=== PATIENT | female | born 1995 | race Caucasian/White ===

== ENCOUNTER 2016-07-10 03:27 | Emergency (ER) | payer BC, OTHER ==
[~2016-07-10] VITALS: Ht 167.6 cm; Wt 55.0 kg
[~2016-07-10 03:27] MED LIST: DPPI400 IM; ESCI10TA17 PO; HYDR50CA2 PO; NITR-5 PO; ONDA4TAB9 PO
[2016-07-10 03:40] VITALS: TEMP 36.8; Ht 167.6 cm; Wt 55.0 kg
[2016-07-10] MEDS ORDERED: HALOPERIDOL LACTATE 5 MG/ML 1 ML VIAL IM STA (03:44)
[2016-07-10] MEDS ORDERED: LORAZEPAM 2 MG/ML 1 ML VIAL IM STA (03:44)
[2016-07-10] MEDS ORDERED: ESCI1TAB10 PO (04:01)
[2016-07-10] MEDS ORDERED: DPPI400 INJ (04:03)
[2016-07-10] MEDS ORDERED: BND25 PO (04:05)
[2016-07-10 04:25] LABS: BASO % 0.5 %; BASO ABS # 0.04 K/uL (0-0.2); COMPLETE YES; EOS % 1.1 %; HEMATOCRIT 42.1 % (37-47); IG% 0.1 %; LYMPH % 48.5 %; LYMPH ABS # 3.68 K/uL (1.2-3.4); MEAN CELL VOLUME 86.3 fL (80-100); MEAN CORPUSCULAR HEMOGLOBIN 30.3 pg (25-34); MEAN CORPUSCULAR HGB CONC 35.2 g/dl (32-36); MONO % 5.7 %; NEUT % 44.1 %; PLATELET COUNT 246 K/uL (130-400); RED BLOOD COUNT 4.88 M/uL (4.2-5.4); WHITE BLOOD COUNT 7.59 K/uL (4.8-10.8)
[2016-07-10 04:49] LABS: BLOOD UREA NITROGEN 9 mg/dl (7-18); GLUCOSE 99 mg/dl (70-99)
[2016-07-10 04:50] LABS: ALT/SGPT 17 U/L (12-78); AST/SGOT 9 U/L (15-37); BUN/CREATININE RATIO 14.6 (10-20); CALCIUM 8.1 mg/dl (8.5-10.1); CARBON DIOXIDE 22 mmol/L (21-32); CHLORIDE 112 mmol/L (98-107); POTASSIUM 3.7 mmol/L (3.5-5.1); SODIUM 145 mmol/L (136-145)
[2016-07-10 05:00] LABS: ALB/GLOB RATIO 1.4 (0.9-2); ALKALINE PHOSPHATASE 52 U/L (45-117)
--- NOTE | 2016-07-10 05:28 | EMERGENCY ROOM VISIT NOTE ---
History Report prepared by Kenyetta: Benito King Under the Supervision of: Dr. Wilbur Sandhu M.D. First contact with patient: 03:32 Chief Complaint: ALCOHOL OVERDOSE Stated Complaint: MENTAL HEALTH EVAL. Nursing Triage Summary: patient presents with [place] police after found walking down the street and stumbling. patient admits to drinking alcohol tonight but cannot specify how much. History of Present Illness The patient is a 20 year old female who presents to the Emergency Room with complaints of alcohol overdose occurring this evening. Per the nurse, she was found walking down the street and stumbling. She drank an unspecified amount of alcohol this evening. She is not homicidal or suicidal. History is limited secondary to alcohol overdose. Source of History: EMS History Limited By: other (alcohol overdose) Onset: this evening Position: other (global) Quality: other (alcohol overdose) Timing: other (episode) Note: The patient is not suicidal or homicidal. Review of Systems Review of systems is limited secondary to alcohol overdose. Past Medical & Surgical Medical Problems: (1) ADHD (attention deficit hyperactivity disorder) (2) Anxiety (3) Asthma (4) Depression (5) H/O aspiration pneumonitis (6) H/o deliberate self cutting (7) History of suicide attempt (8) ODD (oppositional defiant disorder) (9) PTSD (post-traumatic stress disorder) (10) Social phobia Surgical Problems: (1) [place] teeth removed Family History Diabetes mellitus FH: cancer FH: heart disease Hypertension Social History Smoking Status: Never Smoker Alcohol Use: none, occasionally Drug Use: none Marital Status: single Housing Status: lives with family Occupation Status: employed Current/Historical Medications Scheduled Escitalopram Oxalate (Lexapro), 20 MG PO DAILY Medroxyprogesterone Acetate (Depo-Provera), 400 MG INJ [id number] Scheduled PRN Diphenhydramine Hcl (Benadryl), 125 MG PO HS PRN for Sleep Ondansetron (Ondansetron HCl), 4 MG PO Q6 PRN for Nausea Allergies Coded Allergies: Clindamycin (Unverified Allergy, Unknown, VOMIT, 02/17/16) Doxycycline (Verified Allergy, Unknown, UNK, 02/17/16) Penicillins (Verified Allergy, Unknown, her family is allergic, 02/17/16) Prednisone (Unverified Allergy, Unknown, MAKE MENTALY UNSTABLE, 02/17/16) Prochlorperazine (Unverified Allergy, Unknown, NUMB AND THNGLY FEELING UNABLE TO MOVE, 02/17/16) Physical Exam Vital Signs Date Time Temp Pulse Resp B/P Pulse Ox O2 Delivery O2 Flow Rate FiO2 07/10/16 07:00 122 20 86/48 95 07/10/16 06:48 96 Room Air 07/10/16 05:28 112 20 91/61 96 Room Air 07/10/16 03:55 125 07/10/16 03:40 36.8 118 22 117/80 97 Room Air Physical Exam Vital signs reviewed. General: Odor of EtOH in the breath, disheveled 20-year-old female. No signs of trauma. HEENT: Mild scleral injection bilaterally, PERRLA, neck supple, dry mucous membranes. Cardiovascular: Regular rate and rhythm, no extra sounds. Pulmonary: Clear to auscultation bilaterally, normal work of breathing. Abdomen: Soft, nontender, nondistended, positive bowel sounds. Musculoskeletal: Upper and lower extremities atraumatic, no peripheral edema Skin: Warm, dry, no rash. Atraumatic. Neurologic: Patient is currently nonverbal. Medical Decision & Procedures Laboratory Results 07/10/16 04:08 Red Blood Count 4.88, Mean Corpuscular Volume 86.3, Mean Corpuscular Hemoglobin 30.3, Mean Corpuscular Hemoglobin Concent 35.2, Mean Platelet Volume 10.0, Neutrophils (%) (Auto) 44.1, Lymphocytes (%) (Auto) 48.5, Monocytes (%) (Auto) 5.7, Eosinophils (%) (Auto) 1.1, Basophils (%) (Auto) 0.5, Neutrophils # (Auto) 3.35, Lymphocytes # (Auto) 3.68, Monocytes # (Auto) 0.43, Eosinophils # (Auto) 0.08, Basophils # (Auto) 0.04 07/10/16 04:08 Test 07/10/16 04:08 White Blood Count 7.59 K/uL (4.8-10.8) Red Blood Count 4.88 M/uL (4.2-5.4) Hemoglobin 14.8 g/dL (12.0-16.0) Hematocrit 42.1 % (37-47) Mean Corpuscular Volume 86.3 fL (80-100) Mean Corpuscular Hemoglobin 30.3 pg (25-34) Mean Corpuscular Hemoglobin Concent 35.2 g/dl (32-36) Platelet Count 246 K/uL (130-400) Mean Platelet Volume 10.0 fL (7.4-10.4) Neutrophils (%) (Auto) 44.1 % Lymphocytes (%) (Auto) 48.5 % Monocytes (%) (Auto) 5.7 % Eosinophils (%) (Auto) 1.1 % Basophils (%) (Auto) 0.5 % Neutrophils # (Auto) 3.35 K/uL (1.4-6.5) Lymphocytes # (Auto) 3.68 K/uL (1.2-3.4) Monocytes # (Auto) 0.43 K/uL (0.11-0.59) Eosinophils # (Auto) 0.08 K/uL (0-0.5) Basophils # (Auto) 0.04 K/uL (0-0.2) RDW Standard Deviation 42.2 fL (36.4-46.3) RDW Coefficient of Variation 13.4 % (11.5-14.5) Immature Granulocyte % (Auto) 0.1 % Immature Granulocyte # (Auto) 0.01 K/uL (0.00-0.02) Anion Gap 11.0 mmol/L (3-11) Est Creatinine Clear Calc Drug Dose 130.9 ml/min Estimated GFR () > 150.0 Estimated GFR (Non- 132.1 BUN/Creatinine Ratio 14.6 (10-20) Calcium Level 8.1 mg/dl (8.5-10.1) Total Bilirubin 0.2 mg/dl (0.2-1) Direct Bilirubin < 0.1 mg/dl (0-0.2) Aspartate Amino Transf (AST/SGOT) 9 U/L (15-37) Alanine Aminotransferase (ALT/SGPT) 17 U/L (12-78) Alkaline Phosphatase 52 U/L (45-117) Total Protein 7.3 gm/dl (6.4-8.2) Albumin 4.2 gm/dl (3.4-5.0) Globulin 3.1 gm/dl (2.5-4.0) Albumin/Globulin Ratio 1.4 (0.9-2) Thyroid Stimulating Hormone (TSH) 1.650 uIu/ml (0.300-4.500) Ethyl Alcohol mg/dL 234.0 mg/dl (0-3) Labs reviewed by ED physician. Medications Administered Medications (Trade) Dose Ordered Sig/Josselyn Route Start Time Stop Time Status Last Admin Dose Admin Acetaminophen (Tylenol Tab) 1,000 mg NOW STAT PO 07/10/16 07:54 07/10/16 07:55 DC 07/10/16 07:59 1,000 MG Ondansetron HCl (Zofran Odt) 4 mg NOW STAT PO 07/10/16 07:54 07/10/16 07:55 DC 07/10/16 07:59 4 MG ED Course 0343: Past medical records reviewed. The patient was evaluated in room B12B. A complete history and physical examination was performed. 0344: Ordered Ativan Inj 2 mg IM, and Haldol Inj 10 mg IM. Medical Decision Differential diagnosis: Etiologies such as alcohol intoxication, toxicologic, infection, hypoglycemia, electrolyte abnormalities, cardiac sources, intracerebral event, neurologic, as well as others were entertained. This is a 20-year-old female who presents emergency department after the police found her stumbling in the street. An ambulance was called as they're concerned over this patient's well-being as she was stumbling into traffic. Upon arrival to emergency department the patient was placed on a liter. She was placed on the monitor and aspiration precautions were taken. Alcohol level was drawn. After some time the patient's alcohol level did clear. The patient was strongly encouraged to follow up with [facility] services and to discuss this visit with her parents. Impression Primary Impression: Alcoholic intoxication Scribe Attestation The scribe's documentation has been prepared under my direction and personally reviewed by me in its entirety. I confirm that the note above accurately reflects all work, treatment, procedures, and medical decision making performed by me. Departure Information Dispostion Home / Self-Care Referrals Quincy Clements D.O. (PCP) Patient Instructions My [facility] Health Problem Qualifiers Primary Impression: Alcoholic intoxication Complication of substance-induced condition: uncomplicated Qualified Codes: F10.120 - Alcohol abuse with intoxication, uncomplicated
[2016-07-10 06:48] VITALS: O2SAT 96
[2016-07-10 07:00] VITALS: BP 86/48; PULSE 122; O2SAT 95
[2016-07-10] MEDS ORDERED: ONDANSETRON 4MG OD TAB PO STA (07:54)
[2016-07-10] MEDS ORDERED: ACETAMINOPHEN 500 MG TAB PO STA (07:54)
--- NOTE | 2016-07-10 14:41 | EMERGENCY ROOM VISIT NOTE ---
ED Visit Note First contact with patient: 07:58 20 yr old female brought in overnight for EtOH overdose after being found stumbling downtown. Initially somewhat agitated but calmed prior to any sedatives. Dr Sandhu initially evaluated and cleared patient. Monitored by me in AM and awake, alert, oriented. Mildly hung over for which tylenol/zofran given with improvement. I discussed with patient her actions and my concern that this is becoming a repetitive issue for her. She admits she made a mistake. She denies suicidal/homicidal ideation nor need for psych evaluation. Father arrived mid morning to take patient home. Stable and in no distress.
== END 2016-07-10 08:30 | disposition home or self-care (01) ==
LOC: EDBD 03:27 → C.ED 03:27 → C.EDB 08:30
DX: F10.129 Alcohol abuse with intoxication, unspecified (principal); Y90.7 Blood alcohol level of 200-239 mg/100 ml; F90.9 Attention-deficit hyperactivity disorder, unspecified type; F41.9 Anxiety disorder, unspecified; F32.9 Major depressive disorder, single episode, unspecified; J45.909 Unspecified asthma, uncomplicated; Z79.899 Other long term (current) drug therapy; Z88.0 Allergy status to penicillin; Z88.3 Allergy status to other anti-infective agents; Z88.8 Allergy status to other drugs, medicaments and biological substances; Z83.3 Family history of diabetes mellitus; Z80.9 Family history of malignant neoplasm, unspecified; Z82.49 Family history of ischemic heart disease and other diseases of the circulatory system

== ENCOUNTER → 2016-10-05 | Outpatient (CLI) | payer BC, OTHER ==
[~2016-10-05] VITALS: Ht 165.1 cm; Wt 59.7 kg
[~2016-10-05] MED LIST changes: +ALBU0.633 NEB; +DIPH25CA5 PO; -DPPI400 IM; +DPPI400 INJ; -ESCI10TA17 PO; +ESCI1TAB10 PO; +HYDR1SOL10 PO; -HYDR50CA2 PO; +LAMO25TA PO; +LTH300C PO; +LTHSR450 PO; +MEDR150I19 INJ; -NITR-5 PO; +OXYC1TAB3 PO; +ZOLP1TAB PO
[2016-10-05 13:04] VITALS: BP 120/82; PULSE 89; Ht 165.1 cm; Wt 59.7 kg
== END | disposition home or self-care (01) ==
LOC: C.NEUR 12:05
PROVIDERS: ATTEND Internal Medicine Pulmonary Disease
DX: F43.10 Post-traumatic stress disorder, unspecified (principal); G47.00 Insomnia, unspecified; F51.5 Nightmare disorder; G47.53 Recurrent isolated sleep paralysis

== ENCOUNTER → 2016-11-16 | Outpatient (CLI) | payer BC, OTHER ==
--- NOTE | 2016-11-17 06:45 | PAP/PSG TECHNICIAN REPORT ---
[facility] [employer] Psychometrist Polysomnogram Report Study name: None Report date: 11/17/2016 Study date: 11/16/2016 Referring Physician: DR. JON Name: DAVID FERRER Interpreting Physician: Daniel Jon M.D. Date of : 1995 School Psychometrist: IGLESIA Holman. Sex: Female Age: 20 StudyType: PSG Weight: 131 lbs 13 inches Height: 20 years, Height 5' 5" Neck Circum: BMI: 21.8 Medications: BENEDRYL 25 MG, ESZOPICLONE 2 MG, HYDROXYZINE PAMOATE 25 MG, LEXAPRO 20 MG, MEDROXY PROGESTERONE ACETATE 150 MG/ML, ONDANSETRON HCL 4 MG, PROVENTIL HFA 108 90 BASE, QUETIAPINE FUMARATE 50 MG Patient History PATIENT HAS TROUBLE FALLING AND MAINTAINING SLEEP. SHE HAS BEEN DEALING WITH THIS ISSUE SINCE SHE WAS 6 YEARS OLD. SHE HAS TRIED SEVERAL DIFFERENT SLEEP MEDICATIONS BUT HAS BEEN UNSUCCESSFUL. SHE HAS HISTORY OF SLEEP PARALYSIS AND NIGHTMARES. ESS = 2 RM 2 Parameters Monitored NPSG: E1-M2, E2-M1, Fp1-M2, Fp2-M1, F3-M2, F4-M2, F4-M1, C3-M2, C4-M2, C4-M1, O1-M2, O2-M2, O2-M1, T3-M2, T4-M1, P3-M2, P4-M1, CHIN1, CHIN2, HR, EKG, Legs, PFLOW, SNOR, FLOW, CFLOW, Tidal Volume, THOR, ABDO, SpO2, PLTH, CPRESS, ETCO2 Wave, ETCO2, pH Sleep Architecture Sleep Stages Time at Lights Off 10:44:13 PM STAGES Time (min.) TST (%) Time at Lights On 5:50:13 AM Wake 150.5 -- Total Recording Time (TRT) 426.50 min. N1 7.0 3 Total Sleep Period (TSP) 331.0 min. N2 152.5 55 Total Sleep Time (TST) 275.5min. N3 50.0 18 Awake Time 151.0 min. REM 66.0 24 Wake after Sleep Onset 77.0 min. Sleep Efficiency (SE) 65 % Sleep Onset Latency (MARIA INES) 73.5 min. Number of Stage 1 Shifts None Awakenings 14 Stage Changes 38 Number of REM periods 1 REM 66.0 24 REM Latency 265.0 min. NREM 209.5 76 Body Position Analysis Supine Right Left Side Prone Vertical Total Sleep Time (min.) 201.8 14.2 111.5 125.66 0.0 0.0 Total Sleep Time (%) 54% 5% 40% 46 0% N/A% Total Sleep Time REM (min.) 0.0 0.0 66.0 None 0.0 0.0 Total Sleep Time NREM (min.) 149.8 14.2 45.5 None 0.0 0.0 Intermittent Wake (min.) 51.9 33.9 64.7 None 0.0 0.0 Total Sleep Period (%) 56% None None None None None Arousals Myoclonus (PLM) * Events Count Index Events Count Index Spontaneous 24 5 Events Awake (PLMW) 94 37.5 Respiratory 0 0.0 Events Asleep w/ Arousal (PLMA) 3 0.7 PLM 3 1 Events Asleep w/o Arousal (PLMS) 52 11.3 Snoring 0 0 Total Asleep 55 12.0 Total 27 6 Total 149 21 Respiratory Analysis * CA OA MA CH H RERA Total Count 1 0 0 0 3 0 4 Index 0.2 0.0 0.0 0 0.7 0 0.9 Mean Duration 15.7 0.0 0.0 0.00 20.3 0.0 19.2 Longest Duration 15.7 0.0 0.0 0.00 0.0 0.0 20.6 Respiratory Event Summary Total Supine ~Supine Right Left Prone REM NREM Apneas Count 1 0 1 0 1 N/A 1 0 Index 0.2 0 0 0.0 0.5 N/A 1 0 Hypopneas (4% Desat) Count 3 0 3 0 3 N/A 3 0 Index 0.7 0.0 1 0.0 1.6 N/A 2.7 0.0 Apneas & All Hypopneas Count 4 0 4 0 4 N/A 4 0 Index 0.9 0 2 0 2 N/A 3.6 0.0 Respiratory Events (Conservation Or Heritage Architect+All Hyp+RERA) Count 4 0 4 0 4 N/A 4 0 Index 0.9 0 2 0.0 2.2 N/A 3.6 0.0 Respiratory Related Arousal Count 0 0 0 0 0 N/A 0 0 Index 0.0 0 0 0 0 N/A 0 0 Snoring Analysis Supine Right Left Prone REM NREM Total Snore duration 0.0 min Snores count 0 0 0 N/A 0 0 0 Snore mean duration 0.0 Sec Snores index 0 0 0 N/A 0.0 0.0 0.0 TST with snoring (%) 0.0% Desaturation Event Summary: Minimum %SpO2 Event Count Mean/Min/Max Duration(sec.) Desaturation Index % Time In Bed > 90 12 31.0 / 7.5 / 51.5 1.7 100.0 86 - 90 0 N/A 0.0 0.0 81 - 85 0 N/A 0.0 0.0 76 - 80 0 N/A 0.0 0.0 71 - 75 0 N/A 0.0 0.0 66 - 70 0 N/A 0.0 0.0 61 - 65 0 N/A 0.0 0.0 56 - 60 0 N/A 0.0 0.0 51 - 55 0 N/A 0.0 0.0 < 50 0 N/A 0.0 0.0 Total REM NREM Awake <50% 0.0 min. 0.0 min. 0.0 min. 0.0 min. 51 - 60% 0.0 min. 0.0 min. 0.0 min. 0.0 min. 61 - 70% 0.0 min. 0.0 min. 0.0 min. 0.0 min. 71 - 80% 0.0 min. 0.0 min. 0.0 min. 0.0 min. 81 - 90% 0.1 min. 0.0 min. 0.0 min. 0.1 min. 91 - 100% 422.4 min. 66.0 min. 209.5 min. 146.9 min. Average 94 95 94 95 Minimum SpO2 90 91 91 90 Desaturation Event Index 1.7 3.6 0.3 2.8 # Desat. Events below 89% N/A N/A N/A N/A Time(%) with Saturation below 89% 0.0 0.0 0.0 0.0 Time(min.) with Saturation below 89% 0.0 0.0 0.0 0.0 Time (mins) REM (mins) NREM (mins) % of TST SpO2 Below 90% N/A N/A NN/A 0.0 SpO2 Below 88% 0 0 0 0 Heart Rate Analysis Min (bpm) Max (bpm) Average (bpm) Awake 72 108 93 NREM 73 109 91 REM 68 100 88 Overall 68 109 90 Supplemental O2 Values Minimum O2 level: None Value Start Time End Time School Psychometrist Comments Ms. Ferrer slept in the right, left and supine positions. PVC's noted. Leg movements noted. No bruxism noted. Snoring was noted and scored as a 0 on a scale of 1 through 5. (0=no snoring, 5=snoring loud enough to be heard through a closed door or down the jean way) Ms. Ferrer awoke to use the restroom 0 times during the night. Ms. Ferrer stated I did not sleep as well as I do when I am in my own bed. Patient wanted me to note that her family doctor does not want to prescribe eszopiclone anymore and would see if Dr. Jon would. The final report will be interpreted and signed by a sleep physician. The completed physician report will then be placed in the patient medical record. Therapy (cm H2O) 0 TIB (min.) 426.0 TST (min.) 275.5 Sleep Onset (min.) 73.5 REM Onset From Sleep (min.) 265.0 Sleep Efficiency % 65 Wakefulness (%) 35 Wakefulness (min.) 151.0 NREM 1 (%) 3 NREM 1 (min.) 7.0 NREM 2 (%) 55 NREM 2 (min.) 152.5 NREM 3 (%) 18 NREM 3 (min.) 50.0 REM (%) 24 REM (min.) 66.0 # Arousals 27 Arousal Index 6 # Snore 0 Snore Index 0.0 AHI 0.9 AHI Supine 0 AHI Non-Supine 2 NREM AHI 0.0 REM AHI 3.6 RDI 0.9 # Obstructive Apnea 0 # Central Apnea 1 # Mixed Apnea 0 # Hypopneas 3 RERAs 0 Total Respiratory Events 5 Time Below SpO2 89% (min.) 0.0 Mean NREM SpO2 (%) 94 Mean REM SpO2 (%) 95 Mean Sleep SpO2 (%) 94 Min NREM SpO2 (%) 91 Min REM SpO2 (%) 91 Position Supine (min.) 201.8 Position Non-supine (min.) 125.7 LM Index Sleep 12.0 LM Index NREM 10.0 LM Index REM 18.2 Mean Heart Rate (bpm) 90 Min Heart Rate (bpm) 68
--- NOTE | 2016-11-17 17:18 | POLYSOMNOGRAPH REPORT ---
CLINICAL DATA: 20-year-old female referred by myself and her primary care physician and psychiatry for evaluation of difficulty falling asleep and maintaining sleep. She has been dealing with this since she was 6 years old and has tried multiple sleep medications. She does have a history of posttraumatic stress disorder, sleep paralysis, and nightmares. SLEEP ARCHITECTURE: Total sleep period was 331 minutes. Total sleep time was 275.5 minutes divided between 209.5 minutes of non-REM sleep and 66 minutes of REM sleep. Sleep onset latency was delayed at 72.5 minutes. REM latency was delayed at 265 minutes. Sleep efficiency was 65%. Wake after sleep onset was 77 minutes. Sleep consisted of stage N1 3%, N2 55%, N3 18%, REM 24%. AROUSAL DATA: 27 arousals were recorded for an index of 6 per hour. 24 were due to spontaneous arousals. PLM DATA: No PLMD was seen. There were 55 PLMs were noted for an index of 12 per hour with arousal index of 0.7 per hour. RESPIRATORY DATA: No evidence of clinically significant sleep apnea/hypopnea was seen. The AHI was 0.9. There was 1 central apneic episode, 15.7 seconds in duration. There were 3 hypopneic episodes. The mean duration of hypopnea was 20.3 seconds. OXIMETRY DATA: No significant hypoxemia was seen. Oxygen lon was 91%. Mean saturation was 94%. EKG: Heart rates ranged from 68-109 beats per minute. Occasional PVCs were noted. CERTIFIED ADDICTION COUNSELOR'S COMMENTS: The patient slept in the right, left, and supine position. No significant snoring was seen. The patient did note after the study that her PCP does not want to prescribe eszopiclone anymore and would like sleep medicine to provide it for her. IMPRESSION: No evidence of clinically significant sleep apnea/hypopnea, nocturnal hypoxemia or abnormal limb movement events during sleep to explain this patient's symptoms. RECOMMENDATIONS: The patient should continue to be treated for insomnia. JUAN
== END | disposition home or self-care (01) ==
LOC: C.NEUR 21:00
PROVIDERS: ATTEND Internal Medicine Pulmonary Disease
DX: G47.00 Insomnia, unspecified (principal); F51.5 Nightmare disorder; F43.10 Post-traumatic stress disorder, unspecified; G47.33 Obstructive sleep apnea (adult) (pediatric)

== ENCOUNTER → 2016-11-26 | Outpatient (CLI) | payer BC, OTHER ==
[~2016-11-26] VITALS: Ht 167.6 cm; Wt 58.7 kg
[2016-11-26 16:19] VITALS: BP 112/80; PULSE 83; Ht 167.6 cm; Wt 58.7 kg
== END | disposition home or self-care (01) ==
LOC: C.NEUR 15:15
PROVIDERS: ATTEND Internal Medicine Pulmonary Disease
DX: G47.00 Insomnia, unspecified (principal); F43.10 Post-traumatic stress disorder, unspecified; F32.3 Major depressive disorder, single episode, severe with psychotic features

== ENCOUNTER 2016-11-27 11:04 | Emergency (ER) | payer BC, OTHER ==
[~2016-11-27] VITALS: Ht 167.6 cm; Wt 59.8 kg
[~2016-11-27 11:04] MED LIST changes: -ALBU0.633 NEB; -HYDR1SOL10 PO; -LAMO25TA PO; -LTH300C PO; -LTHSR450 PO; -MEDR150I19 INJ; -OXYC1TAB3 PO; -ZOLP1TAB PO
[2016-11-27 11:12] VITALS: TEMP 37.1; Ht 167.6 cm; Wt 59.8 kg
[2016-11-27] MEDS ORDERED: ZOLP1TAB PO (11:12)
[2016-11-27] MEDS ORDERED: LAMO25TA PO (11:12)
[2016-11-27] MEDS ORDERED: SODIUM CHLORIDE 0.9% 1000ML 1,000 ML IV STA (12:00)
[2016-11-27] MEDS ORDERED: ONDANSETRON INJ 2 MG/ML 2 ML VIAL IV STA (12:00)
[2016-11-27] MEDS ORDERED: HYDROmorphone INJ 1 MG/ML SYR IV STA ×2 (12:00→13:57)
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
[2016-11-27 12:23] LABS: BASO % 0.5 %; BASO ABS # 0.03 K/uL (0-0.2); COMPLETE YES; EOS % 0.6 %; HEMATOCRIT 40.6 % (37-47); IG% 0.2 %; LYMPH % 26.9 %; LYMPH ABS # 1.76 K/uL (1.2-3.4); MEAN CELL VOLUME 88.3 fL (80-100); MEAN CORPUSCULAR HEMOGLOBIN 30.4 pg (25-34); MEAN CORPUSCULAR HGB CONC 34.5 g/dl (32-36); MEAN PLATELET VOLUME 10.6 fL (7.4-10.4); MONO % 10.2 %; NEUT % 61.6 %; PLATELET COUNT 189 K/uL (130-400); WHITE BLOOD COUNT 6.55 K/uL (4.8-10.8)
[2016-11-27 12:24] VITALS: O2SAT 98
[2016-11-27 12:31] LABS: ISTAT CREATININE 0.7 mg/dl; ISTAT HEMOGLOBIN 14.3 g/dl (12.0-16.0); ISTAT IONIZED CALCIUM 1.22 mmol/l
[2016-11-27 12:41] LABS: ALT/SGPT 16 U/L (12-78); AST/SGOT 10 U/L (15-37); BLOOD UREA NITROGEN 13 mg/dl (7-18); BUN/CREATININE RATIO 19.2 (10-20); CALCIUM 8.6 mg/dl (8.5-10.1); CARBON DIOXIDE 23 mmol/L (21-32); CHLORIDE 110 mmol/L (98-107); GLUCOSE 78 mg/dl (70-99); SODIUM 143 mmol/L (136-145)
[2016-11-27 12:46] LABS: ALKALINE PHOSPHATASE 47 U/L (45-117)
[2016-11-27 12:54] LABS: PREG INTERNAL NEGATIVE QC NEG CLEAR BACKGROUND; PREG INTERNAL POSITIVE QC POS CONTROL LINE
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
[2016-11-27] MEDS ORDERED: ALBUTEROL HFA 8 GM INHALER INH STA (13:13)
[2016-11-27] MEDS ORDERED: ALBUTEROL 0.5% NEB SOLN 2.5 MG/0.5 ML VIAL INH STA (13:13)
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
[2016-11-27] MEDS ORDERED: OXYC1TAB3 PO (14:01)
[2016-11-27] MEDS ORDERED: ALBU0.633 NEB (14:05)
[2016-11-27 14:30] VITALS: BP 106/70; PULSE 119; O2SAT 98
== END 2016-11-27 14:44 | disposition home or self-care (01) ==
LOC: EDBD 11:04 → C.EDC 11:07
DX: M54.2 Cervicalgia (principal); V89.2XXA Person injured in unspecified motor-vehicle accident, traffic, initial encounter; F90.9 Attention-deficit hyperactivity disorder, unspecified type; F41.9 Anxiety disorder, unspecified; J45.909 Unspecified asthma, uncomplicated; F33.41 Major depressive disorder, recurrent, in partial remission; F91.3 Oppositional defiant disorder; F43.10 Post-traumatic stress disorder, unspecified; F40.10 Social phobia, unspecified; Z83.3 Family history of diabetes mellitus; Z82.49 Family history of ischemic heart disease and other diseases of the circulatory system

== ENCOUNTER 2017-01-08 14:02 | Emergency (ER) | payer BC, OTHER ==
[~2017-01-08] VITALS: Ht 165.1 cm; Wt 51.0 kg
[~2017-01-08 14:02] MED LIST changes: +ALBU0.633 NEB; +BND25 PO; -DIPH25CA5 PO; +LAMO25TA PO; +OXYC1TAB3 PO; +ZOLP1TAB PO
[2017-01-08 14:09] VITALS: Ht 165.1 cm; Wt 51.0 kg
[2017-01-08 14:21] LABS: URINE APPEARANCE TURBID (CLEAR); URINE BILIRUBIN NEG (NEG); URINE COLOR YELLOW; URINE EPITHELIAL CELL AUTO >30 /lpf (0-5); URINE NITRITE POS (NEG); URINE PH 7.5 (4.5-7.5); URINE SPECIFIC GRAVITY 1.023 (1.000-1.030); UROBILINOGEN NEG (NEG); ZZUR CULT IF INDIC CLEAN CATCH YES
[2017-01-08 14:32] LABS: MANUAL MICROSCOPIC REQUIRED? NO; REVIEW REQ? NO
[2017-01-08 14:33] LABS: SULFASALICYLIC ACID NEG (NEG)
[2017-01-08 14:36] LABS: BASO % 0.2 %; BASO ABS # 0.01 K/uL (0-0.2); COMPLETE YES; EOS % 1.6 %; HEMATOCRIT 46.4 % (37-47); IG% 0.3 %; LYMPH % 29.3 %; LYMPH ABS # 1.83 K/uL (1.2-3.4); MEAN CELL VOLUME 88.4 fL (80-100); MEAN CORPUSCULAR HEMOGLOBIN 30.7 pg (25-34); MEAN CORPUSCULAR HGB CONC 34.7 g/dl (32-36); MEAN PLATELET VOLUME 10.4 fL (7.4-10.4); MONO % 10.2 %; NEUT % 58.4 %; PLATELET COUNT 182 K/uL (130-400); RED BLOOD COUNT 5.25 M/uL (4.2-5.4); WHITE BLOOD COUNT 6.25 K/uL (4.8-10.8)
[2017-01-08] MEDS ORDERED: CEPHALEXIN MONOHYDRATE 250 MG CAP PO ONE (14:45)
[2017-01-08 14:49] LABS: BENZODIAZEPINE, URINE NEG (NEG); COCAINE,URINE NEG (NEG); PHENCYCLIDINE, URINE NEG (NEG)
[2017-01-08 14:52] LABS: ALT/SGPT 18 U/L (12-78); BLOOD UREA NITROGEN 10 mg/dl (7-18); BUN/CREATININE RATIO 15.6 (10-20); CALCIUM 8.9 mg/dl (8.5-10.1); CARBON DIOXIDE 23 mmol/L (21-32); CHLORIDE 110 mmol/L (98-107); CREATININE 0.61 mg/dl (0.60-1.20); GLUCOSE 86 mg/dl (70-99); POTASSIUM 3.7 mmol/L (3.5-5.1); SODIUM 140 mmol/L (136-145)
[2017-01-08 15:03] LABS: ALB/GLOB RATIO 1.2 (0.9-2); ALKALINE PHOSPHATASE 64 U/L (45-117); AST/SGOT 14 U/L (15-37); THYROID STIMULATING HORMONE 0.801 uIu/ml (0.300-4.500)
[2017-01-08 15:11] LABS: ACETAMINOPHEN < 2 ug/ml (10-30)
[2017-01-08] MEDS ORDERED: hydrOXYzine HCL 25 MG TAB PO STA (18:41)
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
[2017-01-08 21:35] VITALS: BP 119/77; PULSE 71; TEMP 37.3; O2SAT 98
[2017-01-14 12:44] LABS: SYNTHETIC CANNABINOIDS QL URIN NEGATIVE (Negative)
== END 2017-01-08 21:37 ==
LOC: EDBD 14:02 → C.EDA 14:08
DX: F39 Unspecified mood [affective] disorder (principal); N39.0 Urinary tract infection, site not specified; R45.851 Suicidal ideations; F90.9 Attention-deficit hyperactivity disorder, unspecified type; F41.9 Anxiety disorder, unspecified; J45.909 Unspecified asthma, uncomplicated; F32.9 Major depressive disorder, single episode, unspecified; F91.3 Oppositional defiant disorder; F43.10 Post-traumatic stress disorder, unspecified; F40.10 Social phobia, unspecified; Z83.3 Family history of diabetes mellitus; Z82.49 Family history of ischemic heart disease and other diseases of the circulatory system

== ENCOUNTER 2017-02-12 03:27 | Inpatient (IN) | payer BC, OTHER ==
[~2017-02-12] VITALS: Ht 165.1 cm; Wt 57.2 kg
[~2017-02-12 03:27] MED LIST changes: -OXYC1TAB3 PO
[2017-02-12] MEDS ORDERED: MEDR150I19 INJ (04:09)
[2017-02-12] MEDS ORDERED: LTH300C PO (04:10)
[2017-02-12] MEDS ORDERED: ALBU0.633 NEB (04:11)
[2017-02-12 04:23] LABS: HEMATOCRIT 45.1 % (37-47); MEAN CELL VOLUME 89.8 fL (80-100); MEAN CORPUSCULAR HEMOGLOBIN 29.5 pg (25-34); MEAN CORPUSCULAR HGB CONC 32.8 g/dl (32-36); MEAN PLATELET VOLUME 9.8 fL (7.4-10.4); PLATELET COUNT 241 K/uL (130-400); RED BLOOD COUNT 5.02 M/uL (4.2-5.4); WHITE BLOOD COUNT 6.88 K/uL (4.8-10.8)
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
[2017-02-12 04:54] LABS: ALT/SGPT 26 U/L (12-78); AST/SGOT 17 U/L (15-37); BLOOD UREA NITROGEN 8 mg/dl (7-18); BUN/CREATININE RATIO 12.6 (10-20); CALCIUM 8.6 mg/dl (8.5-10.1); CARBON DIOXIDE 23 mmol/L (21-32); CHLORIDE 111 mmol/L (98-107); CREATININE 0.64 mg/dl (0.60-1.20); GLUCOSE 92 mg/dl (70-99); POTASSIUM 3.6 mmol/L (3.5-5.1); SODIUM 142 mmol/L (136-145)
[2017-02-12 04:54] LABS: URINE APPEARANCE CLEAR (CLEAR); URINE BILIRUBIN NEG (NEG); URINE COLOR YELLOW; URINE NITRITE NEG (NEG); URINE PH 6.5 (4.5-7.5); URINE SPECIFIC GRAVITY 1.013 (1.000-1.030); UROBILINOGEN NEG (NEG)
[2017-02-12 04:57] LABS: ACETAMINOPHEN < 2 ug/ml (10-30)
[2017-02-12 05:02] LABS: MANUAL MICROSCOPIC REQUIRED? NO; REVIEW REQ? NO
[2017-02-12 05:05] LABS: ALKALINE PHOSPHATASE 52 U/L (45-117); THYROID STIMULATING HORMONE 0.859 uIu/ml (0.300-4.500)
[2017-02-12 05:13] LABS: BENZODIAZEPINE, URINE NEG (NEG); COCAINE,URINE NEG (NEG); PHENCYCLIDINE, URINE NEG (NEG)
[2017-02-12] MEDS ORDERED: LITHIUM CARBONATE 300 MG TAB PO STA (07:35)
[2017-02-12 12:36] VITALS: O2SAT 96
[2017-02-12] MEDS ORDERED: NURSING VERBAL MED ORDER ONE (12:45)
[2017-02-12] MEDS ORDERED: ACETAMINOPHEN 325 MG TAB PO PRN (13:15)
[2017-02-12] MEDS ORDERED: MAGNESIUM HYDROXIDE SUSP 30 ML UDC PO PRN (13:15)
[2017-02-12] MEDS ORDERED: ALUMINUM/MAGNESIUM SUSP 30 ML UDC PO PRN (13:15)
[2017-02-12] MEDS ORDERED: SODIUM CHLORIDE 0.65% NA SOLN 45 ML (OCEAN) PRN (13:15)
[2017-02-12] MEDS ORDERED: BISMUTH SUBSALICYLATE PER ML OMNICELL CHARGE PO PRN (13:15)
[2017-02-12] MEDS ORDERED: hydrOXYzine HCL 25 MG TAB PO PRN ×2 (13:15)
[2017-02-12 13:43] VITALS: BP_SYST 100; BP_SYST 117; BP_DIAS 58; BP_DIAS 80; PULSE 102; TEMP 36.7; Ht 165.1 cm; Wt 57.2 kg
--- NOTE | 2017-02-12 15:19 | EMERGENCY ROOM VISIT NOTE ---
ED Visit Note First contact with patient: 10:41 This patient was evaluated by mental health after she was medically cleared. It was recommended by psychiatry that the patient be admitted to [facility] [address] for further management. She initially refused but was willing as there is a bed at our facility. A 302 petitioning statement remains on the patient's chart. These refer to Dr. Farooq's notes for further details of the history, physical and visit.
[2017-02-12] MEDS ORDERED: ONDANSETRON 4 MG TAB PO PRN (15:30)
[2017-02-12] MEDS ORDERED: LORAZEPAM 1 MG TAB PO PRN (16:00)
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
[2017-02-12 21:06] VITALS: BP 110/74; PULSE 92; TEMP 36.9
[2017-02-12] MEDS: LITHIUM CARBONATE 300 MG TAB PO SCH (21:09)
[2017-02-13 06:54] VITALS: BP_SYST 106; BP_SYST 109; BP_DIAS 68; BP_DIAS 72; PULSE 80; TEMP 36.9
[2017-02-13] MEDS: LITHIUM CARBONATE 300 MG TAB PO SCH (09:26)
[2017-02-13 09:28] VITALS: BP 113/80; PULSE 88; TEMP 36.6
--- NOTE | 2017-02-13 12:38 | Psychiatric Progress Notes ---
Progress Note Date of Service Feb 13, 2017. Interval History 21 year old single female admitted with Bipolar depression and suicidal thoughts after binge episode of drinking alcohol. Psychiatric hospitalization 1 month ago for suicidal ideation. Patient signed a 72 hours notice to withdraw from services on 02/12/17 at 7:10pm. Chief Complaint "I feel good". Subjective Patient was seen & assessed interval progress reviewed with Nursing. Patient reports that mood is much better. Denies feeling depressed or anxious. Tolerating medications well other than increased thirst. Denies any thoughts to harm self or others. Admits to worrying about upcoming outpatient surgery scheduled on 02/16/17 for tonsillectomy as she has had chronic problems with infections. She felt she only slept a couple hours last evening but staff felt patient slept 8 hours. Patient signed a 72 hours notice to withdraw from services on 02/12/17 at 7:10pm. Review of Systems Psych: denies symptoms other than stated above Constitutional: denied Cardiovascular: denied GI: denied Neurologic: denied Remainder of 10 body systems also reviewed and denied other than noted above. Sleep Information Total Hours of Sleep: 8.00 Meal Information Percent of Breakfast Consumed: 100 Percent of Dinner Consumed: 75 Mental Status Exam During interview pt is: alert and oriented, cooperative Appearance: appropriately dressed, appropriately groomed, appeared stated age Eye contact is: good Motor behavior is: steady gait & station Speech: normal in rate, rhythm & volume Affect: euthymic Mood is: irritable (upset over being hospitalized) Thought process: goal directed, clear, coherent Thought content: reality based without delusions Suicidal thought are: denied (but had reports not wanting to be alive and suicidal thoughts at time of admission) Homicidal thoughts are: denied Hallucinations: denies auditory, denies visual Cognition: memory grossly intact, attention grossly intact, language grossly intact Intelligence estimated to be: average Insight: fair Judgement: fair Impression 21 yo female presents to emergency department accompanied by friend. Had reported not wanting to be alive and friend reports that patient had been having suicidal thoughts over the past month that patient denies. Patient hospitalized at [facility] Psychiatric unit on January 08, 2017 due to depression and suicidal thoughts. Plan (1) Bipolar 1 disorder, depressed, moderate The patient is admitted to [facility] ([facility] mental health unit) on q 15 min checks (behavioral with suicide precautions) for safety. The patient will participate in group, recreational and milieu therapies and will be offered additional individual and family sessions as clinically appropriate. Will continue [place] 300mg twice daily as patient feels that mood has stabilized significantly with this. Will check [place] level. Reviewed risk factors including medication interactions such as NSAIS (including Ibuprofen and Naproxen) that may increase risk for toxicity.Patient has chronic history of poor sleep and has failed or not tolerated numerous sleep aids but reports that she has benefitted from Benadryl 100mg at bedtime and will continue this and reassess.Will attempts to obtain old records from [facility] and [facility] for collateral history. 02/13 -[place] level 0.3 so for further mood stabilization will increase [place] and switch to extended release at patient request to a dose of 450mg twice daily which patient reports that she has been on in the past. (2) Suicidal ideation The patient is admitted to [facility] ([facility] mental health unit) on q 15 min checks (behavioral with suicide precautions) for safety. The patient will participate in group, recreational and milieu therapies and will be offered additional individual and family sessions as clinically appropriate. (3) Alcohol overdose Will place patient on AWSS protocol. She minimizes alcohol use and by report has binge like pattern but will assess for signs and symptoms of withdrawal. Discussed mood altering effects of alcohol and encouraged abstinence but patient minimizes problem and declines referral or information to address this. (4) Asthma Will monitor patient's respiratory status. (5) PTSD (post-traumatic stress disorder) Discussed with patient consideration of outpatient therapy and she reports struggling to find therapist who will accept her insurance but she is open to pursuing this further. (6) Social phobia Discussed with patient consideration of outpatient therapy and she reports struggling to find therapist who will accept her insurance but she is open to pursuing this further. (7) Borderline personality disorder Discussed with patient consideration of outpatient therapy and she reports struggling to find therapist who will accept her insurance but she is open to pursuing this further. Discharge / Aftercare Planning Primary Care Physician: Name: Dr. Quincy Clements Date of Appointment: Feb 24, 2017 Time of Appointment: 1:45 Psychiatrist: Name: Dr. Glez Date of Appointment: Feb 17, 2017 Time of Appointment: 4:00 Therapist: Name: Patient does not have a therapist [facility] Date of Appointment: Feb 16, 2017 Visit Code E&M Code: 69013 Risk Factors Assessment : Yes /single/: Yes Mental Health Diagnoses: Yes Previous attempt: Yes Previous psychiatric stay: Yes Smoker: Yes Protective Factors Assessment Orthodox beliefs: No : No Responsible for young children: No Employed: No Stable relationships: No Supportive family: No Data Vital Signs Last 24 Hrs: Date Time Temp Pulse Resp B/P (MAP) Pulse Ox O2 Delivery O2 Flow Rate FiO2 02/13/17 09:28 36.6 88 16 113/80 02/13/17 06:54 36.9 80 16 109/68 80 106/72 02/12/17 21:06 36.9 92 16 110/74 02/12/17 13:43 36.7 102 18 117/80 02/12/17 12:36 103 18 100/58 96 Room Air Meds Administered Last 24 Hrs: Meds Administered (Past 24Hrs) Medications (Trade) Dose Ordered Sig/Josselyn Route Start Time Stop Time Status Last Admin Dose Admin [place] Carbonate ([place] Carbonate Tab) 300 mg NOW STAT PO 02/12/17 07:35 02/12/17 07:36 DC 02/12/17 08:03 300 MG [place] Carbonate ([place] Carbonate Tab) 300 mg BID PO 02/12/17 22:00 02/13/17 12:23 DC 02/13/17 09:26 300 MG Diphenhydramine HCl (Benadryl Cap) 100 mg HS PRN PO 02/12/17 22:00 03/14/17 15:29 02/12/17 21:09 100 MG Lab Results Last 24 Hrs: Last 24 Hours Test 02/13/17 08:33 [place] Level 0.3 mMOL/L
[2017-02-13] MEDS: LITHIUM CARBONATE 450 MG TABCR PO SCH (20:55)
[2017-02-14 07:00] VITALS: BP_SYST 102; BP_SYST 95; BP_DIAS 65; BP_DIAS 70; PULSE 64; PULSE 73; TEMP 36.9
[2017-02-14] MEDS: LITHIUM CARBONATE 450 MG TABCR PO SCH ×2 (08:50→21:10)
--- NOTE | 2017-02-14 12:07 | Psychiatric Progress Notes ---
Progress Note Date of Service Feb 14, 2017. Interval History 21 year old single female admitted with Bipolar depression and suicidal thoughts after binge episode of drinking alcohol. Psychiatric hospitalization 1 month ago for suicidal ideation. Patient signed a 72 hours notice to withdraw from services on 02/12/17 at 7:10pm. Chief Complaint "Good, a little tired". Subjective Patient was seen & assessed interval progress reviewed with Treatment Team. Staff report she is demonstrating jingle writer affect, spontaneously interacting with others, and anxiety has lessened. She is consistently denied suicidality, but has been unwilling to sign a release for her parents are to involve them in her treatment. Today she was seen in her room, where she remained in bed, stating that she slept well overnight but was still tired. She reports good mood and denies suicidal thoughts, and says "it's dumb and I shouldn't be here, I got drunk and said something stupid." She wants to be discharged and is refusing to rescind her 72 hour notice. She does feel the higher dose of lithium will be helpful, and denies any side effects. She is agreeable to allow staff to talk with her parents to confirm her safety plan, specifically that all of her medications are kept in a safe and that she will not have access to large amounts of pills. She states that she recognizes that alcohol use is not helpful for her, and feels she will be able to abstain from alcohol without any difficulty. She states that she was drinking prior to admission because her parents were out of town. She is willing for a referral to [facility] for therapy, and has multiple appointments coming up this week, including with her new psychiatrist on . Sleep Information Total Hours of Sleep: 6.50 Meal Information Percent of Breakfast Consumed: 100 Percent of Lunch Consumed: 100 Percent of Dinner Consumed: 100 Mental Status Exam During interview pt is: alert and oriented, cooperative, other (lying in bed with a stuffed animal) Appearance: appropriately dressed, disheveled, appeared stated age Eye contact is: good Motor behavior is: no abnormal motor movements Speech: normal in rate, rhythm & volume Affect: euthymic Mood is: other ("good") Thought process: goal directed, clear, coherent Thought content: reality based without delusions Suicidal thought are: denied Homicidal thoughts are: denied Hallucinations: denies auditory, denies visual Cognition: memory grossly intact, attention grossly intact, language grossly intact Intelligence estimated to be: average Insight: fair Judgement: fair Impression 21 yo female presents to emergency department accompanied by friend after expressing suicidal thoughts. Had reported not wanting to be alive and friend reports that patient had been having suicidal thoughts over the past month that patient denies. Patient hospitalized at [facility] Psychiatric unit on January 08, 2017 due to depression and suicidal thoughts. Plan (1) Bipolar 1 disorder, depressed, moderate The patient is admitted to [facility] ([facility]) on q 15 min checks (behavioral with suicide precautions) for safety. The patient will participate in group, recreational and milieu therapies and will be offered additional individual and family sessions as clinically appropriate. Will continue [place] 300mg twice daily as patient feels that mood has stabilized significantly with this. Will check [place] level. Reviewed risk factors including medication interactions such as NSAIS (including Ibuprofen and Naproxen) that may increase risk for toxicity. Patient has chronic history of poor sleep and has failed or not tolerated numerous sleep aids but reports that she has benefitted from Benadryl 100mg at bedtime and will continue this and reassess.Will attempts to obtain old records from [facility] and [facility] for collateral history. 02/13 -[place] level 0.3 so for further mood stabilization will increase [place] and switch to extended release at patient request to a dose of 450mg twice daily which patient reports that she has been on in the past. 02/14 -Tolerating the increased dose of lithium well, and staff to confirm with parents that medications will be kept in a safe and she will not have access to large amounts of pills in order to decrease her risk of impulsive overdose. -Referred for therapy, and send records to Dr. Glez, who will be seeing her for an initial evaluation on 02/17/2017. (2) Suicidal ideation The patient is admitted to [facility] ([facility]) on q 15 min checks (behavioral with suicide precautions) for safety. The patient will participate in group, recreational and milieu therapies and will be offered additional individual and family sessions as clinically appropriate. (3) Alcohol overdose Will place patient on AWSS protocol. She minimizes alcohol use and by report has binge like pattern but will assess for signs and symptoms of withdrawal. Discussed mood altering effects of alcohol and encouraged abstinence but patient minimizes problem and declines referral or information to address this. 02/14 - no symptoms of alcohol withdrawal. We again discussed the risks of ongoing alcohol abuse, and the patient is agreeable to abstain from alcohol. She will be referred to [facility] for substance abuse treatment. (4) PTSD (post-traumatic stress disorder) Discussed with patient consideration of outpatient therapy and she reports struggling to find therapist who will accept her insurance but she is open to pursuing this further. (5) Social phobia Discussed with patient consideration of outpatient therapy and she reports struggling to find therapist who will accept her insurance but she is open to pursuing this further. (6) Borderline personality disorder Discussed with patient consideration of outpatient therapy and she reports struggling to find therapist who will accept her insurance but she is open to pursuing this further. (7) Asthma Will monitor patient's respiratory status. Discharge / Aftercare Planning Primary Care Physician: Name: Dr. Quincy Clements Date of Appointment: Feb 24, 2017 Time of Appointment: 1:45pm Psychiatrist: Name: Dr. Glez Date of Appointment: Feb 17, 2017 Time of Appointment: 4:00pm Therapist: Name: [facility] Date of Appointment: Feb 22, 2017 Time of Appointment: 3:30pm Appointment Notes: Please bring Photo ID and Insurance card Specialist: Name: [facility] Date of Appointment: Feb 16, 2017 Visit Code E&M Code: 84914 Risk Factors Assessment : Yes /single/: Yes Mental Health Diagnoses: Yes Previous attempt: Yes Previous psychiatric stay: Yes Smoker: Yes Protective Factors Assessment Yarsani beliefs: No : No Responsible for young children: No Employed: No Stable relationships: No Supportive family: No Data Vital Signs Last 24 Hrs: Date Time Temp Pulse Resp B/P (MAP) Pulse Ox O2 Delivery O2 Flow Rate FiO2 02/14/17 07:00 36.9 73 16 95/65 64 102/70 Meds Administered Last 24 Hrs: Meds Administered (Past 24Hrs) Medications (Trade) Dose Ordered Sig/Josselyn Route Start Time Stop Time Status Last Admin Dose Admin [place] Carbonate ([place] Carbonate Tab) 300 mg BID PO 02/12/17 22:00 02/13/17 12:23 DC 02/13/17 09:26 300 MG Diphenhydramine HCl (Benadryl Cap) 100 mg HS PRN PO 02/12/17 22:00 03/14/17 15:29 02/13/17 20:55 100 MG [place] Carbonate (Eskalith Cr Tab) 450 mg BID PO 02/13/17 22:00 03/15/17 21:59 02/14/17 08:50 450 MG Problem Qualifiers (1) Alcohol overdose: Encounter type: initial encounter Injury intent: undetermined intent Qualified Codes: T51.94XA - Toxic effect of unspecified alcohol, undetermined, initial encounter
[2017-02-15 07:06] VITALS: BP_SYST 100; BP_SYST 95; BP_DIAS 64; BP_DIAS 68; PULSE 80; TEMP 37
[2017-02-15] MEDS: LITHIUM CARBONATE 450 MG TABCR PO SCH (08:49)
[2017-02-15] MEDS ORDERED: LTHSR450 PO (09:32)
--- NOTE | 2017-02-15 10:00 | Discharge Instructions ---
Discharge Information Report Includes Report will include the: Discharge Instructions & Summary Admission Admission Date / Time: Feb 12, 2017 at 12:40 Reason for Admission: Bipolar Depressed Discharge Discharge Diagnosis / Problem: Bipolar disorder Discharge Goals Goal(s): Improve function, Improve disease control, Learn about illness, Therapeutic intervention Activity Recommendations Activity Limitations: per Instructions/Follow-up section . Instructions / Follow-Up Instructions / Follow-Up . SPECIAL CARE INSTRUCTIONS: 1. Follow through with your scheduled aftercare appointments. If unable to keep an appointment, please call to reschedule. 2. Take your medication only as prescribed. Medication should not be changed or stopped without the approval of your doctor. In the event of worsening symptoms or concerns about side effects, contact your doctor immediately. 3. Utilize new healthy coping skills, anger management skills, and stress management skills learned during your hospitalization. Journal feelings and process them with a support person. Identify stressors or situations that may result in relapse, deterioration or inappropriate behaviors and develop a plan to deal with those issues. 4. If your coping skills are ineffective and you are in crisis, contact your outpatient providers for direction. If unable to reach your providers, please call the CAN HELP LINE AT or go to the closest Emergency Room. 5. Avoid alcohol and un-prescribed drugs. 6. You have been provided with the Mental Health Advance Directives Pamphlet for your review. AFTERCARE APPOINTMENTS: * Please call your insurance company prior to your scheduled appointment to confirm your aftercare providers are covered. Take your insurance information to your appointments. . Discharge / Aftercare Planning Primary Care Physician: Name: Dr. Quincy Clements Date of Appointment: Feb 24, 2017 Time of Appointment: 1:45pm Psychiatrist: Name: Dr. Glez Date of Appointment: Feb 17, 2017 Time of Appointment: 4:00pm Therapist: Name Of Therapist: [facility] Date of Appointment: Feb 22, 2017 Time of Appointment: 3:30pm Appointment Comments: Please bring Photo ID and Insurance card Home Health Services: Home Health Services: none Specialist: Name: [facility] Date of Appointment: Feb 16, 2017 . Follow-Up Care Plan for Follow-Up Care: See above. Current Hospital Diet Patient's current hospital diet: Regular Diet Discharge Diet Recommended Diet: Regular Diet Procedures Procedures Performed: No Pending Studies Pending Studies at Discharge: No Medical Emergencies . Who to Call and When: Medical Emergencies: For questions or emergencies related to your hospital stay, please contact the Inpatient Behavioral Health Unit at [phone]. A program development manager is on-call 10/01 for the Behavioral Health Unit for emergencies At any time you feel your situation is an emergency, you may also call 911 immediately. . Non-Emergent Contact Non-Emergency issues call your: Primary Care Provider, Psychiatrist, Therapist Past History Medical & Surgical History: (1) Alcohol overdose (2) Asthma Advance Directives Existing Advance Directive: No Do You Have an Existing Mental: No Existing Living Will: No Existing Power of Rn Field: No Advance Directives Info Given: To Pt/S.O. Advance Directives Reason: Declines as Mental Health Visit. Discharge Summary Admission HPI Per the Admitting provider: Patient admitted to [facility] on January 08, 2017 for 10 day admission due to suicidal thoughts. She was started on [place] 300mg twice daily. She reports that [place] level was 0.4 at time of discharge but repeated by her PCP Dr. Abreu who had reported to her that level was normal. Reports that mood improved significantly during hospitalization and mood good over the past month. On night of admission patient had been drinking alcohol to point of intoxication. She called a friend of hers who met her in a parking lot. She had expressed to the friend of hers that she did not want to be alive anymore. Patient asked friend to report to police who were in the parking lot that she needed help. Friend reported that patient had expressed having suicidal thoughts over the past month but patient denies having these thoughts and states she only had them on night of admission. Denies thoughts to harm others. Denies auditory or visual hallucinations or paranoia. Patient reports having history of manic symptoms where she can stay up for days at a time and clean and rearrange things and "feel that I can do anything" and during these times has quit jobs. She was diagnosed with PTSD following near experience of her mother who had undergone emergency and ended up having to be lifeflighted. Denies startling easily but admits to being hypervigilant and difficulties trusting others and has had dissociative experiences of feeling numb since this time. Chronic pattern of unstable interpersonal relationships. Public displays of anger. Intense brief episodic moods including sadness, irritability and anxiety typically triggered by environment around her. Has been diagnosed with Borderline Personality disorder in the past. Increased social anxiety and avoids social situations. Admission Exam Per the Admitting provider: Please see admission H&P. Hospital Course (1) Bipolar 1 disorder, depressed, moderate The patient is admitted to [facility] ([facility] mental health unit) on q 15 min checks (behavioral with suicide precautions) for safety. The patient will participate in group, recreational and milieu therapies and will be offered additional individual and family sessions as clinically appropriate. Will continue [place] 300mg twice daily as patient feels that mood has stabilized significantly with this. Will check [place] level. Reviewed risk factors including medication interactions such as NSAIS (including Ibuprofen and Naproxen) that may increase risk for toxicity. Patient has chronic history of poor sleep and has failed or not tolerated numerous sleep aids but reports that she has benefitted from Benadryl 100mg at bedtime and will continue this and reassess.Will attempts to obtain old records from [facility] and [facility] for collateral history. 02/13 -[place] level 0.3 so for further mood stabilization will increase [place] and switch to extended release at patient request to a dose of 450mg twice daily which patient reports that she has been on in the past. 02/14 -Tolerating the increased dose of lithium well, and staff to confirm with parents that medications will be kept in a safe and she will not have access to large amounts of pills in order to decrease her risk of impulsive overdose. -Referred for therapy, and send records to Dr. Glez, who will be seeing her for an initial evaluation on 02/17/2017. 02/15 -The patient's 72 hour notice expires today, and she is not willing to rescind it. She does not meet criteria for an involuntary commitment, has consistently denied suicidal thoughts here, and is able to review her discharge safety plan. Prescription provided for 1 week's supply of lithium (limiting her supply due to history of overdose and impulsivity as well as recent suicidal ideation), and she will see Dr. Glez in 2 days. He has also been referred for therapy, and has an initial appointment at [facility] on 2016. (2) Suicidal ideation The patient is admitted to [facility] ([facility] unit) on q 15 min checks (behavioral with suicide precautions) for safety. The patient will participate in group, recreational and milieu therapies and will be offered additional individual and family sessions as clinically appropriate. (3) Alcohol overdose Will place patient on AWSS protocol. She minimizes alcohol use and by report has binge like pattern but will assess for signs and symptoms of withdrawal. Discussed mood altering effects of alcohol and encouraged abstinence but patient minimizes problem and declines referral or information to address this. 02/14 - no symptoms of alcohol withdrawal. We again discussed the risks of ongoing alcohol abuse, and the patient is agreeable to abstain from alcohol. She will be referred to [facility] for substance abuse treatment. 02/15 - reviewed recommendations to abstain from alcohol and risks of ongoing substance abuse. Follow up at [facility] for counseling on 02/22/17. (4) PTSD (post-traumatic stress disorder) Discussed with patient consideration of outpatient therapy and she reports struggling to find therapist who will accept her insurance but she is open to pursuing this further. (5) Social phobia Discussed with patient consideration of outpatient therapy and she reports struggling to find therapist who will accept her insurance but she is open to pursuing this further. (6) Borderline personality disorder Discussed with patient consideration of outpatient therapy and she reports struggling to find therapist who will accept her insurance but she is open to pursuing this further. (7) Asthma Will monitor patient's respiratory status. Risk Factors Assessment : Yes /single/: Yes Mental Health Diagnoses: Yes Previous attempt: Yes Previous psychiatric stay: Yes Smoker: Yes Protective Factors Assessment Moravian beliefs: No : No Responsible for young children: No Employed: No Stable relationships: No Supportive family: No Absence of risk factors above: Yes (risk factors were mitigated by admission to the hospital, adjusting medications to target mood, involving the patient in groups and therapy on the unit, working on healthy coping skills and a discharge safety plan, offering a family meeting with parents which she declined , although she did allow staff to contact her mother and confirmed that all medications would be kept in a safe so she would not have access to large amounts of pills, educating her about the risks of alcohol abuse and recommendations for abstinence, and referring her for outpatient therapy and psychiatric follow-up. She has consistently denied suicidal thoughts throughout her stay, and is taking medications as directed, performing ADLs independently, and has submitted a 72 hour notice which expires today. She is requesting discharge, and that she is no longer at acute risk of harm to herself or others, can be managed as an outpatient at this time.) Day of Discharge Assessment Hospital Course: On admission, the patient was continued on her home dose of lithium 300 mg twice a day, and a trough level was ordered for the following day. The level was 0.3, so her lithium dose was increased to 450 mg twice a day, which she tolerated well. She minimized the events that led to her admission, stating that the suicidal thoughts occurred in the context of intoxication, although her friend stated that the patient had expressed suicidal thoughts over the past month. She also endorsed symptoms of eduardo, PTSD, and borderline personality disorder. She reported improved mood in the hospital, denied symptoms of depression, anxiety, and suicidal thoughts. She did not engage in self-injurious behavior, and was not threatening or aggressive towards others. She submitted a 72 hour notice requesting to withdraw from treatment, stating that she had a tonsillectomy scheduled for 02/16/2017, and an initial psychiatric evaluation with Dr. Glez the following day, and did not want to miss these. She did not feel that she needed to be in the hospital, and was largely focused on discharge. She initially refused to sign releases for her parents, but ultimately agreed to sign a release so that the safety plan could be confirmed, specifically that all her medications would be kept in a safe that could be accessed only by her stepfather's fingerprint. This was confirmed with her mother prior to discharge. She had appropriate interactions with staff and peers during her hospitalization, and spend free time socializing with peers. She processed her stressors, including her relationship with her parents, her role as a caregiver for her younger brother, financial strain, unemployment, and difficulty finding an outpatient therapist to accepts her insurance. She was willing for a referral to [facility] counseling, and was scheduled with the therapist there. She was eating and sleeping well throughout her stay, and performed ADLs independently. Day of Discharge Assessment: The patient states that her mood is "good, just a little tired." She states mood and anxiety have improved throughout her stay, she is tolerating her medication well, although she notes slight increase in thirst, and she continues to deny suicidal thoughts. She does not feel she needs to stay in the hospital any longer, and would like to be discharged to home today. Her mother will be picking her up. She is able to review her discharge safety plan , and denies any concerns with discharge. Well nourished, well developed WF appearing stated age. Casually dressed and adequately groomed. Calm and cooperative. Seated in NAD, with fair eye contact and no abnormal movements. Speech is normal rate, volume, and tone. Mood is "good," and affect is stable and congruent. Thoughts are linear, logical and goal directed. The patient denied suicidal and homicidal ideation and was able to safety plan. No paranoia, delusions, or hallucinations, and did not appear to be responding to internal stimuli. Cognition was grossly intact. Alert and oriented to person, place and time. Intelligence is consistent with level of education. Insight and and judgment are fair. Laboratory Test 02/12/17 03:40 02/12/17 04:05 02/13/17 08:33 Urine Color YELLOW Urine Appearance CLEAR Urine pH 6.5 Urine Specific [place]w 1.013 Urine Protein NEG Urine Glucose (UA) NEG Urine Ketones NEG Urine Occult Blood NEG Urine Nitrite NEG Urine Bilirubin NEG Urine Urobilinogen NEG Urine Leukocyte Esterase NEG Urine Test NEG Urine Opiates Screen NEG Urine Methadone, Qualitative NEG Urine Barbiturates NEG Urine Phencyclidine (PCP) Level NEG Ur Amphetamine/Methamphetamine NEG MDMA (Ecstasy) Screen NEG Urine Benzodiazepines Screen NEG Urine Cocaine Metabolite NEG Urine Marijuana (THC) NEG White Blood Count 6.88 Red Blood Count 5.02 Hemoglobin 14.8 Hematocrit 45.1 Mean Corpuscular Volume 89.8 Mean Corpuscular Hemoglobin 29.5 Mean Corpuscular Hemoglobin Concent 32.8 RDW Standard Deviation 47.0 RDW Coefficient of Variation 14.3 Platelet Count 241 Mean Platelet Volume 9.8 Sodium Level 142 Potassium Level 3.6 Chloride Level 111 Carbon Dioxide Level 23 Anion Gap 8.0 Blood Urea Nitrogen 8 Creatinine 0.64 Est Creatinine Clear Calc Drug Dose 130.2 Estimated GFR () 148.9 Estimated GFR (Non- 128.5 BUN/Creatinine Ratio 12.6 Random Glucose 92 Calcium Level 8.6 Total Bilirubin 0.2 Direct Bilirubin < 0.1 Aspartate Amino Transferase (AST) 17 Alanine Aminotransferase (ALT) 26 Alkaline Phosphatase 52 Total Protein 7.7 Albumin 4.2 Thyroid Stimulating Hormone (TSH) 0.859 Salicylates Level < 1.7 Acetaminophen Level < 2 Ethyl Alcohol mg/dL 239.0 [place] Level 0.3 Total Time Total Time Spent (min): Greater than 30 minutes Total Time Included: examination of the patient, discharge planning, medication reconciliation Tobacco Cessation at Discharge Smoking Status: Current Every Day Smoker FDA approved Prescription: declined med & out pt counseling Problem Qualifiers (1) Alcohol overdose: Encounter type: initial encounter Injury intent: undetermined intent Qualified Codes: T51.94XA - Toxic effect of unspecified alcohol, undetermined, initial encounter
== END 2017-02-15 11:10 | disposition home or self-care (01) | DRG 885 ==
LOC: C.EDB 03:29 → C.MHU 12:40
PROVIDERS: ADMIT Psychiatry & Neurology Psychiatry; ATTEND Psychiatry & Neurology Psychiatry
DX: F31.9 Bipolar disorder, unspecified (principal); R45.851 Suicidal ideations; T51.0X1A Toxic effect of ethanol, accidental (unintentional), initial encounter; J45.909 Unspecified asthma, uncomplicated; F43.10 Post-traumatic stress disorder, unspecified; F40.10 Social phobia, unspecified; F60.3 Borderline personality disorder; F17.200 Nicotine dependence, unspecified, uncomplicated; Z91.5 Personal history of self-harm; Z62.810 Personal history of physical and sexual abuse in childhood; Z62.811 Personal history of psychological abuse in childhood; Z81.8 Family history of other mental and behavioral disorders; Z79.3 Long term (current) use of hormonal contraceptives; Z79.899 Other long term (current) drug therapy

== ENCOUNTER 2017-02-21 09:25 | Emergency (ER) | payer BC, OTHER ==
[~2017-02-21] VITALS: Ht 165.1 cm; Wt 60.0 kg
[~2017-02-21 09:25] MED LIST changes: -DPPI400 INJ; -ESCI1TAB10 PO; -LAMO25TA PO; +LTHSR450 PO; +MEDR150I19 INJ
[2017-02-21 09:28] VITALS: Ht 165.1 cm; Wt 60.0 kg
[2017-02-21] MEDS ORDERED: HYDR1SOL10 PO (09:58)
--- NOTE | 2017-02-21 10:00 | EMERGENCY ROOM VISIT NOTE ---
History First contact with patient: 09:32 Chief Complaint: THROAT PAIN/INJURY Stated Complaint: THROAT PAIN AFTER TONSILLECTOMY History of Present Illness The patient is a 21 year old female who presents to the Emergency Room with complaints of the pain. The patient had a tonsillectomy 6 days ago. This was performed by Dr. Min of ENT. She states that she has had worsening pain and the codeine she was prescribed is not helping her pain. She has difficulty swallowing and talking due to the pain. She has not been able to eat anything for the past 2 days. There has been no bleeding from the throat. She is a smoker, but has not been smoking since the surgery. She reports she was told not to call the on-call surgeon. She rates her discomfort a 10/10. Review of Systems A complete 10 point review of systems was reviewed with the patient with pertinent positives and negatives as per history of present illness. All else were negative. Past Medical/Surgical History Medical Problems: (1) ADHD (attention deficit hyperactivity disorder) (2) Anxiety (3) Asthma (4) Borderline personality disorder (5) Depression (6) H/O aspiration pneumonitis (7) H/o deliberate self cutting (8) History of suicide attempt (9) ODD (oppositional defiant disorder) (10) PTSD (post-traumatic stress disorder) (11) Social phobia Surgical Problems: (1) [place] teeth removed Family History Diabetes mellitus FH: cancer FH: heart disease Hypertension Social History Smoking Status: Current Every Day Smoker Alcohol Use: occasionally Drug Use: none Marital Status: single Housing Status: unknown Occupation Status: employed Current/Historical Medications Scheduled [place] Carbonate ([place] Carbonate ER), 450 MG PO BID Medroxyprogesterone Acetate (C (Medroxyprogesterone Aceta), 1 DOSE INJ 3q 3 months Zolpidem Tartrate (Ambien Er), 12.5 MG PO HS Scheduled PRN Albuterol Sulfate (Albuterol Sulfate), 1 VIAL NEB TID PRN for SOB/Wheezing Diphenhydramine Hcl (Benadryl), 100 MG PO HS PRN for Sleep Hydrocodone-Acetaminophen (Hydrocodone/Acetami 7.5/325MG 15ML), 10-20 ML PO Q4H PRN for Pain Ondansetron (Ondansetron HCl), 4 MG PO Q6 PRN for Nausea Physical Exam Vital Signs Date Time Temp Pulse Resp B/P (MAP) Pulse Ox O2 Delivery O2 Flow Rate FiO2 02/21/17 10:09 98 18 118/88 99 02/21/17 09:28 37.5 109 20 121/84 97 Room Air Physical Exam VITALS: Vitals are noted on the nurse's note and reviewed by myself. Vital signs stable. GENERAL: This is a 21-year-old female, in no acute distress, nondiaphoretic, well-developed well-nourished. EARS: External auditory canals clear, tympanic membranes pearly landeros without erythema or effusion bilaterally. EYES: Pupils equal round and reactive to light and accommodation. MOUTH: Mucous membranes slightly dry. There is mild erythema and postsurgical changes in the oropharynx consistent with tonsillectomy. There is no bleeding. There is no purulent drainage. NECK: Supple without nuchal rigidity. No lymphadenopathy. HEART: Regular rate and rhythm without murmurs gallops or rubs. LUNGS: Clear to auscultation bilaterally without wheezes, rales or rhonchi. NEURO: Patient was alert and oriented to person place and time. Medical Decision & Procedures Medical Decision Differential diagnosis includes postoperative pain, postoperative infection, bleeding, among others. The patient was evaluated as above. There is no evidence of postoperative infection or bleeding. The patient complains of pain in the throat status post tonsillectomy. She has been taking Tylenol with Codeine without relief. She was given a short course of Lortab elixir to be used for pain and instructed to follow-up with her ENT surgeon. She verbalized understanding of my assessment and treatment plan and was discharged home in good condition. Medication Reconcilliation Current Medication List: was personally reviewed by me Blood Pressure Screening Patient's blood pressure: Normal blood pressure Impression Primary Impression: Post-op pain Departure Information Dispostion Home / Self-Care Condition GOOD Prescriptions Hydrocodone-Acetaminophen (HYDROCODONE/ACETAMI 7.5/325MG 15ML) 1 Veronique Veronique 10-20 ML PO Q4H Y for Pain, #120 ML Prov: Mare Harden .VIVIAN 02/21/17 Referrals Quincy Clements, D.OAditya (PCP) Mike Min M.D. Patient Instructions My [facility] Additional Instructions Hydrocodone/acetaminophen: 10-20 mL every 4-6 hours as needed for pain. Increase fluids. Follow-up with your ENT for further evaluation. Return here for any bleeding, high fevers, difficulty breathing, vomiting or any other new/concerning symptoms.
[2017-02-21 10:09] VITALS: BP 118/88; PULSE 98; O2SAT 99
== END 2017-02-21 10:10 | disposition home or self-care (01) ==
LOC: C.EDB 09:29
DX: G89.18 Other acute postprocedural pain (principal); F17.200 Nicotine dependence, unspecified, uncomplicated; Z90.89 Acquired absence of other organs; J45.909 Unspecified asthma, uncomplicated; Z91.5 Personal history of self-harm; Z98.818 Other dental procedure status; Z83.3 Family history of diabetes mellitus; Z82.49 Family history of ischemic heart disease and other diseases of the circulatory system

== ENCOUNTER 2017-09-23 16:58 | Emergency (ER) | payer BC, OTHER ==
[~2017-09-23] VITALS: Ht 165.1 cm; Wt 57.0 kg
[~2017-09-23 16:58] MED LIST changes: -BND25 PO; +DIPH25CA5 PO; +MEDR150I19 IM; -MEDR150I19 INJ
[2017-09-23 17:22] VITALS: TEMP 37; Ht 165.1 cm; Wt 57.0 kg
[2017-09-23] MEDS ORDERED: SODIUM CHLORIDE 0.9% 1000ML 1,000 ML IV STA (17:29)
[2017-09-23] MEDS ORDERED: KETOROLAC TROMETHAMINE 30 MG/ML VIAL IV STA (17:29)
[2017-09-23] MEDS ORDERED: ONDANSETRON INJ 2 MG/ML 2 ML VIAL IV STA (17:29)
--- NOTE | 2017-09-23 17:35 | EMERGENCY ROOM VISIT NOTE ---
History Report prepared by Kenyetta: Luis F Fajardo Under the Supervision of: Yo MatiasO. First contact with patient: 17:26 Chief Complaint: URINARY SYMPTOMS Stated Complaint: BACK PAIN NEAR KIDNEYS, UTI History of Present Illness The patient is a 21 year old female who presents to the Emergency Room with complaints of persistent back pain near her kidneys that started 4 days ago. She states that it hurts to take a deep breath. She adds that she is having UTI symptoms as well, as she has a history of them. The patient states that her urine smells like sulfur. The patient says that a couple days ago she noticed blood in her urine. She says that she was last sexually active 4 months ago, and denies any STD symptoms. She adds that she has felt like she has had a fast heart rate and she feels nauseous. The patient has not seen anybody for this, and she has not been started on any antibiotics. She denies any chest pain, shortness of breath, melena, hematochezia, leg pain, vaginal bleeding or discharge. The patient is on a Depo shot. She notes no kidney stone history. Source of History: patient Onset: 4 days ago Position: back Quality: other (pain) Timing: other (persistent) Associated Symptoms: + nausea, + urinary symptoms, No chest pain (but has fast heart rate), No SOB, No melena, No hematochezia Note: Denies leg pain, vaginal bleeding or discharge. Review of Systems See HPI for pertinent positives & negatives. A total of 10 systems reviewed and were otherwise negative. Past Medical & Surgical Medical Problems: (1) ADHD (attention deficit hyperactivity disorder) (2) Anxiety (3) Asthma (4) Borderline personality disorder (5) Depression (6) H/O aspiration pneumonitis (7) H/o deliberate self cutting (8) History of suicide attempt (9) ODD (oppositional defiant disorder) (10) PTSD (post-traumatic stress disorder) (11) Social phobia Surgical Problems: (1) [place] teeth removed Family History Diabetes mellitus FH: cancer FH: heart disease Hypertension Social History Smoking Status: Current Some Day Smoker Alcohol Use: occasionally Drug Use: none Marital Status: single Housing Status: unknown Occupation Status: employed Current/Historical Medications Scheduled Cefdinir (Omnicef), 300 MG PO Q12H Cyanocobalamin (Cyanocobalamin), 1,000 MCG IM MONTHLY Escitalopram Oxalate (Lexapro), 20 MG PO DAILY [place] Carbonate Er (Lithobid Ext Rel), 450 MG PO BID Medroxyprogesterone Acetate (C (Medroxyprogesterone Aceta), 150 MG IM Q3MO Ondasetron Odt (Zofran Odt), 4 MG SL Q6H Zolpidem Tartrate (Ambien Er), 12.5 MG PO HS Scheduled PRN Clonazepam (Klonopin), 1 MG PO TID PRN for Anxiety Fluticasone Propionate (Flovent Hfa), 2 PUFFS INH BID PRN for Shortness of Breath Allergies Coded Allergies: Doxycycline (Verified Allergy, Unknown, UNK, 02/21/17) Topiramate (Verified Allergy, Unknown, Muscle stiffness, 09/23/17) Bupropion (Verified Adverse Reaction, Intermediate, MUSCLE STIFFNESS, ) Prochlorperazine (Verified Adverse Reaction, Intermediate, NUMB AND THNGLY FEELING UNABLE TO MOVE, 02/21/17) Clindamycin (Verified Adverse Reaction, Mild, VOMIT, 02/21/17) Penicillins (Verified Adverse Reaction, Mild, her family is allergic, ) Prednisone (Verified Adverse Reaction, Mild, MAKE MENTALY UNSTABLE, 02/21/17 ) Physical Exam Vital Signs Date Time Temp Pulse Resp B/P (MAP) Pulse Ox O2 Delivery O2 Flow Rate FiO2 09/23/17 19:38 108 16 100/73 98 09/23/17 18:49 103 16 117/75 98 Room Air 09/23/17 17:22 37.0 98 18 97 Room Air Physical Exam GENERAL: Patient is awake, alert, very anxious appearing and uncomfortable. EYES: The conjunctivae are clear. The pupils are round and reactive. EARS, NOSE, MOUTH AND THROAT: The nose is without any evidence of any deformity. Mucous membranes are moist tongue is midline NECK: The neck is nontender and supple. RESPIRATORY: Normal respiratory effort is noted there is no evidence of wheezing rhonchi or rales CARDIOVASCULAR:Heart sounds are tachycardic but regular. No definite murmurs noted. GASTROINTESTINAL: The abdomen is soft with left upper quadrant and left lower quadrant tenderness to palpation. No guarding or rigidity. BACK: Left CVA tenderness to percussion. No midline tenderness noted. MUSCULOSKELETAL/EXTREMITIES: There is no evidence of gross deformity full range of motion is noted in the hips and shoulders SKIN: There is no obvious evidence of any rash. There are no petechiae, pallor or cyanosis noted. NEUROLOGIC: Patient is awake alert and oriented x3 strength is symmetric patellar reflexes are 2+ bilaterally Medical Decision & Procedures ER Provider Diagnostic Interpretation: Radiology results as stated below per my review and radiologist interpretation: EXAMINATION: RENAL ULTRASOUND CLINICAL HISTORY: left flank pain COMPARISON STUDY: 08/03/2015 FINDINGS: The right kidney measures 8.8 cm. The left kidney measures I 0.7 cm. There is no evidence of hydronephrosis. There are no renal masses. No bladder abnormalities are visualized. Bilateral ureteral jets were visualized. IMPRESSION : Normal renal ultrasound. Electronically signed by: Ash Jonas M.D. 09/23/2017 7:22 PM Dictated Date/Time: 09/23/2017 7:21 PM KUB CLINICAL HISTORY: Left flank pain COMPARISON STUDY: No previous studies for comparison. FINDINGS: There is no pathologic bowel dilatation. There is scattered stool within the colon. There are no calcifications suspicious for renal calculi. Right pelvic basin calcifications while nonspecific likely represent phleboliths given the reported left-sided pain IMPRESSION: 1. No evidence of pathologic bowel dilatation 2. No urinary tract calculi identified on conventional radiographic evaluation Electronically signed by: Ash Jonas M.D. 09/23/2017 6:18 PM Dictated Date/Time: 09/23/2017 6:17 PM Laboratory Results 09/23/17 17:45 Red Blood Count 4.98, Mean Corpuscular Volume 88.4, Mean Corpuscular Hemoglobin 30.5, Mean Corpuscular Hemoglobin Concent 34.5, Mean Platelet Volume 10.3, Neutrophils (%) (Auto) 58.2, Lymphocytes (%) (Auto) 33.8, Monocytes (%) (Auto) 5.9, Eosinophils (%) (Auto) 1.6, Basophils (%) (Auto) 0.2, Neutrophils # (Auto) 5.01, Lymphocytes # (Auto) 2.91, Monocytes # (Auto) 0.51, Eosinophils # (Auto) 0.14, Basophils # (Auto) 0.02 09/23/17 17:45 Test 09/23/17 17:40 09/23/17 17:45 Urine Color YELLOW Urine Appearance TURBID (CLEAR) Urine pH 6.0 (4.5-7.5) Urine Specific [place] 1.022 (1.000-1.030) Urine Protein TRACE (NEG) Urine Glucose (UA) NEG (NEG) Urine Ketones NEG (NEG) Urine Occult Blood 1+ (NEG) Urine Nitrite NEG (NEG) Urine Bilirubin NEG (NEG) Urine Urobilinogen NEG (NEG) Urine Leukocyte Esterase LARGE (NEG) Urine WBC (Auto) >30 /hpf (0-5) Urine RBC (Auto) 5-10 /hpf (0-4) Urine Hyaline Casts (Auto) 1-5 /lpf (0-5) Urine Epithelial Cells (Auto) >30 /lpf (0-5) Urine Bacteria (Auto) NEG (NEG) White Blood Count 8.62 K/uL (4.8-10.8) Red Blood Count 4.98 M/uL (4.2-5.4) Hemoglobin 15.2 g/dL (12.0-16.0) Hematocrit 44.0 % (37-47) Mean Corpuscular Volume 88.4 fL (80-100) Mean Corpuscular Hemoglobin 30.5 pg (25-34) Mean Corpuscular Hemoglobin Concent 34.5 g/dl (32-36) Platelet Count 237 K/uL (130-400) Mean Platelet Volume 10.3 fL (7.4-10.4) Neutrophils (%) (Auto) 58.2 % Lymphocytes (%) (Auto) 33.8 % Monocytes (%) (Auto) 5.9 % Eosinophils (%) (Auto) 1.6 % Basophils (%) (Auto) 0.2 % Neutrophils # (Auto) 5.01 K/uL (1.4-6.5) Lymphocytes # (Auto) 2.91 K/uL (1.2-3.4) Monocytes # (Auto) 0.51 K/uL (0.11-0.59) Eosinophils # (Auto) 0.14 K/uL (0-0.5) Basophils # (Auto) 0.02 K/uL (0-0.2) RDW Standard Deviation 44.8 fL (36.4-46.3) RDW Coefficient of Variation 13.7 % (11.5-14.5) Immature Granulocyte % (Auto) 0.3 % Immature Granulocyte # (Auto) 0.03 K/uL (0.00-0.02) Anion Gap 5.0 mmol/L (3-11) Est Creatinine Clear Calc Drug Dose 122.3 ml/min Estimated GFR () 147.4 Estimated GFR (Non- 127.2 BUN/Creatinine Ratio 17.6 (10-20) Calcium Level 9.3 mg/dl (8.5-10.1) Total Bilirubin 0.2 mg/dl (0.2-1) Direct Bilirubin < 0.1 mg/dl (0-0.2) Aspartate Amino Transf (AST/SGOT) 12 U/L (15-37) Alanine Aminotransferase (ALT/SGPT) 15 U/L (12-78) Alkaline Phosphatase 49 U/L (45-117) Total Protein 7.5 gm/dl (6.4-8.2) Albumin 4.1 gm/dl (3.4-5.0) Human Chorionic Gonadotropin, Qual NEG (NEG) Laboratory results per my review. Medications Administered Medications (Trade) Dose Ordered Sig/Josselyn Route Start Time Stop Time Status Last Admin Dose Admin Sodium Chloride 1,000 ml @ 999 mls/hr Q1H1M STAT IV 09/23/17 17:29 09/23/17 18:29 DC 09/23/17 17:52 999 MLS/HR Ondansetron HCl (Zofran Inj) 4 mg NOW STAT IV 09/23/17 17:29 09/23/17 17:31 DC 09/23/17 17:53 4 MG Ketorolac Tromethamine (Toradol Inj) 30 mg NOW STAT IV 09/23/17 17:29 09/23/17 17:31 DC 09/23/17 17:53 30 MG Ceftriaxone Sodium (Rocephin Inj) 1 gm NOW STAT IV 09/23/17 18:39 09/23/17 18:41 DC 09/23/17 18:48 1 GM ED Course 1727: The patient was evaluated in room C3. A complete history and physical examination were performed. 1728: Toradol Inj 30 mg IV, Zofran Inj 4 mg IV, NSS 1000 ml @ 999 mls/hr IV. 9: Rocephin Inj 1 gm IV. 0: Upon reevaluation, the patient is resting. I discussed the results and treatment plan with her. She verbalized agreement of the treatment plan. She was discharged home. Medical Decision Differential diagnosis: Etiologies such as renal colic, appendicitis, diverticulitis, mesenteric ischemia, aortic pathology, infections, inflammatory bowel disease, PUD, biliary pathology, UTI, as well as others were entertained. Nursing notes reviewed. The patient is a 21-year-old female who presented to the emergency department for an evaluation of flank pain and dysuria. The patient was found if signs of urinary tract infection. She was treated with IV fluids IV pain medicine and IV anti-medics. She was also treated with IV antibiotics. I discussed the patient's laboratory and radiographic studies with her. She was encouraged to continue all medications as prescribed and drink plenty of clear liquids. She was also encouraged to follow-up with her family doctor soon as possible but return to the emergency department immediately if symptoms change worsen or the need arises. Medication Reconcilliation Current Medication List: was personally reviewed by me Blood Pressure Screening Patient's blood pressure: Normal blood pressure Impression Primary Impression: UTI (urinary tract infection) Additional Impression: Left flank pain Scribe Attestation The scribe's documentation has been prepared under my direction and personally reviewed by me in its entirety. I confirm that the note above accurately reflects all work, treatment, procedures, and medical decision making performed by me. Departure Information Dispostion Home / Self-Care Prescriptions Ondasetron Odt (ZOFRAN ODT) 4 Mg Tab 4 MG SL Q6H for Nausea, #20 TAB Prov: John Elam, DO 09/23/17 Cefdinir (OMNICEF) 300 Mg Cap 300 MG PO Q12H, #14 CAP Prov: John Elam, DO 09/23/17 Referrals Quincy Clements, D.O. (PCP) Patient Instructions My [facility], Urinary Tract Infecs Women Additional Instructions Drink plenty of clear liquids. Continue all medications as prescribed. Continue using Tylenol as directed for pain. Follow-up with your family doctor soon as possible. Return to the emergency department immediately if symptoms change worsening the need arises. Problem Qualifiers Primary Impression: UTI (urinary tract infection) Urinary tract infection type: site unspecified Hematuria presence: without hematuria Qualified Codes: N39.0 - Urinary tract infection, site not specified
[2017-09-23 18:02] LABS: BASO % 0.2 %; BASO ABS # 0.02 K/uL (0-0.2); EOS % 1.6 %; EOS ABS # 0.14 K/uL (0-0.5); HEMOGLOBIN 15.2 g/dL (12.0-16.0); IG# 0.03 K/uL (0.00-0.02); LYMPH % 33.8 %; LYMPH ABS # 2.91 K/uL (1.2-3.4); MEAN CELL VOLUME 88.4 fL (80-100); MEAN CORPUSCULAR HEMOGLOBIN 30.5 pg (25-34); MEAN CORPUSCULAR HGB CONC 34.5 g/dl (32-36); MEAN PLATELET VOLUME 10.3 fL (7.4-10.4); MONO % 5.9 %; MONO ABS # 0.51 K/uL (0.11-0.59); NEUT % 58.2 %; NEUT ABS # 5.01 K/uL (1.4-6.5); PLATELET COUNT 237 K/uL (130-400); RED CELL DISTRIBUTION WIDTH CV 13.7 % (11.5-14.5); RED CELL DISTRIBUTION WIDTH SD 44.8 fL (36.4-46.3); WHITE BLOOD COUNT 8.62 K/uL (4.8-10.8)
[2017-09-23 18:14] LABS: ALBUMIN 4.1 gm/dl (3.4-5.0); BLOOD UREA NITROGEN 12 mg/dl (7-18); CALCIUM 9.3 mg/dl (8.5-10.1); CARBON DIOXIDE 25 mmol/L (21-32); CREATININE 0.66 mg/dl (0.60-1.20); GLUCOSE 88 mg/dl (70-99); POTASSIUM 3.8 mmol/L (3.5-5.1); SODIUM 136 mmol/L (136-145)
[2017-09-23 18:18] LABS: ALKALINE PHOSPHATASE 49 U/L (45-117); ALT/SGPT 15 U/L (12-78); AST/SGOT 12 U/L (15-37); TOTAL PROTEIN 7.5 gm/dl (6.4-8.2)
--- NOTE | 2017-09-23 18:19 | DIAGNOSTIC IMAGING REPORT ---
KUB CLINICAL HISTORY: Left flank pain COMPARISON STUDY: No previous studies for comparison. FINDINGS: There is no pathologic bowel dilatation. There is scattered stool within the colon. There are no calcifications suspicious for renal calculi. Right pelvic basin calcifications while nonspecific likely represent phleboliths given the reported left-sided pain IMPRESSION: 1. No evidence of pathologic bowel dilatation 2. No urinary tract calculi identified on conventional radiographic evaluation Electronically signed by: Ash Jonas M.D. 09/23/2017 6:18 PM Dictated Date/Time: 09/23/2017 6:17 PM
[2017-09-23] MEDS ORDERED: FLVHFA110 INH (18:28)
[2017-09-23] MEDS ORDERED: ESCI1TAB18 PO (18:28)
[2017-09-23] MEDS ORDERED: CLON1TAB3 PO (18:28)
[2017-09-23] MEDS ORDERED: LITH1TAB PO (18:28)
[2017-09-23] MEDS ORDERED: CYNI1000 IM (18:30)
[2017-09-23] MEDS ORDERED: CEFTRIAXONE SOD INJ 1 GM ADDVIAL IV STA (18:39)
--- NOTE | 2017-09-23 19:23 | DIAGNOSTIC IMAGING REPORT ---
EXAMINATION: RENAL ULTRASOUND CLINICAL HISTORY: left flank pain COMPARISON STUDY: 08/03/2015 FINDINGS: The right kidney measures 8.8 cm. The left kidney measures I 0.7 cm. There is no evidence of hydronephrosis. There are no renal masses. No bladder abnormalities are visualized. Bilateral ureteral jets were visualized. IMPRESSION : Normal renal ultrasound. Electronically signed by: Ash Jonas M.D. 09/23/2017 7:22 PM Dictated Date/Time: 09/23/2017 7:21 PM
[2017-09-23] MEDS ORDERED: ONDA4TAB10 SL (19:33)
[2017-09-23] MEDS ORDERED: CEFD300C2 PO (19:33)
[2017-09-23 19:38] VITALS: BP 100/73; PULSE 108; O2SAT 98
== END 2017-09-23 19:38 | disposition home or self-care (01) ==
LOC: C.EDB 16:59 → C.EDC 19:38
DX: N39.0 Urinary tract infection, site not specified (principal); R10.9 Unspecified abdominal pain; F90.9 Attention-deficit hyperactivity disorder, unspecified type; F41.9 Anxiety disorder, unspecified; J45.909 Unspecified asthma, uncomplicated; F32.9 Major depressive disorder, single episode, unspecified; F91.3 Oppositional defiant disorder; F43.10 Post-traumatic stress disorder, unspecified; Z83.3 Family history of diabetes mellitus; Z82.49 Family history of ischemic heart disease and other diseases of the circulatory system; F17.200 Nicotine dependence, unspecified, uncomplicated; Z88.8 Allergy status to other drugs, medicaments and biological substances; Z88.0 Allergy status to penicillin

== ENCOUNTER 2018-02-02 13:40 | Emergency (ER) | payer OTHER ==
[~2018-02-02] VITALS: Ht 167.6 cm; Wt 52.3 kg
[~2018-02-02 13:40] MED LIST changes: -ALBU0.633 NEB; +CLON1TAB4 PO; +CYNI1000 IM; -DIPH25CA5 PO; +ESCI1TAB18 PO; +FLVHFA110 INH; +LITH1TAB PO; -LTHSR450 PO; +ONDA4TAB10 SL; -ONDA4TAB9 PO
[2018-02-02 13:45] VITALS: TEMP 37.1; Ht 167.6 cm; Wt 52.3 kg
[2018-02-02] MEDS ORDERED: HYDR25CA PO (14:01)
[2018-02-02 14:21] LABS: BASO % 0.2 %; BASO ABS # 0.02 K/uL (0-0.2); EOS % 0.9 %; EOS ABS # 0.09 K/uL (0-0.5); HEMATOCRIT 45.9 % (37-47); HEMOGLOBIN 15.7 g/dL (12.0-16.0); IG# 0.02 K/uL (0.00-0.02); LYMPH % 19.6 %; LYMPH ABS # 2.05 K/uL (1.2-3.4); MEAN CELL VOLUME 88.1 fL (80-100); MEAN CORPUSCULAR HEMOGLOBIN 30.1 pg (25-34); MEAN CORPUSCULAR HGB CONC 34.2 g/dl (32-36); MEAN PLATELET VOLUME 10.9 fL (7.4-10.4); MONO % 5.4 %; MONO ABS # 0.56 K/uL (0.11-0.59); NEUT % 73.7 %; PLATELET COUNT 224 K/uL (130-400); RED CELL DISTRIBUTION WIDTH CV 13.1 % (11.5-14.5); RED CELL DISTRIBUTION WIDTH SD 42.3 fL (36.4-46.3); WHITE BLOOD COUNT 10.44 K/uL (4.8-10.8)
[2018-02-02] MEDS ORDERED: SODIUM CHLORIDE 0.9% 1000ML 1,000 ML IV STA (14:24)
[2018-02-02] MEDS ORDERED: ONDANSETRON 4MG OD TAB PO STA (14:24)
--- NOTE | 2018-02-02 14:41 | EMERGENCY ROOM VISIT NOTE ---
History First contact with patient: 14:11 (Hemanth Calvert M.D.) First contact with patient: 13:49 (Yossi Erickson, ) Chief Complaint: FLANK PAIN Stated Complaint: TACHYCARDIA,KIDNEY PAIN History of Present Illness The patient is a 22 year old female who presents to the Emergency Room with complaints of left flank pain and tachycardia. The left flank pain started yesterday, she states she's had it before and there was an infection. She had to go to [facility] every day for a shot of Rocephin. The tachycardia started this morning. The patient denies fevers but she states that she did have blood clots in her urine yesterday. She has had many UTIs in the past but has never had a kidney stone. Pt is drinking a lot of fluids but is not eating appropriately. Pt denies any excessive caffeine intake. She is sexually active but uses condoms, isn't having her period because she is on the [place] shot (last shot two months ago), she denies any vaginal discharge. PMHx: Bipolar disorder. ROS: Chronic thirst every since starting [place]. (Hemanth Calvert M.D.) Patient is a 22-year-old female who presents the ER for left flank pain. She describes as a sharp stabbing pain which is been constant since last night. She has had this multiple times before the past notes it is related to infections. Does radiate around to her abdomen. Movement and palpation makes pain significant worse. She has had some nausea but no vomiting. No recorded fevers. Patient denies any dysuria, urgency or frequency. Patient did admit to some mild chest heaviness which is been present since 6 AM this morning. No other exacerbating or remitting factors in regards to this. No vaginal bleeding or vaginal discharge. She is sexually active with 1 partner on the depo. No period for 7 years consequently to depo. (Yossi Erickson, ) Review of Systems See HPI for pertinent positives and negatives. A total of ten systems were reviewed and were otherwise negative. Constitutional: No fever, No chills ENT: No hearing loss Respiratory: No cough, No sputum, No wheezing, No shortness of breath Cardiovascular: + chest pain Abdomen: + nausea, No pain, No vomiting, No diarrhea, No constipation Musculoskeletal: No joint pain Genitourinary - Female: + urinary frequency, No dysuria, No urinary urgency , No urinary incontinence, No urinary retention Neurologic: No memory loss Psychiatric: No depression symptoms Endocrine: No fatigue Integumentary: No rash (Hemanth Calvert M.D.) See HPI for pertinent positives & negatives. A total of 10 systems reviewed and were otherwise negative. (Yossi Erickson, DO) Past Medical/Surgical History Medical Problems: (1) ADHD (attention deficit hyperactivity disorder) (2) Anxiety (3) Asthma (4) Borderline personality disorder (5) Depression (6) H/O aspiration pneumonitis (7) H/o deliberate self cutting (8) History of suicide attempt (9) ODD (oppositional defiant disorder) (10) PTSD (post-traumatic stress disorder) (11) Social phobia Surgical Problems: (1) [place] teeth removed (Yossi Erickson, DO) Family History Diabetes mellitus FH: cancer FH: heart disease Hypertension (Hemanth Calvert M.D.) Diabetes mellitus FH: cancer FH: heart disease Hypertension (Yossi Erickson DO) Social History Smoking Status: Current Some Day Smoker Alcohol Use: occasionally Drug Use: none Marital Status: single Housing Status: unknown Occupation Status: employed (Hemanth Calvert M.D.) Marital Status: in relationship (Yossi Erickson, ) Current/Historical Medications Scheduled Cyanocobalamin (Cyanocobalamin), 1,000 MCG IM MONTHLY Escitalopram Oxalate (Lexapro), 40 MG PO DAILY Hydroxyzine Pamoate (Vistaril), 25 MG PO TID [place] Carbonate Er (Lithobid Ext Rel), 450 MG PO BID Medroxyprogesterone Acetate (C (Medroxyprogesterone Aceta), 150 MG IM Q3MO Ondasetron Odt (Zofran Odt), 4 MG SL Q6H Sulfa/Trimethoprim (Bactrim Ds 800MG/160MG), 1 TAB PO BID Zolpidem Tartrate (Ambien Er), 12.5 MG PO HS Scheduled PRN Clonazepam (Klonopin), 1 MG PO TID PRN for Anxiety Fluticasone Propionate (Flovent Hfa), 2 PUFFS INH BID PRN for Shortness of Breath Physical Exam Vital Signs Date Time Temp Pulse Resp B/P (MAP) Pulse Ox O2 Delivery O2 Flow Rate FiO2 02/02/18 17:11 95 17 110/72 98 02/02/18 15:39 115 18 116/69 99 02/02/18 13:45 37.1 116 16 134/77 99 Room Air (Yossi Erickson, DO) Physical Exam Gen: No acute distress. HEENT: Head - normocephalic and atraumatic. Pupils are equal, round, and reactive to light. Extraocular eye muscles are intact and sclera are anicteric. Ears - bilaterally patent canals with noninjected tympanic membranes and no evidence of hemotympanum. Nose - moist nasal mucosa without discharge. Mouth - moist buccal mucosa. Oropharynx is nonerythematous and there is no tonsillar exudate or edema noted. Back: L sided CVA tenderness. Neck: Supple; no JVD, nuchal rigidity, cervical lymphadenopathy, or auscultated bruits. Heart: Regular rate and rhythm. There is a normal S1 and S2 with no murmurs, clicks, or gallops appreciated. Lungs: Clear to auscultation bilaterally with no wheezes, rales, or rhonchi. Abdomen: Soft, left sided tenderness to deep palpation, nondistended, with good bowel sounds. There are no palpable pulsatile masses or hepatosplenomegaly. There is no guarding, rigidity, or rebound noted. Extremities: No evidence of cyanosis, clubbing, or edema. There are easily palpable peripheral pulses. Neuro:The patient is awake and alert, oriented to day, time, and place. Muscle strength is 5/5 in all 4 extremities. The patient has equal identity access management architect strength and equal pedal push and pull. There are no cerebellar signs. (Hemanth Calvert M.D.) GENERAL: Sitting up in bed, alert, well appearing, well nourished, no distress, non-toxic EYE EXAM: normal conjunctiva. OROPHARYNX: no exudate, no erythema, lips, buccal mucosa, and tongue normal and mucous membranes are moist NECK: supple, no nuchal rigidity, no adenopathy, non-tender LUNGS: Clear to auscultation. Normal chest wall mechanics HEART: no murmurs, S1 normal and S2 normal ABDOMEN: Tenderness over CVA tracking around to abdomen, normo-active bowel sounds, no masses, no rebound or guarding. BACK: Back is symmetrical on inspection and there is no deformity, no midline tenderness, no CVA tenderness. SKIN: no rashes and no bruising UPPER EXTREMITIES: upper extremities are grossly normal. LOWER EXTREMITIES: No pitting edema. NEURO EXAM: Normal sensorium, cranial nerves II-XII grossly intact, normal speech, no gross weakness of arms, no gross weakness of legs. (Yossi Erickson, DO) Medical Decision & Procedures Laboratory Results 02/02/18 14:11 Red Blood Count 5.21, Mean Corpuscular Volume 88.1, Mean Corpuscular Hemoglobin 30.1, Mean Corpuscular Hemoglobin Concent 34.2, Mean Platelet Volume 10.9, Neutrophils (%) (Auto) 73.7, Lymphocytes (%) (Auto) 19.6, Monocytes (%) (Auto) 5.4, Eosinophils (%) (Auto) 0.9, Basophils (%) (Auto) 0.2, Neutrophils # (Auto) 7.70, Lymphocytes # (Auto) 2.05, Monocytes # (Auto) 0.56, Eosinophils # (Auto) 0.09, Basophils # (Auto) 0.02 02/02/18 14:11 Test 02/02/18 14:11 White Blood Count 10.44 K/uL (4.8-10.8) Red Blood Count 5.21 M/uL (4.2-5.4) Hemoglobin 15.7 g/dL (12.0-16.0) Hematocrit 45.9 % (37-47) Mean Corpuscular Volume 88.1 fL (80-100) Mean Corpuscular Hemoglobin 30.1 pg (25-34) Mean Corpuscular Hemoglobin Concent 34.2 g/dl (32-36) Platelet Count 224 K/uL (130-400) Mean Platelet Volume 10.9 fL (7.4-10.4) Neutrophils (%) (Auto) 73.7 % Lymphocytes (%) (Auto) 19.6 % Monocytes (%) (Auto) 5.4 % Eosinophils (%) (Auto) 0.9 % Basophils (%) (Auto) 0.2 % Neutrophils # (Auto) 7.70 K/uL (1.4-6.5) Lymphocytes # (Auto) 2.05 K/uL (1.2-3.4) Monocytes # (Auto) 0.56 K/uL (0.11-0.59) Eosinophils # (Auto) 0.09 K/uL (0-0.5) Basophils # (Auto) 0.02 K/uL (0-0.2) RDW Standard Deviation 42.3 fL (36.4-46.3) RDW Coefficient of Variation 13.1 % (11.5-14.5) Immature Granulocyte % (Auto) 0.2 % Immature Granulocyte # (Auto) 0.02 K/uL (0.00-0.02) Urine Color DK YELLOW Urine Appearance CLOUDY (CLEAR) Urine pH 6.0 (4.5-7.5) Urine Specific [place] 1.025 (1.000-1.030) Urine Protein NEG (NEG) Urine Glucose (UA) NEG (NEG) Urine Ketones TRACE (NEG) Urine Occult Blood TRACE (NEG) Urine Nitrite POS (NEG) Urine Bilirubin 1+ (NEG) Urine Urobilinogen NEG (NEG) Urine Leukocyte Esterase LARGE (NEG) Urine WBC (Auto) >30 /hpf (0-5) Urine RBC (Auto) 5-10 /hpf (0-4) Urine Hyaline Casts (Auto) 1-5 /lpf (0-5) Urine Epithelial Cells (Auto) >30 /lpf (0-5) Urine Bacteria (Auto) 2+ (NEG) Urine Test NEG (NEG) Anion Gap 7.0 mmol/L (3-11) Est Creatinine Clear Calc Drug Dose 94.2 ml/min Estimated GFR () 126.0 Estimated GFR (Non- 108.7 BUN/Creatinine Ratio 13.5 (10-20) Calcium Level 9.2 mg/dl (8.5-10.1) Total Bilirubin 0.5 mg/dl (0.2-1) Direct Bilirubin 0.2 mg/dl (0-0.2) Aspartate Amino Transf (AST/SGOT) 12 U/L (15-37) Alanine Aminotransferase (ALT/SGPT) 12 U/L (12-78) Alkaline Phosphatase 57 U/L (45-117) Troponin I < 0.015 ng/ml (0-0.045) Total Protein 8.1 gm/dl (6.4-8.2) Albumin 4.4 gm/dl (3.4-5.0) Lipase 63 U/L (73-393) Urine Opiates Screen NEG (NEG) Urine Methadone, Qualitative NEG (NEG) Urine Barbiturates NEG (NEG) Urine Phencyclidine (PCP) Level NEG (NEG) Ur Amphetamine/Methamphetamine POS (NEG) MDMA (Ecstasy) Screen NEG (NEG) Urine Benzodiazepines Screen POS (NEG) Urine Cocaine Metabolite NEG (NEG) Urine Marijuana (THC) POS (NEG) (Yossi Erickson, DO) Medications Administered Medications (Trade) Dose Ordered Sig/Josselyn Route Start Time Stop Time Status Last Admin Dose Admin Ondansetron HCl (Zofran Odt) 4 mg NOW STAT PO 02/02/18 14:24 02/02/18 14:31 DC 02/02/18 14:42 4 MG Sodium Chloride 1,000 ml @ 999 mls/hr Q1H1M STAT IV 02/02/18 14:24 02/02/18 15:29 DC 02/02/18 14:38 999 MLS/HR Ceftriaxone Sodium 1 gm/ Dextrose 50 ml @ 100 mls/hr NOW STAT IV 02/02/18 15:22 02/02/18 15:51 DC 02/02/18 15:43 100 MLS/HR Ketorolac Tromethamine (Toradol Inj) 30 mg NOW STAT IV 02/02/18 15:36 02/02/18 15:37 DC 02/02/18 15:43 30 MG (Yossi Erickson, DO) Procedure (CHRISTIANA/BLAD)RETROPERITON COMP HISTORY: Pain left CVA tenderness and positive UA COMPARISON: None. FINDINGS: Right kidney: Maximum dimension 9.1 cm. No evidence for hydronephrosis. Normal corticomedullary differentiation and cortical thickness. Left kidney: Maximum dimension 9.5 cm. No evidence for hydronephrosis. Normal corticomedullary differentiation and cortical thickness. Bladder: No bladder wall thickening. The bilateral ureteral jets were identified. IMPRESSION: Normal renal ultrasound. [~ rep ct add3]] CHEST ONE VIEW PORTABLE CLINICAL HISTORY: 22 years-old Female presenting with chest pain. TECHNIQUE: Portable upright AP view of the chest was obtained. COMPARISON: 08/03/[address] from 11/27/2016. FINDINGS: Cardiomediastinal silhouette normal. Lungs and pleural spaces clear. Osseous structures normal. Upper abdomen normal. IMPRESSION: 1. No acute cardiopulmonary disease. (Hemanth Calvert M.D.) Medical Decision The patient's care and disposition was discussed with Dr. Erickson, Attending ED Physician. This is a 22F with tachycardia and left flank pain. Differential diagnosis include renal colic, appendicitis, diverticulitis, mesenteric ischemia, aortic pathology, infections, inflammatory bowel disease, PUD, biliary pathology, UTI, lumbago, sciatica, gastrointestinal, as well as others were entertained. Triage Nursing notes were reviewed. ED Course included an extensive history and physical exam, labs, EKG, renal US and chest X-ray. 2:00pm - Pt was seen and examined at bedside and case was discussed with Dr. Erickson. 2:15pm - Initial Orders were placed. 2:30pm - UA appears dirty. Will order Rocephin. Per chart review pt grew Gardnella like bacilli back in September. 3:30pm - Lab results reviewed, appears that the patient has a UTI with possible pyelonephritis. We will treat empirically with Bactrim pending culture results. Patient should have a recheck with her PCP within 1 week to follow culture results. She was also given 15mg IV Toradol for pain. 4:00pm - Pt was updated on above results, advised to follow up with PCP. Rx sent to patient's pharmacy. The pt was informed about the findings as listed above. All questions were answered. Return instructions were outlined and the patient was discharged in good condition. The patient was referred to PCP for recheck of the current condition. (Hemanth Calvert M.D.) Patient is a 22-year-old female who presents the ER for flank pain. She has no urinary complaints. Vitals are stable with exception of mild tachycardia. CBC shows no significant leukocytosis or anemia. BMP along with LFTs and bilirubin and lipase was unremarkable. Troponin was negative with pain greater than 8 hours. Tox was positive for benzos, marijuana and vitamins. UA shows nitrates , leuks, whites and epithelial cells. was negative. Chest x-ray and ultrasound were unremarkable. There is no hydro-ultrasound. EKG was nondiagnostic. Previous urine cultures were reviewed and grew out Gardnerella and did appear to be contaminants. Patient was given IV Rocephin. She was discharged with Bactrim. She had no vomiting. She is otherwise well- appearing. She was seen independently and evaluated independently from resident. Patient was updated bedside discharge follow-up PCP as an outpatient. She was given strict instructions to return. She was also given IV fluids, Zofran and Toradol while in the ER. Her pain did improve. Discussed with Pt concerning signs and symptoms to watch out for. Pt was instructed to follow up with their PCP and discussed with the patient their option to return to the ED at anytime for persistent or worsening symptoms. The appropriate anticipatory guidance and out-patient management, including indications for return to the emergency department, were explained at length to the patient and understood. (Yossi Erickson, DO) Head Trauma GCS Score: 15 (Hemanth Calvetr M.D.) Impression Primary Impression: Pyelonephritis Departure Information Dispostion Home / Self-Care Condition GOOD Prescriptions Sulfa/Trimethoprim (Bactrim Ds 800MG/160MG) Tab 1 TAB PO BID for 13 Days, #26 TAB Prov: Hemanth Calvert M.D. 02/02/18 Referrals Quincy Clements, D.OAditya (PCP) Patient Instructions [facility] Resident Involvement: Resident Care Provided Care Provided: Pediatric Care ED (Hemanth Calvert M.D.)
--- NOTE | 2018-02-02 14:46 | DIAGNOSTIC IMAGING REPORT ---
CHEST ONE VIEW PORTABLE CLINICAL HISTORY: 22 years-old Female presenting with chest pain. TECHNIQUE: Portable upright AP view of the chest was obtained. COMPARISON: 08/03/[address] from 11/27/2016. FINDINGS: Cardiomediastinal silhouette normal. Lungs and pleural spaces clear. Osseous structures normal. Upper abdomen normal. IMPRESSION: 1. No acute cardiopulmonary disease. Electronically signed by: Bo Montes M.D. 02/02/2018 2:45 PM Dictated Date/Time: 02/02/2018 2:44 PM
[2018-02-02 14:47] LABS: ALBUMIN 4.4 gm/dl (3.4-5.0); CALCIUM 9.2 mg/dl (8.5-10.1); CREATININE 0.78 mg/dl (0.60-1.20); POTASSIUM 3.7 mmol/L (3.5-5.1); TOTAL PROTEIN 8.1 gm/dl (6.4-8.2)
[2018-02-02] MEDS ORDERED: CEFTRIAXONE SOD INJ 1 GM in DEXTROSE 5% ADD-VANTAGE 50ML 50 ML IV STA (15:22)
--- NOTE | 2018-02-02 15:26 | DIAGNOSTIC IMAGING REPORT ---
(CHRISTAINA/BLAD)RETROPERITON COMP HISTORY: Pain left CVA tenderness and positive UA COMPARISON: None. FINDINGS: Right kidney: Maximum dimension 9.1 cm. No evidence for hydronephrosis. Normal corticomedullary differentiation and cortical thickness. Left kidney: Maximum dimension 9.5 cm. No evidence for hydronephrosis. Normal corticomedullary differentiation and cortical thickness. Bladder: No bladder wall thickening. The bilateral ureteral jets were identified. IMPRESSION: Normal renal ultrasound. The above report was generated using voice recognition software. It may contain grammatical, syntax or spelling errors. Electronically signed by: Hemanth Dawson M.D. 02/02/2018 3:25 PM Dictated Date/Time: 02/02/2018 3:24 PM
[2018-02-02] MEDS ORDERED: KETOROLAC TROMETHAMINE 30 MG/ML VIAL IV STA (15:36)
[2018-02-02] MEDS ORDERED: SULF800T23 PO (16:36)
[2018-02-02 17:11] VITALS: BP 110/72; PULSE 95; O2SAT 98
== END 2018-02-02 17:11 | disposition home or self-care (01) ==
LOC: C.EDB 13:43 → C.EDC 17:11
DX: N12 Tubulo-interstitial nephritis, not specified as acute or chronic (principal); R00.0 Tachycardia, unspecified; F12.90 Cannabis use, unspecified, uncomplicated; F13.90 Sedative, hypnotic, or anxiolytic use, unspecified, uncomplicated; J45.909 Unspecified asthma, uncomplicated; F31.9 Bipolar disorder, unspecified; F32.9 Major depressive disorder, single episode, unspecified; F41.9 Anxiety disorder, unspecified; F17.200 Nicotine dependence, unspecified, uncomplicated; Z79.899 Other long term (current) drug therapy; Z79.3 Long term (current) use of hormonal contraceptives

== ENCOUNTER 2018-02-14 18:09 | Emergency (ER) | payer OTHER ==
[~2018-02-14] VITALS: Ht 167.6 cm; Wt 52.0 kg
[~2018-02-14 18:09] MED LIST changes: +HYDR25CA PO; +SULF800T23 PO
[2018-02-14 18:13] VITALS: TEMP 37; Ht 167.6 cm; Wt 52.0 kg
[2018-02-14] MEDS ORDERED: ESCITALOPRAM OXALATE 20 MG TAB PO STA (18:28)
[2018-02-14] MEDS ORDERED: CLONAZEPAM 1 MG TAB PO STA (18:28)
[2018-02-14] MEDS ORDERED: SODIUM CHLORIDE 0.9% 1000ML 1,000 ML IV STA (18:28)
[2018-02-14] MEDS ORDERED: hydrOXYzine HCL 25 MG TAB PO STA (18:28)
[2018-02-14 19:14] LABS: BASO % 0.3 %; BASO ABS # 0.03 K/uL (0-0.2); EOS % 2.2 %; HEMATOCRIT 44.1 % (37-47); HEMOGLOBIN 14.9 g/dL (12.0-16.0); IG# 0.02 K/uL (0.00-0.02); LYMPH % 28.8 %; LYMPH ABS # 2.56 K/uL (1.2-3.4); MEAN CELL VOLUME 88.2 fL (80-100); MEAN CORPUSCULAR HEMOGLOBIN 29.8 pg (25-34); MEAN CORPUSCULAR HGB CONC 33.8 g/dl (32-36); MEAN PLATELET VOLUME 10.5 fL (7.4-10.4); MONO % 4.9 %; MONO ABS # 0.44 K/uL (0.11-0.59); NEUT % 63.6 %; NEUT ABS # 5.65 K/uL (1.4-6.5); PLATELET COUNT 223 K/uL (130-400); RED CELL DISTRIBUTION WIDTH SD 41.8 fL (36.4-46.3)
--- NOTE | 2018-02-14 19:29 | DIAGNOSTIC IMAGING REPORT ---
R ANKLE MIN 3 VIEWS ROUTINE CLINICAL HISTORY: Right ankle pain status post trauma COMPARISON: None. DISCUSSION: No fractures or dislocations are visualized. The ankle mortise appears intact on these nonstress views. IMPRESSION: No fractures or dislocations identified. Electronically signed by: Ash Jonas M.D. 02/14/2018 7:27 PM Dictated Date/Time: 02/14/2018 7:27 PM
[2018-02-14 19:45] LABS: ALBUMIN 4.4 gm/dl (3.4-5.0); CALCIUM 8.6 mg/dl (8.5-10.1); CREATININE 0.71 mg/dl (0.60-1.20); POTASSIUM 3.7 mmol/L (3.5-5.1); TOTAL PROTEIN 7.7 gm/dl (6.4-8.2)
[2018-02-14] MEDS ORDERED: CEFDINIR 300 MG CAP PO STA (20:08)
[2018-02-14] MEDS ORDERED: CEFTRIAXONE SOD INJ 1 GM ADDVIAL IV STA (20:10)
[2018-02-14] MEDS ORDERED: LITHIUM CARBONATE 300 MG TAB PO STA (21:26)
[2018-02-14] MEDS ORDERED: LITHIUM CARBONATE 450 MG TABCR PO ONE (21:26)
[2018-02-14 23:00] VITALS: BP 117/69; PULSE 87; O2SAT 98
--- NOTE | 2018-02-15 00:29 | EMERGENCY ROOM VISIT NOTE ---
History Report prepared by Kenyetta: Jared Whetaley Under the Supervision of: Dr. Aldo Ceron M.D. First contact with patient: 18:16 Chief Complaint: MENTAL HEALTH EVALUATION Stated Complaint: DIZZY NOT EATING DEYHDRATED History of Present Illness The patient is a 22 year old female who presents to the Emergency Room with complaints of severe anxiety and depression that started on October 06, 9 days ago, when she filed a PFA against her parents and has been constant since. These symptoms are causing her to lose her appetite and making her nauseous as well as making her hurt herself. She states the last time she harmed herself was about a week ago. She cuts herself. She has thoughts of not wanting to exist but denies any intent or plan to harm herself. She sees her psychiatrist Dr. Escobedo with the last time being 2 weeks ago. She states that she is currently homeless and has been staying at an acquaintance's house after she left [facility] because of issues with another person there. She notes that she has been taking her psychiatric medications but did not take them today. On February 02 of this year she was here for flank pain and diagnosed with pyelonephritis. She was discharged with Bactrim but did not take all of the pills because she developed a rash and thought it was an allergic reaction. She does state that her prior symptoms have resolved. She also reports that in the beginning of December she fractured her ankle in two places and saw an Orthopedic doctor but never followed up with them. Currently she denies any flank pain, vomiting, fevers, or the use of drugs and alcohol. Source of History: patient Onset: February 05 Position: other (Generalized) Symptom Intensity: severe Quality: other (Anxiety and depression) Timing: constant Associated Symptoms: + nausea, No fevers, No vomiting, No back pain Review of Systems See HPI for pertinent positives & negatives. A total of 10 systems reviewed and were otherwise negative. Past Medical & Surgical Medical Problems: (1) ADHD (attention deficit hyperactivity disorder) (2) Anxiety (3) Asthma (4) Borderline personality disorder (5) Depression (6) H/O aspiration pneumonitis (7) H/o deliberate self cutting (8) History of suicide attempt (9) ODD (oppositional defiant disorder) (10) PTSD (post-traumatic stress disorder) (11) Social phobia Surgical Problems: (1) [place] teeth removed Family History Diabetes mellitus FH: cancer FH: heart disease Hypertension Social History Smoking Status: Current Some Day Smoker Alcohol Use: occasionally Drug Use: none Marital Status: in relationship Housing Status: unknown Occupation Status: employed Current/Historical Medications Scheduled Cyanocobalamin (Cyanocobalamin), 1,000 MCG IM MONTHLY Escitalopram Oxalate (Lexapro), 40 MG PO DAILY Hydroxyzine Pamoate (Vistaril), 25 MG PO TID [place] Carbonate Er (Lithobid Ext Rel), 450 MG PO BID Medroxyprogesterone Acetate (C (Medroxyprogesterone Aceta), 150 MG IM Q3MO Zolpidem Tartrate (Ambien Er), 12.5 MG PO HS Scheduled PRN Clonazepam (Klonopin), 1 MG PO TID PRN for Anxiety Fluticasone Propionate (Flovent Hfa), 2 PUFFS INH BID PRN for Shortness of Breath Allergies Coded Allergies: Doxycycline (Verified Allergy, Unknown, UNK, 02/02/18) Topiramate (Verified Allergy, Unknown, Muscle stiffness, 02/02/18) Bupropion (Verified Adverse Reaction, Intermediate, MUSCLE STIFFNESS, 02/02) Prochlorperazine (Verified Adverse Reaction, Intermediate, NUMB AND THNGLY FEELING UNABLE TO MOVE, 02/02/18) Clindamycin (Verified Adverse Reaction, Mild, VOMIT, 02/02/18) Penicillins (Verified Adverse Reaction, Mild, her family is allergic, 02/02) Prednisone (Verified Adverse Reaction, Mild, MAKE MENTALY UNSTABLE, ) Physical Exam Vital Signs Date Time Temp Pulse Resp B/P (MAP) Pulse Ox O2 Delivery O2 Flow Rate FiO2 02/14/18 23:00 87 15 117/69 98 02/14/18 20:06 95 17 112/62 99 Room Air 02/14/18 18:13 37.0 93 18 107/74 96 Room Air Physical Exam Constitutional: Vital signs reviewed. Eyes: Pupils are equal round reactive to light. Conjunctiva are noninjected. ENT: Pharynx is clear without erythema or exudate. Mucous membranes are dry. Neck supple without meningeal signs. Respiratory: Clear to auscultation bilaterally. Breath sounds are equal bilaterally. Cardiovascular: Regular rate and rhythm. No rubs or gallops. GI: Soft, nondistended and nontender. Bowel sounds are present. Musculoskeletal: Multiple healing lacerations to the left forearm with no signs of cellulitis, they seem varying in age. Diffuse right ankle tenderness without swelling or erythema. No CVA tenderness. Integumentary: There is a quarter-sized rash to the left inner thigh which is erythematous and slightly tender. No fluctuance or induration. No eschar or central clearing. There is some surrounding bruising and some minor bruising of various ages over her legs. Neurological: The patient is awake and alert. No focal deficits. Psychiatric: Anxious, flat affect. Medical Decision & Procedures ER Provider Diagnostic Interpretation: Radiology results as stated below per my review and the radiologist's interpretation: R ANKLE MIN 3 VIEWS ROUTINE CLINICAL HISTORY: Right ankle pain status post trauma COMPARISON: None. DISCUSSION: No fractures or dislocations are visualized. The ankle mortise appears intact on these nonstress views. IMPRESSION: No fractures or dislocations identified. Electronically signed by: Ash Jonas M.D. 02/14/2018 7:27 PM Dictated Date/Time: 02/14/2018 7:27 PM Laboratory Results 02/14/18 18:56 Red Blood Count 5.00, Mean Corpuscular Volume 88.2, Mean Corpuscular Hemoglobin 29.8, Mean Corpuscular Hemoglobin Concent 33.8, Mean Platelet Volume 10.5, Neutrophils (%) (Auto) 63.6, Lymphocytes (%) (Auto) 28.8, Monocytes (%) (Auto) 4.9, Eosinophils (%) (Auto) 2.2, Basophils (%) (Auto) 0.3, Neutrophils # (Auto) 5.65, Lymphocytes # (Auto) 2.56, Monocytes # (Auto) 0.44, Eosinophils # (Auto) 0.20, Basophils # (Auto) 0.03 02/14/18 18:56 Test 02/14/18 18:30 02/14/18 18:56 Urine Color DK YELLOW Urine Appearance TURBID (CLEAR) Urine pH 6.5 (4.5-7.5) Urine Specific Criders 1.024 (1.000-1.030) Urine Protein 1+ (NEG) Urine Glucose (UA) NEG (NEG) Urine Ketones 3+ (NEG) Urine Occult Blood NEG (NEG) Urine Nitrite NEG (NEG) Urine Bilirubin NEG (NEG) Urine Urobilinogen NEG (NEG) Urine Leukocyte Esterase MODERATE (NEG) Urine WBC (Auto) 10-30 /hpf (0-5) Urine RBC (Auto) 0-4 /hpf (0-4) Urine Hyaline Casts (Auto) 1-5 /lpf (0-5) Urine Epithelial Cells (Auto) >30 /lpf (0-5) Urine Bacteria (Auto) 1+ (NEG) Urine Pathogenic Casts /lpf (0) Urine Mucus PRESENT (NONE PRSENT) Urine Test NEG (NEG) Urine Opiates Screen NEG (NEG) Urine Methadone, Qualitative NEG (NEG) Urine Barbiturates NEG (NEG) Urine Phencyclidine (PCP) Level NEG (NEG) Ur Amphetamine/Methamphetamine NEG (NEG) MDMA (Ecstasy) Screen NEG (NEG) Urine Benzodiazepines Screen POS (NEG) Urine Cocaine Metabolite NEG (NEG) Urine Marijuana (THC) NEG (NEG) White Blood Count 8.90 K/uL (4.8-10.8) Red Blood Count 5.00 M/uL (4.2-5.4) Hemoglobin 14.9 g/dL (12.0-16.0) Hematocrit 44.1 % (37-47) Mean Corpuscular Volume 88.2 fL (80-100) Mean Corpuscular Hemoglobin 29.8 pg (25-34) Mean Corpuscular Hemoglobin Concent 33.8 g/dl (32-36) Platelet Count 223 K/uL (130-400) Mean Platelet Volume 10.5 fL (7.4-10.4) Neutrophils (%) (Auto) 63.6 % Lymphocytes (%) (Auto) 28.8 % Monocytes (%) (Auto) 4.9 % Eosinophils (%) (Auto) 2.2 % Basophils (%) (Auto) 0.3 % Neutrophils # (Auto) 5.65 K/uL (1.4-6.5) Lymphocytes # (Auto) 2.56 K/uL (1.2-3.4) Monocytes # (Auto) 0.44 K/uL (0.11-0.59) Eosinophils # (Auto) 0.20 K/uL (0-0.5) Basophils # (Auto) 0.03 K/uL (0-0.2) RDW Standard Deviation 41.8 fL (36.4-46.3) RDW Coefficient of Variation 13.0 % (11.5-14.5) Immature Granulocyte % (Auto) 0.2 % Immature Granulocyte # (Auto) 0.02 K/uL (0.00-0.02) Anion Gap 12.0 mmol/L (3-11) Est Creatinine Clear Calc Drug Dose 102.9 ml/min Estimated GFR () 141.1 Estimated GFR (Non- 121.8 BUN/Creatinine Ratio 10.5 (10-20) Calcium Level 8.6 mg/dl (8.5-10.1) Total Bilirubin 0.6 mg/dl (0.2-1) Direct Bilirubin 0.1 mg/dl (0-0.2) Aspartate Amino Transf (AST/SGOT) 9 U/L (15-37) Alanine Aminotransferase (ALT/SGPT) 16 U/L (12-78) Alkaline Phosphatase 48 U/L (45-117) Total Protein 7.7 gm/dl (6.4-8.2) Albumin 4.4 gm/dl (3.4-5.0) Thyroid Stimulating Hormone (TSH) 1.100 uIu/ml (0.300-4.500) Salicylates Level 3.2 mg/dl (2.8-20) Acetaminophen Level < 2 ug/ml (10-30) [place] Level 0.9 mMOL/L (0.6-1.2) Ethyl Alcohol mg/dL < 3.0 mg/dl (0-3) Laboratory results as reviewed by me. Medications Administered Medications (Trade) Dose Ordered Sig/Josselyn Route Start Time Stop Time Status Last Admin Dose Admin Sodium Chloride 1,000 ml @ 999 mls/hr Q1H1M STAT IV 02/14/18 18:28 02/14/18 19:28 DC 02/14/18 19:06 999 MLS/HR Escitalopram Oxalate (Lexapro Tab) 40 mg NOW STAT PO 02/14/18 18:28 02/14/18 18:31 DC 02/14/18 18:28 40 MG Clonazepam (Klonopin Tab) 1 mg NOW STAT PO 02/14/18 18:28 02/14/18 18:31 DC 02/14/18 18:28 1 MG Hydroxyzine HCl (Vistaril Tab) 25 mg NOW STAT PO 02/14/18 18:28 8/28/18 18:32 DC 02/14/18 18:28 25 MG Ceftriaxone Sodium (Rocephin Inj) 1 gm NOW STAT IV 02/14/18 20:10 02/14/18 20:11 DC 02/14/18 20:20 1 GM [place] Carbonate (Eskalith Cr Tab) 450 mg TODAY@2125 ONCE PO 02/14/18 21:26 02/14/18 21:33 DC 02/14/18 21:41 450 MG ED Course 1819: The patient was evaluated in room A7. A complete history and physical exam was performed. 2012: I reevaluated the patient and discussed test results. 2210: The patient is accepted by the [facility] and will be transferred. Medical Decision This is a 22-year-old female presents for mental health evaluation. I did perform a limited focused review of portions of the patient's old chart on the electronic medical record. The patient has one recent pertinent visit to this hospital on February 02 of this year. She was here for flank pain and was diagnosed with pyelonephritis. Her urine sample was E. Coli antunez sensitive and she was discharged on Bactrim. I did evaluate the patient as noted above. The patient is presenting with increased depression and anxiety with suicidal ideation today against her parents. She has also some various physical complaints including ankle pain for several months. She states that she broke her ankle and followed up with orthopedics. She is still having pain. She also has a rash to her left thigh. She does state that her flank pain has resolved since her last visit. IV access was established. She was given normal saline IV. I did order and personally review the patient's ankle x-rays as described above. There is no evidence of fracture dislocation. I did order and review the patient's blood work as noted in the electronic medical record. I did order a urine analysis. She does have evidence of infection. I did discuss the test results with the patient. She is placed in a gel ankle splint for comfort. She was given Omnicef for her UTI. She was evaluated by the mental health returned case inspector. She was referred to the [facility] for inpatient psychiatric treatment. She was transferred there with a prescription for Omnicef. Medication Reconcilliation Current Medication List: was personally reviewed by me Blood Pressure Screening Patient's blood pressure: Normal blood pressure Impression Primary Impression: Mood disorder Additional Impressions: Anxiety UTI (urinary tract infection) Right ankle pain Scribe Attestation The scribe's documentation has been prepared under my direct and personally reviewed by me in its entirety. I confirm that the note above accurately reflects all work, treatment, procedures, and medical decision making performed by me. Departure Information Dispostion Transfer Acute Care Facility Referrals Quincy Clements D.OAditya (PCP) Forms HOME CARE DOCUMENTATION FORM, IMPORTANT VISIT INFORMATION Patient Instructions My [facility] Problem Qualifiers Additional Impressions: UTI (urinary tract infection) Urinary tract infection type: acute cystitis Hematuria presence: without hematuria Qualified Codes: N30.00 - Acute cystitis without hematuria Right ankle pain Chronicity: chronic Qualified Codes: M25.571 - Pain in right ankle and joints of right foot; G89.29 - Other chronic pain
--- NOTE | 2018-02-16 16:30 | Pharmacy Progress Note ---
ED Pharmacist Culture FollowUp Date of Service: Feb 16, 2018. Patient's urine culture growing gardnerella-like bacilli, likely contaminate. Patient was previously on bactrim, unclear when bactrim was discontinued but was to be for 14 days which would have been completed 02/15. Discussed w/ Dr. Morgan, urine culture may be negative due to recent antibiotic use but treatment not completed. Was prescribed cefdinir at visit which would have covered the previously growing E. coli. Per Dr. Morgan patient can continue cefdinir, no intervention at this time.
== END 2018-02-14 22:58 ==
LOC: C.EDB 18:11 → C.EDA 22:58
DX: F39 Unspecified mood [affective] disorder (principal); F41.9 Anxiety disorder, unspecified; N30.00 Acute cystitis without hematuria; M25.571 Pain in right ankle and joints of right foot; G89.29 Other chronic pain; F90.9 Attention-deficit hyperactivity disorder, unspecified type; J45.909 Unspecified asthma, uncomplicated; F32.9 Major depressive disorder, single episode, unspecified; F60.3 Borderline personality disorder; F17.210 Nicotine dependence, cigarettes, uncomplicated; Z79.899 Other long term (current) drug therapy; Z88.1 Allergy status to other antibiotic agents; Z88.0 Allergy status to penicillin; Z88.8 Allergy status to other drugs, medicaments and biological substances

== ENCOUNTER 2018-07-22 16:42 | Inpatient (IN) ==
[2018-07-22 17:40] LABS: Basophils # (auto) 0.03 K/uL (0-0.2); Basophils % (auto) 0.4 %; Eosinophils # (auto) 0.18 K/uL (0-0.5); Eosinophils % (auto) 2.7 %; Hematocrit (blood only) 40.2 % (37-47); Hemoglobin 13.4 g/dL (12.0-16.0); Immature Granulocytes # (auto) 0.01 K/uL (0.00-0.02); Immature Granulocytes % (auto) 0.1 %; Lymphocytes # (auto) 2.29 K/uL (1.2-3.4); Lymphocytes % (auto) 34.2 %; Mean Corpuscular Hgb Conc 33.3 g/dL (32-36); Mean Corpuscular Volume 88.7 fL (80-100); Mean Platelet Volume 10.4 fL (7.4-10.4); Monocytes # (auto) 0.56 K/uL (0.11-0.59); Monocytes % (auto) 8.4 %; Neutrophils # (auto) 3.62 K/uL (1.4-6.5); Neutrophils % (auto) 54.2 %; Platelet Count 227 K/uL (130-400); RDW Coefficient of Variation 13.2 % (11.5-14.5); Red Blood Count 4.53 M/uL (4.2-5.4); White Blood Count 6.69 K/uL (4.8-10.8)
[2018-07-22 17:55] LABS: Acetaminophen < 2 ug/ml (10-30); Salicylate < 1.7 mg/dl (2.8-20)
[2018-07-22 17:58] LABS: Albumin Level 3.6 gm/dl (3.4-5.0); BUN Creatinine Ratio 12.3 (10-20); Calcium 8.4 mg/dl (8.5-10.1); Creatinine Clr Calc Pharmacy 121.9 ml/min; Est GFR (African American) 141.1; Est GFR (Non-African American) 121.8; Potassium 3.1 mmol/L (3.5-5.1)
[2018-07-22 18:00] LABS: Appearance Urine Turbid (Clear); Bilirubin Urine Negative (Negative); Color Urine Yellow; Glucose Urine UA Negative (Negative); Ketones Urine Negative (Negative); Leukocyte Esterase Urine 3+ (Negative); Nitrite Urine Negative (Negative); Protein Urine Negative (Negative); Specific Gravity Urine 1.009 (1.000-1.030); Urobilinogen Urine Negative (Negative); pH Urine 6.5 (4.5-7.5)
[2018-07-22 18:08] LABS: Albumin Globulin Ratio 1.1 (0.9-2); Bilirubin,Total 0.3 mg/dl (0.2-1); Globulin 3.2 gm/dl (2.5-4.0); Total Protein 6.9 gm/dl (6.4-8.2)
[2018-07-22 18:13] LABS: Pregnancy Test, Urine Negative (Negative)
[2018-07-22 18:23] LABS: Epithelial Cell Urine Auto >30 /lpf (0-5); WBC Urine Automated >30 /hpf (0-5)
[2018-07-22 18:25] LABS: Cast Urine Automated 0 /lpf (0-5)
[2018-07-22 18:26] LABS: Bacteria Urine Automated 2+ (Negative)
[2018-07-22 18:35] LABS: Amphetamines+Metham, Urine Pos (Neg); Barbiturates, Urine Neg (Neg); Benzodiazepine, Urine Pos (Neg); Cocaine, Urine Neg (Neg); MDMA (Ecstacy), Urine Neg (Neg); Methadone, Urine Neg (Neg); Opiate, Urine Pos (Neg); Phencyclidine, Urine Neg (Neg)
[2018-07-22] MEDS ORDERED: clonazePAM 0.5 MG TAB PO STA (19:35)
[2018-07-22] MEDS ORDERED: NITROFURANTOIN MONOHYDRATE 100 MG CAP PO STA (20:58)
[2018-07-22] MEDS ORDERED: POTASSIUM CHLORIDE 20 MEQ TABCR PO STA (20:58)
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
[2018-07-22] MEDS ORDERED: NICOTINE POLACRILEX 2 MG GUM MT PRN (21:40)
[2018-07-22] MEDS ORDERED: ALUMINUM/MAGNESIUM SUSP 30 ML UDC PO PRN (21:40)
[2018-07-22] MEDS ORDERED: SODIUM CHLORIDE 0.65% NA SOLN 45 ML (OCEAN) PRN (21:40)
[2018-07-22] MEDS ORDERED: BISMUTH SUBSALICYLATE PER ML OMNICELL CHARGE PO PRN (21:40)
[2018-07-22] MEDS ORDERED: MAGNESIUM HYDROXIDE SUSP 30 ML UDC PO PRN (21:40)
[2018-07-22] MEDS ORDERED: ACETAMINOPHEN 325 MG TAB PO PRN (21:40)
[2018-07-23] MEDS: MIRTAZAPINE TAB 15 MG TAB PO SCH ×2 (00:06→20:59)
[2018-07-23] MEDS: ESCITALOPRAM OXALATE 10 MG TAB PO SCH ×2 (00:06→20:59)
[2018-07-23] MEDS ORDERED: LITHIUM CARBONATE 450 MG TABCR PO SCH ×2 (09:00→22:00)
[2018-07-23] MEDS: NICOTINE 21 MG/24 HR TDSY TD SCH ×2 (11:21→11:40)
[2018-07-23] MEDS: clonazePAM 0.5 MG TAB PO SCH ×2 (12:22→20:58)
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
[2018-07-23] MEDS ORDERED: ESCITALOPRAM OXALATE 10 MG TAB PO SCH (21:00)
[2018-07-23] MEDS ORDERED: MIRTAZAPINE TAB 15 MG TAB PO SCH (21:00)
[2018-07-24] MEDS: clonazePAM 0.5 MG TAB PO SCH (10:35)
[2018-07-24] MEDS: NICOTINE 21 MG/24 HR TDSY TD SCH (10:35)
--- NOTE | 2018-07-24 11:02 | Discharge Summary ---
Date of Service July 24, 2018 History of Present Illness Tricia was last admitted to [facility] in late Apr 2018 on a 302 commitment, family was concerned about safety given mental health dx and erratic behavior due to drug use. At that time patient admitted to significant substance use of ETOH, cocaine and there were concerns about not taking Klonopin as prescribed. Rehab was recommended but she was discharged with an interim plan to return to outpatient care. She states she doesn't currently have a therapist and argued with her family and stayed at a friend's house for 2 days. She states she didn' t have access to her medications as family wouldn't allow back home. She has an intake scheduled for [facility] for temporary housing. She admits she was mad at her sponsor and threatened to end her life with a heroin OD "like" her boyfriend did. She is denying any and all suicidal thoughts at this time. It was made clear to her before signing into the hospital that given her positive drug screen and long history of substance misuse that Klonopin would be tapered during her stay to prevent withdrawal. She states "I don't care, my doctor will just put me back on it" and spoke with staff to rescind BOOKER. PDMP confirms last rx of 60 pills on 07/07/18. It appears that Ambien was tapered and discontinued through the fall. She has a long history of sleep disturbance related initially to PTSD and later misuse of controlled substances and at one point was abusing OTC benadryl. She is well known to admitting physician through previous course of treatment at [facility] in her teens. Discussion mainly focussed on confirming her med rec and she ended the interview and demanded staff give her lithium this am after just insisting it's at night. She voiced preference for Klonopin 0.25 mg BID to start taper rather than consolidation at hs and was quite upset that TID would not be allowed. Physical Exam Mental Examination Well-nourished well-developed white female appearing her stated age. Casually dressed with adequate grooming and hygiene. Lying in bed in no acute distress, listening to music and holding a stuffed animal. Good eye contact and no abnormal movements. Gait is steady. Mood is "fine," and affect is euthymic, stable, and congruent. Speech is spontaneous, normal rate, volume, and tone. Thoughts are goal-directed. Denies SI, HI, hallucinations, and paranoia. No delusions are evident. Insight and judgment are poor. Vital Signs (Past 24 Hours) Last Vital Signs Temp 36.8 C 07/24/18 06:46 Pulse 89 07/24/18 06:47 Resp 16 07/24/18 06:46 BP 116/84 07/24/18 06:47 Pulse Ox 99 07/22/18 21:09 Principal Diagnosis Depression not otherwise specified. Substance abuse. Psychiatric Data Although the patient signed in voluntarily, she was uncooperative with treatment , refusing to have a family meeting or sign releases for her outpatient providers, and submitted a 72-hour request to withdraw from treatment.. Although she initially signed a release for Dr. Mcdaniels, she later rescinded it, and she refused to sign a release for her therapist at [facility]. Her drug screen was positive for opiates, amphetamine/methamphetamine, and benzodiazepines, confirmatory test still pending at the time of discharge. She said that she had not been abusing drugs, and that her naltrexone caused the opiate positive result, but this physician personally spoke with the lab who confirmed that naltrexone would not cause a false positive. Additionally, she stated that she was prescribed Concerta, but review of the PDMP reveals that she has not been prescribed any stimulant medications in the past year. She consistently denied suicidal thoughts, and stated that she sent that text messages to her sponsor "to get her attention." She was focused on getting Klonopin, and was angry when she cannot take it as often as she wanted. She was noted to be eating and sleeping well. She gave inconsistent reports about what she was currently prescribed. Day of Discharge Assessment Staff report the patient has not been engaged in treatment, continues to deny suicidal thoughts, but is refusing a family meeting. [facility] after discharge. She rescinded her release for Dr. Mcdaniels, and continues to refuse to sign a release for [facility]. On my assessment, the patient states she only signed into the hospital voluntarily because she did not want to be 302'd, and so that she could "just sign myself out right away." She says her parents "gave me a choice of voluntary or they'd force me." She maintains that she was never "really" suicidal, and that she just sent the text message to her AA sponsor "to get her attention." She denies mood symptoms and SI, and denies safety concerns with discharge. She denies using substances in the past few months, then says she's used marijuana. When asked about her UDS being positive for opiates, meth/amphetamine and benzodiazepines, she says she is prescribed Concerta (although there are no stimulant prescriptions in the PDMP for the past year, so she is either taking prescription stimulants that are not hers, or using meth), and furthermore states that her opiate screen is positive due to her vivid trauma (confirmed with the lab that did a trial would not show up on the drug screen). Due to her ongoing substance abuse, recommendation is that she not drive until she has maintained a period of sobriety and being cleared by her physician. Patient was informed and LETY GEORGE paperwork submitted. Patient also informed that although she is refusing to sign discharge releases for her outpatient providers , due to the safety concerns regarding ongoing substance abuse, lack of honesty in care, and being prescribed multiple psychotropic medications, I would be notifying them of her drug screen results and lack of engagement in treatment resulting in AMA discharge. Transition of Care Transition Of Care Record: was reviewed with the patient Advance Directives Advance Directives Information Provided: Yes Advance Directives: No Mental Health Advance Directive: No Advance Directives on File: No Living Will: No Power of Jewelry Designer: No Advance Directives Reason:: Declines as Mental Health Visit. Risk Factors Assessment Risk factors were mitigated by admission to the inpatient unit, use of psychotropic medications to target mood symptoms, discontinuation of controlled substances given ongoing substance abuse, involvement in groups and therapy on the unit, offering a family meeting which she refused, recommending coronation of care with outpatient providers which she refused, and recommendations for a higher level of care given ongoing substance abuse, which she also refused. The patient is performing ADLs independently, eating and sleeping well, and consistently denying thoughts of harming herself or others. She has been calm on the unit, is not engaging in self-injurious or aggressive behavior, and has submitted a 72-hour notice requesting to withdraw from treatment. As she is not at acute risk of harm to herself or others and remaining risk factors are unlikely to be mitigated by further inpatient treatment, she has been discharged AMA today. 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 main caregiver for 5 yo brother) Employed: No Stable Relationships: No Tobacco Cessation at Discharge Tobacco Cessation Medication Prescribed at Discharge: Offered & Pt Refused Total Time Total Time Spent: Greater Than 30 Minutes Total Time Includes: Examination of the patient, Discharge Planning, Medication Reconciliation and Communication with other providers Discharge Data Lab Results 07/22/18 07/22/18 07/22/18 17:20 17:20 17:20 WBC 6.69 RBC 4.53 Hgb 13.4 Hct 40.2 MCV 88.7 MCH 29.6 MCHC 33.3 RDW Std Deviation 43.0 RDW Coeff of Dov 13.2 Plt Count 227 MPV 10.4 Immature Gran % (Auto) 0.1 Neut % (Auto) 54.2 Lymph % (Auto) 34.2 Fajardo % (Auto) 8.4 Eos % (Auto) 2.7 Baso % (Auto) 0.4 Immature Gran # (Auto) 0.01 Neut # (Auto) 3.62 Lymph # (Auto) 2.29 Fajardo # (Auto) 0.56 Eos # (Auto) 0.18 Baso # (Auto) 0.03 Sodium 140 Potassium 3.1 L Chloride 109 H Carbon Dioxide 21 Anion Gap 10.0 BUN 9 D Creatinine 0.71 Est Cr Clr Drug Dosing 121.9 Est GFR ( Amer) 141.1 Est GFR (Non-Af Amer) 121.8 BUN/Creatinine Ratio 12.3 Glucose 91 Calcium 8.4 L Total Bilirubin 0.3 AST 76 H ALT 50 Alkaline Phosphatase 60 Total Protein 6.9 Albumin 3.6 Globulin 3.2 Albumin/Globulin Ratio 1.1 TSH 0.463 Urine Color Urine Appearance Urine pH Ur Specific [place] Urine Protein Urine Glucose (UA) Urine Ketones Urine Blood Urine Nitrite Urine Bilirubin Urine Urobilinogen Ur Leukocyte Esterase Urine WBC (Auto) Urine RBC (Auto) U Hyaline Cast (Auto) U Epithel Cells (Auto) Urine Bacteria (Auto) Urine Test Salicylates < 1.7 L Urine Opiates Screen Ur Methadone, Qual Acetaminophen < 2 L Urine Barbiturates Ur Phencyclidine (PCP) U Amphetamin/Meth Scrn MDMA (Ecstasy) Screen U Benzodiazepines Scrn [place] Ur Cocaine Metabolite U Marijuana (THC) Screen Ethyl Alcohol mg/dL 07/22/18 07/22/18 07/22/18 17:20 17:46 17:46 WBC RBC Hgb Hct MCV MCH MCHC RDW Std Deviation RDW Coeff of Dov Plt Count MPV Immature Gran % (Auto) Neut % (Auto) Lymph % (Auto) [place]ardo % (Auto) Eos % (Auto) Baso % (Auto) Immature Gran # (Auto) Neut # (Auto) Lymph # (Auto) [place] # (Auto) Eos # (Auto) Baso # (Auto) Sodium Potassium Chloride Carbon Dioxide Anion Gap BUN Creatinine Est Cr Clr Drug Dosing Est GFR ( Amer) Est GFR (Non-Af Amer) BUN/Creatinine Ratio Glucose Calcium Total Bilirubin AST ALT Alkaline Phosphatase Total Protein Albumin Globulin Albumin/Globulin Ratio TSH Urine Color Yellow Urine Appearance Turbid H Urine pH 6.5 Ur Specific [place] 1.009 Urine Protein Negative Urine Glucose (UA) Negative Urine Ketones Negative Urine Blood 2+ H Urine Nitrite Negative Urine Bilirubin Negative Urine Urobilinogen Negative Ur Leukocyte Esterase 3+ H Urine WBC (Auto) >30 H Urine RBC (Auto) 5-10 H U Hyaline Cast (Auto) 0 U Epithel Cells (Auto) >30 H Urine Bacteria (Auto) 2+ H Urine Test Salicylates Urine Opiates Screen Pos H Ur Methadone, Qual Neg Acetaminophen Urine Barbiturates Neg Ur Phencyclidine (PCP) Neg U Amphetamin/Meth Scrn Pos H MDMA (Ecstasy) Screen Neg U Benzodiazepines Scrn Pos H [place] Ur Cocaine Metabolite Neg U Marijuana (THC) Screen Neg Ethyl Alcohol mg/dL < 3.0 07/22/18 07/22/18 17:46 20:01 WBC RBC Hgb Hct MCV MCH MCHC RDW Std Deviation RDW Coeff of Dov Plt Count MPV Immature Gran % (Auto) Neut % (Auto) Lymph % (Auto) [place] % (Auto) Eos % (Auto) Baso % (Auto) Immature Gran # (Auto) Neut # (Auto) Lymph # (Auto) [place] # (Auto) Eos # (Auto) Baso # (Auto) Sodium Potassium Chloride Carbon Dioxide Anion Gap BUN Creatinine Est Cr Clr Drug Dosing Est GFR ( Amer) Est GFR (Non-Af Amer) BUN/Creatinine Ratio Glucose Calcium Total Bilirubin AST ALT Alkaline Phosphatase Total Protein Albumin Globulin Albumin/Globulin Ratio TSH Urine Color Urine Appearance Urine pH Ur Specific [place] Urine Protein Urine Glucose (UA) Urine Ketones Urine Blood Urine Nitrite Urine Bilirubin Urine Urobilinogen Ur Leukocyte Esterase Urine WBC (Auto) Urine RBC (Auto) U Hyaline Cast (Auto) U Epithel Cells (Auto) Urine Bacteria (Auto) Urine Test Negative Salicylates Urine Opiates Screen Ur Methadone, Qual Acetaminophen Urine Barbiturates Ur Phencyclidine (PCP) U Amphetamin/Meth Scrn MDMA (Ecstasy) Screen U Benzodiazepines Scrn [place] < 0.2 L Ur Cocaine Metabolite U Marijuana (THC) Screen Ethyl Alcohol mg/dL Hospital Course (1) Threatening suicide: The patient was admitted to the [facility] ([facility] unit) on q15 min checks (behavioral with suicide precautions) for safety. The patient will participate in group, recreational, and milieu therapies and will be offered additional individual and family sessions as clinically appropriate. Continue current outpatient medications save the Klonopin taper as above. Subtherapeutic on lithium due to compliance issues and I have seen her cycle in the past. It is unlikely that she will meet any criteria for involuntary commitment should she seek to withdrawal from treatment as she is not psychotic and primarily personality disorder with substance abuse hx. Her issues are chronic and she will not engage much in inpatient care. For now is necessary for monitoring and safety and she agrees to remain hospitalized on 201. 24 - Consistently denying SI here. Not engaged in treatment, and submitted request to withdrawal from treatment. Discharge AMA. (2) Substance abuse: confirm Vivitrol. Tapering Klonopin. Coordinate with outpatient providers as appropriate. 07/24 - Patient not forthcoming with substance abuse. UDS + for opiates, meth/ amphet, and benzos on both recent ER visits; confirmatory results pending. Although patient states she is prescribed medications that would cause false positive results, according to the lab, this is incorrect. - Klonopin tapered and do not recommend she be prescribed any controlled substances due to ongoing substance abuse and risk of drug-drug interactions including . Dr. Mcdaniels's office advised as he has been prescribing her benzodiazepines and this is a safety risk. -Patient advised she should not drive until she has been sober and cleared by a physician, and expressed understanding. Mandatory [place] DOT paperwork submitted. -Patient is refusing a higher level of substance abuse treatment. This physician called [facility] and informed staff of concerns regarding ongoing substance use and patient's refusal to allow discussion with her treatment provider there. (3) Depression: see above re: suicidal thoughts, she is minimizing and is resistant to care and treatment plan. Mood shifts primarily related to borderline personality disorder dx, will monitor and recalibrate lithium. 2/4 -patient is not endorsing nor demonstrating symptoms of depression. Mood swings and irritability more likely due to substance abuse/withdrawal. (4) Opiate abuse, continuous: See above. (5) Methamphetamine abuse: See above. Post Discharge Appointments Primary Care Physician Name Of Family Doctor: Dr. Zenaida Clements Psychiatrist Name of Psychiatrist: Dr. Mcdaniels Date of Appointment with Psychiatrist: 08/04/18 Time of Appointment with Psychiatrist: 10am Therapist Name of Therapist: [facility], was in [facility] Smoking Cessation Counseling Tobacco Cessation Medication Prescribed at Discharge: Offered & Pt Refused Contact Information Discharge Discharge Plan Discharge Items Patient Disposition: Against Medical Advice Reason For Visit: BIPOLAR DISORDER Driving/Machine Use Comment: You should not drive due to ongoing substance use, with drug screen positive for multiple controlled substances. Diet: Regular Stand-Alone [facility]: [facility] Admission Data Admit Date/Time: 07/22/18 21:40 Attending Provider: Micheline Laguerre Admit Provider: iMcheline Laguerre Primary Care Provider: PCP,NO Service: Psychiatry Other Interventions: PSY Interdisciplinary Discharge Planning Last Done: 07/24/18 10:21
[2018-07-24] MEDS ORDERED: LITHIUM CARBONATE 450 MG TABCR PO SCH (22:00)
[2018-07-26 14:37] LABS: 7-Aminoclonaz, Confirm 973 NG/ML (CUTOFF=25); Amphetamine Urine, Confirm 2600 NG/ML (CUTOF=250); Hydro-Alp Ur, GC/MS 199 NG/ML (CUTOFF=25); Hydrocodone Urine NEGATIVE NG/ML (CUTOFF=50); Hydromor Urine 194 NG/ML (CUTOFF=50); Hydroxyethylflurazepam, Conf NEGATIVE NG/ML (CUTOFF=50); Hydroxytriazolam NEGATIVE NG/ML (CUTOFF=50); Lorazepam, Ur GC/MS NEGATIVE NG/ML (CUTOFF=50); Morphine Urine 185 NG/ML (CUTOFF=50); Nordiazepam, Confirm NEGATIVE NG/ML (CUTOFF=50); Norhydrocodone Conf Ur 181 NG/ML (CUTOFF=50); Noroxycodone Urine NEGATIVE NG/ML (CUTOFF=50); Oxazepam Ur, GC/MS NEGATIVE NG/ML (CUTOFF=50); Oxycodone Urine NEGATIVE NG/ML (CUTOFF=50); Temazepam, Confirm NEGATIVE NG/ML (CUTOFF=50)
== END 2018-07-24 12:35 | disposition left against medical advice (07) | DRG 881 ==
LOC: ED 16:42 → 3S 21:40

== ENCOUNTER 2018-12-20 00:53 | Inpatient (IN) ==
[2018-12-20] MEDS ORDERED: HALOPERIDOL LACTATE 5 MG/ML 1 ML VIAL ONE (01:07)
[2018-12-20] MEDS ORDERED: LORazepam 2 MG/4 ML VIAL ONE (01:08)
[2018-12-20] MEDS ORDERED: SODIUM CHLORIDE 0.9% 1000ML 1,000 ML IV ONE (01:09)
[2018-12-20] MEDS ORDERED: DIPHTHERIA/TETANUS/PERTUSSIS 0.5 ML SYR/VIAL IM ONE (01:13)
[2018-12-20] MEDS ORDERED: MULTI-VITAMIN INFUSION 10 ML, THIAMINE HCL 100 MG, FOLIC ACID 1 MG in SODIUM CHLORIDE 0... IV SCH (01:15)
[2018-12-20 01:40] LABS: Basophils # (auto) 0.04 K/uL (0-0.2); Basophils % (auto) 0.4 %; Eosinophils # (auto) 0.09 K/uL (0-0.5); Hematocrit (blood only) 44.5 % (37-47); Hemoglobin 15.5 g/dL (12.0-16.0); Immature Granulocytes # (auto) 0.02 K/uL (0.00-0.02); Immature Granulocytes % (auto) 0.2 %; Lymphocytes # (auto) 3.73 K/uL (1.2-3.4); Lymphocytes % (auto) 39.4 %; Mean Corpuscular Hgb Conc 34.8 g/dL (32-36); Mean Corpuscular Volume 86.6 fL (80-100); Mean Platelet Volume 10.2 fL (7.4-10.4); Monocytes # (auto) 0.72 K/uL (0.11-0.59); Monocytes % (auto) 7.6 %; Neutrophils # (auto) 4.86 K/uL (1.4-6.5); Neutrophils % (auto) 51.4 %; Platelet Count 295 K/uL (130-400); RDW Coefficient of Variation 12.6 % (11.5-14.5); RDW Standard Deviation 40.3 fL (36.4-46.3); Red Blood Count 5.14 M/uL (4.2-5.4); White Blood Count 9.46 K/uL (4.8-10.8)
[2018-12-20] MEDS ORDERED: XYLOCAINE 1%/SOD BICARB 20 ML VIAL INFIL ONE (01:42)
[2018-12-20 01:56] LABS: Alanine Aminotransferase 19 U/L (12-78); Albumin Level 4.1 gm/dl (3.4-5.0); Aspartate Aminotransferase 13 U/L (15-37); Blood Urea Nitrogen 4 mg/dl (7-18); Calcium 9.2 mg/dl (8.5-10.1); Carbon Dioxide 23 mmol/L (21-32); Chloride 110 mmol/L (98-107); Est GFR (African American) 142.5; Glucose 96 mg/dl (70-99); Potassium 3.7 mmol/L (3.5-5.1); Sodium 140 mmol/L (136-145)
[2018-12-20 02:07] LABS: Albumin Globulin Ratio 1.3 (0.9-2); Alkaline Phosphatase 68 U/L (45-117); Bilirubin,Total 0.2 mg/dl (0.2-1); Globulin 3.1 gm/dl (2.5-4.0); Total Protein 7.2 gm/dl (6.4-8.2)
[2018-12-20 02:12] LABS: Pregnancy Test, Serum Negative (Negative)
[2018-12-20 02:19] LABS: T4 Free Thyroxine 1.11 ng/dl (0.8-1.6)
[2018-12-20 02:22] LABS: Acetaminophen < 2 ug/ml (10-30)
[2018-12-20 02:23] LABS: Lithium < 0.2 mmol/L (0.6-1.2); Salicylate < 1.7 mg/dl (2.8-20)
[2018-12-20 02:32] LABS: Appearance Urine Clear (Clear); Bilirubin Urine Negative (Negative); Blood Urine Negative (Negative); Color Urine Yellow; Glucose Urine UA Negative (Negative); Ketones Urine Negative (Negative); Leukocyte Esterase Urine Negative (Negative); Nitrite Urine Negative (Negative); Protein Urine Negative (Negative); Specific Gravity Urine 1.011 (1.000-1.030); Urobilinogen Urine Negative (Negative); pH Urine 5.5 (4.5-7.5)
[2018-12-20 02:50] LABS: Amphetamines+Metham, Urine Neg (Neg); Barbiturates, Urine Neg (Neg); Benzodiazepine, Urine Pos (Neg); Cocaine, Urine Neg (Neg); MDMA (Ecstacy), Urine Neg (Neg); Methadone, Urine Neg (Neg); Opiate, Urine Neg (Neg); Phencyclidine, Urine Neg (Neg)
--- NOTE | 2018-12-20 04:06 | Emergency Department Note ---
ED Visit Note I was asked by Dr. Jackson to perform laceration repair on this patient's left thigh lacerations. Patient has multiple superficial abrasions/lacerations to both lower extremities. There are 4 deeper lacerations with exposed subcutaneous tissue to the anterior right thigh. These lacerations measure 5.5 cm, 3 cm, 2.5 cm and 7.5 cm. No foreign bodies seen in the base of any of the wounds. No active bleeding. Please see Dr. Jackson's full dictation for further details regarding this patient's ED visit. Implied consent was obtained to perform all procedures as patient was sedated on my evaluation. Laceration length: 5.5 cm Using sterile technique the wound was cleaned with Betadine. The area was sterilely draped. 3 ml of 1% buffered lidocaine was used to anesthetize the laceration. Once the patient was anesthetized, the wound was copiously irrigated under pressure with sterile saline. The wound was explored and there were no deep structures injured such as tendons, bone, or significant blood vessels. The subcutaneous tissue was repaired with a running subcutaneous Vicryl suture. The laceration was repaired using 10 simple interrupted 4-0 nylon sutures with the wound edges being well approximated. Hemostasis was achieved. No complications were met. Laceration length: 3 cm Using sterile technique the wound was cleaned with Betadine. The area was sterilely draped. 2 ml of 1% buffered lidocaine was used to anesthetize the laceration. Once the patient was anesthetized, the wound was copiously irrigated under pressure with sterile saline. The wound was explored and there were no deep structures injured such as tendons, bone, or significant blood vessels. The laceration was repaired using 4 simple interrupted 4-0 nylon sutures with the wound edges being well approximated. Hemostasis was achieved. No complications were met. Laceration length: 2.5 cm Using sterile technique the wound was cleaned with Betadine. The area was sterilely draped. 2 ml of 1% buffered lidocaine was used to anesthetize the laceration. Once the patient was anesthetized, the wound was copiously irrigated under pressure with sterile saline. The wound was explored and there were no deep structures injured such as tendons, bone, or significant blood vessels. The laceration was repaired using 3 simple interrupted 4-0 nylon sutures with the wound edges being well approximated. Hemostasis was achieved. No complications were met. Laceration length: 7.5 cm Using sterile technique the wound was cleaned with Betadine. The area was sterilely draped. 5 ml of 1% buffered lidocaine was used to anesthetize the laceration. Once the patient was anesthetized, the wound was copiously irrigated under pressure with sterile saline. The wound was explored and there were no deep structures injured such as tendons, bone, or significant blood vessels. The subcutaneous tissue was repaired with a running subcutaneous Vicryl suture. The laceration was repaired using 11 simple interrupted 4-0 nylon sutures with the wound edges being well approximated. Hemostasis was achieved. No complications were met.
[2018-12-20] MEDS ORDERED: ALBUTEROL 0.083% NEBU SOLN 3 ML VIAL INH PRN (04:34)
[2018-12-20] MEDS ORDERED: ALBUTEROL HFA 8 GM INHALER INH PRN (04:34)
[2018-12-20] MEDS ORDERED: ICU PROTOCOL FOR HYPERGLYCEMIA PRN (04:34)
[2018-12-20] MEDS: SODIUM CHLORIDE 0.9% 1000ML 1,000 ML IV SCH ×3 (05:16→21:16)
--- NOTE | 2018-12-20 05:27 | Critical Care Consultation ---
Date of Consultation December 20, 2018 Assessment & Plan (1) Admitted to intensive care unit: Reason Critically Ill: 23-year-old female status post multiple self- inflicted lacerations to the bilateral lower extremities with associated alcohol intoxication and concerns for polysubstance abuse/overdose requiring monitoring for close hemodynamic state and airway management if necessary. NEURO - * CAM ICU: NEGATIVE PSYCH - * Deliberate self-inflicted cutting: * Extensive lacerations to the bilateral lower extremities requiring multilevel closure of concern for possible suicide attempt. * Lacerations repaired in the emergency department. * No need for antibiotics at this time. * Suicidality: * Given patient's recent emergency department visits and current presentation today, I am generally concerned that the patient is high risk for success. * While she states that she did not attempt to kill herself, she admits that she has been feeling very poor since being off her medications and cut herself with an attempt to feel something. * She is aware of admission at this time and agreeable to inpatient psychiatric admission. * Agree with monitoring lithium level status post concerns for overdose. * Patient is awake, alert, oriented, and hemodynamically stable. Will monitor closely for the next several hours with multiple substances that she possibly ingested. * 302 warrant on chart. CARDIAC/VASCULAR - * Monitor hemodynamics in the setting of possible polysubstance overdose. * EKG: Normal sinus rhythm at a rate of [address] or T wave abnormalities noted. * Monitor EKGs with concerns of substance overdose, specifically hydroxyzine. Monitor for QTC prolongation. * Monitor on telemetry. RESPIRATORY - * Need for close monitoring for possible emergent airway management in the setting of possible polysubstance overdose with known alcohol use this evening. * History of asthma. Rescue inhaler as needed. GI/NUTRITION - * Normal diet with safety tray precautions. RENAL/LYTES - * No significant electrolyte derangements. - * No concerns at this time. ENDO - * No history of diabetes. * BSGs per unit protocol. ISS --> gtt per unit policy. * Monitoring thyroid presumed secondary to lithium use. HEME - * Stable H&H. ID - * No concerns for infectious contribution at this time. LINES/IV ACCESS - * PIVs x2 DVT PROPHYLAXIS - * Will hold at this time. Anticipate early ambulation. * SCDs I have personally spent 35 minutes of critical care time in the direct manageme nt of this patient. This is a life/limb threatening event. This includes time spent evaluating patient, direct bedside care, chart review, placing orders, interpretation of diagnostic studies, discussion with consultants, patient, and family members, as well as other required patient management activities. This time is exclusive of all separately billable procedures, and teaching time and separate from and in addition to any other critical care service time. Thank you for allowing us to participate in the care of this patient. Please refer to my attending physician's documentation for any further recommendations. (2) Deliberate self-cutting: (3) At high risk for suicide: (4) Agitation: (5) Acute alcohol intoxication: (6) Alcohol abuse: History of Present Illness Attending Physician: Kaden Case MD Patient is a 23-year-old female with a significant psychiatric history who initially presented to the emergency department after police were summoned to her residence for concerns of her mental health per her friends. Apparently, upon arrival, please found her with multiple cuts to the bilateral lower extremities as well as superficial cuts to the upper extremities. She was intoxicated. She was combative in the emergency department and received Haldol and Ativan. Alcohol level was found to be greater than 130. Lacerations were repaired in the emergency department. Upon arrival in the ICU, the patient is awake, alert, and oriented. She is lethargic, however. She admits to drinking [employer] lauri last evening. She admits to cutting herself to "feel something". She states that she has been off of her psych meds for 1 week because of issues with her thyroid. Her medications were held by her psychiatrist. She reports that she has felt worse since being off her medications. When asked about the pills that were found in the toilet. She reports that she was attempting to dispose of her old medications including gabapentin, hydroxyzine, and Lexapro. She states that she did not take any additional medications. She denies any recent substance abuse. Allergies Allergy/AdvReac Type Severity Reaction Status Date / Time doxycycline Allergy Unknown Unknown Verified 12/20/18 02:11 topiramate Allergy Unknown Muscle Verified 12/20/18 02:11 stiffness haloperidol [From Haldol] Allergy Unknown Verified 12/20/18 02:11 bupropion AdvReac Intermediate MUSCLE Verified 12/20/18 02:11 STIFFNESS prochlorperazine AdvReac Intermediate NUMB AND Verified 12/20/18 02:11 THNGLY FEELING UNABLE TO MOVE clindamycin AdvReac Mild VOMIT Verified 12/20/18 02:11 Penicillins AdvReac Mild her family Verified 12/20/18 02:11 is allergic prednisone AdvReac Mild MAKE Verified 12/20/18 02:11 MENTALY UNSTABLE Home Medications Home Medications Medication Instructions Recorded Confirmed Type lithium carbonate 1,350 mg PO HS 03/13/18 12/20/18 History acetaminophen [Tylenol] 650 mg PO Q6H PRN 12/05/18 12/20/18 History albuterol sulfate 2.5 mg INHALATION Q4 PRN 12/05/18 12/20/18 History albuterol sulfate [ProAir HFA] 2 puff INHALATION Q6H PRN 12/05/18 12/20/18 History escitalopram oxalate [Lexapro] 20 mg PO DAILY 12/05/18 12/20/18 History hydroxyzine pamoate [Vistaril] 25 mg PO DAILY PRN 12/05/18 12/20/18 History medroxyprogesterone [Depo-Provera] 150 mg IM .[id number] 12/05/18 12/20/18 History gabapentin 300 mg PO TID 12/20/18 12/20/18 History zolpidem [Ambien] 5 mg PO HS 12/20/18 12/20/18 History Patient History Medical History Asthma (Chronic) PTSD (post-traumatic stress disorder) (Chronic) ADHD (attention deficit hyperactivity disorder) (Chronic) ODD (oppositional defiant disorder) (Chronic) Social phobia (Chronic) H/O aspiration pneumonitis (Chronic) History of suicide attempt (Chronic) Bipolar 1 disorder, depressed, moderate (Acute) Borderline personality disorder (Chronic) Post-op pain (Acute) Right ankle pain (Acute) UTI (urinary tract infection) (Acute) Asthma Previous known suicide attempt Surgical History [place] teeth removed (Chronic) Family History Other No pertinent family history in first degree relatives Social History Preferred Language: Vietnamese Communication Ability: Effective Visual Impairment: No Limitations Hearing Ability: Normal Beliefs That Will Affect Care: None marital status: Single Current Living Situation: Family Feels Safe at Home: Yes Smoking Status: Current every day smoker Tobacco Type: cigarettes Do You Dip or Chew Tobacco: No Second Hand Exposure: Yes Tobacco Cessation Education Requested by Patient: No Hx Alcohol Use: No Hx Substance Use: Yes substance use type: opiates Last Used Substance: Just Prior to Arrival Review of Systems Review of Systems: A complete 10 point review of systems was reviewed with the patient with pertinent positives and negatives as per history of present illness. All else were negative. Physical Exam Physical Exam: VITAL SIGNS - Vital signs and nursing notes were reviewed. GENERAL - 23-year-old female appearing her stated age who is in no acute distress. SKIN - Multiple lacerations of varying depths noted to the bilateral lower extremities. Lacerations sutured in the emergency department. Multiple linear superficial lacerations noted to the bilateral upper extremities. HEAD - NC/AT. EYES - PERRL with EOMI bilaterally. Sclera anicteric. Palpebral conjunctiva pink and moist with no injection. EARS - No deformities of external structures noted on gross examination bilatera lly. NOSE - Midline and without cyanosis. No epistaxis or purulent drainage noted. MOUTH/OROPHARYNX - Without perioral cyanosis. Buccal mucosa pink and moist and without leukoplakia. Tongue midline with equal elevation of palate bilaterally. NECK - Neck with FROM. LUNGS - Chest wall symmetric without accessory muscle use, intercostals retractions, or central cyanosis. Normal vesicular breath sounds CTA B/L. No wheezes, rales, or rhonchi appreciated. CARDIAC - RRR with S1/S2. No murmur, rubs, or gallops appreciated. ABDOMEN - Abdominal contour flat without pulsations or visible masses. BS nor moactive all four quadrants. No tenderness, palpable masses, hepatosplenomegaly, or ascites noted. EXTREMITIES - Lacerations as discussed above. No clubbing or peripheral cyanosis. No pretibial edema present. +3/5 radial and dorsalis pedis pulses palpated throughout. FROM with no tremors, fasciculations, or clonus noted on PROM throughout. +5/5 strength noted in UE/LE bilaterally. PSYCHIATRIC - SPEECH - Rate and volume of speech slow 2/2 intoxication w/ c/o possible polysubstance overdose. PSYCHOMOTOR - No noticeable psychomotor retardation or agitation. MOOD - Relatively labile. AFFECT - Flat. States that she has been feeling poorly since being off of her psych meds. THOUGHT CONTENT - Claims no active thoughts of suicide, however presentation w/ multiple deep lacerations to the lower extremities seems to preclude this. Denies any hallucinations. THOUGHT PROCESS - Despite her current presentation, she is able to provide detail as to her current psychiatric state and home life. Having interviewed this patient in the past, she is actually more open about herself and psychiatric state than she has been previously. INSIGHT - Poor. JUDGEMENT - Poor. IMPULSE CONTROL - Poor. Results & Data Vital Signs (Past 12 Hours) Vital Signs Temp Pulse Pulse Resp BP BP Pulse Ox 12/20/18 04:35 36.4 C L 110 H 20 107/62 97 12/20/18 04:31 107 H 14 107/62 98 12/20/18 04:03 94 H 20 97/60 L 97 12/20/18 02:30 110 H 20 98/40 L 98 12/20/18 02:00 94 H 20 100/58 L 98 12/20/18 01:30 107 H 23 97/56 L 94 12/20/18 01:15 105 H 24 121/81 93 12/20/18 01:00 36.5 C 139 H 28 H 102/48 L 97 PG Care Time/CCT Critical Care Time: Yes Total Critical Care Time: 35 (1) Acute alcohol intoxication Complication of substance-induced condition: with unspecified complication Qualified Code(s): F10.929 - Alcohol use, unspecified with intoxication, unspecified
[2018-12-20 05:39] LABS: Basophils # (auto) 0.04 K/uL (0-0.2); Basophils % (auto) 0.5 %; Eosinophils # (auto) 0.14 K/uL (0-0.5); Eosinophils % (auto) 1.8 %; Hematocrit (blood only) 40.1 % (37-47); Hemoglobin 13.6 g/dL (12.0-16.0); Immature Granulocytes # (auto) 0.01 K/uL (0.00-0.02); Immature Granulocytes % (auto) 0.1 %; Lymphocytes # (auto) 3.55 K/uL (1.2-3.4); Lymphocytes % (auto) 44.9 %; Mean Corpuscular Hgb Conc 33.9 g/dL (32-36); Monocytes % (auto) 10.1 %; Neutrophils # (auto) 3.36 K/uL (1.4-6.5); Neutrophils % (auto) 42.6 %; Platelet Count 217 K/uL (130-400); RDW Coefficient of Variation 12.9 % (11.5-14.5); RDW Standard Deviation 41.2 fL (36.4-46.3); Red Blood Count 4.61 M/uL (4.2-5.4)
[2018-12-20 05:52] LABS: INR 1.1 (0.9-1.1); Partial Thromboplastin Time 26.4 Seconds (21.0-31.0); Prothrombin Time 10.9 Seconds (9.0-12.0)
[2018-12-20 05:56] LABS: Albumin Level 3.2 gm/dl (3.4-5.0); BUN Creatinine Ratio 6.6 (10-20); Bilirubin Direct < 0.1 mg/dl (0-0.2); Blood Urea Nitrogen 3 mg/dl (7-18); Calcium 7.8 mg/dl (8.5-10.1); Carbon Dioxide 22 mmol/L (21-32); Chloride 117 mmol/L (98-107); Creatinine Clr Calc Pharmacy 174.9 ml/min; Est GFR (African American) > 150.0; Est GFR (Non-African American) 140.2; Glucose 87 mg/dl (70-99); Magnesium 1.8 mg/dl (1.8-2.4); Potassium 3.5 mmol/L (3.5-5.1); Sodium 145 mmol/L (136-145)
[2018-12-20 06:05] LABS: Alanine Aminotransferase 15 U/L (12-78); Alkaline Phosphatase 56 U/L (45-117); Aspartate Aminotransferase 18 U/L (15-37); Bilirubin,Total 0.2 mg/dl (0.2-1); Total Protein 5.8 gm/dl (6.4-8.2)
--- NOTE | 2018-12-20 06:06 | History and Physical Report ---
DATE OF ADMISSION: 12/20/2018 CHIEF COMPLAINT: Drug overdose. HISTORY OF PRESENT ILLNESS: A 23-year-old female with past medical history significant for bipolar disorder, posttraumatic stress disorder, attention deficit disorder, social phobia, oppositional defiant disorder, major depression, history of suicide attempt by drug ingestion, intentional drug overdose, borderline personality disorder, history of substance abuse, history of asthma, history of deliberate self-cutting. Presents with multiple drug overdose. The patient was last in the hospital in July with multiple drug overdose and was intubated at that time. Again, recently she was in the ER because she was found outside the shop with alcohol intoxication. At that time, she was discharged from the ER. Today, police received a call that patient was cutting herself. When police arrived, she opened the door and she was brought in here. She was screaming and she was agitated. She was restrained and she was given Versed, Haldol, and currently sedated. Having tachycardia. Blood pressure is on the lower side. It looks like she ingested gabapentin, hydroxyzine, and Lexapro and there were some pills in the commode, do not know whether she vomited or she dumped pills there, we do not what kind of pills they were, as per the EMS notes. In the ER, she has superficial cuts in the upper extremities and she has some deep cuts in the thighs which the ER is suturing. Could not get any history from the patient currently as she is sedated. ALLERGIES: CLINDAMYCIN, COMPAZINE, DOXYCYCLINE, PENICILLIN, POLLEN,PRAZOSIN, PREDNISONE. PAST MEDICAL HISTORY: As mentioned above. PAST SURGICAL HISTORY: Dental surgery, tonsillectomy. MEDICATIONS: The patient is on Lexapro 20 mg p.o. daily, lithium 1350 mg p.o. at bedtime, Tylenol 650 mg p.o. q.6h. p.r.n., albuterol 2.5 mg inhalation q. 4 hours p.r.n., ProAir 2 puffs inhalation q. 6 hours p.r.n., gabapentin 300 mg p.o. t.i.d., Vistaril 25 mg p.o. daily p.r.n., zolpidem 5 mg p.o. at bedtime, Depo-Provera IM q. 3 months. FAMILY HISTORY: Significant for mother has insomnia. SOCIAL HISTORY: Single, smokes quarter pack a day for 3 years, trying to quit as per records, no alcohol use. Not currently using drugs as per the records. REVIEW OF SYSTEMS: Unobtainable. PHYSICAL EXAMINATION: GENERAL: The patient is currently sedated. VITAL SIGNS: Temperature 36.5, pulse 110, respiratory rate 20, blood pressure 98/40, oxygen 98% room air. HEENT: No pallor, no icterus. Pupils small with a sluggish reaction to light. NECK: No JVD, no neck masses. CARDIOVASCULAR: S1, S2 heard. Tachycardia. No murmurs. RESPIRATORY SYSTEM: Normal AP diameter, no accessory muscle use. No wheezing, no crackles. ABDOMEN: Soft, bowel sounds present. No distention. CENTRAL NERVOUS SYSTEM: Very drowsy. EXTREMITIES: Has superficial cuts in the upper extremities and some deep cuts in the thigh region. No swelling. LABORATORY DATA: WBC 9.4, hemoglobin 15.5, hematocrit 44.5, platelets 295. Sodium 140, potassium 3.7, chloride 110, bicarbonate 23, BUN 4, creatinine 0.7, serum glucose 96, calcium 9.2, total bilirubin 0.2, AST 13, ALT 19, alkaline phosphatase 68. TSH 0.014. Free T4 1.11, free T3 of 3.7, HCG qualitative negative. Urinalysis negative. Salicylates less than 1.7, acetaminophen less than 2, benzodiazepines positive, cocaine negative, marijuana negative, ethyl alcohol 134. EKG: Normal sinus rhythm with a rate of 93. No significant change was found, QTC is 479. ASSESSMENT AND PLAN: This is a 23-year-old female who presents with multiple drug overdose. 1. Multiple drug overdose with gabapentin, hydroxyzine, and Lexapro. She was agitated when she came in and also alcohol level is 134. She was given Versed and Haldol. Currently is sedated. She is on banana bag. ER contacted poison control and recommended supportive care and Benzodiazepines p.r.n. for any agitation. . The patient has history of intubation in the past because of multiple drug overdose. History of deliberate self-cutting. Currently also has cuts in the arms and legs. Because of history, we will closely monitor in the ICU. We will repeat labs and ekg. Consult psychiatry when the patient is more awake for further plan of action. 2. Alcoholism, alcohol level 134., banana bag given in the ER. We will start thiamine p.o. and folic acid p.o. in a.m. Monitor for any alcohol withdrawal. Currently sedated, overdosed with gabapentin. 3. History of bipolar disorder, history of borderline personality disorder, depression, posttraumatic stress disorder. Hold home medication of Lexapro and lithium. We will follow the lithium levels. Consult psych in a.m. for further recommendation and restarting of medications. 4. History of asthma, home inhalers as needed. 5. Deep venous thrombosis prophylaxis, sequential compression devices for now. DISPOSITION: Closely monitor in the ICU. Level 1 full code for now. MTDD
--- NOTE | 2018-12-20 06:08 | Emergency Department Note ---
Entered by Landon Saab acting as a scribe for Chaz Jackson MD ED Provider Note Name: Tricia Luis Age: 23 Arrives Via: EMS Informant: EMS CC: Mental health evaluation HPI: The patient is a 23 y/o Female who presents to the emergency department for a mental health evaluation. EMS states that the patient is manic and was hurting herself earlier this evening. They note lacerations to her legs but due to the patients agitated state there was limited information from the patient. ROS: Unable to obtain secondary to acute psychosis. Past Medical History: See below Past Surgical History: wisdom teeth removal Family History: Unable to Obtain Social History: Unable to Obtain Home Medications: Albuterol sulfate, escitalopram, fluticasone, gabapentin, hydroxyzine, lithium carbonate Allergies Doxycycline, topiramate, penicillins, clindamycin Physical: Vitals: BP 121/81, HR 105, RESP 24, Tmp 97.7 F, O2 93. Exam: GENERAL: Patient is severely agitated and screaming non-sensically. EYES: No scleral icterus, unremarkable pupils. ENT: Mucous membranes dry, no nasal congestion. NECK: No masses appreciated, no meningismus, trachea is midline. RESPIRATORY: No dyspnea. Clear to auscultation and equal bilaterally. No wheeze, no rhonchi. CARDIOVASCULAR: Regular rhythm and tachycardic rate. No murmurs, rubs, gallops appreciated. GASTROINTESTINAL: Abdomen soft, non-tender, no peritonitis. Bowel sounds positive. No masses appreciated. BACK: No midline tenderness, no CVA tenderness EXTREMITIES: Normal motion all extremities, no cyanosis, no edema. NEUROLOGIC: Screaming and threatening, no acute motor or sensory deficits, no focal weakness, cranial nerves grossly intact. SKIN: No rash, no jaundice, no diaphoresis. Many linear abrasion/laceration over arms and legs with deep laceration to right thigh times 3 and exposed subcutaneous tissue, no muscle or tendon involvement appreciate. No acute bleeding. ED Course: Prior Medical Record, Triage/Nursing Notes, Medications, Allergies reviewed by Me Vital Signs: reviewed and remarkable for tachy Labs: Reviewed and remarkable for low TSH (normal t3/t4), and mild intoxication Interventions: Saline Lock, NSS bolus, Ativan 2mg IM, Haldol 10mg IM Imaging: none EKG: Per My Interpretation: Indication - Acute Psychosis with overdose: NSR 93 bpm without ectopy nor ischemia. QTC 279. Overall similar to EKG November 2018. Consults: Dr Chepe casanova bring in for further management. Reviewed case with poison cener. Reassessments/Times: 0106: Past medical records reviewed. The patient was evaluated in room A07. A complete history and physical exam was performed. 0130: Police updated that three empty pill bottles were found at the patients home. They were for Gabapentin, escitalopram, and hydroxyzine 0158: Per protocol I spoke with poison control, they agreed with treatment plan. Advised avoiding any more Haldol due to the patients possible overdose. 0204: The patient is sleeping and is stable. 0237: I spoke with Dr. Chepe Meléndez hospitalist. He will evaluate for further management. 0250: Mare Harden placed sutures in the lacerations on the patients leg. Blood pressure: Normal. No Referral necessary Disposition: Hospitalization Differentials: toxic ingestions, overdose, self-mutilation, suicidal ideation, suicide attempt, depression, amongst other pathologies. Medical Decision Makin yr old female well known to me and department for history of suicide attempts and mental health issues arrives in acutely psychotic state, severely agitated and at high risk of harm to self and others. I was unable to verbally deescalate nor re-direct the patient. The patient's combative behavior was risking a catastrophe. To protect the staff and the patient from harm it was necessary to chemically and physically restrain the patient. Fortunately with Ativan/Haldol she started calming down and fell asleep. Dehydrated by exam tho ugh without significant lab abnormalities. Mare Harden PA-C closed lacerations with good result. Tetanus vaccination given as unclear last. Labs unremarkable. EKG without significantly prolonged QTC. Shortly afterwards word arrived that patient had likely overdosed on several bottles of medications. This would be consistent with acute anticholinergic type syndrome she had on arrival. Will plan further fluids, avoid further haldol and will need admission for monitoring prior to being cleared medically. Impression: Acute Psychosis Self Mutilation Lacerations of multiple sites Drug Overdose, intentional Anticholinergic Syndrome Acute Dehydration Critical Care Time: I have personally spent greater than 30 minutes of critical care time in the direct management of this patient. Acute Psychosis requiring chemical and phys ical restraints. This was a life/limb threatening event. This includes time spent evaluating patient, direct bedside care, chart review, placing orders, interpretation of diagnostic studies, discussion with consultants, patient, and family members, as well as other required patient management activities. This 30 minutes is in excess of all separately billable procedures. The scribe's documentation has been prepared under my direction and personally reviewed by me in its entirety. I confirm that the note above accurately reflects all work, treatment, procedures, and medical decision making performed by me. Chaz Jackson MD Impression & Plan Acute psychosis, Self-mutilation, Laceration of multiple sites, Drug overdose, intentional, Anticholinergic syndrome, Acute dehydration Past Med/Surg History Medical History Asthma (Chronic) PTSD (post-traumatic stress disorder) (Chronic) ADHD (attention deficit hyperactivity disorder) (Chronic) ODD (oppositional defiant disorder) (Chronic) Social phobia (Chronic) H/O aspiration pneumonitis (Chronic) History of suicide attempt (Chronic) Bipolar 1 disorder, depressed, moderate (Acute) Borderline personality disorder (Chronic) Post-op pain (Acute) Right ankle pain (Acute) UTI (urinary tract infection) (Acute) Asthma Previous known suicide attempt Surgical History [place] teeth removed (Chronic) Family History Other No pertinent family history in first degree relatives Social History Preferred Language: Icelandic Communication Ability: Effective Visual Impairment: No Limitations Hearing Ability: Normal Beliefs That Will Affect Care: None marital status: Single Current Living Situation: Family Feels Safe at Home: Yes Smoking Status: Current every day smoker Tobacco Type: cigarettes Do You Dip or Chew Tobacco: No Second Hand Exposure: Yes Tobacco Cessation Education Requested by Patient: No Hx Alcohol Use: No Hx Substance Use: Yes substance use type: opiates Last Used Substance: Just Prior to Arrival Results & Data Vital Signs Vital Signs - 24 hr 12/20/18 01:00 12/20/18 01:15 12/20/18 01:30 Temperature 36.5 C Temperature Source Oral Sepsis Recent Fever Within 48 Hours No Sepsis New/Unexplained Change in Mental Status No Sepsis Action Taken by Nursing No Action Required Pulse Rate 139 H Pulse Rate [Apical] 105 H 107 H Pulse Rhythm Regular Pulse Rhythm [Apical] Regular Regular Pulse Strength Normal Pulse Strength [Apical] Normal Normal Respiratory Rate 28 H 24 23 Respiratory Effort / Characteristics Non-Labored Spontaneous Non-Labored Spontaneous Non-Labored Spontaneous Respiratory Depth Normal Normal Normal Respiratory Pattern Regular Regular Regular Blood Pressure 102/48 L Blood Pressure [Right Arm] 121/81 97/56 L Blood Pressure Mean 66 Blood Pressure Mean [Right Arm] 94 69 Blood Pressure Position Sitting Blood Pressure Position [Right Arm] Lying Lying Pulse Oximetry 97 93 94 Oxygen Delivery Method Room Air Room Air Room Air 12/20/18 02:00 12/20/18 02:30 Temperature Temperature Source Sepsis Recent Fever Within 48 Hours Sepsis New/Unexplained Change in Mental Status Sepsis Action Taken by Nursing Pulse Rate Pulse Rate [Apical] 94 H 110 H Pulse Rhythm Pulse Rhythm [Apical] Regular Regular Pulse Strength Pulse Strength [Apical] Normal Normal Respiratory Rate 20 20 Respiratory Effort / Characteristics Non-Labored Spontaneous Non-Labored Spontaneous Respiratory Depth Normal Normal Respiratory Pattern Regular Regular Blood Pressure Blood Pressure [Right Arm] 100/58 L 98/40 L Blood Pressure Mean Blood Pressure Mean [Right Arm] 72 59 Blood Pressure Position Blood Pressure Position [Right Arm] Lying Lying Pulse Oximetry 98 98 Oxygen Delivery Method Room Air Room Air Home Medications Current Medication List: was personally reviewed by me Laboratory Data Attestation: I reviewed the patient's lab results. Result diagrams: 12/20/18 05:22 12/20/18 05:22 Lab Results 12/20/18 12/20/18 12/20/18 Range/Units 01:22 01:22 01:22 WBC 9.46 (4.8-10.8) K/uL RBC 5.14 (4.2-5.4) M/uL Hgb 15.5 (12.0-16.0) g/dL Hct 44.5 (37-47) % MCV 86.6 (80-100) fL MCH 30.2 (25-34) pg MCHC 34.8 (32-36) g/dL RDW Std Deviation 40.3 (36.4-46.3) fL RDW Coeff of Dov 12.6 (11.5-14.5) % Plt Count 295 (130-400) K/uL MPV 10.2 (7.4-10.4) fL Immature Gran % (Auto) 0.2 % Neut % (Auto) 51.4 % Lymph % (Auto) 39.4 % [place] % (Auto) 7.6 % Eos % (Auto) 1.0 % Baso % (Auto) 0.4 % Immature Gran # (Auto) 0.02 (0.00-0.02) K/uL Neut # (Auto) 4.86 (1.4-6.5) K/uL Lymph # (Auto) 3.73 H (1.2-3.4) K/uL [place] # (Auto) 0.72 H (0.11-0.59) K/uL Eos # (Auto) 0.09 (0-0.5) K/uL Baso # (Auto) 0.04 (0-0.2) K/uL Sodium 140 (136-145) mmol/L Potassium 3.7 (3.5-5.1) mmol/L Chloride 110 H (98-107) mmol/L Carbon Dioxide 23 (21-32) mmol/L Anion Gap 8.0 (3-11) BUN 4 L (7-18) mg/dl Creatinine 0.70 (0.6-1.2) mg/dl Est Cr Clr Drug Dosing Not Reportable Est GFR ( Amer) 142.5 Est GFR (Non-Af Amer) 123.0 BUN/Creatinine Ratio 5.0 L (10-20) Glucose 96 (70-99) mg/dl Calcium 9.2 (8.5-10.1) mg/dl Total Bilirubin 0.2 (0.2-1) mg/dl AST 13 L (15-37) U/L ALT 19 (12-78) U/L Alkaline Phosphatase 68 (45-117) U/L Total Protein 7.2 (6.4-8.2) gm/dl Albumin 4.1 (3.4-5.0) gm/dl Globulin 3.1 (2.5-4.0) gm/dl Albumin/Globulin Ratio 1.3 (0.9-2) TSH 0.014 L (0.300-4.500) uIu/ml Free T4 1.11 (0.8-1.6) ng/dl Free T3 (2.3-4.2) pg/ml HCG, Qual (Negative) Urine Color Urine Appearance (Clear) Urine pH (4.5-7.5) Ur Specific [place] (1.000-1.030) Urine Protein (Negative) Urine Glucose (UA) (Negative) Urine Ketones (Negative) Urine Blood (Negative) Urine Nitrite (Negative) Urine Bilirubin (Negative) Urine Urobilinogen (Negative) Ur Leukocyte Esterase (Negative) Salicylates < 1.7 L (2.8-20) mg/dl Urine Opiates Screen (Neg) Ur Methadone, Qual (Neg) Acetaminophen < 2 L (10-30) ug/ml Urine Barbiturates (Neg) Ur Phencyclidine (PCP) (Neg) U Amphetamin/Meth Scrn (Neg) MDMA (Ecstasy) Screen (Neg) U Benzodiazepines Scrn (Neg) [place] < 0.2 L (0.6-1.2) mmol/L Ur Cocaine Metabolite (Neg) U Marijuana (THC) Screen (Neg) Ethyl Alcohol mg/dL (0-3) mg/dl 12/20/18 12/20/18 12/20/18 Range/Units 01:22 01:22 01:22 WBC (4.8-10.8) K/uL RBC (4.2-5.4) M/uL Hgb (12.0-16.0) g/dL Hct (37-47) % MCV (80-100) fL MCH (25-34) pg MCHC (32-36) g/dL RDW Std Deviation (36.4-46.3) fL RDW Coeff of Dov (11.5-14.5) % Plt Count (130-400) K/uL MPV (7.4-10.4) fL Immature Gran % (Auto) % Neut % (Auto) % Lymph % (Auto) % [place] % (Auto) % Eos % (Auto) % Baso % (Auto) % Immature Gran # (Auto) (0.00-0.02) K/uL Neut # (Auto) (1.4-6.5) K/uL Lymph # (Auto) (1.2-3.4) K/uL [place] # (Auto) (0.11-0.59) K/uL Eos # (Auto) (0-0.5) K/uL Baso # (Auto) (0-0.2) K/uL Sodium (136-145) mmol/L Potassium (3.5-5.1) mmol/L Chloride (98-107) mmol/L Carbon Dioxide (21-32) mmol/L Anion Gap (3-11) BUN (7-18) mg/dl Creatinine (0.6-1.2) mg/dl Est Cr Clr Drug Dosing Est GFR ( Amer) Est GFR (Non-Af Amer) BUN/Creatinine Ratio (10-20) Glucose (70-99) mg/dl Calcium (8.5-10.1) mg/dl Total Bilirubin (0.2-1) mg/dl AST (15-37) U/L ALT (12-78) U/L Alkaline Phosphatase (45-117) U/L Total Protein (6.4-8.2) gm/dl Albumin (3.4-5.0) gm/dl Globulin (2.5-4.0) gm/dl Albumin/Globulin Ratio (0.9-2) TSH (0.300-4.500) uIu/ml Free T4 (0.8-1.6) ng/dl Free T3 (2.3-4.2) pg/ml HCG, Qual Negative (Negative) Urine Color Urine Appearance (Clear) Urine pH (4.5-7.5) Ur Specific [place] (1.000-1.030) Urine Protein (Negative) Urine Glucose (UA) (Negative) Urine Ketones (Negative) Urine Blood (Negative) Urine Nitrite (Negative) Urine Bilirubin (Negative) Urine Urobilinogen (Negative) Ur Leukocyte Esterase (Negative) Salicylates (2.8-20) mg/dl Urine Opiates Screen (Neg) Ur Methadone, Qual (Neg) Acetaminophen (10-30) ug/ml Urine Barbiturates (Neg) Ur Phencyclidine (PCP) (Neg) U Amphetamin/Meth Scrn (Neg) MDMA (Ecstasy) Screen (Neg) U Benzodiazepines Scrn (Neg) [place] Cancelled (0.6-1.2) mmol/L Ur Cocaine Metabolite (Neg) U Marijuana (THC) Screen (Neg) Ethyl Alcohol mg/dL 134.5 H (0-3) mg/dl 07/03/19 07/03/19 07/03/19 Range/Units 01:22 01:50 01:50 WBC (4.8-10.8) K/uL RBC (4.2-5.4) M/uL Hgb (12.0-16.0) g/dL Hct (37-47) % MCV (80-100) fL MCH (25-34) pg MCHC (32-36) g/dL RDW Std Deviation (36.4-46.3) fL RDW Coeff of Dov (11.5-14.5) % Plt Count (130-400) K/uL MPV (7.4-10.4) fL Immature Gran % (Auto) % Neut % (Auto) % Lymph % (Auto) % [place] % (Auto) % Eos % (Auto) % Baso % (Auto) % Immature Gran # (Auto) (0.00-0.02) K/uL Neut # (Auto) (1.4-6.5) K/uL Lymph # (Auto) (1.2-3.4) K/uL [place] # (Auto) (0.11-0.59) K/uL Eos # (Auto) (0-0.5) K/uL Baso # (Auto) (0-0.2) K/uL Sodium (136-145) mmol/L Potassium (3.5-5.1) mmol/L Chloride (98-107) mmol/L Carbon Dioxide (21-32) mmol/L Anion Gap (3-11) BUN (7-18) mg/dl Creatinine (0.6-1.2) mg/dl Est Cr Clr Drug Dosing Est GFR ( Amer) Est GFR (Non-Af Amer) BUN/Creatinine Ratio (10-20) Glucose (70-99) mg/dl Calcium (8.5-10.1) mg/dl Total Bilirubin (0.2-1) mg/dl AST (15-37) U/L ALT (12-78) U/L Alkaline Phosphatase (45-117) U/L Total Protein (6.4-8.2) gm/dl Albumin (3.4-5.0) gm/dl Globulin (2.5-4.0) gm/dl Albumin/Globulin Ratio (0.9-2) TSH (0.300-4.500) uIu/ml Free T4 (0.8-1.6) ng/dl Free T3 3.79 (2.3-4.2) pg/ml HCG, Qual (Negative) Urine Color Yellow Urine Appearance Clear (Clear) Urine pH 5.5 (4.5-7.5) Ur Specific [place] 1.011 (1.000-1.030) Urine Protein Negative (Negative) Urine Glucose (UA) Negative (Negative) Urine Ketones Negative (Negative) Urine Blood Negative (Negative) Urine Nitrite Negative (Negative) Urine Bilirubin Negative (Negative) Urine Urobilinogen Negative (Negative) Ur Leukocyte Esterase Negative (Negative) Salicylates (2.8-20) mg/dl Urine Opiates Screen Neg (Neg) Ur Methadone, Qual Neg (Neg) Acetaminophen (10-30) ug/ml Urine Barbiturates Neg (Neg) Ur Phencyclidine (PCP) Neg (Neg) U Amphetamin/Meth Scrn Neg (Neg) MDMA (Ecstasy) Screen Neg (Neg) U Benzodiazepines Scrn Pos H (Neg) [place] (0.6-1.2) mmol/L Ur Cocaine Metabolite Neg (Neg) U Marijuana (THC) Screen Neg (Neg) Ethyl Alcohol mg/dL (0-3) mg/dl Administered Medications Sodium Chloride (Nss 1000ml) 1,000 mls @ 125 mls/hr IV .Q8H ADRIANNA Stop: 01/19/19 04:33 Last Admin: 12/20/18 05:16 Dose: 125 mls/hr Documented by: [id number] Discontinued Medications Diphtheria/Pertussis/Tetanus Vacc (Adacel) 0.5 ml IM .ONCE ONE Stop: 12/20/18 01:14 Last Admin: 12/20/18 02:58 Dose: 0.5 ml Documented by: [id number] Haloperidol Lactate (Haldol) Confirm Administered Dose 10 mg .ROUTE .STK-MED ONE Stop: 12/20/18 01:08 Last Admin: 12/20/18 01:36 Dose: 10 mg Documented by: [id number] Sodium Chloride (Nss 1000ml) 1,000 mls @ 999 mls/hr IV .Q1H1M ONE Stop: 12/20/18 02:09 Last Infusion: 12/20/18 03:13 Dose: 0 mls/hr Documented by: [id number] Admin: 12/20/18 01:37 Dose: 999 mls/hr Documented by: [id number] Multivitamins 10 ml/ Thiamine HCl 100 mg/ Folic Acid 1 mg/Sodium Chloride 1,011.2 mls @ 1,011.2 mls/hr IV .Q1H ADRIANNA Stop: 12/20/18 02:14 Last Infusion: 12/20/18 03:13 Dose: 0 mls/hr Documented by: [id number] Infusion: 12/20/18 03:13 Dose: 0 mls/hr Documented by: [id number] Admin: 12/20/18 02:00 Dose: 1,011.2 mls/hr Documented by: [id number] Lidocaine HCl (Buffered Lidocaine 1%) 20 ml INFIL NOW ONE Stop: 12/20/18 01:43 Last Admin: 12/20/18 02:57 Dose: 20 ml Documented by: [id number] Lorazepam (Ativan) Confirm Administered Dose 2 mg .ROUTE .STK-MED ONE Stop: 12/20/18 01:09 Last Admin: 12/20/18 01:37 Dose: 2 mg Documented by: [id number] Blood Pressure Blood Pressure Findings: Normal blood pressure Discharge Plan Visit Data *Final* Discharge Date/Time: 12/20/18 04:00 Chief Complaint: Laceration/Cut (Suture/Dermabond) Stated Complaint: LACERATIONS/MENTAL HEALTH Other Complaint: Mental Health Evaluation ED Provider: Chaz Jackson Discharge Problem: Acute psychosis, Self-mutilation, Laceration of multiple sites, Drug overdose, intentional, Anticholinergic syndrome, Acute dehydration Patient Disposition: Admitted As Inpatient Discharge Instructions Interventions: ED Discharge Assessment Last Done: 12/20/18 04:00 Discharge Problem: Drug overdose, intentional Qualifiers: Encounter type: initial encounter Qualified Code(s): T50.902A - Poisoning by unspecified drugs, medicaments and biological substances, intentional self-harm, initial encounter Anticholinergic syndrome Qualifiers: Encounter type: initial encounter Injury intent: intentional self-harm Qualified Code(s): T44.3X2A - Poisoning by other parasympatholytics [anticholinergics and antimuscarinics] and spasmolytics, intentional self-harm, initial encounter The scribe's documentation has been prepared under my direction and personally reviewed by me in its entirety. I confirm that the note above accurately reflects all work, treatment, procedures, and medical decision making performed by me.
--- NOTE | 2018-12-20 08:48 | Critical Care Progress Note ---
Date of Service December 20, 2018 Assessment & Plan (1) Drug overdose, intentional: Neuro- awake alert. possible overdose. cutting behavior. alcohol abuse. for psych eval CV- HD stable. recheck ecg for QT Pulmonary- sat well on RA. protecting airway ID- no signs infection Renal- cr ok. no signs infection GI- diet as tolerated Heme- OOB Endocrine- blood sugars controlled skin - multiple lacertation to R upper leg. keep clean Dispo- if ECG ok and after few more hours for alcohol to clear will be medically clear fo psych (2) At high risk for suicide: (3) Deliberate self-cutting: (4) Alcohol abuse: Subjective complains of anxiety and pain to R leg Physical Exam Physical Exam: Constitutional: Comfortable NAD HEENT: normocephalic atraumatic. MMM. CV: RRR nl s1,s2 no murmurs rubs or gallops Lungs: clear to auscultation bilaterally. no accessory muscle use Abd: soft nontender nondistended. normal bowel sounds Ext: no edema. no cyanosis, no clubbing Skin: warm dry. multiple laceration to R upper leg Neuro: alert and oriented. moving all extremities Psych: normal mood and affect Results & Data Vital Signs (Past 12 Hours) Vital Signs Temp Pulse Pulse Resp BP BP Pulse Ox 12/20/18 06:00 92 H 20 101/58 L 96 12/20/18 05:00 89 19 99/64 L 97 12/20/18 04:35 36.4 C L 110 H 20 107/62 97 12/20/18 04:31 107 H 14 107/62 98 12/20/18 04:03 94 H 20 97/60 L 97 12/20/18 02:30 110 H 20 98/40 L 98 12/20/18 02:00 94 H 20 100/58 L 98 12/20/18 01:30 107 H 23 97/56 L 94 12/20/18 01:15 105 H 24 121/81 93 12/20/18 01:00 36.5 C 139 H 28 H 102/48 L 97 Laboratory Results Laboratory Results - last 24 hr 12/20/18 12/20/18 12/20/18 01:22 01:22 01:22 WBC 9.46 RBC 5.14 Hgb 15.5 Hct 44.5 MCV 86.6 MCH 30.2 MCHC 34.8 RDW Std Deviation 40.3 RDW Coeff of Dov 12.6 Plt Count 295 MPV 10.2 Immature Gran % (Auto) 0.2 Neut % (Auto) 51.4 Lymph % (Auto) 39.4 [place] % (Auto) 7.6 Eos % (Auto) 1.0 Baso % (Auto) 0.4 Immature Gran # (Auto) 0.02 Neut # (Auto) 4.86 Lymph # (Auto) 3.73 H [place] # (Auto) 0.72 H Eos # (Auto) 0.09 Baso # (Auto) 0.04 PT INR APTT PTT Ratio Sodium 140 Potassium 3.7 Chloride 110 H Carbon Dioxide 23 Anion Gap 8.0 BUN 4 L Creatinine 0.70 Est Cr Clr Drug Dosing Not Reportable Est GFR ( Amer) 142.5 Est GFR (Non-Af Amer) 123.0 BUN/Creatinine Ratio 5.0 L Glucose 96 Calcium 9.2 Magnesium Total Bilirubin 0.2 Direct Bilirubin AST 13 L ALT 19 Alkaline Phosphatase 68 Total Protein 7.2 Albumin 4.1 Globulin 3.1 Albumin/Globulin Ratio 1.3 TSH 0.014 L Free T4 1.11 Free T3 HCG, Qual Urine Color Urine Appearance Urine pH Ur Specific [place] Urine Protein Urine Glucose (UA) Urine Ketones Urine Blood Urine Nitrite Urine Bilirubin Urine Urobilinogen Ur Leukocyte Esterase Nasal Screen MRSA (PCR) Salicylates < 1.7 L Urine Opiates Screen Ur Methadone, Qual Acetaminophen < 2 L Urine Barbiturates Ur Phencyclidine (PCP) U Amphetamin/Meth Scrn MDMA (Ecstasy) Screen U OH-Alprazolam Confrm U Benzodiazepines Scrn 7-Amino Clonazepam Ur Nordiazepam Confirm U OH-ethylflurazepam U Lorazepam Cnf GC/MS U Oxazepam Confm GC/MS Ur Temazepam Confirm U OH-Triazolam Confirm U OH-Midazolam Confirm Gwinner < 0.2 L Ur Cocaine Metabolite U Marijuana (THC) Screen Ethyl Alcohol mg/dL 12/20/18 12/20/18 12/20/18 01:22 01:22 01:22 WBC RBC Hgb Hct MCV MCH MCHC RDW Std Deviation RDW Coeff of Dov Plt Count MPV Immature Gran % (Auto) Neut % (Auto) Lymph % (Auto) [place] % (Auto) Eos % (Auto) Baso % (Auto) Immature Gran # (Auto) Neut # (Auto) Lymph # (Auto) [place] # (Auto) Eos # (Auto) Baso # (Auto) PT INR APTT PTT Ratio Sodium Potassium Chloride Carbon Dioxide Anion Gap BUN Creatinine Est Cr Clr Drug Dosing Est GFR ( Amer) Est GFR (Non-Af Amer) BUN/Creatinine Ratio Glucose Calcium Magnesium Total Bilirubin Direct Bilirubin AST ALT Alkaline Phosphatase Total Protein Albumin Globulin Albumin/Globulin Ratio TSH Free T4 Free T3 HCG, Qual Negative Urine Color Urine Appearance Urine pH Ur Specific [place] Urine Protein Urine Glucose (UA) Urine Ketones Urine Blood Urine Nitrite Urine Bilirubin Urine Urobilinogen Ur Leukocyte Esterase Nasal Screen MRSA (PCR) Salicylates Urine Opiates Screen Ur Methadone, Qual Acetaminophen Urine Barbiturates Ur Phencyclidine (PCP) U Amphetamin/Meth Scrn MDMA (Ecstasy) Screen U OH-Alprazolam Confrm U Benzodiazepines Scrn 7-Amino Clonazepam Ur Nordiazepam Confirm U OH-ethylflurazepam U Lorazepam Cnf GC/MS U Oxazepam Confm GC/MS Ur Temazepam Confirm U OH-Triazolam Confirm U OH-Midazolam Confirm Gwinner Cancelled Ur Cocaine Metabolite U Marijuana (THC) Screen Ethyl Alcohol mg/dL 134.5 H 12/20/18 12/20/18 12/20/18 01:22 01:50 01:50 WBC RBC Hgb Hct MCV MCH MCHC RDW Std Deviation RDW Coeff of Dov Plt Count MPV Immature Gran % (Auto) Neut % (Auto) Lymph % (Auto) [place] % (Auto) Eos % (Auto) Baso % (Auto) Immature Gran # (Auto) Neut # (Auto) Lymph # (Auto) [place] # (Auto) Eos # (Auto) Baso # (Auto) PT INR APTT PTT Ratio Sodium Potassium Chloride Carbon Dioxide Anion Gap BUN Creatinine Est Cr Clr Drug Dosing Est GFR ( Amer) Est GFR (Non-Af Amer) BUN/Creatinine Ratio Glucose Calcium Magnesium Total Bilirubin Direct Bilirubin AST ALT Alkaline Phosphatase Total Protein Albumin Globulin Albumin/Globulin Ratio TSH Free T4 Free T3 3.79 HCG, Qual Urine Color Yellow Urine Appearance Clear Urine pH 5.5 Ur Specific [place] 1.011 Urine Protein Negative Urine Glucose (UA) Negative Urine Ketones Negative Urine Blood Negative Urine Nitrite Negative Urine Bilirubin Negative Urine Urobilinogen Negative Ur Leukocyte Esterase Negative Nasal Screen MRSA (PCR) Salicylates Urine Opiates Screen Neg Ur Methadone, Qual Neg Acetaminophen Urine Barbiturates Neg Ur Phencyclidine (PCP) Neg U Amphetamin/Meth Scrn Neg MDMA (Ecstasy) Screen Neg U [place]-Alprazolam Confrm U Benzodiazepines Scrn Pos H 7-Amino Clonazepam Ur Nordiazepam Confirm U OH-ethylflurazepam U Lorazepam Cnf GC/MS U Oxazepam Confm GC/MS Ur Temazepam Confirm U OH-Triazolam Confirm U OH-Midazolam Confirm Gwinner Ur Cocaine Metabolite Neg U Marijuana (THC) Screen Neg Ethyl Alcohol mg/dL 12/20/18 12/20/18 12/20/18 01:50 04:30 05:22 WBC 7.90 RBC 4.61 Hgb 13.6 Hct 40.1 MCV 87.0 MCH 29.5 MCHC 33.9 RDW Std Deviation 41.2 RDW Coeff of Dov 12.9 Plt Count 217 MPV 10.0 Immature Gran % (Auto) 0.1 Neut % (Auto) 42.6 Lymph % (Auto) 44.9 [place] % (Auto) 10.1 Eos % (Auto) 1.8 Baso % (Auto) 0.5 Immature Gran # (Auto) 0.01 Neut # (Auto) 3.36 Lymph # (Auto) 3.55 H [place] # (Auto) 0.80 H Eos # (Auto) 0.14 Baso # (Auto) 0.04 PT INR APTT PTT Ratio Sodium Potassium Chloride Carbon Dioxide Anion Gap BUN Creatinine Est Cr Clr Drug Dosing Est GFR ( Amer) Est GFR (Non-Af Amer) BUN/Creatinine Ratio Glucose Calcium Magnesium Total Bilirubin Direct Bilirubin AST ALT Alkaline Phosphatase Total Protein Albumin Globulin Albumin/Globulin Ratio TSH Free T4 Free T3 HCG, Qual Urine Color Urine Appearance Urine pH Ur Specific [place] Urine Protein Urine Glucose (UA) Urine Ketones Urine Blood Urine Nitrite Urine Bilirubin Urine Urobilinogen Ur Leukocyte Esterase Nasal Screen MRSA (PCR) Negative Salicylates Urine Opiates Screen Ur Methadone, Qual Acetaminophen Urine Barbiturates Ur Phencyclidine (PCP) U Amphetamin/Meth Scrn MDMA (Ecstasy) Screen U OH-Alprazolam Confrm Pending U Benzodiazepines Scrn 7-Amino Clonazepam Pending Ur Nordiazepam Confirm Pending U OH-ethylflurazepam Pending U Lorazepam Cnf GC/MS Pending U Oxazepam Confm GC/MS Pending Ur Temazepam Confirm Pending U OH-Triazolam Confirm Pending U OH-Midazolam Confirm Pending [place] Ur Cocaine Metabolite U Marijuana (THC) Screen Ethyl Alcohol mg/dL 12/20/18 12/20/18 12/20/18 05:22 05:22 05:22 WBC RBC Hgb Hct MCV MCH MCHC RDW Std Deviation RDW Coeff of Dov Plt Count MPV Immature Gran % (Auto) Neut % (Auto) Lymph % (Auto) [place] % (Auto) Eos % (Auto) Baso % (Auto) Immature Gran # (Auto) Neut # (Auto) Lymph # (Auto) [place] # (Auto) Eos # (Auto) Baso # (Auto) PT 10.9 INR 1.1 APTT 26.4 PTT Ratio 1.0 Sodium 145 Potassium 3.5 Chloride 117 H Carbon Dioxide 22 Anion Gap 6.0 BUN 3 L Creatinine 0.47 L Est Cr Clr Drug Dosing 174.9 Est GFR ( Amer) > 150.0 Est GFR (Non-Af Amer) 140.2 BUN/Creatinine Ratio 6.6 L Glucose 87 Calcium 7.8 L D Magnesium 1.8 Total Bilirubin 0.2 Direct Bilirubin < 0.1 AST 18 ALT 15 Alkaline Phosphatase 56 Total Protein 5.8 L Albumin 3.2 L Globulin Albumin/Globulin Ratio TSH Free T4 Free T3 HCG, Qual Urine Color Urine Appearance Urine pH Ur Specific [place] Urine Protein Urine Glucose (UA) Urine Ketones Urine Blood Urine Nitrite Urine Bilirubin Urine Urobilinogen Ur Leukocyte Esterase Nasal Screen MRSA (PCR) Salicylates Urine Opiates Screen Ur Methadone, Qual Acetaminophen Urine Barbiturates Ur Phencyclidine (PCP) U Amphetamin/Meth Scrn MDMA (Ecstasy) Screen U [place]-Alprazolam Confrm U Benzodiazepines Scrn 7-Amino Clonazepam Ur Nordiazepam Confirm U OH-ethylflurazepam U Lorazepam Cnf GC/MS U Oxazepam Confm GC/MS Ur Temazepam Confirm U OH-Triazolam Confirm U OH-Midazolam Confirm [place] < 0.2 L Ur Cocaine Metabolite U Marijuana (THC) Screen Ethyl Alcohol mg/dL 12/20/18 05:22 WBC RBC Hgb Hct MCV MCH MCHC RDW Std Deviation RDW Coeff of Dov Plt Count MPV Immature Gran % (Auto) Neut % (Auto) Lymph % (Auto) [place] % (Auto) Eos % (Auto) Baso % (Auto) Immature Gran # (Auto) Neut # (Auto) Lymph # (Auto) [place] # (Auto) Eos # (Auto) Baso # (Auto) PT INR APTT PTT Ratio Sodium Potassium Chloride Carbon Dioxide Anion Gap BUN Creatinine Est Cr Clr Drug Dosing Est GFR ( Amer) Est GFR (Non-Af Amer) BUN/Creatinine Ratio Glucose Calcium Magnesium Total Bilirubin Direct Bilirubin AST ALT Alkaline Phosphatase Total Protein Albumin Globulin Albumin/Globulin Ratio TSH Free T4 Free T3 HCG, Qual Urine Color Urine Appearance Urine pH Ur Specific [place] Urine Protein Urine Glucose (UA) Urine Ketones Urine Blood Urine Nitrite Urine Bilirubin Urine Urobilinogen Ur Leukocyte Esterase Nasal Screen MRSA (PCR) Salicylates Urine Opiates Screen Ur Methadone, Qual Acetaminophen Urine Barbiturates Ur Phencyclidine (PCP) U Amphetamin/Meth Scrn MDMA (Ecstasy) Screen U [place]-Alprazolam Confrm U Benzodiazepines Scrn 7-Amino Clonazepam Ur Nordiazepam Confirm U OH-ethylflurazepam U Lorazepam Cnf GC/MS U Oxazepam Confm GC/MS Ur Temazepam Confirm U [place]-Triazolam Confirm U OH-Midazolam Confirm [place] Ur Cocaine Metabolite U Marijuana (THC) Screen Ethyl Alcohol mg/dL 63.0 H (1) Drug overdose, intentional Encounter type: initial encounter Qualified Code(s): T50.902A - Poisoning by unspecified drugs, medicaments and biological substances, intentional self-harm, initial encounter
[2018-12-20] MEDS ORDERED: IBUPROFEN 200 MG TAB PO STA (08:51)
[2018-12-20] MEDS: THIAMINE HCL 100 MG TAB PO SCH (09:42)
[2018-12-20] MEDS: CEROVITE ADV FORMULA TAB PO SCH (09:42)
[2018-12-20] MEDS: FOLIC ACID 1 MG TAB PO SCH (09:42)
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
[2018-12-20] MEDS: LORazepam 1 MG/2 ML VIAL IV PRN ×2 (13:36→19:33)
[2018-12-20] MEDS ORDERED: KETOROLAC TROMETHAMINE 15 MG/ML VIAL IV PRN (14:00)
--- NOTE | 2018-12-20 14:02 | Hospitalist Progress Note ---
Date of Service December 20, 2018 Assessment & Plan (1) Drug overdose, intentional: ASSESSMENT AND PLAN: This is a 23-year-old female who presents with multiple drug overdose. Multiple drug overdose with gabapentin, hydroxyzine, and Lexapro. - was agitated when she came in and also alcohol level is 134 - given Versed and Haldol. Currently is sedated. - contacted poison control and recommended supportive care - patient has history of intubation in the past because of multiple drug overd ose. - remained stable overall during observation in the ICU EKG: QT corrected 451 - History of deliberate self-cutting. - sutured lacerations on the right upper leg: healing well, monitor - PRN Toradol added for pain control - Psych evaluated the patient and recommends transition to inpatient Psych facility for further care patient is agreeable - patient declines for medical providers to give information to her family members regarding her medical condition Alcoholism - alcohol level 134 - admits to drinking for the past 3 weeks, 1 bottle wine per day, last drink yesterday- 6 pack of beer - no signs of overt alcohol withdrawal at this time monitor closely - PRN Ativan for anxiety History of bipolar disorder, history of borderline personality disorder, depression, posttraumatic stress disorder. Hold home medication of Lexapro and lithium. - [place] level < 0.2 History of asthma - not in exacerbation - home inhalers as needed. Deep venous thrombosis prophylaxis, sequential compression devices for now. Disposition patient is medically stable to be transferred to inpatient psychiatric facility for further care discussed with patient at length, in detail, she is agreeable and comfortable with the plan of care Subjective Follow-up for possible drug overdose, alcohol intoxication Patient evaluated with BELT LACER and CALLIE Moreland at the bedside throughout whole encounter Seen resting in bed, not in distress Reports feeling anxious, denies tremors, sweats, hallucinations abdominal pain, nausea or vomiting Reports pain over suture sites on her right leg Denies headache, dizziness, chest pain, shortness of breath Denies feeling depressed or having suicidal ideations today No other symptoms Review of Systems Review of Systems: All systems reviewed & are unremarkable except as noted in HPI & below Physical Exam Physical Exam: General- oriented x 3, not in distress, speaks in sentences with no effort or accessory muscle use Head- atraumatic Eyes- PERRL, EOMI, anicteric ENT- oropharynx clear Neck- supple, no JVD, no adenopathy, no thyromegaly; carotids +2/2, no bruits appreciated Lungs- clear to auscultation bilaterally, no rales/wheezes Heart- normal rate, regular rhythm; no murmur, no gallop, no rub appreciated Abdomen- normal bowel sounds, nondistended, soft, nontender, no masses or hepatosplenomegaly Extremities- Positive superficial lacerations on the bilateral arms, legs Positive suture sites on the left upper leg, no bleeding or discharge, no signs of infection no pretibial edema, no calf tenderness; peripheral pulses intact Neuro- alert, oriented x 3; CN 2-12 grossly intact; motor 5/5 bilaterally;sensation 100% on all extremities; no other gross focal neurologic deficits Skin- warm & dry Psych-somewhat anxious, denies depression or suicidal ideations today Results & Data Vital Signs (Past 12 Hours) Vital Signs Temp Pulse Pulse Resp BP BP Pulse Ox 12/20/18 12:00 36.5 C 83 18 119/66 97 12/20/18 11:30 100 H 21 109/68 98 12/20/18 11:00 90 18 109/68 97 12/20/18 10:00 90 16 115/63 98 12/20/18 09:00 99 H 19 117/69 96 12/20/18 08:00 36.7 C 109 H 16 118/61 97 12/20/18 07:00 83 17 108/80 99 12/20/18 06:00 92 H 20 101/58 L 96 12/20/18 05:00 89 19 99/64 L 97 12/20/18 04:35 36.4 C L 110 H 20 107/62 97 12/20/18 04:31 107 H 14 107/62 98 12/20/18 04:03 94 H 20 97/60 L 97 12/20/18 02:30 110 H 20 98/40 L 98 Laboratory Results Laboratory Results - last 24 hr 12/20/18 12/20/18 12/20/18 01:22 01:22 01:22 WBC 9.46 RBC 5.14 Hgb 15.5 Hct 44.5 MCV 86.6 MCH 30.2 MCHC 34.8 RDW Std Deviation 40.3 RDW Coeff of Dov 12.6 Plt Count 295 MPV 10.2 Immature Gran % (Auto) 0.2 Neut % (Auto) 51.4 Lymph % (Auto) 39.4 [place] % (Auto) 7.6 Eos % (Auto) 1.0 Baso % (Auto) 0.4 Immature Gran # (Auto) 0.02 Neut # (Auto) 4.86 Lymph # (Auto) 3.73 H [place] # (Auto) 0.72 H Eos # (Auto) 0.09 Baso # (Auto) 0.04 PT INR APTT PTT Ratio Sodium 140 Potassium 3.7 Chloride 110 H Carbon Dioxide 23 Anion Gap 8.0 BUN 4 L Creatinine 0.70 Est Cr Clr Drug Dosing Not Reportable Est GFR ( Amer) 142.5 Est GFR (Non-Af Amer) 123.0 BUN/Creatinine Ratio 5.0 L Glucose 96 POC Glucose Calcium 9.2 Magnesium Total Bilirubin 0.2 Direct Bilirubin AST 13 L ALT 19 Alkaline Phosphatase 68 Total Protein 7.2 Albumin 4.1 Globulin 3.1 Albumin/Globulin Ratio 1.3 TSH 0.014 L Free T4 1.11 Free T3 HCG, Qual Urine Color Urine Appearance Urine pH Ur Specific [place] Urine Protein Urine Glucose (UA) Urine Ketones Urine Blood Urine Nitrite Urine Bilirubin Urine Urobilinogen Ur Leukocyte Esterase Nasal Screen MRSA (PCR) Salicylates < 1.7 L Urine Opiates Screen Ur Methadone, Qual Acetaminophen < 2 L Urine Barbiturates Ur Phencyclidine (PCP) U Amphetamin/Meth Scrn MDMA (Ecstasy) Screen U OH-Alprazolam Confrm U Benzodiazepines Scrn 7-Amino Clonazepam Ur Nordiazepam Confirm U OH-ethylflurazepam U Lorazepam Cnf GC/MS U Oxazepam Confm GC/MS Ur Temazepam Confirm U OH-Triazolam Confirm U OH-Midazolam Confirm [place] < 0.2 L Ur Cocaine Metabolite U Marijuana (THC) Screen Ethyl Alcohol mg/dL 12/20/18 12/20/18 12/20/18 01:22 01:22 01:22 WBC RBC Hgb Hct MCV MCH MCHC RDW Std Deviation RDW Coeff of Dov Plt Count MPV Immature Gran % (Auto) Neut % (Auto) Lymph % (Auto) [place] % (Auto) Eos % (Auto) Baso % (Auto) Immature Gran # (Auto) Neut # (Auto) Lymph # (Auto) [place] # (Auto) Eos # (Auto) Baso # (Auto) PT INR APTT PTT Ratio Sodium Potassium Chloride Carbon Dioxide Anion Gap BUN Creatinine Est Cr Clr Drug Dosing Est GFR ( Amer) Est GFR (Non-Af Amer) BUN/Creatinine Ratio Glucose POC Glucose Calcium Magnesium Total Bilirubin Direct Bilirubin AST ALT Alkaline Phosphatase Total Protein Albumin Globulin Albumin/Globulin Ratio TSH Free T4 Free T3 HCG, Qual Negative Urine Color Urine Appearance Urine pH Ur Specific [place] Urine Protein Urine Glucose (UA) Urine Ketones Urine Blood Urine Nitrite Urine Bilirubin Urine Urobilinogen Ur Leukocyte Esterase Nasal Screen MRSA (PCR) Salicylates Urine Opiates Screen Ur Methadone, Qual Acetaminophen Urine Barbiturates Ur Phencyclidine (PCP) U Amphetamin/Meth Scrn MDMA (Ecstasy) Screen U OH-Alprazolam Confrm U Benzodiazepines Scrn 7-Amino Clonazepam Ur Nordiazepam Confirm U OH-ethylflurazepam U Lorazepam Cnf GC/MS U Oxazepam Confm GC/MS Ur Temazepam Confirm U OH-Triazolam Confirm U OH-Midazolam Confirm [place] Cancelled Ur Cocaine Metabolite U Marijuana (THC) Screen Ethyl Alcohol mg/dL 134.5 H 12/20/18 12/20/18 12/20/18 01:22 01:50 01:50 WBC RBC Hgb Hct MCV MCH MCHC RDW Std Deviation RDW Coeff of Dov Plt Count MPV Immature Gran % (Auto) Neut % (Auto) Lymph % (Auto) [place] % (Auto) Eos % (Auto) Baso % (Auto) Immature Gran # (Auto) Neut # (Auto) Lymph # (Auto) [place] # (Auto) Eos # (Auto) Baso # (Auto) PT INR APTT PTT Ratio Sodium Potassium Chloride Carbon Dioxide Anion Gap BUN Creatinine Est Cr Clr Drug Dosing Est GFR ( Amer) Est GFR (Non-Af Amer) BUN/Creatinine Ratio Glucose POC Glucose Calcium Magnesium Total Bilirubin Direct Bilirubin AST ALT Alkaline Phosphatase Total Protein Albumin Globulin Albumin/Globulin Ratio TSH Free T4 Free T3 3.79 HCG, Qual Urine Color Yellow Urine Appearance Clear Urine pH 5.5 Ur Specific [place] 1.011 Urine Protein Negative Urine Glucose (UA) Negative Urine Ketones Negative Urine Blood Negative Urine Nitrite Negative Urine Bilirubin Negative Urine Urobilinogen Negative Ur Leukocyte Esterase Negative Nasal Screen MRSA (PCR) Salicylates Urine Opiates Screen Neg Ur Methadone, Qual Neg Acetaminophen Urine Barbiturates Neg Ur Phencyclidine (PCP) Neg U Amphetamin/Meth Scrn Neg MDMA (Ecstasy) Screen Neg U OH-Alprazolam Confrm U Benzodiazepines Scrn Pos H 7-Amino Clonazepam Ur Nordiazepam Confirm U OH-ethylflurazepam U Lorazepam Cnf GC/MS U Oxazepam Confm GC/MS Ur Temazepam Confirm U OH-Triazolam Confirm U OH-Midazolam Confirm [place] Ur Cocaine Metabolite Neg U Marijuana (THC) Screen Neg Ethyl Alcohol mg/dL 12/20/18 12/20/18 12/20/18 01:50 04:30 05:22 WBC 7.90 RBC 4.61 Hgb 13.6 Hct 40.1 MCV 87.0 MCH 29.5 MCHC 33.9 RDW Std Deviation 41.2 RDW Coeff of Dov 12.9 Plt Count 217 MPV 10.0 Immature Gran % (Auto) 0.1 Neut % (Auto) 42.6 Lymph % (Auto) 44.9 [place] % (Auto) 10.1 Eos % (Auto) 1.8 Baso % (Auto) 0.5 Immature Gran # (Auto) 0.01 Neut # (Auto) 3.36 Lymph # (Auto) 3.55 H [place] # (Auto) 0.80 H Eos # (Auto) 0.14 Baso # (Auto) 0.04 PT INR APTT PTT Ratio Sodium Potassium Chloride Carbon Dioxide Anion Gap BUN Creatinine Est Cr Clr Drug Dosing Est GFR ( Amer) Est GFR (Non-Af Amer) BUN/Creatinine Ratio Glucose POC Glucose Calcium Magnesium Total Bilirubin Direct Bilirubin AST ALT Alkaline Phosphatase Total Protein Albumin Globulin Albumin/Globulin Ratio TSH Free T4 Free T3 HCG, Qual Urine Color Urine Appearance Urine pH Ur Specific [place] Urine Protein Urine Glucose (UA) Urine Ketones Urine Blood Urine Nitrite Urine Bilirubin Urine Urobilinogen Ur Leukocyte Esterase Nasal Screen MRSA (PCR) Negative Salicylates Urine Opiates Screen Ur Methadone, Qual Acetaminophen Urine Barbiturates Ur Phencyclidine (PCP) U Amphetamin/Meth Scrn MDMA (Ecstasy) Screen U OH-Alprazolam Confrm Pending U Benzodiazepines Scrn 7-Amino Clonazepam Pending Ur Nordiazepam Confirm Pending U OH-ethylflurazepam Pending U Lorazepam Cnf GC/MS Pending U Oxazepam Confm GC/MS Pending Ur Temazepam Confirm Pending U OH-Triazolam Confirm Pending U OH-Midazolam Confirm Pending [place] Ur Cocaine Metabolite U Marijuana (THC) Screen Ethyl Alcohol mg/dL 12/20/18 12/20/18 12/20/18 05:22 05:22 05:22 WBC RBC Hgb Hct MCV MCH MCHC RDW Std Deviation RDW Coeff of Dov Plt Count MPV Immature Gran % (Auto) Neut % (Auto) Lymph % (Auto) [place] % (Auto) Eos % (Auto) Baso % (Auto) Immature Gran # (Auto) Neut # (Auto) Lymph # (Auto) [place] # (Auto) Eos # (Auto) Baso # (Auto) PT 10.9 INR 1.1 APTT 26.4 PTT Ratio 1.0 Sodium 145 Potassium 3.5 Chloride 117 H Carbon Dioxide 22 Anion Gap 6.0 BUN 3 L Creatinine 0.47 L Est Cr Clr Drug Dosing 174.9 Est GFR ( Amer) > 150.0 Est GFR (Non-Af Amer) 140.2 BUN/Creatinine Ratio 6.6 L Glucose 87 POC Glucose Calcium 7.8 L D Magnesium 1.8 Total Bilirubin 0.2 Direct Bilirubin < 0.1 AST 18 ALT 15 Alkaline Phosphatase 56 Total Protein 5.8 L Albumin 3.2 L Globulin Albumin/Globulin Ratio TSH Free T4 Free T3 HCG, Qual Urine Color Urine Appearance Urine pH Ur Specific [place] Urine Protein Urine Glucose (UA) Urine Ketones Urine Blood Urine Nitrite Urine Bilirubin Urine Urobilinogen Ur Leukocyte Esterase Nasal Screen MRSA (PCR) Salicylates Urine Opiates Screen Ur Methadone, Qual Acetaminophen Urine Barbiturates Ur Phencyclidine (PCP) U Amphetamin/Meth Scrn MDMA (Ecstasy) Screen U OH-Alprazolam Confrm U Benzodiazepines Scrn 7-Amino Clonazepam Ur Nordiazepam Confirm U OH-ethylflurazepam U Lorazepam Cnf GC/MS U Oxazepam Confm GC/MS Ur Temazepam Confirm U OH-Triazolam Confirm U OH-Midazolam Confirm [place] < 0.2 L Ur Cocaine Metabolite U Marijuana (THC) Screen Ethyl Alcohol mg/dL 12/20/18 12/20/18 05:22 11:56 WBC RBC Hgb Hct MCV MCH MCHC RDW Std Deviation RDW Coeff of Dov Plt Count MPV Immature Gran % (Auto) Neut % (Auto) Lymph % (Auto) [place] % (Auto) Eos % (Auto) Baso % (Auto) Immature Gran # (Auto) Neut # (Auto) Lymph # (Auto) [place] # (Auto) Eos # (Auto) Baso # (Auto) PT INR APTT PTT Ratio Sodium Potassium Chloride Carbon Dioxide Anion Gap BUN Creatinine Est Cr Clr Drug Dosing Est GFR ( Amer) Est GFR (Non-Af Amer) BUN/Creatinine Ratio Glucose POC Glucose 89 Calcium Magnesium Total Bilirubin Direct Bilirubin AST ALT Alkaline Phosphatase Total Protein Albumin Globulin Albumin/Globulin Ratio TSH Free T4 Free T3 HCG, Qual Urine Color Urine Appearance Urine pH Ur Specific [place] Urine Protein Urine Glucose (UA) Urine Ketones Urine Blood Urine Nitrite Urine Bilirubin Urine Urobilinogen Ur Leukocyte Esterase Nasal Screen MRSA (PCR) Salicylates Urine Opiates Screen Ur Methadone, Qual Acetaminophen Urine Barbiturates Ur Phencyclidine (PCP) U Amphetamin/Meth Scrn MDMA (Ecstasy) Screen U OH-Alprazolam Confrm U Benzodiazepines Scrn 7-Amino Clonazepam Ur Nordiazepam Confirm U OH-ethylflurazepam U Lorazepam Cnf GC/MS U Oxazepam Confm GC/MS Ur Temazepam Confirm U OH-Triazolam Confirm U OH-Midazolam Confirm [place] Ur Cocaine Metabolite U Marijuana (THC) Screen Ethyl Alcohol mg/dL 63.0 H (1) Drug overdose, intentional Encounter type: initial encounter Qualified Code(s): T50.902A - Poisoning by unspecified drugs, medicaments and biological substances, intentional self-harm, initial encounter
[2018-12-20] MEDS ORDERED: TRAZODONE HCL 50 MG TAB PO ONE (21:28)
[2018-12-21] MEDS: LORazepam 1 MG/2 ML VIAL IV PRN ×5 (01:50→20:39)
[2018-12-21] MEDS ORDERED: POTASSIUM CHLORIDE 10 MEQ TABCR PO ONE (04:45)
[2018-12-21] MEDS ORDERED: MAGNESIUM SULFATE / D5W 1 GM/100 ML BAG IV ONE (04:45)
[2018-12-21] MEDS: SODIUM CHLORIDE 0.9% 1000ML 1,000 ML IV SCH ×3 (05:21→20:50)
[2018-12-21 07:09] LABS: Basophils # (auto) 0.01 K/uL (0-0.2); Basophils % (auto) 0.1 %; Eosinophils # (auto) 0.19 K/uL (0-0.5); Eosinophils % (auto) 2.5 %; Hematocrit (blood only) 40.3 % (37-47); Hemoglobin 13.7 g/dL (12.0-16.0); Immature Granulocytes # (auto) 0.01 K/uL (0.00-0.02); Immature Granulocytes % (auto) 0.1 %; Lymphocytes # (auto) 2.23 K/uL (1.2-3.4); Lymphocytes % (auto) 28.9 %; Mean Corpuscular Volume 87.4 fL (80-100); Mean Platelet Volume 10.5 fL (7.4-10.4); Monocytes # (auto) 0.52 K/uL (0.11-0.59); Monocytes % (auto) 6.7 %; Neutrophils # (auto) 4.75 K/uL (1.4-6.5); Neutrophils % (auto) 61.7 %; Platelet Count 186 K/uL (130-400); RDW Coefficient of Variation 12.7 % (11.5-14.5); RDW Standard Deviation 40.9 fL (36.4-46.3); Red Blood Count 4.61 M/uL (4.2-5.4); White Blood Count 7.71 K/uL (4.8-10.8)
[2018-12-21 07:28] LABS: Partial Thromboplastin Time 26.4 Seconds (21.0-31.0); Prothrombin Time 10.5 Seconds (9.0-12.0)
[2018-12-21 07:42] LABS: Alanine Aminotransferase 14 U/L (12-78); Aspartate Aminotransferase 20 U/L (15-37); BUN Creatinine Ratio 6.6 (10-20); Blood Urea Nitrogen 3 mg/dl (7-18); Calcium 7.9 mg/dl (8.5-10.1); Carbon Dioxide 21 mmol/L (21-32); Chloride 111 mmol/L (98-107); Creatinine Clr Calc Pharmacy 165.2 ml/min; Est GFR (African American) > 150.0; Est GFR (Non-African American) 137.4; Glucose 83 mg/dl (70-99); Magnesium 2.4 mg/dl (1.8-2.4); Potassium 3.4 mmol/L (3.5-5.1); Sodium 140 mmol/L (136-145)
[2018-12-21 07:48] LABS: Alkaline Phosphatase 83 U/L (45-117); Bilirubin Direct 0.1 mg/dl (0-0.2); Bilirubin,Total 0.8 mg/dl (0.2-1); Total Protein 5.7 gm/dl (6.4-8.2)
[2018-12-21] MEDS: CEROVITE ADV FORMULA TAB PO SCH (10:20)
[2018-12-21] MEDS: THIAMINE HCL 100 MG TAB PO SCH (10:21)
[2018-12-21] MEDS: FOLIC ACID 1 MG TAB PO SCH (10:21)
[2018-12-21] MEDS ORDERED: POTASSIUM CHLORIDE 10 MEQ TABCR PO STA (11:27)
[2018-12-21] MEDS ORDERED: LORazepam 0.5 MG TAB PO STA (11:54)
--- NOTE | 2018-12-21 13:15 | Hospitalist Progress Note ---
Date of Service December 21, 2018 Assessment & Plan (1) Drug overdose, intentional: ASSESSMENT AND PLAN: This is a 23-year-old female who presents with multiple drug overdose. Multiple drug overdose with gabapentin, hydroxyzine, and Lexapro. - was agitated when she came in and also alcohol level is 134 - given Versed and Haldol - contacted poison control and recommended supportive care - patient has history of intubation in the past because of multiple drug overdose. - remained stable overall during observation in the ICU EKG: QT corrected remains 450 - remains stable medically overall History of deliberate self-cutting. - sutured lacerations on the right upper leg: healing well, monitor - PRN Toradol added for pain control monitor and remove sutures in 1 week - Psych evaluated the patient and recommends transition to inpatient Psych facility for further care patient is agreeable - patient declines for medical providers to give information to her family members regarding her medical condition Alcoholism - alcohol level 134 - admits to drinking for the past 3 weeks, 1 bottle wine per day, last drink yesterday- 6 pack of beer - remains without signs of overt alcohol withdrawal at this time monitor closely - PRN Ativan for anxiety History of bipolar disorder, history of borderline personality disorder, depression, posttraumatic stress disorder. - usual Lexapro and lithium on hold - [place] level < 0.2 - further management of Psych meds per Psych service Subclinical Hyperthyroidism - no overt signs/symptoms of hyperthyroidism Thyroid US done 12/12/18: [id number] thyroid nodule - discussed with [facility] Dr. Moon can observe clinically for now as T4/T3 is still within normal range, and patient not showing signs of overt hyperthyroidism -She recommends to repeat free T4 and free T3 in 4 to 5 days to ensure that it remains within normal range -Patient will need to follow-up with digital analyst and ENT as an outpatient History of asthma - not in exacerbation - home inhalers as needed. Deep venous thrombosis prophylaxis, sequential compression devices for now. Encourage ambulation Plan of care with patient in detail and at length She is agreeable understanding comfortable plan of care Disposition patient is medically stable to be transferred to inpatient psychiatric facility for further care discussed with patient at length, in detail, she is agreeable and comfortable with the plan of care She still maintains that she does not want medical information to be shared with her family members or anyone Subjective seen on ff up for self inflicted cutting, possible drug overdose seen with RN Gloria and NEAL Reeves at the bedside throughout whole encounter resting in bed, comfortable, not in distress states she still has anxiety today denies depression, suicidal ideations denies chest pain, palpitations, shortness of breath no tremors, has occasional sweats, no hallucinations denies abdominal pain, nausea/vomiting no other symptoms states she is ready and is eager to transition to [place] today Review of Systems Review of Systems: All systems reviewed & are unremarkable except as noted in HPI & below Physical Exam Physical Exam: General- oriented x 3, not in distress, speaks in sentences with no effort or accessory muscle use Eyes- anicteric Neck- no JVD Lungs- clear BS BL no rales/wheezing Heart- normal rate, regular rhythm; no murmurs Abdomen- normal bowel sounds, nondistended, soft, nontender Extremities- no pretibial edema, no calf tenderness (+) lacerations on the forearms - healing well , no signs of infection (+) lacerations on the thighs, sutured lacerations r thigh- healing well, no s igns of infection Neuro- alert, oriented x 3; no gross focal neurologic deficits Skin- warm & dry Results & Data Vital Signs (Past 12 Hours) Vital Signs Temp Pulse Pulse Resp BP Pulse Ox 12/21/18 08:00 78 12/21/18 07:00 36.7 C 92 H 18 106/68 95 12/21/18 04:18 104/62 Laboratory Results Laboratory Results - last 24 hr 12/21/18 12/21/18 12/21/18 06:29 06:29 06:29 WBC 7.71 RBC 4.61 Hgb 13.7 Hct 40.3 MCV 87.4 MCH 29.7 MCHC 34.0 RDW Std Deviation 40.9 RDW Coeff of Dov 12.7 Plt Count 186 MPV 10.5 H Immature Gran % (Auto) 0.1 Neut % (Auto) 61.7 Lymph % (Auto) 28.9 [place] % (Auto) 6.7 Eos % (Auto) 2.5 Baso % (Auto) 0.1 Immature Gran # (Auto) 0.01 Neut # (Auto) 4.75 Lymph # (Auto) 2.23 [place] # (Auto) 0.52 Eos # (Auto) 0.19 Baso # (Auto) 0.01 PT 10.5 INR 1.0 APTT 26.4 PTT Ratio 1.0 Sodium 140 Potassium 3.4 L Chloride 111 H Carbon Dioxide 21 Anion Gap 8.0 BUN 3 L Creatinine 0.50 L Est Cr Clr Drug Dosing 165.2 Est GFR ( Amer) > 150.0 Est GFR (Non-Af Amer) 137.4 BUN/Creatinine Ratio 6.6 L Glucose 83 Calcium 7.9 L Magnesium 2.4 Total Bilirubin 0.8 D Direct Bilirubin 0.1 AST 20 ALT 14 Alkaline Phosphatase 83 Total Protein 5.7 L Albumin 3.0 L (1) Drug overdose, intentional Encounter type: initial encounter Qualified Code(s): T50.902A - Poisoning by unspecified drugs, medicaments and biological substances, intentional self-harm, initial encounter
[2018-12-21 14:55] LABS: BUN Creatinine Ratio 7.7 (10-20); Blood Urea Nitrogen 4 mg/dl (7-18); Calcium 8.4 mg/dl (8.5-10.1); Carbon Dioxide 22 mmol/L (21-32); Chloride 109 mmol/L (98-107); Creatinine Clr Calc Pharmacy 179.6 ml/min; Est GFR (African American) > 150.0; Est GFR (Non-African American) 141.2; Glucose 94 mg/dl (70-99); Potassium 4.2 mmol/L (3.5-5.1); Sodium 141 mmol/L (136-145)
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
[2018-12-21] MEDS: LORazepam 0.5 MG TAB PO PRN ×2 (18:21→22:17)
[2018-12-21] MEDS ORDERED: TRAMADOL HCL 50 MG TABLET PO PRN (20:33)
[2018-12-21] MEDS ORDERED: TRAZODONE HCL 50 MG TAB PO PRN (20:39)
[2018-12-22] MEDS: SODIUM CHLORIDE 0.9% 1000ML 1,000 ML IV SCH (04:53)
[2018-12-22] MEDS: LORazepam 1 MG/2 ML VIAL IV PRN ×3 (05:07→12:23)
[2018-12-22 07:05] LABS: Basophils # (auto) 0.02 K/uL (0-0.2); Basophils % (auto) 0.3 %; Eosinophils # (auto) 0.24 K/uL (0-0.5); Eosinophils % (auto) 3.8 %; Hematocrit (blood only) 40.2 % (37-47); Hemoglobin 13.6 g/dL (12.0-16.0); Lymphocytes # (auto) 2.35 K/uL (1.2-3.4); Lymphocytes % (auto) 36.9 %; Mean Corpuscular Hgb Conc 33.8 g/dL (32-36); Mean Corpuscular Volume 87.8 fL (80-100); Mean Platelet Volume 10.4 fL (7.4-10.4); Monocytes # (auto) 0.54 K/uL (0.11-0.59); Monocytes % (auto) 8.5 %; Neutrophils # (auto) 3.22 K/uL (1.4-6.5); Neutrophils % (auto) 50.5 %; Platelet Count 206 K/uL (130-400); RDW Coefficient of Variation 12.6 % (11.5-14.5); RDW Standard Deviation 40.9 fL (36.4-46.3); Red Blood Count 4.58 M/uL (4.2-5.4); White Blood Count 6.37 K/uL (4.8-10.8)
[2018-12-22 07:24] LABS: Partial Thromboplastin Time 26.2 Seconds (21.0-31.0); Prothrombin Time 10.3 Seconds (9.0-12.0)
[2018-12-22 07:47] LABS: Alanine Aminotransferase 15 U/L (12-78); Albumin Level 3.1 gm/dl (3.4-5.0); Aspartate Aminotransferase 14 U/L (15-37); BUN Creatinine Ratio 3.8 (10-20); Bilirubin Direct < 0.1 mg/dl (0-0.2); Blood Urea Nitrogen 2 mg/dl (7-18); Carbon Dioxide 22 mmol/L (21-32); Chloride 111 mmol/L (98-107); Creatinine Clr Calc Pharmacy 147.5 ml/min; Est GFR (African American) > 150.0; Est GFR (Non-African American) 132.4; Glucose 91 mg/dl (70-99); Magnesium 1.9 mg/dl (1.8-2.4); Potassium 3.7 mmol/L (3.5-5.1); Sodium 140 mmol/L (136-145)
[2018-12-22 07:50] LABS: Alkaline Phosphatase 75 U/L (45-117); Bilirubin,Total 0.4 mg/dl (0.2-1)
[2018-12-22] MEDS: CEROVITE ADV FORMULA TAB PO SCH (08:36)
[2018-12-22] MEDS: THIAMINE HCL 100 MG TAB PO SCH (08:36)
[2018-12-22] MEDS: FOLIC ACID 1 MG TAB PO SCH (08:36)
[2018-12-22] MEDS: LORazepam 0.5 MG TAB PO PRN (11:02)
--- NOTE | 2018-12-22 12:36 | Hospitalist Progress Note ---
Date of Service December 22, 2018 Assessment & Plan (1) Drug overdose, intentional: ASSESSMENT AND PLAN: This is a 23-year-old female who presents with multiple drug overdose. Multiple drug overdose with gabapentin, hydroxyzine, and Lexapro. - was agitated when she came in and also alcohol level is 134 - given Versed and Haldol - contacted poison control and recommended supportive care - patient has history of intubation in the past because of multiple drug overdose. - remained stable overall during observation in the ICU EKG: QT corrected remains 450 - remains stable medically overall History of deliberate self-cutting. - sutured lacerations on the right upper leg: healing well, monitor - PRN Toradol added for pain control monitor and remove sutures in 1 week follow wound care instructions: WOUND CARE INSTRUCTIONS: To the right thigh lacerations- may clean with saline, cover with Optifoam change every 3 days, and as needed for drainage patient prefers those with sutures to be covered. Monitor for signs of infection. May apply topical Polysporin if needed and wrap with Keflex. Follow up with suture removal. - Psych evaluated the patient and recommends transition to inpatient Psych facility for further care patient is agreeable - patient declines for medical providers to give information to her family members regarding her medical condition Alcoholism - alcohol level 134 - admits to drinking for the past 3 weeks, 1 bottle wine per day, last drink yesterday- 6 pack of beer - remains without signs of overt alcohol withdrawal at this time monitor closely - PRN Ativan for anxiety History of bipolar disorder, history of borderline personality disorder, depression, posttraumatic stress disorder. - usual Lexapro and lithium on hold - [place] level < 0.2 - further management of Psych meds per Psych service Subclinical Hyperthyroidism - no overt signs/symptoms of hyperthyroidism Thyroid US done 12/12/18: [id number] thyroid nodule - discussed with [facility] Dr. Moon can observe clinically for now as T4/T3 is still within normal range, and patient not showing signs of overt hyperthyroidism -She recommends to repeat free T4 and free T3 in 4 to 5 days to ensure that it remains within normal range -Patient will need to follow-up with sustainability specialist and ENT as an outpatient ff up with Primary Care Physician within 1 week after discharge from [place] or earlier if needed History of asthma - not in exacerbation - home inhalers as needed. Deep venous thrombosis prophylaxis, sequential compression devices for now. Encourage ambulation Plan of care with patient in detail and at length She is agreeable understanding comfortable plan of care Disposition patient is medically stable to be transferred to inpatient psychiatric facility for further care again, discussed with patient, she is agreeable and comfortable with the plan of care She still maintains that she does not want medical information to be shared with her family members or anyone at this time Subjective ff up for possible drug overdose, self inflicted wounds seen with WOUND CARE PHYSICIAN at bedside throughout whole encounter comfortable, not in distress calm, cooperative, oriented x 3 states she feels better today less anxious denies headache, dizziness, chest pain, shortness of breath, palpitations no abdominal pain pain on the right thigh wounds also improving no other symptom states she is ready for discharge today Review of Systems Review of Systems: All systems reviewed & are unremarkable except as noted in HPI & below Physical Exam Physical Exam: General- oriented x 3, not in distress, speaks in sentences with no effort or accessory muscle use Eyes- anicteric Neck- no JVD Lungs- clear breath sounds bilaterally Heart- normal rate, regular rhythm; no murmurs Abdomen- normal bowel sounds, nondistended, soft, nontender Extremities- no pretibial edema, no calf tenderness Right thigh wounds- healing well, no signs of infection no surrounding erythema, no discharge/bleeding Neuro- alert, oriented x 3; no gross focal neurologic deficits Skin- warm & dry Results & Data Vital Signs (Past 12 Hours) Vital Signs Temp Pulse Pulse Resp BP Pulse Ox 12/22/18 11:50 65 12/22/18 06:52 36.7 C 82 18 107/70 97 12/22/18 03:35 36.9 C 83 18 91/58 L 95 Laboratory Results Laboratory Results - last 24 hr 12/21/18 12/22/18 12/22/18 14:16 06:44 06:44 WBC 6.37 RBC 4.58 Hgb 13.6 Hct 40.2 MCV 87.8 MCH 29.7 MCHC 33.8 RDW Std Deviation 40.9 RDW Coeff of Dov 12.6 Plt Count 206 MPV 10.4 Immature Gran % (Auto) 0.0 Neut % (Auto) 50.5 Lymph % (Auto) 36.9 [place] % (Auto) 8.5 Eos % (Auto) 3.8 Baso % (Auto) 0.3 Immature Gran # (Auto) 0.00 Neut # (Auto) 3.22 Lymph # (Auto) 2.35 [place] # (Auto) 0.54 Eos # (Auto) 0.24 Baso # (Auto) 0.02 PT 10.3 INR 1.0 APTT 26.2 PTT Ratio 1.0 Sodium 141 Potassium 4.2 D Chloride 109 H Carbon Dioxide 22 Anion Gap 10.0 BUN 4 L Creatinine 0.46 L Est Cr Clr Drug Dosing 179.6 Est GFR ( Amer) > 150.0 Est GFR (Non-Af Amer) 141.2 BUN/Creatinine Ratio 7.7 L Glucose 94 Calcium 8.4 L Magnesium Total Bilirubin Direct Bilirubin AST ALT Alkaline Phosphatase Total Protein Albumin 12/22/18 06:44 WBC RBC Hgb Hct MCV MCH MCHC RDW Std Deviation RDW Coeff of Dov Plt Count MPV Immature Gran % (Auto) Neut % (Auto) Lymph % (Auto) [place] % (Auto) Eos % (Auto) Baso % (Auto) Immature Gran # (Auto) Neut # (Auto) Lymph # (Auto) [place] # (Auto) Eos # (Auto) Baso # (Auto) PT INR APTT PTT Ratio Sodium 140 Potassium 3.7 Chloride 111 H Carbon Dioxide 22 Anion Gap 7.0 BUN 2 L Creatinine 0.56 L Est Cr Clr Drug Dosing 147.5 Est GFR ( Amer) > 150.0 Est GFR (Non-Af Amer) 132.4 BUN/Creatinine Ratio 3.8 L Glucose 91 Calcium 8.0 L Magnesium 1.9 Total Bilirubin 0.4 Direct Bilirubin < 0.1 AST 14 L ALT 15 Alkaline Phosphatase 75 Total Protein 6.0 L Albumin 3.1 L (1) Drug overdose, intentional Encounter type: initial encounter Qualified Code(s): T50.902A - Poisoning by unspecified drugs, medicaments and biological substances, intentional self-harm, initial encounter
--- NOTE | 2018-12-22 12:40 | Discharge Summary ---
Date of Service December 22, 2018 Admission HPI Per Admitting Provider CHIEF COMPLAINT: Drug overdose. HISTORY OF PRESENT ILLNESS: A 23-year-old female with past medical history significant for bipolar disorder, posttraumatic stress disorder, attention deficit disorder, social phobia, oppositional defiant disorder, major depression, history of suicide attempt by drug ingestion, intentional drug overdose, borderline personality disorder, history of substance abuse, history of asthma, history of deliberate self-cutting. Presents with multiple drug overdose. The patient was last in the hospital in July with multiple drug overdose and was intubated at that time. Again, recently she was in the ER because she was found outside the shop with alcohol intoxication. At that time, she was discharged from the ER. Today, police received a call that patient was cutting herself. When police arrived, she opened the door and she was brought in here. She was screaming and she was agitated. She was restrained and she was given Versed, Haldol, and currently sedated. Having tachycardia. Blood pressure is on the lower side. It looks like she ingested gabapentin, hydroxyzine, and Lexapro and there were some pills in the commode, do not know whether she vomited or she dumped pills there, we do not what kind of pills they were, as per the EMS notes. In the ER, she has superficial cuts in the upper extremities and she has some deep cuts in the thighs which the ER is suturing. Could not get any history from the patient currently as she is sedated. ALLERGIES: CLINDAMYCIN, COMPAZINE, DOXYCYCLINE, PENICILLIN, POLLEN,PRAZOSIN, PREDNISONE. PAST MEDICAL HISTORY: As mentioned above. PAST SURGICAL HISTORY: Dental surgery, tonsillectomy. MEDICATIONS: The patient is on Lexapro 20 mg p.o. daily, lithium 1350 mg p.o. at bedtime, Tylenol 650 mg p.o. q.6h. p.r.n., albuterol 2.5 mg inhalation q. 4 hours p.r.n., ProAir 2 puffs inhalation q. 6 hours p.r.n., gabapentin 300 mg p.o. t.i.d., Vistaril 25 mg p.o. daily p.r.n., zolpidem 5 mg p.o. at bedtime, Depo-Provera IM q. 3 months. FAMILY HISTORY: Significant for mother has insomnia. SOCIAL HISTORY: Single, smokes quarter pack a day for 3 years, trying to quit as per records, no alcohol use. Not currently using drugs as per the records. REVIEW OF SYSTEMS: Unobtainable. Admission Exam Per Admitting Provider PHYSICAL EXAMINATION: GENERAL: The patient is currently sedated. VITAL SIGNS: Temperature 36.5, pulse 110, respiratory rate 20, blood pressure 98/40, oxygen 98% room air. HEENT: No pallor, no icterus. Pupils small with a sluggish reaction to light. NECK: No JVD, no neck masses. CARDIOVASCULAR: S1, S2 heard. Tachycardia. No murmurs. RESPIRATORY SYSTEM: Normal AP diameter, no accessory muscle use. No wheezing, no crackles. ABDOMEN: Soft, bowel sounds present. No distention. CENTRAL NERVOUS SYSTEM: Very drowsy. EXTREMITIES: Has superficial cuts in the upper extremities and some deep cuts in the thigh region. No swelling. Principal Diagnosis POSSIBLE DRUG OVERDOSE, SELF INFLICTED CUTTING, HISTORY OF DEPRESSION, BIPOLAR DISORDER Discharge Exam General- oriented x 3, not in distress, speaks in sentences with no effort or accessory muscle use Eyes- anicteric Neck- no JVD Lungs- clear breath sounds bilaterally Heart- normal rate, regular rhythm; no murmurs Abdomen- normal bowel sounds, nondistended, soft, nontender Extremities- no pretibial edema, no calf tenderness Right thigh wounds- healing well, no signs of infection no surrounding erythema, no discharge/bleeding Neuro- alert, oriented x 3; no gross focal neurologic deficits Skin- warm & dry psych- Calm, cooperative, appropriate affect Discharge Data Allergies Allergy/AdvReac Type Severity Reaction Status Date / Time doxycycline Allergy Unknown Unknown Verified 12/20/18 02:11 topiramate Allergy Unknown Muscle Verified 12/20/18 02:11 stiffness haloperidol [From Haldol] Allergy Unknown Verified 12/20/18 02:11 bupropion AdvReac Intermediate MUSCLE Verified 12/20/18 02:11 STIFFNESS prochlorperazine AdvReac Intermediate NUMB AND Verified 12/20/18 02:11 THNGLY FEELING UNABLE TO MOVE clindamycin AdvReac Mild VOMIT Verified 12/20/18 02:11 Penicillins AdvReac Mild her family Verified 12/20/18 02:11 is allergic prednisone AdvReac Mild MAKE Verified 12/20/18 02:11 MENTALY UNSTABLE Consultations 12/20/18 02:34 ED Decision to Admit Stat 12/20/18 04:34 Consult Case Management - Discharge Planning Routine Consult Front Desk Coordinator Routine 12/20/18 09:00 Consult Psychiatry Routine Hospital Course (1) Drug overdose, intentional: ASSESSMENT AND PLAN: This is a 23-year-old female who presents with multiple drug overdose. Multiple drug overdose with gabapentin, hydroxyzine, and Lexapro. - was agitated when she came in and also alcohol level is 134 - given Versed and Haldol - contacted poison control and recommended supportive care - patient has history of intubation in the past because of multiple drug overdose. - remained stable overall during observation in the ICU EKG: QT corrected remains 450 - remains stable medically overall Deliberate self-cutting. - sutured lacerations on the right upper leg: healing well, monitor - PRN Toradol added for pain control monitor and remove sutures in 1 week follow wound care instructions: WOUND CARE INSTRUCTIONS: To the right thigh lacerations- may clean with saline, cover with Optifoam change every 3 days, and as needed for drainage patient prefers those with sutures to be covered. Monitor for signs of infection. May apply topical Polysporin if needed and wrap with Keflex. Follow up with suture removal. - Psych evaluated the patient and recommends transition to inpatient Psych facility for further care patient is agreeable - patient declines for medical providers to give information to her family members regarding her medical condition Alcoholism - alcohol level 134 - admits to drinking for the past 3 weeks, 1 bottle wine per day, last drink yesterday- 6 pack of beer - remains without signs of overt alcohol withdrawal at this time monitor closely - PRN Ativan for anxiety History of bipolar disorder, history of borderline personality disorder, depression, posttraumatic stress disorder. - usual Lexapro and lithium on hold - Sachse level < 0.2 - further management of Psych meds per Psych service Subclinical Hyperthyroidism - no overt signs/symptoms of hyperthyroidism Thyroid US done 12/12/18: [id number] thyroid nodule - discussed with [facility] Dr. Moon can observe clinically for now as T4/T3 is still within normal range, and patient not showing signs of overt hyperthyroidism -She recommends to repeat free T4 and free T3 in 4 to 5 days to ensure that it remains within normal range -Patient will need to follow-up with holiday detector operator and ENT as an outpatient ff up with Primary Care Physician within 1 week after discharge from [place] or earlier if needed History of asthma - not in exacerbation - home inhalers as needed. Deep venous thrombosis prophylaxis, sequential compression device ordered Encourage ambulation Disposition patient is medically stable to be transferred to inpatient psychiatric facility for further care again, discussed with patient, she is agreeable and comfortable with the plan of care She still maintains that she does not want medical information to be shared with her family members or anyone at this time Total Time Total Time Spent Total Time Spent (In Minutes): 40 minutes Discharge Plan Discharge Items Patient Disposition: Transfer Behavioral Health Fac Reason For Visit: DRUG OVERDOSE Discharge Diagnosis: SELF INFLICTED CUTTING, POSSIBLE DRUG OVERDOSE, HISTORY OF BIPOLAR DISORDER AND DEPRESSION Discharge Goals: Diagnostic testing and Therapeutic intervention Activity: Resume your previous activity Driving/Machine Use Comment: NO DRIVING Non-emergency contact: Primary Care Provider Call non-emergency contact if: you have any medication questions Follow-up/Referrals: PCP,NO [Primary Care Provider] - Diet: Regular Addtl Provider Instructions: PLEASE REFER TO ACCOMPANYING DISCHARGE SUMMARY FOR FURTHER DETAILS. WOUND CARE INSTRUCTIONS: To the right thigh lacerations- may clean with saline, cover with Optifoam change every 3 days, and as needed for drainage patient prefers those with sutures to be covered. Monitor for signs of infection. May apply topical Polysporin if needed and wrap with Keflex. Follow up with suture removal. Prescriptions: New thiamine HCl (vitamin B1) [Vitamin B-1] 100 mg Tablet 100 mg PO QAM 7 Days Qty: 7 RF: 0 folic acid 1 mg Tablet 1 mg PO QAM 7 Days Qty: 7 RF: 0 Certavite-Antioxidant 18-400 mg-mcg Tablet 1 tab PO QAM 30 Days Qty: 30 RF: 0 bacitracin-polymyxin B [Polysporin] 500-10,000 unit/gram ointment 1 appln TOP BID Qty: 14.17 RF: 1 Continued acetaminophen [Tylenol] 325 mg Tablet 650 mg PO Q6H PRN (Reason: Fever Or Pain) RF: 0 albuterol sulfate 2.5 mg /3 mL (0.083 %) solution for nebulization 2.5 mg inhalation Q4 PRN (Reason: Wheezing) RF: 0 albuterol sulfate [ProAir HFA] 90 mcg/actuation Hfa Aerosol Inhaler 2 puff INHALATION Q6H PRN (Reason: Shortness Of Breath Or Wheezing) RF: 0 medroxyprogesterone [Depo-Provera] 150 mg/mL suspension 150 mg IM .[id number] RF: 0 Discontinued lithium carbonate 450 mg tablet extended release 1,350 mg PO HS RF: 0 zolpidem [Ambien] 5 mg tablet 5 mg PO HS RF: 0 gabapentin 300 mg Capsule 300 mg PO TID RF: 0 escitalopram oxalate [Lexapro] 20 mg tablet 20 mg PO DAILY RF: 0 hydroxyzine pamoate [Vistaril] 25 mg capsule 25 mg PO DAILY PRN (Reason: Anxiety) RF: 0 Stand-Alone Forms: [facility] Discharge Orders: Discharge Order (Routine); Ordered 12/22/18 Ordered By: Kaden Case Admission Data Admit Date/Time: 12/20/18 03:34 Attending Provider: Kaden Case Admit Provider: Zeb Mo Primary Care Provider: PCP,NO Other Providers: Zeb Mo ; Nick Salas ; Angelina Garza Service: Telemetry Medical
[2018-12-24 04:06] LABS: 7-Aminoclonaz, Confirm NEGATIVE NG/ML (CUTOFF=25); Hydro-Alp Ur, GC/MS NEGATIVE NG/ML (CUTOFF=25); Hydroxyethylflurazepam, Conf NEGATIVE NG/ML (CUTOFF=50); Hydroxytriazolam NEGATIVE NG/ML (CUTOFF=50); Lorazepam, Ur GC/MS NEGATIVE NG/ML (CUTOFF=50); Nordiazepam, Confirm NEGATIVE NG/ML (CUTOFF=50); Oxazepam Ur, GC/MS NEGATIVE NG/ML (CUTOFF=50); Temazepam, Confirm NEGATIVE NG/ML (CUTOFF=50)
== END 2018-12-22 13:22 | DRG 909 ==
LOC: ED 00:53 → 1E 03:34 → 2W 16:59

== ENCOUNTER 2023-07-26 14:15 | Inpatient (IN) ==
[2023-07-26 14:55] LABS: Basophils # (auto) 0.03 K/uL (0.00-0.20); Basophils % (auto) 0.4 %; Eosinophils # (auto) 0.04 K/uL (0.00-0.50); Eosinophils % (auto) 0.6 %; Hematocrit (blood only) 42.3 % (37.0-47.0); Hemoglobin 14.1 g/dl (12.0-16.0); Immature Granulocytes # (auto) 0.02 K/uL (0.01-0.20); Immature Granulocytes % (auto) 0.3 %; Lymphocytes # (auto) 2.64 K/uL (1.20-3.40); Lymphocytes % (auto) 37.1 %; Mean Corpuscular Hemoglobin 28.7 pg (25.0-34.0); Mean Corpuscular Hgb Conc 33.3 g/dL (32.0-36.0); Mean Corpuscular Volume 86.2 fL (80.0-100.0); Mean Platelet Volume 10.7 fL (9.4-12.4); Monocytes # (auto) 0.39 K/uL (0.11-0.59); Monocytes % (auto) 5.5 %; Neutrophils % (auto) 56.1 %; Platelet Count 247 K/uL (130-400); RDW Coefficient of Variation 12.7 % (11.5-14.5); RDW Standard Deviation 39.8 fL (36.4-46.3); Red Blood Count 4.91 M/uL (4.20-5.40); White Blood Count 7.12 K/ul (4.8-10.8)
[2023-07-26 15:06] LABS: Alanine Aminotransferase 7 U/L (7-52); Albumin Globulin Ratio 1.7 (0.9-2); Albumin Level 4.8 gm/dl (3.4-5.0); Alkaline Phosphatase 30 U/L (34-104); Anion Gap 14 (3-11); Aspartate Aminotransferase 13 U/L (13-39); BUN Creatinine Ratio 26.1 (10-20); Bilirubin,Total 0.6 mg/dl (0.2-1.0); Blood Urea Nitrogen 18 mg/dl (6-23); Calcium 9.3 mg/dl (8.6-10.3); Carbon Dioxide 20 mmol/L (21-32); Chloride 105 mmol/L (98-107); Est GFR (African American) 139.2 ml/min; Est GFR (Non-African American) 120.1 ml/min; Globulin 2.8 gm/dl (2.5-4.0); Glucose 89 mg/dl (70-99(Fasting)); Lipase 14 U/L (11-82); Potassium 3.3 mmol/L (3.5-5.1); Sodium 139 mmol/L (136-145); Total Protein 7.6 gm/dl (6.0-8.3)
[2023-07-26 15:15] LABS: Pregnancy Test, Serum Negative (Negative)
[2023-07-26 16:09] LABS: Appearance Urine Clear (Clear); Bacteria Urine Automated Negative (Negative); Bilirubin Urine Negative (Negative); Blood Urine Negative (Negative); Color Urine Dark Yellow; Epithelial Cell Urine Auto >30 /lpf (0-5); Glucose Urine UA Negative (Negative); Ketones Urine 2+ (Negative); Leukocyte Esterase Urine Negative (Negative); Nitrite Urine Negative (Negative); Protein Urine 2+ (Negative); RBC Urine Automated 0-4 /hpf (0-4); Specific Gravity Urine 1.028 (1.000-1.030); Urobilinogen Urine Negative (Negative); pH Urine 5.5 (4.5-7.5)
--- NOTE | 2023-07-26 16:35 | Emergency Department Note ---
ED Provider Note History of Present Illness Chief Complaint: Abdominal Pain Stated Complaint: R SIDE AB PAIN Time Seen by Provider: 07/26/23 16:33 This is a 27-year-old female with a history of irritable bowel syndrome, PTSD, ADHD, ODD, bipolar, borderline personality, has followed with GI in the past, who presents to the emergency department with ongoing pain in her upper right abdomen and right back. Symptoms began about 1 week ago and have worsened. Patient recently started vomiting and having bloody diarrhea over the past several days. Her right upper abdominal pain radiates to the right side of her back, is better when she is curled up, worse when she straightens out, exacerbated when she eats or drinks. She was seen in this emergency department 6 days ago for the abdominal pain and back pain. CT scan demonstrated mild bladder wall thickening with no additional acute abnormalities. Patient was treated for possible cystitis/pyelonephritis with cefdinir. She states that she was not having urinary symptoms at that time. Her urine culture grew out [place]. Patient symptoms have been ongoing with no relief. She followed up with her primary care provider through [facility]. A right upper quadrant ultrasound was obtained and showed mild gallbladder adenomyomatosis and mild ascites. Per chart review, gastroenterology was consulted after that who recommended a CT scan of the abdomen and pelvis but disagreed with the ascites on the ultrasound. Made recommendations for the patient to also have additional blood work, repeat CT scan, and HIDA scan with CCK. She has not had her CT scan yet which is scheduled for 2 days from now. She could not handle the pain so came to the emergency department. States that she was prescribed Tylenol with codeine which did help with her pain but caused her to vomit so she has not been taking this medication She denies any recent alcohol use States that she always feels short of breath due to POTS but nothing new. Her symptoms seem to be exacerbated after she eats or drinks anything and she has not been able to eat or drink much lately. The bloody diarrhea started yesterday, described as bright red blood mixed in with her stool. Home Medications Medication Instructions Recorded Confirmed Type escitalopram oxalate 20 mg tablet 20 mg PO DAILY 12/07/22 07/26/23 History (Lexapro) gabapentin 300 mg capsule 300 mg PO TID 12/07/22 07/26/23 History (Neurontin) levalbuterol HCl 1.25 mg/3 mL 1.25 mg inhalation Q4H PRN Wheezing 12/07/22 07/26/23 History solution for nebulization methylphenidate HCl 5 mg tablet 5 mg PO BID 12/07/22 07/26/23 History (Ritalin) omeprazole 40 mg capsule,delayed 40 mg PO DAILY 12/07/22 07/26/23 History release ivabradine 5 mg tablet (Corlanor) 5 mg PO DAILY 03/31/23 07/26/23 History acetaminophen 500 mg tablet 500 mg PO Q6H PRN pain/fever 07/18/23 07/26/23 History diphenhydramine HCl 25 mg tablet 25 mg PO HS PRN Sleep 07/18/23 07/26/23 History (Benadryl Allergy) lithium carbonate 300 mg tablet See Rx Instructions .Route .COMPLEX 07/18/23 07/26/23 History lorazepam 1 mg tablet 1 mg PO DAILY PRN Anxiety 07/18/23 07/26/23 History medroxyprogesterone 150 mg/mL 150 mg IM .[id number] 07/18/23 07/26/23 History intramuscular syringe zolpidem 5 mg tablet 5 mg PO HS PRN Sleep 07/18/23 07/26/23 History Allergies Allergy/AdvReac Type Severity Reaction Status Date / Time doxycycline Allergy Unknown Unknown Verified 07/18/23 18:15 haloperidol [From Haldol] Allergy Unknown Unknown Verified 07/18/23 18:15 prednisone AdvReac Severe Makes Verified 07/18/23 18:15 mentally unstale bupropion AdvReac Intermediate Muscle Verified 07/18/23 18:15 stiffness clindamycin AdvReac Intermediate VOMIT Verified 07/18/23 18:15 prochlorperazine AdvReac Intermediate NUMB AND Verified 07/18/23 18:15 TINGLY FEELING UNABLE TO MOVE topiramate AdvReac Intermediate Muscle Verified 07/18/23 18:15 stiffness Penicillins AdvReac Unknown Family Verified 07/18/23 18:15 history Past Med/Surg History Medical History (Updated 07/26/23 @ 21:33 by LETY De Leon) Drug overdose, intentional Acute psychosis Asthma Previous known suicide attempt Methamphetamine abuse Opiate abuse, continuous Alcohol abuse Benzodiazepine abuse Cocaine abuse UTI (urinary tract infection) Right ankle pain Post-op pain Borderline personality disorder Bipolar 1 disorder, depressed, moderate History of suicide attempt H/O aspiration pneumonitis Social phobia ODD (oppositional defiant disorder) ADHD (attention deficit hyperactivity disorder) PTSD (post-traumatic stress disorder) Asthma Surgical History [place] teeth removed Family History Other No pertinent family history in first degree relatives Social History Smoking Status: Current every day smoker Tobacco Type: E-cigarettes / Vaping Second Hand Exposure: Yes; Do You Dip or Chew Tobacco: No; Hx Alcohol Use: No Hx Substance Use: Yes Last Used Substance: Just Prior to Arrival Preferred Language: Belarusian Communication Ability: Effective Communication Ability Comment: KANDY Visual Impairment: No Limitations Hearing Ability: Normal 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 Beliefs That Will Affect Care: None marital status: Single Current Living Situation: Family current occupational status: employed How many Children do You have: 0 Feels Safe at Home: Yes Gender Identity: Female Assistive Devices: None Physical Exam Vital Signs Vital Signs - 24 hr 07/26/23 14:18 07/26/23 17:01 07/26/23 19:04 Temperature 98.2 F Temperature Source Temporal Artery Scan Pulse Rate 113 H Pulse Rate [Left] 104 H 90 Pulse Rhythm [Left] Regular Pulse Strength [Left] Normal Respiratory Rate 18 17 17 Respiratory Effort / Characteristics Non-Labored Spontaneous Non-Labored Non-Labored Spontaneous Respiratory Depth Normal Normal Normal Respiratory Pattern Regular Regular Blood Pressure 114/80 Blood Pressure [Left Arm] 117/89 114/74 Blood Pressure Mean 91 Blood Pressure Mean [Left Arm] 98 87 Blood Pressure Position Sitting Blood Pressure Position [Left Arm] Sitting Pulse Oximetry 98 99 99 Oxygen Delivery Method Room Air Room Air Room Air Sepsis Recent Fever Within 48 Hours No Sepsis New/Unexplained Change in Mental Status No Sepsis Action Taken by Nursing No Action Required CONSTITUTIONAL: Well developed, well nourished, curled up on the bed, appears to be in pain, tearful. EYES: conjunctivae normal, extraocular muscles intact. No scleral icterus ENMT: External ears normal. Nose with normal external appearance, no congestion. Oral mucous membranes dry. Oropharynx otherwise normal. NECK: Full active range of motion. LYMPHATIC: No cervical adenopathy RESPIRATORY: Breathing unlabored and symmetric. Lungs clear to auscultation bilaterally. No wheeze, rales, or rhonchi. CARDIOVASCULAR: Tachycardic rate and regular rhythm. No murmurs, rubs, or gallops. ABDOMEN: Normal bowel sounds. There is focal tenderness in the right upper quadrant as well as rebound tenderness in the left lower quadrant. Right CVA tenderness is present. There is also tenderness on palpating the right paraspinal musculature. MUSCULOSKELETAL: Moves all extremities at all joints without pain or difficulty. No cyanosis or edema. Patient cries when palpating the right lumbar paraspinal musculature. SKIN: [place], warm, dry. No rash NEUROLOGIC: Awake, alert, oriented. No focal deficits. PSYCHIATRIC: Appropriate. Normal affect Course Administered Medications Discontinued Medications Sodium Chloride (Nss) 1,000 mls @ 999 mls/hr IV .Q1H1M ONE Stop: 07/26/23 17:53 Last Infusion: 07/26/23 19:17 Dose: Infused Documented By: Admin: 07/26/23 17:04 Dose: 999 mls/hr Documented By: SUBHA Famotidine (Pepcid 20mg Iv Push) 20 mg in 5 mls @ 2.5 mls/min IV NOW STA Stop: 07/26/23 17:24 Last Admin: 07/26/23 17:55 Dose: 2.5 mls/min Documented By: MARIE Ioversol (Optiray 320 125ml) 117 ml IV ONCE ONE Stop: 07/26/23 17:45 Last Admin: 07/26/23 17:44 Dose: 117 ml Documented By: ALIREZA Lidocaine (Lidocaine 5% 1 Patch) 1 patch TD NOW STA Stop: 07/26/23 16:54 Last Admin: 07/26/23 17:04 Dose: 1 patch Documented By: SUBHA Morphine Sulfate (Morphine Sulfate 4 Mg/Ml 1 Ml Carp\Vial) 4 mg IV NOW STA Stop: 07/26/23 17:12 Last Admin: 07/26/23 17:55 Dose: 4 mg Documented By: MARIE Ondansetron HCl (Ondansetron Inj 2 Mg/Ml 2 Ml Vial) 4 mg IV NOW STA Stop: 07/26/23 17:24 Last Admin: 07/26/23 17:56 Dose: 4 mg Documented By: MARIE Medical Decision Making Differential Diagnosis Cholecystitis, cholelithiasis, choledocholithiasis, pulmonary embolism, pneumonia, gastritis, mesenteric adenitis, pancreatitis, appendicitis, diverticulitis, GI bleed, electrolyte imbalance, infectious diarrhea, C. difficile, myofascial pain, pelvic inflammatory disease, bacterial vaginosis, gastritis, among other pathology Medical Records Attestation: I reviewed the patient's medical records. Additional Comments: - Reviewed [facility] right upper quadrant ultrasound results. Reviewed conversation between patient's primary care provider and gastroenterology Laboratory Data 07/26/23 14:31 07/26/23 14:31 Lab Results 07/26/23 07/26/23 07/26/23 Range/Units 14:31 15:39 17:35 WBC 7.12 (4.8-10.8) K/ul RBC 4.91 (4.20-5.40) M/uL Hgb 14.1 (12.0-16.0) g/dl Hct 42.3 (37.0-47.0) % MCV 86.2 (80.0-100.0) fL MCH 28.7 (25.0-34.0) pg MCHC 33.3 (32.0-36.0) g/dL RDW Std Deviation 39.8 (36.4-46.3) fL RDW Coeff of Dov 12.7 (11.5-14.5) % Plt Count 247 (130-400) K/uL MPV 10.7 (9.4-12.4) fL Immature Gran % (Auto) 0.3 % Neut % (Auto) 56.1 % Lymph % (Auto) 37.1 % [place] % (Auto) 5.5 % Eos % (Auto) 0.6 % Baso % (Auto) 0.4 % Neut # (Auto) 4.00 (1.40-6.50) K/uL Lymph # (Auto) 2.64 (1.20-3.40) K/uL [place] # (Auto) 0.39 (0.11-0.59) K/uL Eos # (Auto) 0.04 (0.00-0.50) K/uL Baso # (Auto) 0.03 (0.00-0.20) K/uL Immature Gran # (Auto) 0.02 (0.01-0.20) K/uL Sodium 139 (136-145) mmol/L Potassium 3.3 L (3.5-5.1) mmol/L Chloride 105 (98-107) mmol/L Carbon Dioxide 20 L (21-32) mmol/L Anion Gap 14 H (3-11) BUN 18 (6-23) mg/dl Creatinine 0.69 (0.6-1.2) mg/dl Est Cr Clr Drug Dosing Not Reportable Est GFR ( Amer) 139.2 ml/min Est GFR (Non-Af Amer) 120.1 ml/min BUN/Creatinine Ratio 26.1 H (10-20) Glucose 89 (70-99(Fasting)) mg/dl Calcium 9.3 (8.6-10.3) mg/dl Total Bilirubin 0.6 (0.2-1.0) mg/dl AST 13 (13-39) U/L ALT 7 (7-52) U/L Alkaline Phosphatase 30 L (34-104) U/L Total Protein 7.6 (6.0-8.3) gm/dl Albumin 4.8 (3.4-5.0) gm/dl Globulin 2.8 (2.5-4.0) gm/dl Albumin/Globulin Ratio 1.7 (0.9-2) Lipase 14 (11-82) U/L HCG, Qual Negative (Negative) Urine Color Dark Yellow Urine Appearance Clear (Clear) Urine pH 5.5 (4.5-7.5) Ur Specific [place] 1.028 (1.000-1.030) Urine Protein 2+ H (Negative) Urine Glucose (UA) Negative (Negative) Urine Ketones 2+ H (Negative) Urine Blood Negative (Negative) Urine Nitrite Negative (Negative) Urine Bilirubin Negative (Negative) Urine Urobilinogen Negative (Negative) Ur Leukocyte Esterase Negative (Negative) Urine WBC (Auto) 1-5 (0-5) /hpf Urine RBC (Auto) 0-4 (0-4) /hpf U Hyaline Cast (Auto) 5-10 H (0-5) /lpf U Epithel Cells (Auto) >30 H (0-5) /lpf Urine Bacteria (Auto) Negative (Negative) [place] < 0.1 L (0.6-1.2) mmol/L Ethyl Alcohol mg/dL < 10.0 (<10.0) mg/dl Imaging Data Radiologist's Impression: Chest X-Ray 07/26/23 16:53 XR chest 1V portable HISTORY: right lower chest, right upper quadrant pain COMPARISON: Chest 07/18/2023. FINDINGS: The lungs are clear. Cardiac silhouette is normal in size. No pleural effusions. No pneumothorax. IMPRESSION: No acute process. ACT 112: Negative or not required by law. Electronically signed by: Nixon North M.D. 07/26/2023 5:27 PM Abdomen/Pelvis CT 07/26/23 17:[address] WITH IV CONTRAST CT DOSE: HISTORY: right lower chest/right upper abdominal pain TECHNIQUE: Multiaxial CT images of the abdomen and pelvis were performed following the use of intravenous contrast. A dose lowering technique was utilized adhering to the principles of ALARA. COMPARISON STUDY: Abdomen and pelvis CT 07/18/2023. FINDINGS: The lung bases are clear. No pneumoperitoneum. No pneumatosis. No acute fractures identified. Stable subcentimeter hypodense focus within the right hepatic lobe. This favors a small cyst. The main portal vein is patent. The gallbladder is unremarkable. The pancreas, spleen, adrenal glands, and kidneys enhance normally. No hydronephrosis. No perinephric inflammatory change. Stable punctate calcifications within the right deep pelvis. These favor phleboliths. No retroperitoneal lymphadenopathy. Normal caliber abdominal aorta. Mild bladder wall thickening. This may be due to underdistention. The uterus and ovaries are unremarkable. No pelvic free fluid. No bowel wall thickening or obstruction. Normal appendix. IMPRESSION: 1. No significant change compared to the prior study. 2. Mild bladder wall thickening which could be due to underdistention. Recommend correlation with urinalysis to exclude a cystitis. 3. No bowel wall thickening or obstruction. 4. Normal appendix. ACT 112: Negative or not required by law. Electronically signed by: Nixon North M.D. 07/26/2023 6:02 PM Chest CTA 07/26/23 17:21 CHEST CTA for PULMONARY ARTERIES CT DOSE: 625.83 mGy.cm HISTORY: right lower chest/right upper abdominal pain TECHNIQUE: Multiaxial CT images of the chest were performed following the intravenous administration of contrast to evaluate the pulmonary arteries. 3D/Maximal intensity projection images were also obtained. Sagittal and coronal reformations were also reviewed. A dose lowering technique was utilized adhering to the principles of ALARA. COMPARISON STUDY: Chest CT 12/13/2019. FINDINGS: There is a normal caliber thoracic aorta with no evidence for dissection. There is no evidence for pulmonary embolus. No pleural effusions. No pneumothorax. The liver and spleen are unremarkable. No mediastinal or hilar lymphadenopathy. The central airways are patent. The lungs are clear. IMPRESSION: No evidence for a pulmonary embolus. ACT 112: Negative or not required by law. Electronically signed by: Nixon North M.D. 07/26/2023 5:57 PM MDM Narrative 27-year-old female presents to the emergency department with ongoing upper abdominal pain radiating to the back, now with nausea and vomiting and bloody diarrhea. States that she also has shortness of breath which is not necessarily new. Was seen in this emergency department 6 days ago had a normal CT scan. Slightly abnormal right upper quadrant ultrasound outpatient. Additional recommendations have been made from a diagnostic standpoint from GI. See above for further details. Patient does appear to be in significant pain, curled up on the stretcher, tearful. She has significant tenderness in the abdomen with some rebound tenderness as well as right CVA/paraspinal lumbar tenderness. An IV was inserted and labs were obtained. Patient was given Zofran, Pepcid, IV fluids, and morphine. She does appear to be dry. Extensive chart review was performed given patient's recent encounters with this emergency department and primary care. She has followed with gastroenterology in the past who made specific recommendations on further outpatient workup including extensive blood work, HIDA scan with CCK, and repeating her CT abdomen pelvis. Labs: No leukocytosis or anemia. Mild hypokalemia at 3.3 likely dietary related. Anion gap slightly elevated at 14 likely secondary to dehydration. Lipase normal. Serum negative. Urine with 2+ ketones and contamination, no evidence of infection. EtOH negative. [place] level low at 0.1. Patient states he just restarted this 1 week ago. Patient unable to produce a stool sample to evaluate the bloody diarrhea while in the emergency department. Chest x-ray 1 view is negative for acute process. CT of the chest to evaluate for PE and CT abdomen pelvis was obtained demonstrating no acute process. Patient rested more comfortably after the above therapy. Case was reviewed with ED attending Dr. Morgan. This is the patient's second visit and her symptoms are worsening and evolving. Outpatient workup has been initiated however patient unable to tolerate her symptoms to wait for the additional tests, so admission was recommended. Patient was agreeable with this plan. I reviewed the case with Dr. Mo with [facility] who agrees to admit the patient. I did not have the opportunity to perform a pelvic exam on the patient by the time she was admitted, Dr. Mo states he will discuss with marketing operations intern. Impression Intractable abdominal pain, Nausea, vomiting and diarrhea, Acute dehydration Discharge Plan Visit Data Chief Complaint: Abdominal Pain Stated Complaint: R SIDE AB PAIN ED Provider: Mike Morgan ED Midlevel Provider: Conor Sheldon Discharge Problem: Intractable abdominal pain, Nausea, vomiting and diarrhea, Acute dehydration Patient Disposition: Admitted As Inpatient Condition: Fair Forms Stand Alone Forms: My [facility] Prescriptions Prescriptions: No Action methylphenidate HCl [Ritalin] 5 mg tablet 5 mg PO BID omeprazole 40 mg capsule,delayed release(DR/EC) 40 mg PO DAILY gabapentin [Neurontin] 300 mg capsule 300 mg PO TID levalbuterol HCl 1.25 mg/3 mL solution for nebulization 1.25 mg INHALATION Q4H PRN (Reason: Wheezing) escitalopram oxalate [Lexapro] 20 mg tablet 20 mg PO DAILY acetaminophen [Tylenol Ex Str Rapid Release] 500 mg Tablet 500 mg PO Q6H PRN (Reason: pain/fever) diphenhydramine HCl [Benadryl Allergy] 25 mg Tablet 25 mg PO HS PRN (Reason: Sleep) zolpidem 5 mg tablet 5 mg PO HS PRN (Reason: Sleep) lorazepam 1 mg tablet 1 mg PO DAILY PRN (Reason: Anxiety) lithium carbonate 300 mg tablet See Rx Instructions .ROUTE .COMPLEX Rx Instructions: Take 600mg by mouth in the morning and 600mg by mouth at bedtime medroxyprogesterone 150 mg/mL syringe 150 mg IM .[id number] Corlanor 5 mg tablet 5 mg PO DAILY Referrals Referrals: Quincy Clements, [Primary Care Provider] -
[2023-07-26] MEDS: LIDOCAINE 5% 1 PATCH TD STA (17:04)
[2023-07-26] MEDS: SODIUM CHLORIDE 0.9% 1,000 ML IV ONE (17:04)
--- NOTE | 2023-07-26 17:29 | XRay Report ---
XR chest 1V portable HISTORY: right lower chest, right upper quadrant pain COMPARISON: Chest 07/18/2023. FINDINGS: The lungs are clear. Cardiac silhouette is normal in size. No pleural effusions. No pneumot horax. IMPRESSION: No acute process. ACT 112: Negative or not required by law. Electronically signed by: Nixon North M.D. 07/26/2023 5:27 PM
[2023-07-26] MEDS: OPTIRAY 320 125ml IV ONE (17:44)
[2023-07-26] MEDS: MoRPHine SULFATE 4 MG/ML 1 ML CARP\\VIAL IV STA (17:55)
[2023-07-26] MEDS: FAMOTIDINE 20MG IV PUSH 20 MG/5 ML SYR IV STA (17:55)
[2023-07-26] MEDS: ONDANSETRON INJ 2 MG/ML 2 ML VIAL IV STA ×2 (17:56→21:54)
--- NOTE | 2023-07-26 17:59 | CT Scan Report ---
CHEST CTA for PULMONARY ARTERIES CT DOSE: 625.83 mGy.cm HISTORY: right lower chest/right upper abdominal pain TECHNIQUE: Multiaxial CT images of the chest were performed following the intravenous administration of contrast to evaluate the pulmonary arteries. 3D/Maximal intensity projection images were also obta ined. Sagittal and coronal reformations were also reviewed. A dose lowering technique was utilized a dhering to the principles of ALARA. COMPARISON STUDY: Chest CT 12/13/2019. FINDINGS: There is a normal caliber thoracic aorta with no evidence for dissection. There is no evide nce for pulmonary embolus. No pleural effusions. No pneumothorax. The liver and spleen are unremarkab le. No mediastinal or hilar lymphadenopathy. The central airways are patent. The lungs are clear. IMPRESSION: No evidence for a pulmonary embolus. ACT 112: Negative or not required by law. Electronically signed by: Nixon North M.D. 07/26/2023 5:57 PM
--- NOTE | 2023-07-26 18:04 | CT Scan Report ---
ABDOMEN AND PELVIS CT WITH IV CONTRAST CT DOSE: HISTORY: right lower chest/right upper abdominal pain TECHNIQUE: Multiaxial CT images of the abdomen and pelvis were performed following the use of intrave nous contrast. A dose lowering technique was utilized adhering to the principles of ALARA. COMPARISON STUDY: Abdomen and pelvis CT 07/18/2023. FINDINGS: The lung bases are clear. No pneumoperitoneum. No pneumatosis. No acute fractures identifie d. Stable subcentimeter hypodense focus within the right hepatic lobe. This favors a small cyst. The main portal vein is patent. The gallbladder is unremarkable. The pancreas, spleen, adrenal glands, an d kidneys enhance normally. No hydronephrosis. No perinephric inflammatory change. Stable punctate ca lcifications within the right deep pelvis. These favor phleboliths. No retroperitoneal lymphadenopath y. Normal caliber abdominal aorta. Mild bladder wall thickening. This may be due to underdistention. The uterus and ovaries are unremarkable. No pelvic free fluid. No bowel wall thickening or obstructio n. Normal appendix. IMPRESSION: 1. No significant change compared to the prior study. 2. Mild bladder wall thickening which could be due to underdistention. Recommend correlation with uri nalysis to exclude a cystitis. 3. No bowel wall thickening or obstruction. 4. Normal appendix. ACT 112: Negative or not required by law. Electronically signed by: Nixon North M.D. 07/26/2023 6:02 PM
[2023-07-26] MEDS: ONDANSETRON INJ 2 MG/ML 2 ML VIAL ONE (21:54)
[2023-07-26] MEDS ORDERED: LEVALBUTEROL 1.25 MG/3 ML NEB INH PRN (22:24)
[2023-07-26] MEDS ORDERED: ACETAMINOPHEN 500 MG TAB PO PRN (22:24)
[2023-07-26] MEDS ORDERED: ONDANSETRON INJ 2 MG/ML 2 ML VIAL IV PRN (22:24)
[2023-07-26] MEDS: D5W AND NSS 1,000 ML IV SCH (23:03)
[2023-07-26] MEDS: GABAPENTIN 300 MG CAP PO SCH (23:06)
[2023-07-26] MEDS: LITHIUM CARBONATE 300 MG TAB PO SCH (23:06)
[2023-07-26] MEDS: PANTOprazole 40 MG in SYRINGE 0 ML IV SCH (23:06)
[2023-07-26] MEDS: ZOLPIDEM TARTRATE 5 MG TAB PO PRN (23:16)
[2023-07-26] MEDS: MoRPHine SULFATE 4 MG/ML 1 ML CARP\\VIAL IV PRN (23:16)
[2023-07-27 01:20] LABS: Amphetamines+Metham, Urine Neg (Neg); Barbiturates, Urine Neg (Neg); Benzodiazepine, Urine Neg (Neg); Cocaine, Urine Neg (Neg); MDMA (Ecstacy), Urine Neg (Neg); Marijuana, Urine Pos (Neg); Methadone, Urine Neg (Neg); Opiate, Urine Pos (Neg); Phencyclidine, Urine Neg (Neg)
[2023-07-27 02:09] LABS: Adenovirus F 40/41 PCR Not Detected (NotDetected); Astrovirus PCR Not Detected (NotDetected); Campylobacter PCR Not Detected (NotDetected); Cryptosporidium PCR Not Detected (NotDetected); Cyclospora cayetanensis PCR Not Detected (NotDetected); Entamoeba histolytica PCR Not Detected (NotDetected); Enteroaggregative E.coli(EAEC) Not Detected (NotDetected); Enteropathogenic E.coli (EPEC) Not Detected (NotDetected); Enterotoxigenic E.coli (ETEC) Not Detected (NotDetected); Giardia lamblia PCR Not Detected (NotDetected); Norovirus GI/GII PCR Not Detected (NotDetected); Plesiomonas shigelloides PCR Not Detected (NotDetected); Rotavirus A PCR Not Detected (NotDetected); Salmonella PCR Not Detected (NotDetected); Sapovirus PCR Not Detected (NotDetected); Shiga-like Toxin E.coli (STEC) Not Detected (NotDetected); Shigella/Enteroinvasive E.coli Not Detected (NotDetected); Vibrio cholerae PCR Not Detected (NotDetected); Vibrio species PCR Not Detected (NotDetected); Yersinia enterocolitica PCR Not Detected (NotDetected)
--- OUTSIDE RECORDS SUMMARY | 2023-07-27 02:26 | External Medical Summary | Summary of Care ---
Author Name Unknown Organization [facility] Address [address] [place] [address] Phone [phone] Care Team Providers Care Free Lance Artist Name Role Phone Tyree Quincyrubina Short DO Primary Care Provider [phone] Reason for Visit * Reason Comments Re-Check Pt here for a second opinion. Pt states feeling sharp pain in her lower abdomin, front and the back, mainly on the right side. Pt went to the ER yesterday and was told it's a UTI but she believes it is more than that. Pt states having on and off fevers. Pt states she had cold symptoms during the last couple days but her pain started yesterday. Encounter Details Date Type Department Care Team (Late st Contact Info) Description 07/19/2023 11:40 AM EST Office Visit Family Practice [facility] [address] [facility] [place] [address] Violeta Redding PA-C [address] [place] [address] Acute pyelonephritis*; Abnormal EKG; Right upper quadrant pain; Nausea; History of substance abuse (HCC); Borderline personality disorder (HCC); Bipolar 2 disorder (HCC); Major depressive disorder, single episode, severe with psychotic features (HCC) Allergies Active Allergy Reactions Criticality Noted Date Comments Albuterol Tachycardia 05/24/2022 Clindamycin Nausea/vomiting Low 03/20/2014 Other reaction(s): VOMIT Prochlorperazine Edisylate 05/01/2015 Doxycycline Nausea/vomiting 12/31/2013 Other reaction(s): Unknown Penicillins Low 04/20/2013 unknown Other reaction(s): Family history Pollen 04/17/2015 Prazosin Tachycardia 01/19/2016 Prednisone Psych complications Low 05/19/2015 Other reaction(s): Makes mentally unstale Prochlorperazine High 01/25/2020 Other reaction(s): NUMB AND TINGLY FEELING UNABLE TO MOVE documented as of this encounter (statuses as of 07/25/2023) Medications Medication Sig Dispensed Refills Start Date End Date Status Levalbuterol Tartrate 45 MCG/ACT Inhalation Aerosol (Xopenex HFA)Indications:Br onchitis, complicated Inhale by mouth 1 Puff every 4 hours as needed for Wheezing. 15 g 12 10/24/2021 Active Escitalopram Oxalate 20 MG Oral Tablet (Lexapro) Take 1 Tablet by mouth in the morning. 0 02/17/2022 Active Zolpidem Tartrate 10 MG Oral Tablet Take 1 Tablet by mouth at bedtime as needed for Sleep. 0 Active Nebulizer Device Nebulizer device J45.30 1 Each 0 07/16/2022 Active Nebulizer/Tubing/M outhpiece Kit Nebulizer tubing, mouthpiece supplies J45.30 1 Kit 07/16/2022 Active Levalbuterol HCl 1.25 MG/3ML Inhalation Nebulization Solution (Xopenex) Inhale 1 Ampule via nebulizer every 4 hours as needed for Wheezing. 72 mL 12 07/16/2022 Active Vitamin D (Ergocalciferol) 1.25 MG (74440 UT) Oral Capsule (Drisdol) Take twice per week 8 Capsule 5 07/19/2022 Active diphenhydrAMINE HCl 25 MG Oral Tablet (Benadryl) Take 1 Tablet by mouth every 6 hours as needed for Itching. Take 2 tabs as needed for allergies or sleep 0 Active Gabapentin 300 MG Oral Capsule (Neurontin) Take 1 Capsule by mouth in the morning and 1 Capsule at noon and 1 Capsule before bedtime. 0 09/05/2022 Active Ondansetron HCl 4 MG Oral Tablet (Zofran)Indication s:Nausea TAKE 1 TABLET BY MOUTH EVERY 6 HOURS NEEDED FOR NAUSEA 30 Tablet 1 10/21/2022 Active Methylphenidate HCl 5 MG Oral Tablet (Ritalin) Take 1 Tablet by mouth in the morning and 1 Tablet before bedtime. Takes pm dose in mid afternoon. 0 10/25/2022 Active LORazepam 1 MG Oral Tablet (Ativan) Take 1 Tablet by mouth 2 times a day as needed. 0 02/01/2023 Active Fluticasone-Salmet reynaldo 100-50 MCG/ACT Inhalation Aerosol Powder Breath Activated (Wixela Inhub) Inhale 1 Puff by mouth in the morning and 1 Puff before bedtime. 60 Each 12 03/01/2023 Active medroxyPROGESTERon e Acetate 150 MG/ML Intramuscular Suspension Prefilled Syringe (Depo-Provera) Inject 150 mg into a large muscle every 3 months. 1 mL 3 03/25/2023 Active Omeprazole 40 MG Oral Capsule Delayed Release (PriLOSEC)Indicati ons:RUQ pain TAKE 1 CAPSULE BY MOUTH IN THE MORNING 1 HOUR BEFORE THE FIRST MEAL OF THE DAY. 30 Capsule 5 04/09/2023 Active Cefdinir 300 MG Oral Capsule (Omnicef) take 1 capsule (300 mg) by mouth twice a day for 7 days 14 Capsule 0 07/18/2023 Active Acetaminophen 500 MG Oral Tablet (Tylenol) Take 1 Tablet by mouth. As needed. 0 07/18/2023 Active Lennon Carbonate 300 MG Oral Tablet (Eskalith) Take 1 Tablet by mouth in the morning and 1 Tablet at noon and 1 Tablet before bedtime. 0 07/13/2023 Active Metoprolol Succinate ER 25 MG Oral Tablet Extended Release 24 Hour (Toprol XL)Indications:POT S (postural orthostatic tachycardia syndrome) Take 1 Tablet by mouth in the morning. 30 Tablet 5 08/13/2022 07/19/19 24 Discontinued Baclofen 10 MG Oral Tablet (Lioresal) Take 1 Tablet by mouth 2 times a day as needed for Muscle spasms. 45 Tablet 0 03/02/2023 07/19/19 24 Discontinued Hospital, Clinic, or Other Facility Administered Medication Ordered Dose Route Frequency Start Date End Date Status medroxyPROGESTERone (contracep) (Depo-Provera) inj 150 mgIndications:Encounter for contraceptive management, unspecified type 150 mg IM [id number] 01/03/2023 12/29/2023 Active cefTRIAXone (Rocephin) inj 1 gIndications:Acute pyelonephritis 1 g IM ONCE 07/19/2023 07/19/2023 Ended ondansetron ODT (Zofran) tab 4 mgIndications:Nausea 4 mg OR ONCE 07/19/2023 Ended documented as of this encounter (statuses as of 07/25/2023) Active Problems Problem Noted Date Diagnosed Date B12 deficiency 03/01/2023 Vitamin D deficiency 03/01/2023 POTS (postural orthostatic tachycardia syndrome) 08/13/2022 Carpal tunnel syndrome, bilateral 03/12/2020 Carpal tunnel syndrome on right 02/08/2020 Tachycardia 10/25/2019 History of substance abuse 07/06/2018 Bipolar 2 disorder 10/14/2016 Borderline personality disorder 10/14/2016 Intentional drug overdose 09/05/2015 Overview: Gregoria, 09/03/2015 Suicide attempt by drug ingestion 03/10/2014 PTSD (post-traumatic stress disorder) 06/22/2013 ADHD (attention deficit hype ractivity disorder), combined type 06/22/2013 Oppositional defiant disorder 06/22/2013 Overview: ICD-10 update of inactive term Social phobia 06/22/2013 Major depressive disorder, s mikey episode, severe with psychotic features 06/22/2013 Intermittent asthma with reliever use up to twic e per week 12/15/2009 Overview: PER PROVIDER PROTOCOL. documented as of this encounter (statuses as of 07/25/2023) Resolved Problems Problem Noted Date Diagnosed Date Resolved Date Food insecurity 03/29/2022 07/01/2022 Overview: Per [facility] Protocol Food insecurity 06/01/2021 10/29/2021 Overview: Per [facility] Protocol Respiratory failure 03/10/2014 03/10/20 14 Aspiration pneumonitis 03/10/201405/02 Parent-child relational problem 06/22/2013 07/19/2022 Deliberate self-cutting 04/25/201301/19 Asthma with severity to be determined 12/15/2009 04/11/2013 Overview: Per Asthma Taxonomy ICD-10 update of inactive term Asthma, allergic 07/26/2008 12/15/2009 documented as of this encounter (statuses as of 07/25/2023) Immunizations Name Administration Dates Next Due DTaP HIB - Dipth/Tet/Acell Pert/HIB 06/17/1997,1 ,02/11/1997 HIB PRP-T, 4 dose (ActHib) 07/11/1998 HPV Vaccine, 4-Valent 08/28/2007,05/04/2007,02/18 Hep A - Hepatitis A (ped/ado le, 1-18 Yrs) 07/26/2008,12/27/2007 Hepatitis B, 0-19 yrs 06/17/1997,01/10/1997,11/19 IPV - Polio Virus Vaccine (Inact) 1997,06/17/1997,04/15/1997,02/11 MMR - Measles/Mumps/Rubella Vaccine 01/10/2002,1 Meningococcal Conjugate Vacc ine (Menactra/Menveo) 07/26/2008 PPD 11/17/2021 Pneumococcal Conjugate Vacci ne, 20-valent ([id number]) 05/24/2022 Seasonal Influenza Virus Vac cine, Unspecified Formulation 02/22/2020 Seasonal Influenza, Quadriva lent, No Preserve, IM 02/27/2020,03/05/2018,04/05/2016 Seasonal Influenza, Split, I IV3, With Preserve, Inj 03/22/2014,04/20/2013,03/07/2012,03/08 TDAP (age 10 and older)(Boostrix) 12/20/2018, TDAP (age 11 and older)(Adacel) 01/10/2007 Varicella Vaccine (Chicken Pox) 12/27/2007,03/21 documented as of this encounter Social History Tobacco Use Types Packs/Day Years Used Date Smoking Tobacco: Former Cigarettes 0.3 6 Q uit: 05/20/2020 Smokeless Tobacco: Never Alcohol Use Standard Drinks/Week Comments No 0 (1 standard drink = 0.6 oz pur e alcohol) PHQ-2 Answer Date Recorded PHQ Adult Total Score 2 07/19/2023 Hunger Vital Sign Answer Date Recorded Within the past 12 months, y ou worried that your food would run out before you got the money to buy more. Patient refused Within the past 12 months, t he food you bought just didn't last and you didn't have money to get more. Patient refused Sex and Gender Information Value Date Recorded Sex Assigned at Female 12/29/2018 8:22 AM EDT Gender Identity Female 12/29/2018 8:22 AM EDT Sexual Orientation Straight 12/29/2018 8: 22 AM EDT Job Start Date Occupation Industry Not on file Not on file Not on file documented as of this encounter Last Filed Vital Signs Vital Sign Reading Time Taken Comments Blood Pressure 112/76 07/19/2023 11:46 AM EST Pulse 95 07/19/2023 11:46 AM EST Temperature 37.3 C (99.1 F) 07/19/2023 11:[address] Respiratory Rate - - Oxygen Saturation 99% 07/19/2023 11:46 AM EST Inhaled Oxygen Concentration - - Weight 53.5 kg (118 lb 0.6 oz) 07/19/2023 11:46 AM EST Height - - Body Mass Index 19.05 07/18/2023 12:59 PM EST documented in this encounter Functional Status Functional Status Response Date of Assess ment Are you deaf or do you have serious difficulty h earing? No 03/09/2014 Are you blind or do you have serious difficulty seeing, even when wearing glasses? No 03/09/2014 Do you have serious difficul ty walking or climbing stairs? (5 years old or older) No 03/09/2014 Do you have difficulty dress ing or bathing? (5 years old or older) No 03/09/2014 Because of a physical, menta l, or emotional condition, do you have difficulty doing errands alone such as visiting a doctor s office or shopping? (15 years old or older) No 03/09/20 14 Cognitive Status Response Date of Assessm ent Because of a physical, menta l, or emotional condition, do you have serious difficulty concentrating, remembering, or making decisions? (5 years old or older) No 03/09/2014 documented as of this encounter Progress Notes * Violeta Redding, VIVIAN - 07/19/2023 11:53 AM EST Images from the original note were not included. History of Present Illness Tricia Calero is a 27 year old female that presents for Re-Check (Pt here for a second opinion. Pt states feeling sharp pain in her lower abdomin, front and the back, mainly on the right side. Pt went to the ER yesterday and was told it's a UTI but she believes it is more than that. Pt states having on and off fevers. Pt states she had cold symptoms during the last couple days but her pain started yesterday. ) Patient is a 27 year old female who presents with symptoms that started a week ago. Started with lung pain. Then it moved down the right side into back. Yesterday went to urgent care. [place] faint, heart was racing. Couldn't controll. Sent to ER At ER she had labs, UA, ct scan and chest xray. Also EKG and viral swab. Has been having stomach issues for months. Is schedule to see Gi Her pain is an 8.5/10 today. She notes nausea, constant diarrhea for 3 days. Just had lithium increased Physical Exam Vitals: 07/19/23 1146 Temp: 37.3 C (99.1 F) Pulse: 95 SpO2: 99% BP: 112/76 BP Readings from Last 3 Encounters: 07/19/23 112/76 07/18/23 104/64 03/01/23 92/66 Wt Readings from Last 3 Encounters: 07/19/23 53.5 kg (118 lb 0.6 oz) 07/18/23 51.3 kg (113 lb) 06/01/23 55.5 kg (122 lb 5.7 oz) General: alert, well nourished, well developed, cooperative, crying, ill looking, moderate distress, pale, and restless Head: Normocephalic, No masses, lesions, tenderness or abnormalities Eye Exam: PERRLA, extraocular movements intact, conjunctiva are pink and non- injected, sclera clear Ears: External ears normal, Canals clear, TM's Normal Nose: no mucosal erythema, no mucosal edema, no purulent discharge Oropharynx: no exudate, no erythema, lips, buccal mucosa, and tongue normal, and mucous membranes are moist Neck: supple, no adenopathy, no bruits, thyroid normal size, non-tender, without nodularity Heart: regular rate & rhythm, no murmur, and no gallops Lungs: chest symmetric with normal AP diameter, no chest deformities noted, normal respiratory rateand rhythm, no chest wall tenderness, diaphragmatic excursion normal, lungs clear to auscultation Abdomen: abdomen soft, normal bowel sounds, no masses or organomegaly, no bladder distention identified, no bruits, and rebound which locates to RUQ, right upper quadrant tenderness. Righ tcva tenderness. Back: back symmetric, no curvature, no costovertebral angle tenderness, no skin lesions, erythema or scars, Tender paralumbar muscles bilaterally I have reviewed the following results: CBC, BMP, and Urinalysis, POC Assessment and Plan Acute pyelonephritis (Primary) - cefTRIAXone (Rocephin) inj 1 g Abnormal EKG - EKG; Future; Expected date: 07/19/2023 - EKG Right upper quadrant pain - US ABDOMEN LIMITED; Future; Expected date: 07/19/2023 - RETURN TO WORK OR SCHOOL Nausea - ondansetron ODT (Zofran) tab 4 mg History of substance abuse (HCC) Borderline personality disorder (HCC) Bipolar 2 disorder (HCC) Major depressive disorder, single episode, severe with psychotic features (HCC) Consult pcp on rx for pain. Wrap-Up Time: I spent a total of 30-39 minutes (exact time 39 mins) on the date of service in preparation, delivery, and documentation of the care provided to Tricia Calero excluding any time spent in the performance of separately billed services. documented in this encounter Procedure Notes * Gulshan Mckeon MD - 07/19/2023 12:46 PM ESTAssociated Order(s): EKG REASON FOR STUDY: ABNORMAL EKG CONCLUSIONS: Sinus rhythm with marked sinus arrhythmia Otherwise normal ECG When compared with ECG of 18-JUL-2023 13:11, Vent. rate has decreased BY 54 BPM Ventricular Rate: 65 Atrial Rate: 65 WV Interval: 128 QRS Duration: 82 QT/QTc: 378/393 ms P-R-T [place]: 32 : 59 : 35 degrees documented in this encounter Nursing Notes * Bonny Solomon MED ASSIST - 07/19/2023 11:46 AM EST Chief Complaint Patient presents with Re-Check Pt here for a second opinion. Pt states feeling sharp pain in her lower abdomin, front and the back, mainly on the right side. Pt went to the ER yesterday and was told it's a UTI but she believes it is more than that. Pt states having on and off fevers. Pt states she had cold symptoms during the last couple days but her pain started yesterday. documented in this encounter Plan of Treatment Upcoming Encounters Date Type Department Care Team (Late st Contact Info) Description 07/28/2023 12:30 PM EST Imaging Radiology [facility] [address] [facility] [address] [facility] [place] [address] 08/23/2023 9:30 AM EST Office Visit Cardiology, [facility] [address] [facility] [place] [address] Brenda Meza CRNP [address] [place] [address] [place] [phone] 09/14/2023 9:00 AM EDT Office Visit Family Practice [facility] [address] [facility] [place] [address] Quincy Clements, DO [address] [facility] [place] [address] Health Maintenance Due Date Last Done Comments COVID-19 Vaccine (#1) 06/11/1997 HIV Screening 12/11/2011 Influenza Vaccine (FLU shot) (#1) 2023 02/27/2020, 02/22/2020, 03/05/2018, Additional history exists Depression Screening 07/19/2024 07/19/2023 Pap Smear 08/24/2024 08/24/2021 DTaP,Tdap,and Td Vaccines (7 - Td or Tdap) 12/20/2028 12/20/2018, 12/02/2016, 01/10/2007, Additional history exists Hepatitis B Completed 06/17/1997, 12/19, 1996 GARDASIL-HPV IMMUNIZATION SERIES Completed 08/28/2007, 05/04/2007, 03/06/2007 MENINGOCOCCAL (MENACTRA/MENVEO) Aged Out 07/26/2008 No longer eligible based on patient's age to complete this topic Gonorrhea / Chlamydia Screen Discontinued 08/24/2021, 09/30/2017 Pneumococcal Vaccine: Pediatrics (0 to 5 Years) and At-Risk Patients (6 to 64 Years) Completed 05/24/2022 documented as of this encounter Medical Devices Not on filedocumented as of this encounter Procedures Procedure Name Priority Date/Time Associated Diagnosis Comments WV ECG ROUTINE ECG W/LEAST 12 LDS I&R ONLY Routine 07/19/2023 12:46 PM EST Abnormal EKG documented in this encounter Results * US ABDOMEN LIMITED (07/19/2023 2:51 PM EST) Anatomical Region Laterality Modality Abdomen, Body Ultrasound 07/19/2023 3:05 PM EST Impressions 07/19/2023 3:03 PM EST IMPRESSION 1. Mild gallbladder adenomyomatosis. 2. Mild ascites. Narrative 07/19/2023 3:03 PM EST EXAM US ABDOMEN LIMITED-07/19/2023 2:51 pm HISTORY severe right upper quadrant pain TECHNIQUE Sonogram of the right upper quadrant. COMPARISON 08/06/2022 FINDINGS LIVER: Normal echogenicity. No focal lesion. Focal fat infiltration adjacent to the falciform ligament measures 2.8 x 1.6 x 1.5 cm BILE DUCTS: No intrahepatic or extrahepatic duct dilatation. The common bile duct measures 4 mm. GALLBLADDER: Small echogenicities with ring down artifact along the gallbladder wall, suggesting mild adenomyomatosis. No cholelithiasis. No gallbladder wall thickening or sonographic Fernandez's sign. PANCREAS: Visualized portions are unremarkable. RIGHT KIDNEY: 10.1 cm in length. No hydronephrosis, shadowing calculi, or focal lesion. OTHER: Mild ascites. Procedure Note Bryant, David, MD - 07/19/2023 EXAM US ABDOMEN LIMITED-07/19/2023 2:51 pm HISTORY severe right upper quadrant pain TECHNIQUE Sonogram of the right upper quadrant. COMPARISON 08/06/2022 FINDINGS LIVER: Normal echogenicity. No focal lesion. Focal fat infiltrationadjacent to the falciform ligament measures 2.8 x 1.6 x 1.5 cm BILE DUCTS: No intrahepatic or extrahepatic duct dilatation. The commonbile duct measures 4 mm. GALLBLADDER: Small echogenicities with ring down artifact along thegallbladder wall, suggesting mild adenomyomatosis. No cholelithiasis. Nogallbladder wall thickening or sonographic Fernandez's sign. PANCREAS: Visualized portions are unremarkable. RIGHT KIDNEY: 10.1 cm in length. No hydronephrosis, shadowing calculi, orfocal lesion. OTHER: Mild ascites. IMPRESSION IMPRESSION 1. Mild gallbladder adenomyomatosis. 2. Mild ascites. Violeta Redding PA-C RAD ULTRASOUND * EKG (07/19/2023 12:46 PM EST) 07/19/2023 12:4 6 PM EST Narrative Procedure Note Gulshan Mckeon MD - 07/19/2023 12:46 PM EST REASON FOR STUDY: ABNORMAL EKG CONCLUSIONS: Sinus rhythm with marked sinus arrhythmia Otherwise normal ECG When compared with ECG of 18-JUL-2023 13:11, Vent. rate has decreased BY 54 BPM Ventricular Rate: 65 Atrial Rate: 65 WV Interval: 128 QRS Duration: 82 QT/QTc: 378/393 ms P-R-T [place]: 32 : 59 : 35 degrees Violeta Redding PA-C EKG [employer] documented in this encounter Visit Diagnoses Diagnosis Acute pyelonephritis- Primary Acute pyelonephritis without lesion of renal medullary necrosis Abnormal EKG Nonspecific abnormal electrocardiogram (ECG) (EKG) Right upper quadrant pain Abdominal pain, right upper quadrant Nausea Nausea alone History of substance abuse (HCC) Other, mixed, or unspecified nondependent drug abuse, unspecified Borderline personality disorder (HCC) Borderline personality disorder Bipolar 2 disorder (HCC) Other bipolar disorders Major depressive disorder, single episode, severe with psychotic features (HCC) Major depressive disorder, single episode, severe, specified as with psychotic behavior Right upper quadrant pain Abdominal pain, right upper quadrant documented in this encounter Administered Medications Inactive Administered Medications - up to 3 most recent administrations Medication Order MAR Action Action Date Dose Rate Site cefTRIAXone (Rocephin) inj 1 g 1 g, Intramuscular, ONCE, On Tue07/19/23 at 1300, For 1 dose Given 07/19/2023 12:38 PM EST 1 g Dorsogluteal Left ondansetron ODT (Zofran) tab 4 mg 4 mg, Oral, ONCE, On Tue07/19/23 at 1300, For 1 dose Given 07/19/2023 12:36 PM EST 4 mg documented in this encounter Advance Directives Latest Code Status on File Code Status Date Activated Date Inactivated Comments Full Code 03/09/2014 8:05 PM 03/12/2014 1:47 PM This order reflects the patients wishes and were consensually agreed upon. Care Teams Free Lance Artist Relationship Specialty Start Date End Date Quincy Clements DO [address] [place] [address] PCP - General Family Medicine 12/02/16 documented as of this encounter
--- OUTSIDE RECORDS SUMMARY | 2023-07-27 02:26 | External Medical Summary | Summary of Care ---
Author Name Unknown Organization [facility] Address [address] [place] [address] Phone [phone] Care Team Providers Care News Clipping Cutter Name Role Phone Quincy Clements DO Primary Care Provider Reason for Visit * Reason Onset Date Comments Med Request 07/19/2023 Encounter Details Date Type Department Care Team (Late st Contact Info) Description 07/19/2023 Telephone Family Practice [facility] [address] [place] [address] Violeta Redding PA-C [address] [place] [address] Med Request Allergies Active Allergy Reactions Criticality Noted Date [...] as of this encounter (statuses as of 07/21/2023) Medications Medication Sig Dispensed Refills Start Date End Date Status Levalbuterol Tartrate 45 MCG/ACT Inhalation Aerosol (Xopenex HFA)Indications:Bron chitis, complicated Inhale by mouth 1 Puff every [...] device J45.30 1 Each 0 07/16/2022 Active Nebulizer/Tubing/Taylor thpiece Kit Nebulizer tubing, mouthpiece supplies J45.30 1 Kit 07/16/2022 Active Levalbuterol HCl 1.25 MG/3ML Inhalation Nebulization Solution (Xopenex) Inhale 1 Ampule via nebulizer every 4 hours as needed for Wheezing. 72 mL 12 07/16/2022 Active Vitamin D (Ergocalciferol) 1.25 MG (95088 UT) Oral Capsule (Drisdol) Take twice per [...] Active Ondansetron HCl 4 MG Oral Tablet (Zofran)Indications: Nausea TAKE 1 TABLET BY MOUTH EVERY 6 [...] a day as needed. 0 02/01/2023 Active Fluticasone-Salmeter ol 100-50 MCG/ACT Inhalation Aerosol Powder Breath Activated (Wixela Inhub) Inhale 1 Puff by mouth in the morning and 1 Puff before bedtime. 60 Each 12 03/01/2023 Active medroxyPROGESTERone Acetate 150 MG/ML Intramuscular Suspension Prefilled Syringe (Depo-Provera) Inject 150 mg into a large muscle every 3 months. 1 mL 3 03/25/2023 Active Omeprazole 40 MG Oral Capsule Delayed Release (PriLOSEC)Indication s:RUQ pain TAKE 1 CAPSULE BY MOUTH IN THE MORNING 1 HOUR BEFORE THE FIRST MEAL OF THE DAY. 30 Capsule 5 04/09/2023 Active Cefdinir 300 MG Oral Capsule (Omnicef) take 1 capsule (300 mg) by mouth twice a day for 7 days 14 Capsule 0 07/18/2023 Active Acetaminophen 500 MG Oral Tablet (Tylenol) Take 1 Tablet by mouth. As needed. 0 07/18/2023 Active [place] Carbonate 300 MG Oral Tablet (Eskalith) Take 1 Tablet by mouth in the morning and 1 Tablet at noon and 1 Tablet before bedtime. 0 07/13/2023 Active Acetaminophen-Codein e 300-30 MG Oral Tablet Take 1 Tablet by mouth every 6 hours as needed for Pain, Moderate. 10 Tablet 0 07/19/2023 Active Hospital, Clinic, or Other Facility Administered Medication Ordered Dose Route Frequency Start Date End Date Status medroxyPROGESTERone (contracep) (Depo-Provera) inj 150 mgIndications:Encounter for contraceptive management, unspecified type 150 mg IM [id number] 01/03/2023 12/29/2023 Active documented as of this encounter (statuses as of 07/21/2023) Active Problems Problem Noted Date Diagnosed Date [...] as of this encounter (statuses as of 07/21/2023) Resolved Problems Problem Noted Date Diagnosed Date [...] as of this encounter (statuses as of 07/21/2023) Immunizations Name Administration Dates Next Due DTaP HIB - Dipth/Tet/Acell Pert/HIB 06/17/1997,1 ,02/11/1997 HIB PRP-T, 4 dose (ActHib) 07/11/1998 HPV Vaccine, 4-Valent 08/28/2007,05/04/2007,02/18 Hep A - Hepatitis A (ped/ado le, 1-18 Yrs) 07/26/2008,12/27/2007 Hepatitis B, 0-19 yrs 06/17/1997,01/10/1997,11/19 IPV - Polio Virus Vaccine (Inact) 1997,06/17/1997,04/15/1997,02/11 MMR - Measles/Mumps/Rubella Vaccine 01/10/2002,1 Meningococcal Conjugate Vacc ine (Menactra/Menveo) 07/26/2008 PPD 11/17/2021 Pneumococcal Conjugate Vacci ne, 20-valent ([id number]) 05/24/2022 Seasonal Influenza Virus Vac cine, Unspecified [...] on file documented as of this encounter Functional Status Functional Status Response [...] No 03/09/2014 documented as of this encounter Miscellaneous Notes * Telephone Encounter - Brenda Walker OSA - 07/21/2023 1:00 PM EST Please send script to [facility] * Telephone Encounter - Mony Whatley LPN - 07/21/2023 9:27 AM EST Called pt. Informed of message She has not heard anything from [facility] about the urine culture results. She doesn't drink alcohol She inquired if it could be partly due to lithium and why is the BNP so high. I called [place] lab dept spoke Mary, she will fax urine culture results to the [phone] fax machine. * Telephone Encounter - Violeta Redding PA-C - 07/20/2023 7:50 PM EST Discussed with DR Clements. Unsure why she has some mild fluid collections noted on US> Did she get her urine culture results?? Alcohol intake? Ordered some additional studies with the blood she gave yesterday. * Telephone Encounter - Afshan Medrano RN - 07/20/2023 4:38 PM EST US results are in. * Telephone Encounter - Annmarie Hammer LPN - 07/20/2023 4:22 PM EST Pt is calling to check on the status of US results. Reports that the pain is about the same but worsens after eating to about a 10/10. Is also checking on the status of med refill request. Please advise. * Telephone Encounter - Latasha Daly PHARM Tech - 07/20/2023 12:24 PM EST Pt calling in med not available at [facility], but is at [facility] Please reroute Rx to [id number] [address] [facility] [place]. Pending Prescriptions: Disp Refills Acetaminophen-Codeine 300-30 MG Oral Tabl*10 Tab*0 Sig: Take 1 Tablet by mouth every 6 hours as needed for Pain, Moderate. Last Visit: 07/19/2023 (in office), 06/11/2022 (telemedicine) 09/14/2023 If no future appointments scheduled, and last appointment is greater than a year ago, please schedule patient for a follow-up appointment Last date the medication was ordered: 07/19/23 Patient Phone Numbers Labs: Lab Results Component Value Date/Time CREAT 0.6 04/27/2023 02:31 PM CREAT 0.62 12/11/2021 12:00 AM CREAT 0.68 03/16/2020 12:00 AM CREAT 0.7 07/31/2018 01:41 PM POTASSIUM 4.4 04/27/2023 02:31 PM POTASSIUM 3.8 12/11/2021 12:00 AM POTASSIUM 3.5 03/16/2020 12:00 AM POTASSIUM 4.6 07/31/2018 01:41 PM TSH 2.83 05/04/2023 01:47 PM TSH 1.157 12/11/2021 12:00 AM TSH 0.09 (L) 01/03/2019 11:12 AM LDLCALC 120 05/20/2017 12:46 PM ALT 8 (L) 03/01/2023 10:47 AM ALT 9 (L) 11/04/2017 10:21 AM HGBA1C 4.6 05/20/2017 12:46 PM * Telephone Encounter - Negrita Richard OSA - 07/20/2023 8:22 AM EST Pt calling in to check status of US results. Continues to have pain. Asking for a call back at [phone]. Thank you. * Telephone Encounter - Violeta Redding PA-C - 07/19/2023 7:[address] Clements's input about the ascities. * Telephone Encounter - Tricia De Guzman LPN - 07/19/2023 4:02 PM EST Ultrasound results finalized. * Telephone Encounter - Melody Duckworth OSA - 07/19/2023 3:20 PM EST Pt has called and would like September to take a look at the Pts Ultrasound. Please call Pt if needed. * Telephone Encounter - Violeta Redding PA-C - 07/19/2023 1:[address] Clements. Can give her 10 pills to take as needed until her antibiotics kick in. This script will not be refilled. Please inform patient. documented in this encounter Plan of Treatment Upcoming Encounters Date Type Department Care Team (Late st Contact Info) Description 07/21/2023 1:30 PM EST Laboratory Laboratory State Faina Garcia [address] [place] [phone] Gabe Grandery 200 [facility] [place] [address] Other ascites 08/23/2023 9:30 AM EST Office Visit Cardiology, [facility] [address] [facility] [place] [address] Brenda Meza CRNP [address] [facility] [place] [phone] 09/14/2023 9:00 AM EDT Office Visit Family Practice [facility] [address] [facility] [place] [address] Quincy Clements DO 200 [facility] [place] [address] Pending Results Name Type Priority Associated Diagnoses Date /Time HEPATITIS C ANTIBODY SCREEN WITH PROGRESSION TO HEPATITIS C RNA QUANTITATIVE Lab Routine Other ascites 07/21/2023 12:50 PM EST Scheduled Orders Name Type Priority Associated Diagnoses Orde r Schedule HEPATITIS C ANTIBODY SCREEN WITH PROGRESSION TO HEPATITIS C RNA QUANTITATIVE Lab Routine Other ascites Expected: 07/20/2023 (Approximate), Expires: 07/19/2024 Health Maintenance Due Date Last Done Comments COVID-19 Vaccine (#1) 06/11/1997 HIV Screening 12/11/2011 Hepatitis C Screening 2014 Influenza Vaccine (FLU shot) (#1) 2023 02/27/2020, [...] Not on filedocumented as of this encounter Results * LIPASE (07/19/2023 11:12 AM EST) Lipase 17 13 - 60 U/L 07/20/2023 8:56 PM EST LABORATORY [facility] Blood Venous blood specimen / Unknown Venipuncture / Unknown 07/19/2023 11:12 AM EST 07/19/2023 11:12 AM EST Violeta Redding PA-C LAB BLOOD ORDERABLES Performing Organization Address [facility]/ZIP Co de Phone Number LABORATORY [address] [address] * (ABNORMAL) BNP, NT-PRO (07/19/2023 11:12 AM EST) BNP, NT-Pro 359(H) <300 pg/mL 07/21/2023 1:11 AM EST LABORATORY [facility] Blood Venous blood specimen / Unknown Venipuncture / Unknown 07/19/2023 11:12 AM EST 07/19/2023 11:12 AM EST Narrative LABORATORY [facility] - 07/21/2023 1:11 AM EST Exclude Heart Failure: <300 pg/mL Diagnose Heart Failure: Age <50 yr: >450 pg/mL 50-75 yr: >900 pg/mL >75 yr: >1800 pg/mL GFR is 30-59 mL/min: >1200 pg/mL or Age-adjusted values GFR <30 mL/min: do not use, not reliable Prognostic threshold: 1000 pg/mL Violeta Redding PA-C LAB BLOOD ORDERABLES Performing Organization Address [facility]/ZIP Co de Phone Number LABORATORY [address] [address] * (ABNORMAL) HEPATIC FUNCTION PANEL (07/19/2023 11:12 AM EST) Albumin 4.5 3.8 - 5.0 g/dL 07/20/2023 8:56 PM EST LABORATORY [facility] AST 14 10 - 35 U/L 07/20/2023 8:56 PM EST LABORATORY [facility] Alkaline Phosphatase 33(L) 35 - 130 U/L 07/20/2023 8:56 PM EST LAB[facility]ATORY [facility] ALT 6(L) 10 - 35 U/L 07/20/2023 8:56 PM EST LAB[facility]ATORY [facility] Bilirubin, Total 0.3 <=1.2 mg/dL 07/20/2023 8:56 PM EST LAB[facility]ATORY [facility] Bilirubin, Direct <0.2 0.0 - 0.3 mg/dL 07/20/2023 8:56 PM EST LAB[facility]ATORY [facility] Protein 6.4 6.0 - 8.3 g/dL 07/20/2023 8:56 PM EST LABORATORY [facility] Blood Venous blood specimen / Unknown Venipuncture / Unknown 07/19/2023 11:12 AM EST 07/19/2023 11:12 AM EST September Miladis PARK LAB BLOOD ORDERABLES LABORATORY [facility] [address] [place] [address] documented in this encounter Visit Diagnoses Diagnosis Other ascites- Primary Other ascites documented in this encounter Advance Directives Latest Code Status on File Code Status Date Activated Date Inactivated Comments Full Code 03/09/2014 8:05 PM 03/12/2014 1:47 PM This order reflects the patients wishes and were consensually agreed upon. Care Teams News Clipping Cutter Relationship Specialty Start Date End Date Quincy Clements DO [address] [place] [address] PCP - General Family Medicine 12/02/16 documented as of this encounter
--- OUTSIDE RECORDS SUMMARY | 2023-07-27 02:26 | External Medical Summary | Summary of Care ---
Author Name Unknown Organization [facility] Address [address] [place] [address] Phone [phone] Care Team Providers Care Anesthesiology Physician Name Role Phone Quincy Clements DO Primary Care Provider [phone] Reason for Visit * Reason Onset Date Comments Med Request 07/19/2023 Encounter Details Date Type Department Care Team (Late st Contact Info) Description 07/19/2023 Telephone Family Practice [facility] [address] [place] [address] Violeta Redding PA-C 200 [place] [address] Med Request Allergies Active Allergy Reactions Criticality [...] 07/16/2022 Active Vitamin D (Ergocalciferol) 1.25 MG (92739 UT) Oral Capsule (Drisdol) Take twice per [...] by mouth. As needed. 0 07/18/2023 Active [place] Carbonate 300 MG Oral Tablet (Eskalith) Take [...] contraceptive management, unspecified type 150 mg IM [id number] 01/03/2023 12/29/2023 Active documented as of this [...] PPD 11/17/2021 Pneumococcal Conjugate Vacci ne, 20-valent ([id number]) 05/24/2022 Seasonal Influenza Virus Vac cine, Unspecified [...] encounter Miscellaneous Notes * Telephone Encounter - Quincy Clements DO - 07/21/2023 1:34 PM EST September: we talked this over but I still feel a little lost. I sent an Ask-a-doc to to help with guidance. * Telephone Encounter - Brenda Walker OSA - 07/21/2023 1:00 PM EST Please send script to [facility] * Telephone Encounter - Mony Whatley LPN - 07/21/2023 9:27 AM EST Called pt. Informed of message She has not heard anything from [facility] about the urine culture results. She doesn't drink alcohol She inquired if it could be partly due to lithium and why is the BNP so high. I called [place] lab dept nato Hernandez, she will fax urine culture results to the [phone] fax machine. * Telephone Encounter - Violeta [...] Pt calling in med not available at [facility], but is at [facility] Please reroute Rx to [id number] [address] [facility] [place]. Pending Prescriptions: Disp Refills Acetaminophen-Codeine 300-30 MG [...] pain. Asking for a call back at [phone]. Thank you. * Telephone Encounter - Violeta [...] Care Team (Late st Contact Info) Description 08/23/2023 9:30 AM EST Office Visit Cardiology, [facility] [address] [facility] [place] [address] Brenda Meza CRNP [address] [place] [phone] 09/14/2023 9:00 AM EDT Office Visit Family Practice [facility] [address] [facility] [place] [address] Quincy Clements DO 200 [facility] [place] [address] Pending Results Name Type Priority Associated Diagnoses [...] 60 U/L 07/20/2023 8:56 PM EST LABORATORY [facility] Blood Venous blood specimen / Unknown Venipuncture / Unknown 07/19/2023 11:12 AM EST 07/19/2023 11:12 AM EST September Miladis PARK LAB BLOOD ORDERABLES Performing Organization Address City/[facility] [place] Phone Number LABORATORY [address] [address] * (ABNORMAL) BNP, NT-PRO (07/19/2023 11:12 AM EST) BNP, NT-Pro 359(H) <300 pg/mL 07/21/2023 1:11 AM EST LABORATORY [facility] Blood Venous blood specimen / Unknown Venipuncture / Unknown 07/19/2023 11:12 AM EST 07/19/2023 11:12 AM EST Narrative LABORATORY [facility] - 07/21/2023 1:11 AM EST Exclude Heart Failure: <300 pg/mL Diagnose Heart Failure: Age <50 yr: >450 pg/mL 50-75 yr: >900 pg/mL >75 yr: >1800 pg/mL GFR is 30-59 mL/min: >1200 pg/mL or Age-adjusted values GFR <30 mL/min: do not use, not reliable Prognostic threshold: 1000 pg/mL September Kuldeep Redding PA-C LAB BLOOD ORDERABLES Performing Organization Address City/[facility] Co de Phone Number LABORATORY [address] [address] * (ABNORMAL) HEPATIC FUNCTION PANEL (07/19/2023 11:12 [...] LAB BLOOD ORDERABLES LABORATORY [facility] [address] [place] [address] documented in this encounter Visit Diagnoses Diagnosis Other ascites- Primary documented in this encounter Advance Directives Latest Code Status on File Code Status Date Activated Date Inactivated Comments Full Code 03/09/2014 8:05 PM 03/12/2014 1:47 PM This order reflects the patients wishes and were consensually agreed upon. Care Teams Anesthesiology Physician Relationship Specialty Start Date End Date Quincy Clements DO [address] [place] [address] PCP - General Family Medicine 12/02/16 documented as of this encounter
--- OUTSIDE RECORDS SUMMARY | 2023-07-27 02:26 | External Medical Summary | Summary of Care ---
Author Name Unknown Organization [facility] Address [address] [place] [address] Phone [phone] Care Team Providers Care Consulting Technical Director Name Role Phone Bianca Pedersen DO Primary Care Provider [phone] Reason for Visit * Reason Onset Date Comments Medication Refill 07/21/2023 Encounter Details Date Type Department Care Team (Late st Contact Info) Description 07/21/2023 Refill Family Practice [facility] [address] [place] [address] Violeta Redding PA-C 200 [place] [address] Allergies Active Allergy Reactions Criticality Noted Date [...] Levalbuterol Tartrate 45 MCG/ACT Inhalation Aerosol (Xopenex HFA)Indications:Bro nchitis, complicated Inhale by mouth 1 Puff every [...] device J45.30 1 Each 0 07/16/2022 Active Nebulizer/Tubing/Mo uthpiece Kit Nebulizer tubing, mouthpiece supplies J45.30 1 Kit 07/16/2022 Active Levalbuterol HCl 1.25 MG/3ML Inhalation Nebulization Solution (Xopenex) Inhale 1 Ampule via nebulizer every 4 hours as needed for Wheezing. 72 mL 12 07/16/2022 Active Vitamin D (Ergocalciferol) 1.25 MG (50282 UT) Oral Capsule (Drisdol) Take twice per [...] Active Ondansetron HCl 4 MG Oral Tablet (Zofran)Indications :Nausea TAKE 1 TABLET BY MOUTH EVERY 6 [...] a day as needed. 0 02/01/2023 Active Fluticasone-Salmete rol 100-50 MCG/ACT Inhalation Aerosol Powder Breath Activated (Wixela Inhub) Inhale 1 Puff by mouth in the morning and 1 Puff before bedtime. 60 Each 12 03/01/2023 Active medroxyPROGESTERone Acetate 150 MG/ML Intramuscular Suspension Prefilled Syringe (Depo-Provera) Inject 150 mg into a large muscle every 3 months. 1 mL 3 03/25/2023 Active Omeprazole 40 MG Oral Capsule Delayed Release (PriLOSEC)Indicatio ns:RUQ pain TAKE 1 CAPSULE BY MOUTH IN THE MORNING 1 HOUR BEFORE THE FIRST MEAL OF THE DAY. 30 Capsule 5 04/09/2023 Active Cefdinir 300 MG Oral Capsule (Omnicef) take 1 capsule (300 mg) by mouth twice a day for 7 days 14 Capsule 0 07/18/2023 Active Acetaminophen 500 MG Oral Tablet (Tylenol) Take 1 Tablet by mouth. As needed. 0 07/18/2023 Active [place] Carbonate 300 MG Oral Tablet (Eskalith) Take 1 Tablet by mouth in the morning and 1 Tablet at noon and 1 Tablet before bedtime. 0 07/13/2023 Active Acetaminophen-Codei ne 300-30 MG Oral Tablet Take 1 Tablet by mouth every 6 hours as needed for Pain, Moderate. 10 Tablet 0 07/21/2023 Active Acetaminophen-Codei ne 300-30 MG Oral Tablet Take 1 Tablet by mouth every 6 hours as needed for Pain, Moderate. 10 Tablet 0 07/19/2023 Discontinue d(Refill) Hospital, Clinic, or Other Facility Administered Medication Ordered Dose Route Frequency Start Date End Date Status medroxyPROGESTERone (contracep) (Depo-Provera) inj 150 mgIndications:Encounter for contraceptive management, unspecified type 150 mg IM [id number] 01/03/2023 12/29/2023 Active documented as of this [...] PPD 11/17/2021 Pneumococcal Conjugate Vacci ne, 20-valent ([id number]) 05/24/2022 Seasonal Influenza Virus Vac cine, Unspecified [...] encounter Miscellaneous Notes * Telephone Encounter - Lexi Serrano RP - 07/21/2023 4:09 PM ESTSigned Prescriptions: Disp Refills Acetaminophen-Codeine 300-30 MG Oral [id number] Tab*0 Sig: Take 1 Tablet by mouth every 6 hours as needed for Pain, Moderate.Authorizing Provider: BIANCA PEDERSEN-- * Telephone Encounter - Bianca Pedersen DO - 07/21/2023 4:06 PM ESTSigned Prescriptions: Disp Refills Acetaminophen-Codeine 300-30 MG Oral [id number] Tab*0 Sig: Take 1 Tablet by mouth every 6 hours as needed for Pain, Moderate. Authorizing Provider: BIANCA PEDERSEN * Telephone Encounter - Myrna Lopez CPhT - 07/21/2023 4:04 PM EST Patient is asking high priority Please reroute Rx to E [id number] [address] Pending Prescriptions: Disp Refills Acetaminophen-Codeine 300-30 MG Oral Tabl*10 Tab*0 Sig: Take 1 Tablet by mouth every 6 hours as needed for Pain, Moderate. Last Visit: 07/19/2023 (in office), 06/11/2022 (telemedicine) 09/14/2023 If no future appointments scheduled, and last appointment is greater than a year ago, please schedule patient for a follow-up appointment Last date the medication was ordered: 07/19/2023 Patient Phone Numbers Labs: Lab Results Component [...] AM LDLCALC 120 05/20/2017 12:46 PM ALT 6 (L) 07/19/2023 11:12 AM ALT 9 (L) 11/04/2017 10:21 AM HGBA1C 4.6 05/20/2017 12:46 PM documented in this encounter Plan of Treatment Upcoming Encounters Date Type Department Care Team (Late st Contact Info) Description 08/23/2023 9:30 AM EST Office Visit Cardiology, [facility] [address] [facility] [place] [address] Brenda Meza CRNP [address] [place] [address] [place] [phone] 09/14/2023 9:00 AM EDT Office Visit Family Practice [facility] [place] [address] [place], [place] [address] Bianca Pedersen DO [address] [place], [place] [address] Health Maintenance Due Date Last Done Comments [...] Not on filedocumented as of this encounter Advance Directives Latest Code Status on File Code Status Date Activated Date Inactivated Comments Full Code 03/09/2014 8:05 PM 03/12/2014 1:47 PM This order reflects the patients wishes and were consensually agreed upon. Care Teams Consulting Technical Director Relationship Specialty Start Date End Date Bianca Pedersen DO [address] [place] [address] PCP - General Family Medicine 12/02/16 documented as of this encounter
--- OUTSIDE RECORDS SUMMARY | 2023-07-27 02:26 | External Medical Summary | Summary of Care ---
Author Name Unknown Organization [facility] Address [address] [place] [address] Phone [phone] Care Team Providers Care Radiology Tech Name Role Phone Quincy Clements DO Primary Care Provider Reason for Visit * Reason Onset Date Comments Test Results Lab 07/22/2023 Encounter Details Date Type Department Care Team (Late st Contact Info) Description 07/22/2023 Telephone [facility] [address] [place] [address] Violeta Redding PA-C [address] [place] [address] Test Results Lab Allergies Active Allergy Reactions Criticality Noted Date [...] as of this encounter (statuses as of 07/22/2023) Medications Medication Sig Dispensed Refills Start Date [...] 07/16/2022 Active Vitamin D (Ergocalciferol) 1.25 MG (58669 UT) Oral Capsule (Drisdol) Take twice per [...] by mouth. As needed. 0 07/18/2023 Active [place] Carbonate 300 MG Oral Tablet (Eskalith) Take 1 Tablet by mouth in the morning and 1 Tablet at noon and 1 Tablet before bedtime. 0 07/13/2023 Active Acetaminophen-Codein e 300-30 MG Oral Tablet Take 1 Tablet by mouth every 6 hours as needed for Pain, Moderate. 10 Tablet 0 07/21/2023 Active Hospital, Clinic, or Other Facility Administered Medication Ordered Dose Route Frequency Start Date End Date Status medroxyPROGESTERone (contracep) (Depo-Provera) inj 150 mgIndications:Encounter for contraceptive management, unspecified type 150 mg IM [id number] 01/03/2023 12/29/2023 Active documented as of this encounter (statuses as of 07/22/2023) Active Problems Problem Noted Date Diagnosed Date [...] as of this encounter (statuses as of 07/22/2023) Resolved Problems Problem Noted Date Diagnosed Date [...] as of this encounter (statuses as of 07/22/2023) Immunizations Name Administration Dates Next Due DTaP HIB - Dipth/Tet/Acell Pert/HIB 06/17/1997,1 ,02/11/1997 HIB PRP-T, 4 dose (ActHib) 07/11/1998 HPV Vaccine, 4-Valent 08/28/2007,05/04/2007,02/18 Hep A - Hepatitis A (ped/ado le, 1-18 Yrs) 07/26/2008,12/27/2007 Hepatitis B, 0-19 yrs 06/17/1997,01/10/1997,11/19 IPV - Polio Virus Vaccine (Inact) 1997,06/17/1997,04/15/1997,02/11 MMR - Measles/Mumps/Rubella Vaccine 01/10/2002,1 Meningococcal Conjugate Vacc ine (Menactra/Menveo) 07/26/2008 PPD 11/17/2021 Pneumococcal Conjugate Vacci ne, 20-valent ([id number]) 05/24/2022 Seasonal Influenza Virus Vac cine, Unspecified [...] encounter Miscellaneous Notes * Telephone Encounter - Bonny Solomon MED ASSIST - 07/22/2023 8:44 AM EST ----- Message from Violeta Redding PA-C sent at 07/21/2023 8:27 PM EST ----- Please send a lab letter stating results normal. documented in this encounter Plan of Treatment Upcoming Encounters Date Type Department Care Team (Late st Contact Info) Description 08/23/2023 9:30 AM EST Office Visit Cardiology, [facility] [address] [facility] [place] [address] Brenda Meza CRNP [address] [facility] [place] [phone] 09/14/2023 9:00 AM EDT [facility] [address] [facility] [place] [address] Quincy Clements, DO [address] [facility] [place] [address] Health Maintenance Due Date Last Done Comments [...] Patients (6 to 64 Years) Completed 05/24/2022 Hepatitis C Screening Completed 07/21/2023 , 07/21/2023, 07/21/2023 documented as of this encounter Medical Devices Not on filedocumented as of this encounter Advance Directives Latest Code Status on File Code Status Date Activated Date Inactivated Comments Full Code 03/09/2014 8:05 PM 03/12/2014 1:47 PM This order reflects the patients wishes and were consensually agreed upon. Care Teams Radiology Tech Relationship Specialty Start Date End Date Quincy Clements DO [address] [facility] [place] [address] PCP - General Family Medicine 12/02/16 documented as of this encounter
--- OUTSIDE RECORDS SUMMARY | 2023-07-27 02:27 | External Medical Summary | Summary of Care ---
Author Name Unknown Organization [facility] Address [address] [place] [address] Phone [phone] Care Team Providers Care Seed District Sales Manager Name Role Phone Hitesh Clementse Han AHUJA Primary Care Provider Reason for Visit * Reason Comments Outpatient Testing Encounter Details Date Type Department Care Team (Late st Contact Info) Description 07/21/2023 1:30 PM EST Laboratory Laboratory Scenery [facility] [address] [place] [address] [place], Lab Scenery [address] [place] [address] Other ascites Allergies Active Allergy Reactions Criticality Noted Date [...] 07/16/2022 Active Vitamin D (Ergocalciferol) 1.25 MG (74204 UT) Oral Capsule (Drisdol) Take twice per [...] by mouth. As needed. 0 07/18/2023 Active [place] Carbonate 300 MG Oral Tablet (Eskalith) Take [...] contraceptive management, unspecified type 150 mg IM [id number] 01/03/2023 12/29/2023 Active documented as of this [...] PPD 11/17/2021 Pneumococcal Conjugate Vacci ne, 20-valent ([id number]) 05/24/2022 Seasonal Influenza Virus Vac cine, Unspecified [...] No 03/09/2014 documented as of this encounter Plan of Treatment Upcoming Encounters Date Type Department Care Team (Late st Contact Info) Description 08/23/2023 9:30 AM EST Office Visit Cardiology, [facility] [address] [facility] [place] [address] Brenda Meza CRNP [address] [place] [phone] 09/14/2023 9:00 AM EDT Office Visit Family Practice [facility] [address] [facility] [place] [address] Quincy Clements, 200 [facility] [place] [address] Pending Results Name Type Priority Associated Diagnoses Date /Time HEPATITIS C ANTIBODY SCREEN WITH PROGRESSION TO HEPATITIS C RNA QUANTITATIVE Lab Routine Other ascites 07/21/2023 12:50 PM EST HEPATITIS C ANTIBODY Lab Routine Other ascites 07/21/2023 12:50 PM EST HEPATITIS C RNA ADD ON Lab Routine Other ascites 07/21/2023 12:50 PM EST Health Maintenance Due Date Last Done Comments [...] Not on filedocumented as of this encounter Visit Diagnoses Diagnosis Other ascites documented in this encounter Advance Directives Latest Code Status on File Code Status Date Activated Date Inactivated Comments Full Code 03/09/2014 8:05 PM 03/12/2014 1:47 PM This order reflects the patients wishes and were consensually agreed upon. Care Teams Seed District Sales Manager Relationship Specialty Start Date End Date Quincy Clements DO [address] [place] [address] PCP - General Family Medicine 12/02/16 documented as of this encounter
--- OUTSIDE RECORDS SUMMARY | 2023-07-27 02:27 | External Medical Summary | Summary of Care ---
Author Name Unknown Organization [facility] Address [address] [place] [address] Phone [phone] Care Team Providers Care Cosmetics Counter Manager Name Role Phone Quincy Clements DO Primary Care Provider Encounter Details Date Type Department Care Team (Late st Contact Info) Description 07/20/2023 Orders Only Laboratory, [facility] [address] [facility] [place] [address] Ness Jones CRNP [address] [address] Encounter for long-term (current) use of other medications* Allergies Active Allergy Reactions Criticality Noted Date [...] as of this encounter (statuses as of 07/20/2023) Medications Medication Sig Dispensed Refills Start Date [...] 07/16/2022 Active Vitamin D (Ergocalciferol) 1.25 MG (08994 UT) Oral Capsule (Drisdol) Take twice per [...] by mouth. As needed. 0 07/18/2023 Active [place] Carbonate 300 MG Oral Tablet (Eskalith) Take [...] contraceptive management, unspecified type 150 mg IM [id number] 01/03/2023 12/29/2023 Active documented as of this encounter (statuses as of 07/20/2023) Active Problems Problem Noted Date Diagnosed Date B12 deficiency 03/01/2023 Vitamin D deficiency 03/01/2023 POTS (postural orthostatic tachycardia syndrome) 08/13/2022 Carpal tunnel syndrome, bilateral 03/12/2020 Carpal tunnel syndrome on right 02/08/2020 Tachycardia 10/25/2019 History of substance abuse 07/06/2018 Bipolar 2 disorder 10/14/2016 Borderline personality disorder 10/14/2016 Intentional drug overdose 09/05/2015 Overview: Gergoria, 09/03/2015 Suicide attempt by drug ingestion 03/10/2014 [...] as of this encounter (statuses as of 07/20/2023) Resolved Problems Problem Noted Date Diagnosed Date [...] as of this encounter (statuses as of 07/20/2023) Immunizations Name Administration Dates Next Due DTaP HIB - Dipth/Tet/Acell Pert/HIB 06/17/1997,1 ,02/11/1997 HIB PRP-T, 4 dose (ActHib) 07/11/1998 HPV Vaccine, 4-Valent 08/28/2007,05/04/2007,02/18 Hep A - Hepatitis A (ped/ado le, 1-18 Yrs) 07/26/2008,12/27/2007 Hepatitis B, 0-19 yrs 06/17/1997,01/10/1997,11/19 IPV - Polio Virus Vaccine (Inact) 1997,06/17/1997,04/15/1997,02/11 MMR - Measles/Mumps/Rubella Vaccine 01/10/2002,1 Meningococcal Conjugate Vacc ine (Menactra/Menveo) 07/26/2008 PPD 11/17/2021 Pneumococcal Conjugate Vacci ne, 20-valent ([id number]) 05/24/2022 Seasonal Influenza Virus Vac cine, Unspecified [...] Date Recorded PHQ Adult Total Score 2 05/24/2022 Hunger Vital Sign Answer Date Recorded Within [...] 08/23/2023 9:30 AM EST Office Visit Cardiology, [facility] 132 [facility] [place] [address] Brenda Meza CRNP [address] [place] [phone] 09/14/2023 9:00 AM EDT Office Visit Family Practice [facility] 200 [facility] [place] [address] Quincy Clements DO 200 [facility] [place] [address] Scheduled Orders Name Type Priority Associated Diagnoses Orde r Schedule LITHIUM LEVEL Lab Routine Encounter for long-term (current) use of other medications Expected: 07/26/2023, Expires: 07/20/2024 Health Maintenance Due Date Last Done Comments [...] as of this encounter Visit Diagnoses Diagnosis Encounter for long-term (current) use of other medications- Primary documented in this encounter Advance Directives Latest Code Status on File Code Status Date Activated Date Inactivated Comments Full Code 03/09/2014 8:05 PM 03/12/2014 1:47 PM This order reflects the patients wishes and were consensually agreed upon. Care Teams Cosmetics Counter Manager Relationship Specialty Start Date End Date Quincy Clements DO [address] [place] [address] PCP - General Family Medicine 12/02/16 documented as of this encounter
--- OUTSIDE RECORDS SUMMARY | 2023-07-27 02:27 | External Medical Summary | Summary of Care ---
Author Name Unknown Organization [facility] Address [address] [place] [address] Phone [phone] Care Team Providers Care Folder Seamer Automatic Name Role Phone Tyree Quincy Han AHUJA Primary Care Provider Reason for Visit * Reason Comments Outpatient Testing Encounter Details Date Type Department Care Team (Late st Contact Info) Description 07/19/2023 11:10 AM EST Laboratory Laboratory Scenery [facility] [address] [place] [address] [place], Lab Scenery [address] [place] [address] Encounter for long-term (current) use of other medications Allergies Active Allergy Reactions Criticality Noted Date [...] as of this encounter (statuses as of 07/19/2023) Medications Medication Sig Dispensed Refills Start Date [...] 07/16/2022 Active Vitamin D (Ergocalciferol) 1.25 MG (75217 UT) Oral Capsule (Drisdol) Take twice per week 8 Capsule 5 07/19/2022 Active Metoprolol Succinate ER 25 MG Oral Tablet Extended Release 24 Hour (Toprol XL)Indications:POTS (postural orthostatic tachycardia syndrome) Take 1 Tablet by mouth in the morning. 30 Tablet 5 08/13/2022 Active diphenhydrAMINE HCl 25 MG Oral Tablet [...] before bedtime. 60 Each 12 03/01/2023 Active Baclofen 10 MG Oral Tablet (Lioresal) Take 1 Tablet by mouth 2 times a day as needed for Muscle spasms. 45 Tablet 0 03/02/2023 Active medroxyPROGESTERone Acetate 150 MG/ML Intramuscular Suspension [...] 7 days 14 Capsule 0 07/18/2023 Active Hospital, Clinic, or Other Facility Administered Medication Ordered Dose Route Frequency Start Date End Date Status medroxyPROGESTERone (contracep) (Depo-Provera) inj 150 mgIndications:Encounter for contraceptive management, unspecified type 150 mg IM [id number] 01/03/2023 12/29/2023 Active documented as of this encounter (statuses as of 07/19/2023) Active Problems Problem Noted Date Diagnosed Date [...] as of this encounter (statuses as of 07/19/2023) Resolved Problems Problem Noted Date Diagnosed Date [...] as of this encounter (statuses as of 07/19/2023) Immunizations Name Administration Dates Next Due DTaP HIB - Dipth/Tet/Acell Pert/HIB 06/17/1997,1 ,02/11/1997 HIB PRP-T, 4 dose (ActHib) 07/11/1998 HPV Vaccine, 4-Valent 08/28/2007,05/04/2007,02/18 Hep A - Hepatitis A (ped/ado le, 1-18 Yrs) 07/26/2008,12/27/2007 Hepatitis B, 0-19 yrs 06/17/1997,01/10/1997,11/19 IPV - Polio Virus Vaccine (Inact) 1997,06/17/1997,04/15/1997,02/11 MMR - Measles/Mumps/Rubella Vaccine 01/10/2002,1 Meningococcal Conjugate Vacc ine (Menactra/Menveo) 07/26/2008 PPD 11/17/2021 Pneumococcal Conjugate Vacci ne, 20-valent ([id number]) 05/24/2022 Seasonal Influenza Virus Vac cine, Unspecified [...] Description 07/19/2023 11:40 AM EST Office Visit [facility] 200 [facility] [place] [address] Violeta Redding PA-C 200 [facility] [place] [address] Arrived 08/23/2023 9:30 AM EST Office Visit Cardiology, [facility] 132 [facility] [place] [address] Brenda Meza CRNP 400 [facility] [phone] 09/14/2023 9:00 AM EDT Office Visit [facility] 200 [facility] [place] [address] Quincy Clements DO 200 [facility] [place], [place] [address] Pending Results Name Type Priority Associated Diagnoses Date /Time LITHIUM LEVEL Lab Routine Encounter for long-term (current) use of other medications 07/19/2023 11:12 AM EST Health Maintenance Due Date Last Done Comments COVID-19 Vaccine (#1) 06/11/1997 HIV Screening 12/11/2011 Hepatitis C Screening 2014 Influenza Vaccine (FLU shot) (#1) 2023 02/27/2020, 02/22/2020, 03/05/2018, Additional history exists Depression Screening 05/24/2023 05/24/2022 Pap Smear 08/24/2024 08/24/2021 DTaP,Tdap,and Td Vaccines [...] for long-term (current) use of other medications documented in this encounter Advance Directives Latest Code Status on File Code Status Date Activated Date Inactivated Comments Full Code 03/09/2014 8:05 PM 03/12/2014 1:47 PM This order reflects the patients wishes and were consensually agreed upon. Care Teams Folder Seamer Automatic Relationship Specialty Start Date End Date Quincy Clements DO [address] [place] [address] PCP - General Family Medicine 12/02/16 documented as of this encounter
--- OUTSIDE RECORDS SUMMARY | 2023-07-27 02:27 | External Medical Summary | Summary of Care ---
Author Name Unknown Organization [facility] Address [address] [place] [address] Phone [phone] Care Team Providers Care Merchandising Intern Name Role Phone Quincy Clements DO Primary Care Provider [phone] Reason for Visit * Reason Onset Date Comments Test Results 07/19/2023 Encounter Details Date Type Department Care Team (Late st Contact Info) Description 07/19/2023 Telephone Family Practice [facility] [address] [place] [address] Quincy Clements DO 200 [place] [address] Test Results Allergies Active Allergy Reactions Criticality Noted Date [...] 07/16/2022 Active Vitamin D (Ergocalciferol) 1.25 MG (19558 UT) Oral Capsule (Drisdol) Take twice per [...] by mouth. As needed. 0 07/18/2023 Active [place] Carbonate 300 MG Oral Tablet (Eskalith) Take [...] contraceptive management, unspecified type 150 mg IM [id number] 01/03/2023 12/29/2023 Active documented as of this [...] PPD 11/17/2021 Pneumococcal Conjugate Vacci ne, 20-valent ([id number]) 05/24/2022 Seasonal Influenza Virus Vac cine, Unspecified [...] encounter Miscellaneous Notes * Telephone Encounter - Angelina Cohen LPN - 07/19/2023 5:17 PM EST See other messages regarding results. * Telephone Encounter - Kylah Sharif OSA - 07/19/2023 4:27 PM EST Who is Requesting Test Results: patient Primary Care Provider : Quincy Clements DO Tests Results Requested : ultrasound Date of Test : 07/19/2023 Location of Test: [place] Ordering Provider: Violeta Redding PA- c Callback Number: [phone] urgent Patient has been made aware that the turnaround time for test results are typically as follows: Laboratory results = within 2-3 days ([facility]), 3-5 days (Non[facility], ie. [facility]) Urine Cultures = within 2-3 days depending on growth within the culture Pathology results (biopsy results/PAP) = 1-2 weeks Radiology results = about 1 week Cologuard results = within 2 weeks from the shipment date COVID testing = about 24 hours documented in this encounter Plan of Treatment Upcoming Encounters Date Type Department Care Team (Late st Contact Info) Description 08/23/2023 9:30 AM EST Office Visit Cardiology, [facility] 132 [facility] [place] [address] Brenda Meza CRNP [address] [place] [address] [place] [phone] 09/14/2023 9:00 AM EDT Office Visit [facility] [address] [place], [place] [address] Quincy Clements DO [address] [place] [address] Health Maintenance Due Date Last Done Comments [...] and were consensually agreed upon. Care Teams Merchandising Intern Relationship Specialty Start Date End Date Quincy Clements DO [address] [facility] [place] [address] PCP - General Family Medicine 12/02/16 documented as of this encounter
--- OUTSIDE RECORDS SUMMARY | 2023-07-27 02:27 | External Medical Summary ---
Author Name Unknown Address Unknown Organization [id number]:LABORATORY [facility] - [address] [place] [address] Laboratory Report Ordering Provider Test Date Status 07/19/2023 11:12:41 Final Observation Date Value Abnormality Reference (Units ) Status Lipase 07/19/2023 11:12:41 17 13-60 (U/L ) Final Performing Location [facility]ORY [facility] - [address] [facility] [place] [place] [address]
--- OUTSIDE RECORDS SUMMARY | 2023-07-27 02:27 | External Medical Summary ---
Author Name Unknown Address Unknown Organization [id number]:[facility] [place] [address] [place] [address] Laboratory Report Ordering Provider Test Date Status 07/21/2023 12:50:19 Final Observation Date Value Abnormality Reference (Units ) Status Hep C Ab 07/21/2023 12:50:19 Negative Negative Final Further HCV quantitative aylin ting not performed per protocol. Performing Location [facility] [address] [facility] [place] [address]
--- OUTSIDE RECORDS SUMMARY | 2023-07-27 02:27 | External Medical Summary ---
Author Name Unknown Address Unknown Organization [id number]:LABORATORY [facility] - [address] [place] [address] Laboratory Report Ordering Provider Test Date Status JOSIAS TELLO 07/19/2023 11:12:41 Final Observation Date Value Abnormality Reference (Units ) Status [place] [Moles/volume] in Blood 07/19/2023 11:12:41 0.3 Below low normal 0.6-1.2 (mmol/L) Final Performing Location LABORATORY [facility] - [facility] [address] [place] [address]
--- OUTSIDE RECORDS SUMMARY | 2023-07-27 02:27 | External Medical Summary ---
Author Name Unknown Address Unknown Organization [id number]:LABORATORY [facility] [place] - [address] [place] [address] Laboratory Report Ordering Provider Test Date Status 07/19/2023 11:12:41 Final Observation Date Value Abnormality Reference (Units ) Status Albumin 07/19/2023 11:12:41 4.5 3.8-5.0 (g/dL) Final AST (Aspartate aminotransferase) 07/19/2023 11:12:41 14 10-35 (U/L) Final Alk Phos 07/19/2023 11:12:41 33 Below low normal 35-130 (U/L) Final ALT (Alanine aminotransferase) 07/19/2023 11:12:41 6 Below low normal 10-35 (U/L) Final Bilirubin, Total 07/19/2023 11:12:41 0.3 <=1.2 (mg/dL) Final Bilirubin, Direct 07/19/2023 11:12:41 <0.2 0.0-0.3 (mg/dL) Final Protein 07/19/2023 11:12:41 6.4 6.0-8.3 (g/dL) Final Performing Location LABORATORY [facility] [place] - [address] [place] [address]
--- OUTSIDE RECORDS SUMMARY | 2023-07-27 02:27 | External Medical Summary ---
Author Name Unknown Address Unknown Organization [id number]:LABORATORY [facility] [place] - [address] [place] [address] Laboratory Report Ordering Provider Test Date Status 07/19/2023 11:12:41 Final Exclude Heart Failure: <300 pg/mL
Diagnose Heart Failure:
Age <50 yr: >450 pg/mL
50-75 yr: >900 pg/mL
>75 yr: >1800 pg/mL
GFR is 30-59 mL/min: >1200 pg/mL or Age- adjusted values
GFR <30 mL/min: do not use, not reliable

Prognostic threshold: 1000 pg/mL Observation Date Value Abnormality Reference (Units ) Status BNP, Pro-hormone 07/19/2023 11:12:41 359 Above high no rmal <300 (pg/mL) Final Performing Location LABORATORY [facility] - [facility] [address] [place] [address]
--- OUTSIDE RECORDS SUMMARY | 2023-07-27 02:28 | External Medical Summary | Summary of Care ---
Author Name Unknown Organization [facility] Address [address] [place] [address] Phone [phone] Care Team Providers Care Labor Arbitrator Hearing Office Name Role Phone KrunalQuincy vincent Han AHUJA Primary Care Provider Reason for Visit * Reason Comments Congestion Chest congestion x 1 week with intermittent coughing Diarrhea Fever Sore Throat Encounter Details Date Type Department Care Team (Latest Contact Info) Description 07/18/2023 12:50 PM EST Convenient Care Visit [facility] [address] [place] [address] Blanca Roldan PA-C [address] [facility] [place] [address] Tachycardia*; Light-headed feeling; Sore throat; URI with cough and congestion; Generalized weakness Allergies Active Allergy Reactions Criticality Noted Date [...] as of this encounter (statuses as of 07/18/2023) Medications Medication Sig Dispensed Refills Start Date [...] 07/16/2022 Active Vitamin D (Ergocalciferol) 1.25 MG (29495 UT) Oral Capsule (Drisdol) Take twice per [...] Muscle spasms. 45 Tablet 0 03/02/2023 Active medroxyPROGESTERon e Acetate 150 MG/ML Intramuscular Suspension Prefilled Syringe (Depo-Provera) Inject 150 mg into a large muscle every 3 months. 1 mL 3 03/25/2023 Active Omeprazole 40 MG Oral Capsule Delayed Release (PriLOSEC)Indicati ons:RUQ pain TAKE 1 CAPSULE BY MOUTH IN THE MORNING 1 HOUR BEFORE THE FIRST MEAL OF THE DAY. 30 Capsule 5 04/09/2023 Active Ivabradine HCl 5 MG Oral Tablet (Corlanor) Take 1 Tablet by mouth in the morning and 1 Tablet before bedtime. 60 Tablet 5 02/22/2023 07/18/19 24 Discontinued HYDROcodone Bit-Homatrop MBr 5-1.5 MG/5ML Oral Solution (Hycodan)Indicatio ns:Acute bronchitis, antibiotics not indicated Take 5 mL by mouth every 6 hours as needed for Cough. 120 mL 0 03/07/2023 07/18/19 24 Discontinued Hospital, Clinic, or Other Facility Administered Medication Ordered Dose Route Frequency Start Date End Date Status medroxyPROGESTERone (contracep) (Depo-Provera) inj 150 mgIndications:Encounter for contraceptive management, unspecified type 150 mg IM [id number] 01/03/2023 12/29/2023 Active documented as of this encounter (statuses as of 07/18/2023) Active Problems Problem Noted Date Diagnosed Date [...] as of this encounter (statuses as of 07/18/2023) Resolved Problems Problem Noted Date Diagnosed Date [...] as of this encounter (statuses as of 07/18/2023) Immunizations Name Administration Dates Next Due DTaP HIB - Dipth/Tet/Acell Pert/HIB 06/17/1997,1 ,02/11/1997 HIB PRP-T, 4 dose (ActHib) 07/11/1998 HPV Vaccine, 4-Valent 08/28/2007,05/04/2007,02/18 Hep A - Hepatitis A (ped/ado le, 1-18 Yrs) 07/26/2008,12/27/2007 Hepatitis B, 0-19 yrs 06/17/1997,01/10/1997,11/19 IPV - Polio Virus Vaccine (Inact) 1997,06/17/1997,04/15/1997,02/11 MMR - Measles/Mumps/Rubella Vaccine 01/10/2002,1 Meningococcal Conjugate Vacc ine (Menactra/Menveo) 07/26/2008 PPD 11/17/2021 Pneumococcal Conjugate Vacci ne, 20-valent ([id number]) 05/24/2022 Seasonal Influenza Virus Vac cine, Unspecified [...] Sign Reading Time Taken Comments Blood Pressure 104/64 07/18/2023 12:59 PM EST Pulse 150 07/18/2023 1:46 PM EST Temperature 37.6 C (99.7 F) 07/18/2023 1:46 PM ES T Respiratory Rate 16 07/18/2023 12:59 PM EST Oxygen Saturation 97% 07/18/2023 1:46 PM EST Inhaled Oxygen Concentration - - Weight 51.3 kg (113 lb) 07/18/2023 12:59 PM EST Height 167.6 cm (5' 6") 07/18/2023 12:59 PM EST Body Mass Index 18.24 07/18/2023 12:59 PM EST documented in this [...] as of this encounter Progress Notes * Blanca Roldan PA-C - 07/18/2023 1:01 PM EST Subjective: Nursing Notes: Naty Ceja LPN 07/18/23 1304 Signed Tricia Calero is a 27 year old female who presents to walk-in clinic today complaining of Chief Complaint Patient presents with Congestion Chest congestion x 1 week with intermittent coughing Diarrhea Fever Sore Throat Tried: mucinex/dayquil/neb tx's/cough drops Pt accompanied by: self Naty Ceja LPN 07/18/23 1316 Signed Ekg performed as per provider order. Patient identified by name and . Hard copy of EKG provided to Blanca Roldan PA-C for review. EKG transmitted for cardiology reading and review. Sx are dizziness, tachycardia and palpitations that started this morning but pt has had head congestion, cold symptoms, cough and developing chest tightness for a week Left side chest pain Nebulizer treatment this morning at 9a.m. 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 Sig med hx/risk factors: Pt has hx of POTS, bipolar, asthma, disorder, social phobia no flu shot this year. Review of Systems Constitutional: Positive for activity change, appetite change, fatigue and fever (over weekend was around 100.5). HENT: Positive for congestion (mostly chest), postnasal drip, rhinorrhea, sinus pressure and sore throat. Negative for ear pain, sinus pain and voice change. Eyes: Negative for discharge and redness. Respiratory: Positive for cough, chest tightness and shortness of breath. Negative for wheezing. Cardiovascular: Positive for chest pain (left side of chest "like inbetween rib cage.".). Gastrointestinal: Positive for diarrhea and nausea (occ). Negative for abdominal pain and vomiting. Genitourinary: Negative. Musculoskeletal: Negative for arthralgias, neck pain and neck stiffness. Allergic/Immunologic: Negative for environmental allergies. Neurological: Positive for dizziness and light-headedness. Hematological: Positive for adenopathy (points to the submandibular area). PMH: Patient Active Problem List Diagnosis Code Intermittent asthma with reliever use up to twice per week J45.20 PTSD (post-traumatic stress disorder) F43.10 ADHD (attention deficit hyperactivity disorder), combined type F90.2 Oppositional defiant disorder F91.3 Social phobia F40.10 Major depressive disorder, single episode, severe with psychotic features (HCC) F32.3 Suicide attempt by drug ingestion (HCC) T50.902A Intentional drug overdose (HCC) T50.902A Bipolar 2 disorder (HCC) F31.81 Borderline personality disorder (HCC) F60.3 History of substance abuse (HCC) F19.11 Tachycardia R00.0 Carpal tunnel syndrome on right G56.01 Carpal tunnel syndrome, bilateral G56.03 POTS (postural orthostatic tachycardia syndrome) G90.A B12 deficiency E53.8 Vitamin D deficiency E55.9 Current Outpatient Medications Medication Sig Dispense Refill Levalbuterol Tartrate 45 MCG/ACT Inhalation Aerosol (Xopenex HFA) Inhale by mouth 1 Puff every 4 hours as needed for Wheezing. 15 g 12 Escitalopram Oxalate 20 MG Oral Tablet (Lexapro) Take 1 Tablet by mouth in the morning. Zolpidem Tartrate 10 MG Oral Tablet Take 1 Tablet by mouth at bedtime as needed for Sleep. Nebulizer Device Nebulizer device J45.30 1 Each 0 Nebulizer/Tubing/Mouthpiece Kit Nebulizer tubing, mouthpiece supplies J45.30 1 Kit 99 Levalbuterol HCl 1.25 MG/3ML Inhalation Nebulization Solution (Xopenex) Inhale 1 Ampule via nebulizer every 4 hours as needed for Wheezing. 72 mL 12 Vitamin D (Ergocalciferol) 1.25 MG (60824 UT) Oral Capsule (Drisdol) Take twice per week 8 Capsule 5 Metoprolol Succinate ER 25 MG Oral Tablet Extended Release 24 Hour (Toprol XL) Take 1 Tablet by mouth in the morning. 30 Tablet 5 diphenhydrAMINE HCl 25 MG Oral Tablet (Benadryl) Take 1 Tablet by mouth every 6 hours as needed forItching. Take 2 tabs as needed for allergies or sleep Gabapentin 300 MG Oral Capsule (Neurontin) Take 1 Capsule by mouth in the morning and 1 Capsule at noon and 1 Capsule before bedtime. Ondansetron HCl 4 MG Oral Tablet (Zofran) TAKE 1 TABLET BY MOUTH EVERY 6 HOURS NEEDED FOR [id number] Tablet 1 Methylphenidate HCl 5 MG Oral Tablet (Ritalin) Take 1 Tablet by mouth in the morning and 1 Tablet before bedtime. Takes pm dose in mid afternoon. LORazepam 1 MG Oral Tablet (Ativan) Take 1 Tablet by mouth 2 times a day as needed. Fluticasone-Salmeterol 100-50 MCG/ACT Inhalation Aerosol Powder Breath Activated (Wixela Inhub) Inhale 1 Puff by mouth in the morning and 1 Puff before bedtime. 60 Each 12 Baclofen 10 MG Oral Tablet (Lioresal) Take 1 Tablet by mouth 2 times a day as needed for Muscle spasms. 45 Tablet 0 medroxyPROGESTERone Acetate 150 MG/ML Intramuscular Suspension Prefilled Syringe (Depo-Provera) Inject 150 mg into a large muscle every 3 months. 1 mL 3 Omeprazole 40 MG Oral Capsule Delayed Release (PriLOSEC) TAKE 1 CAPSULE BY MOUTH IN THE MORNING 1 HOUR BEFORE THE FIRST MEAL OF THE DAY. 30 Capsule 5 Current Facility-Administered Medications Medication Dose Route Frequency Provider Last Rate Last Admin medroxyPROGESTERone (contracep) (Depo-Provera) inj 150 mg 150 mg Intramuscular Q90 Days Quincy Clements Han DO 150 mg at 01/03/23 1455 Past Medical History: Diagnosis Date ADHD (attention deficit hyperactivity disorder), combined type 06/22/2013 Allergic disorder enviromental Anemia B12 deficiency 2019 Asthma Asthma, non-allergic exercise indused Bipolar 2 disorder (HCC) 10/14/2016 Borderline personality disorder ([facility]) 10/14/2016 Deliberate self-cutting 04/25/2013 GERD (gastroesophageal reflux disease) 2022 Hearing loss 2001 conductive, eustaschian tube dysfunction History of substance abuse ([facility]) 07/06/2018 Insomnia, unspecified 2004 Intentional drug overdose ([facility]) 09/05/2015 Ambien, 09/03/2015 Intermittent asthma with reliever use up to twice per week 12/15/2009 PER PROVIDER PROTOCOL. Major depressive disorder, single episode, severe with psychotic features ([facility]) 06/22/2013 ODD (oppositional defiant disorder) 06/22/2013 Parent-child relational problem 06/22/2013 PTSD (post-traumatic stress disorder) 06/22/2013 Social phobia 06/22/2013 Tachycardia 10/25/2019 Tobacco use Past Surgical History: Procedure Laterality Date CARPAL TUNNEL SURGERY Right 02/27/2020 NEUROPLASTY MEDIAN NERVE AT CARPAL TUNNEL performed by Lul Ceballos MD at [facility] CARPAL TUNNEL SURGERY Left 03/07/2020 NEUROPLASTY MEDIAN NERVE AT CARPAL TUNNEL performed by Lul Ceballos MD at [facility] COLONOSCOPY, DIAGNOSTIC (RECTUM) 10/01/2022 normal bx / COLONOSCOPY FLEXIBLE PROXIMAL DIAGNOSTIC performed by John Gould MD at ENDOSCOPY [facility] DENTAL SURGERY PROCEDURE NEC EGD, FLEXIBLE, DIAGNOSTIC 09/09/2022 biopsies normal/ESOPHAGOGASTRODUODENOSCOPY (EGD), FLEXIBLE, TRANSORAL, DIAGNOSTIC performed by Ksenia Multani DO at ENDOSCOPY [facility] REMOVAL OF TONSILS, AGE 12+ 02/16/2017 TONSILLECTOMY PRIMARY OR SECONDARY AGE 12 OR OVER performed by Mike Min II, MD at [facility] UPPER GI ENDOSCOPY Review of patient's allergies indicates: Allergen Reactions Prochlorperazine Other reaction(s): NUMB AND TINGLY FEELING UNABLE TO MOVE Albuterol Tachycardia Compazine [Prochlorperazine Edisylate] Doxycycline Nausea/vomiting Other reaction(s): Unknown Pollen Prazosin Tachycardia Clindamycin Nausea/vomiting Other reaction(s): VOMIT Penicillins unknown Other reaction(s): Family history Prednisone Psych complications Other reaction(s): Makes mentally unstale Objective: BP 104/64 | Pulse 150 | Temp 37.6 C (99.7 F) | Resp 16 | Ht 1.676 m (5' 6") | Wt 51.3 kg (113 lb) | SpO2 97% | No | BMI 18.24 kg/m | BSA 1.55 m Physical Exam Constitutional: General: She is not in acute distress. Appearance: Normal appearance. She is normal weight. She is ill-appearing. Comments: Pt appears weak and needs to have wheel chair in office as diff ambulating HENT: Head: Normocephalic. Right Ear: Tympanic membrane, ear canal and external ear normal. Left Ear: Tympanic membrane, ear canal and external ear normal. Nose: Congestion and rhinorrhea present. Mouth/Throat: Mouth: Mucous membranes are moist. Pharynx: Oropharyngeal exudate (slight) and posterior oropharyngeal erythema present. Eyes: General: Right eye: No discharge. Left eye: No discharge. Extraocular Movements: Extraocular movements intact. Conjunctiva/sclera: Conjunctivae normal. Cardiovascular: Rate and Rhythm: Regular rhythm. Tachycardia present. Heart sounds: Normal heart sounds. Comments: Worsens with movement, consistently over 135 Pulmonary: Effort: Pulmonary effort is normal. No respiratory distress. Breath sounds: Normal breath sounds. No wheezing or rhonchi. Abdominal: Tenderness: There is no right CVA tenderness or left CVA tenderness. Musculoskeletal: Cervical back: Normal range of motion. Skin: Findings: No rash. Neurological: Mental Status: She is alert and oriented to person, place, and time. Psychiatric: Mood and Affect: Mood normal. Thought Content: Thought content normal. Judgment: Judgment normal. Pt cont to be very weak throughout exam w tachycardia that inc to 150 just with going from exam table to wheel chair Recommend pt go to ER, pt's father picked her up to go to the ER Strep was negative Reviewed xray w pt and appeared unremarkable Radiologist summary: IMPRESSION No active cardiopulmonary disease seen. ASSESSMENT/PLAN: Tachycardia (Primary) Light-headed feeling - EKG; Future; Expected date: 07/18/2023 - XR CHEST 2 VIEWS Sore throat - STREP A SCREEN, POINT OF CARE (ENTER/EDIT) - GROUP A STREP PCR URI with cough and congestion Pt taken to [facility] by her father Called ED, gave report to Lala Charge nurse Over 45 minutes spent with patient exam, counseling, review of previous medical records and with documenting. Return instruction reviewed with pt in detail. Reasons to report to the ED were also reviewed. Voiced understanding Advised to follow up if no improvement in 3-5days. Blanca Roldan PA-C documented in this encounter Nursing Notes * Naty Ceja LPN - 07/18/2023 1:16 PM EST Ekg performed as per provider order. Patient identified by name and . Hard copy of EKG provided to Blanca Roldan PA-C for review. EKG transmitted for cardiology reading and review. * Naty Ceja LPN - 07/18/2023 1:03 PM EST Tricia Cespedes Galilea is a 27 year old female who presents to walk-in clinic today complaining of Chief Complaint Patient presents with Congestion Chest congestion x 1 week with intermittent coughing Diarrhea Fever Sore Throat Tried: mucinex/dayquil/neb tx's/cough drops Pt accompanied by: self documented in this encounter Plan of Treatment Upcoming Encounters Date Type Department Care Team (Late st Contact Info) Description 07/19/2023 11:40 AM EST Office Visit [facility] [place] [address] [place] [address] Violeta Redding PA-C [address] [facility] [facility] [place] [address] 08/23/2023 9:30 AM EST Office Visit Cardiology, [facility] [address] [facility] [place] [address] rBenda Meza CRNP [address] [place] [phone] 09/14/2023 9:00 AM EDT Office Visit [facility] [address] [facility] [place] [address] Quincy Clements DO [address] [facility] [place] [address] Pending Results Name Type Priority Associated Diagnoses Date /Time GROUP A STREP PCR Lab Routine Sore throat 07/18/2023 2:27 PM EST Scheduled Orders Name Type Priority Associated Diagnoses Orde r Schedule EKG EKG Routine Light-headed feeling Expected: 07/18/2023 (Approximate), Expires: 08/17/2024 Health Maintenance Due Date Last Done Comments [...] Procedure Name Priority Date/Time Associated Diagnosis Comments STREP A SCREEN, POINT OF CARE (ENTER/EDIT) Routine 07/18/2023 1:45 PM EST Sore throat XR CHEST 2 VIEWS STAT 07/18/2023 1:35 PM EST Light-headed feeling documented in this encounter Results * STREP A SCREEN, POINT OF CARE (ENTER/EDIT) (07/18/2023 1:45 PM EST) Strep A Result Negative Negative Procedural Control Valid? Yes Lot Number [id number] Expiration Date 41,025 Swab Throat swab / Unknown 07/18/2023 1:45 PM EST Blanca Roldan PA-C LAB POINT OF C ARE TEST ENTER/EDIT ORDERABLES * XR CHEST 2 VIEWS (07/18/2023 1:35 PM EST) Anatomical Region Laterality Modality Chest Computed Radiogr aphy 07/18/2023 1:50 PM EST Impressions 07/18/2023 2:19 PM EST IMPRESSION No active cardiopulmonary disease seen. I have personally reviewed this examination and agree with the resident/fellow physician's interpretation. Narrative 07/18/2023 2:19 PM EST EXAM XR CHEST 2 VIEWS - 07/18/2023 1:35 pm HISTORY chest tightness and tachy cardia, light headedness TECHNIQUE Frontal and lateral radiographs of the chest were obtained. COMPARISON Chest x-ray 02/15/2023. FINDINGS FOREIGN BODIES, SUPPORT TUBES, LINES, DEVICES: None. LUNGS, PLEURA: No consolidation. No pneumothorax or effusion. CARDIOVASCULAR, MEDIASTINUM: Within normal limits. OTHER: None. Procedure Note Evens Mendoza II, MD - 07/18/2023 EXAM XR CHEST 2 VIEWS - 07/18/2023 1:35 pm HISTORY chest tightness and tachy cardia, light headedness TECHNIQUE Frontal and lateral radiographs of the chest were obtained. COMPARISON Chest x-ray 02/15/2023. FINDINGS FOREIGN BODIES, SUPPORT TUBES, LINES, DEVICES: None. LUNGS, PLEURA: No consolidation. No pneumothorax or effusion. CARDIOVASCULAR, MEDIASTINUM: Within normal limits. OTHER: None. IMPRESSION IMPRESSION No active cardiopulmonary disease seen. I have personally reviewed this examination and agree with the resident/fellow physician's interpretation. Blanca Roldan PA-C RADIOLOGY (RAD GENERAL) documented in this encounter Visit Diagnoses Diagnosis Tachycardia- Primary Tachycardia, unspecified Light-headed feeling Dizziness and giddiness Sore throat Acute pharyngitis URI with cough and congestion Generalized weakness Other malaise and fatigue documented in this encounter Advance Directives Latest Code Status on File Code Status Date Activated Date Inactivated Comments Full Code 03/09/2014 8:05 PM 03/12/2014 1:47 PM This order reflects the patients wishes and were consensually agreed upon. Care Teams Labor Arbitrator Hearing Office Relationship Specialty Start Date End Date Quincy Clements DO [address] [place] [address] PCP - General Family Medicine 12/02/16 documented as of this encounter
--- OUTSIDE RECORDS SUMMARY | 2023-07-27 02:28 | External Medical Summary | Summary of Care ---
Author Name Unknown Organization [facility] Address [address] [place] [address] Phone [phone] Care Team Providers Care Ticket Counter Name Role Phone KrunalQuincy vincent Han AHUJA Primary Care Provider [phone] Reason for Visit * Reason Comments Congestion Chest congestion x 1 week with intermittent coughing Diarrhea Fever Sore Throat Encounter Details Date Type Department Care Team (Latest Contact Info) Description 07/18/2023 12:50 PM EST Convenient Care Visit [facility] [address] [place] [address] Blanca Roldan PA-C [address] [facility] [place] [address] Tachycardia*; Light-headed feeling; Sore throat; URI with [...] 07/16/2022 Active Vitamin D (Ergocalciferol) 1.25 MG (45681 UT) Oral Capsule (Drisdol) Take twice per [...] contraceptive management, unspecified type 150 mg IM [id number] 01/03/2023 12/29/2023 Active documented as of this [...] PPD 11/17/2021 Pneumococcal Conjugate Vacci ne, 20-valent ([id number]) 05/24/2022 Seasonal Influenza Virus Vac cine, Unspecified [...] mL 12 Vitamin D (Ergocalciferol) 1.25 MG (68275 UT) Oral Capsule (Drisdol) Take twice per [...] BY MOUTH EVERY 6 HOURS NEEDED FOR [id number] Tablet 1 Methylphenidate HCl 5 MG Oral [...] 2 disorder (HCC) 10/14/2016 Borderline personality disorder ([facility]) 10/14/2016 Deliberate self-cutting 04/25/2013 GERD (gastroesophageal reflux disease) 2022 Hearing loss 2001 conductive, eustaschian tube dysfunction History of substance abuse ([facility]) 07/06/2018 Insomnia, unspecified 2004 Intentional drug overdose ([facility]) 09/05/2015 Ambien, 09/03/2015 Intermittent asthma with reliever use up to twice per week 12/15/2009 PER PROVIDER PROTOCOL. Major depressive disorder, single episode, severe with psychotic features ([facility]) 06/22/2013 ODD (oppositional defiant disorder) 06/22/2013 Parent-child relational problem 06/22/2013 PTSD (post-traumatic stress disorder) 06/22/2013 Social phobia 06/22/2013 Tachycardia 10/25/2019 Tobacco use Past Surgical History: Procedure Laterality Date CARPAL TUNNEL SURGERY Right 02/27/2020 NEUROPLASTY MEDIAN NERVE AT CARPAL TUNNEL performed by Lul Ceballos MD at [facility] CARPAL TUNNEL SURGERY Left 03/07/2020 NEUROPLASTY MEDIAN NERVE AT CARPAL TUNNEL performed by Lul Ceballos MD at [facility] COLONOSCOPY, DIAGNOSTIC (RECTUM) 10/01/2022 normal bx / COLONOSCOPY FLEXIBLE PROXIMAL DIAGNOSTIC performed by John Gould MD at ENDOSCOPY [facility] DENTAL SURGERY PROCEDURE NEC EGD, FLEXIBLE, DIAGNOSTIC 09/09/2022 biopsies normal/ESOPHAGOGASTRODUODENOSCOPY (EGD), FLEXIBLE, TRANSORAL, DIAGNOSTIC performed by Ksenia Multani DO at ENDOSCOPY [facility] REMOVAL OF TONSILS, AGE 12+ 02/16/2017 TONSILLECTOMY PRIMARY OR SECONDARY AGE 12 OR OVER performed by Mike Min II, MD at [facility] UPPER GI ENDOSCOPY Review of [...] with cough and congestion Pt taken to [facility] ED by her father Called ED, gave [...] Description 07/19/2023 11:40 AM EST Office Visit [facility] [address] [facility] [place] [address] Violeta Redding PA-C [address] [facility] [place] [address] 08/23/2023 9:30 AM EST Office Visit Cardiology, [facility] [address] [facility] [place] [address] Brenda Meza CRNP [address] [place] [phone] 09/14/2023 9:00 AM EDT Office Visit Family Practice [facility] [address] [facility] [place] [address] Quincy Clements DO [address] [facility] [place] [address] Pending Results Name Type Priority Associated Diagnoses [...] and were consensually agreed upon. Care Teams Ticket Counter Relationship Specialty Start Date End Date Quincy Clements DO [address] [place] [address] PCP - General Family Medicine 12/02/16 documented as of this encounter
--- OUTSIDE RECORDS SUMMARY | 2023-07-27 02:28 | External Medical Summary | Summary of Care ---
Author Name Unknown Organization [facility] Address [address] [place] [address] Phone [phone] Care Team Providers Care Bar Host/Hostess Name Role Phone KrunalQuincy vincent Han AHUJA Primary Care Provider Reason for Visit * Reason Comments Congestion Chest congestion x 1 week with intermittent coughing Diarrhea Fever Sore Throat Encounter Details Date Type Department Care Team (Latest Contact Info) Description 07/18/2023 12:50 PM EST Convenient Care Visit [facility] [address] [place] [address] Blanca Roldan PA-C [address] [facility] [place] [address] Tachycardia*; Light-headed feeling; Sore throat; URI with [...] 07/16/2022 Active Vitamin D (Ergocalciferol) 1.25 MG (06402 UT) Oral Capsule (Drisdol) Take twice per [...] contraceptive management, unspecified type 150 mg IM [id number] 01/03/2023 12/29/2023 Active documented as of this [...] PPD 11/17/2021 Pneumococcal Conjugate Vacci ne, 20-valent ([id number]) 05/24/2022 Seasonal Influenza Virus Vac cine, Unspecified [...] mL 12 Vitamin D (Ergocalciferol) 1.25 MG (04099 UT) Oral Capsule (Drisdol) Take twice per [...] BY MOUTH EVERY 6 HOURS NEEDED FOR [id number] Tablet 1 Methylphenidate HCl 5 MG Oral [...] (HCC) 10/14/2016 Borderline personality disorder ([facility]) 10/14/2016 Deliberate self-cutting 04/25/2013 GERD (gastroesophageal reflux disease) 2022 Hearing loss 2001 conductive, eustaschian tube dysfunction History of substance abuse ([facility]) 07/06/2018 Insomnia, unspecified 2004 Intentional drug overdose ([facility]) 09/05/2015 Ambien, 09/03/2015 Intermittent asthma with reliever use up to twice per week 12/15/2009 PER PROVIDER PROTOCOL. Major depressive disorder, single episode, severe with psychotic features ([facility]) 06/22/2013 ODD (oppositional defiant disorder) 06/22/2013 Parent-child relational problem 06/22/2013 PTSD (post-traumatic stress disorder) 06/22/2013 Social phobia 06/22/2013 Tachycardia 10/25/2019 Tobacco use Past Surgical History: Procedure Laterality Date CARPAL TUNNEL SURGERY Right 02/27/2020 NEUROPLASTY MEDIAN NERVE AT CARPAL TUNNEL performed by Lul Ceballos MD at [facility] CARPAL TUNNEL SURGERY Left 03/07/2020 NEUROPLASTY MEDIAN NERVE AT CARPAL TUNNEL performed by Lul Ceballos MD at [facility] COLONOSCOPY, DIAGNOSTIC (RECTUM) 10/01/2022 normal bx / COLONOSCOPY FLEXIBLE PROXIMAL DIAGNOSTIC performed by John Gould MD at [facility] DENTAL SURGERY PROCEDURE NEC EGD, FLEXIBLE, DIAGNOSTIC 09/09/2022 biopsies normal/ESOPHAGOGASTRODUODENOSCOPY (EGD), FLEXIBLE, TRANSORAL, DIAGNOSTIC performed by Ksenia Multani DO at [facility] REMOVAL OF TONSILS, AGE 12+ 02/16/2017 TONSILLECTOMY PRIMARY OR SECONDARY AGE 12 OR OVER performed by Mike Min II, MD at [facility] UPPER GI ENDOSCOPY Review of patient's allergies [...] Reviewed xray w pt and appeared unremarkable ASSESSMENT/PLAN: Tachycardia (Primary) Light-headed feeling - EKG; Future; Expected date: 07/18/2023 - XR CHEST 2 VIEWS Sore throat - STREP A SCREEN, POINT OF CARE (ENTER/EDIT) - GROUP A STREP PCR URI with cough and congestion Pt taken to [facility] ED by her father Called ED, gave [...] LPN - 07/18/2023 1:03 PM EST Tricia Calero is a 27 year old [...] 11:40 AM EST Office Visit [facility] [address] [place] [address] Violeta Redding PA-C [address] [place] [address] [address] 08/23/2023 9:30 AM EST Office Visit Cardiology, [facility] [address] [place] [address] Brenda Meza CRNP [address] [place] [phone] 09/14/2023 9:00 AM EDT Office Visit Family Practice [facility] [address] [facility] [place] [address] Quincy Clements DO [address] [facility] [place] [address] Pending Results Name Type Priority Associated Diagnoses [...] Valid? Yes Lot Number [id number] Expiration Date 41 Swab Throat swab / Unknown 07/18/2023 1:45 [...] and were consensually agreed upon. Care Teams Bar Host/Hostess Relationship Specialty Start Date End Date Quincy Clements DO [facility] [place] [address] PCP - General Family Medicine 12/02/16 documented as of this encounter
--- OUTSIDE RECORDS SUMMARY | 2023-07-27 02:28 | External Medical Summary | Summary of Care ---
Author Name Unknown Organization [facility] Address [address] [place] [address] Phone [phone] Care Team Providers Care Stream Control Officer Name Role Phone KrunalQuincy vincent Han AHUJA Primary Care Provider [phone] Reason for Visit * Reason Comments Congestion Chest congestion x 1 week with intermittent coughing Diarrhea Fever Sore Throat Encounter Details Date Type Department Care Team (Latest Contact Info) Description 07/18/2023 12:50 PM EST Convenient Care Visit [facility] [address] [place] [address] Blanca Roldan PA-C [address] [facility] [place] [address] Tachycardia*; Light-headed feeling; Sore throat; URI with [...] 07/16/2022 Active Vitamin D (Ergocalciferol) 1.25 MG (14321 UT) Oral Capsule (Drisdol) Take twice per [...] contraceptive management, unspecified type 150 mg IM [id number] 01/03/2023 12/29/2023 Active documented as of this [...] PPD 11/17/2021 Pneumococcal Conjugate Vacci ne, 20-valent ([id number]) 05/24/2022 Seasonal Influenza Virus Vac cine, Unspecified [...] mL 12 Vitamin D (Ergocalciferol) 1.25 MG (83563 UT) Oral Capsule (Drisdol) Take twice per [...] BY MOUTH EVERY 6 HOURS NEEDED FOR [id number] Tablet 1 Methylphenidate HCl 5 MG Oral [...] 2 disorder (HCC) 10/14/2016 Borderline personality disorder ([facility]) 10/14/2016 Deliberate self-cutting 04/25/2013 GERD (gastroesophageal reflux disease) 2022 Hearing loss 2001 conductive, eustaschian tube dysfunction History of substance abuse ([facility]) 07/06/2018 Insomnia, unspecified 2004 Intentional drug overdose ([facility]) 09/05/2015 Ambien, 09/03/2015 Intermittent asthma with reliever use up to twice per week 12/15/2009 PER PROVIDER PROTOCOL. Major depressive disorder, single episode, severe with psychotic features ([facility]) 06/22/2013 ODD (oppositional defiant disorder) 06/22/2013 Parent-child relational problem 06/22/2013 PTSD (post-traumatic stress disorder) 06/22/2013 Social phobia 06/22/2013 Tachycardia 10/25/2019 Tobacco use Past Surgical History: Procedure Laterality Date CARPAL TUNNEL SURGERY Right 02/27/2020 NEUROPLASTY MEDIAN NERVE AT CARPAL TUNNEL performed by Lul Ceballos MD at [facility] CARPAL TUNNEL SURGERY Left 03/07/2020 NEUROPLASTY MEDIAN NERVE AT CARPAL TUNNEL performed by Lul Ceballos MD at [facility] COLONOSCOPY, DIAGNOSTIC (RECTUM) 10/01/2022 normal bx / COLONOSCOPY FLEXIBLE PROXIMAL DIAGNOSTIC performed by John Gould MD at [facility] DENTAL SURGERY PROCEDURE NEC EGD, FLEXIBLE, DIAGNOSTIC 09/09/2022 biopsies normal/ESOPHAGOGASTRODUODENOSCOPY (EGD), FLEXIBLE, TRANSORAL, DIAGNOSTIC performed by Ksenia Multani DO at [facility] REMOVAL OF TONSILS, AGE 12+ 02/16/2017 TONSILLECTOMY PRIMARY OR SECONDARY AGE 12 OR OVER performed by Mike Min II, MD at [facility] UPPER GI ENDOSCOPY Review of patient's allergies [...] with cough and congestion Pt taken to [facility] ED by her father Called [...] Description 07/19/2023 11:40 AM EST [facility] [place] [address] [place] [address] Violeta Redding PA-C [address] [facility] [place] [address] 08/23/2023 9:30 AM EST Office Visit Cardiology, [facility] [address] [facility] [place] [address] Brenda Meza CRNP [address] [place] [phone] 09/14/2023 9:00 AM EDT Office Visit Family Practice [facility] [address] [facility] [place] [address] Quincy Clements DO [address] [facility] [place] [address] Pending Results Name Type Priority Associated Diagnoses [...] and were consensually agreed upon. Care Teams Stream Control Officer Relationship Specialty Start Date End Date Quincy Clements DO [address] [place] [address] PCP - General Family Medicine 12/02/16 documented as of this encounter
--- OUTSIDE RECORDS SUMMARY | 2023-07-27 02:28 | External Medical Summary | Summary of Care ---
Author Name Unknown Organization [facility] Address [address] [place] [address] Phone [phone] Care Team Providers Care Protective Signal Repairer Helper Name Role Phone Tyree Quincy Han AHUJA Primary Care Provider [phone] Encounter Details Date Type Department Care Team ([facility] st Contact Info) Description 07/18/2023 Orders Only [address] [place] [address] Blanca Roldan PA-C [address] [place] [address] Light-headed feeling Allergies Active Allergy Reactions Criticality Noted Date [...] 07/16/2022 Active Vitamin D (Ergocalciferol) 1.25 MG (61523 UT) Oral Capsule (Drisdol) Take twice per [...] THE DAY. 30 Capsule 5 04/09/2023 Active Hospital, Clinic, or Other Facility Administered Medication Ordered Dose Route Frequency Start Date End Date Status medroxyPROGESTERone (contracep) (Depo-Provera) inj 150 mgIndications:Encounter for contraceptive management, unspecified type 150 mg IM [id number] 01/03/2023 12/29/2023 Active documented as of this [...] PPD 11/17/2021 Pneumococcal Conjugate Vacci ne, 20-valent ([id number]) 05/24/2022 Seasonal Influenza Virus Vac cine, Unspecified [...] Notes * Blanca Roldan PA-C - 07/18/2023 2:33 PM EST error documented in this encounter Plan of Treatment Upcoming Encounters Date Type Department Care Team (Late st Contact Info) Description 07/19/2023 11:40 AM EST Office Visit [facility] [address] [facility] [place] [address] Violeta Redding PA-C [address] [facility] [place] [address] 08/23/2023 9:30 AM EST Office Visit Cardiology, [facility] [address] [facility] [place] [address] Brenda Meza CRNP [address] [facility] [place] [place] [phone] 09/14/2023 9:00 AM EDT Office Visit [facility] [address] [facility] [place] [address] Quincy Clements DO [address] [facility] [place] [address] Health Maintenance Due Date Last Done Comments [...] as of this encounter Visit Diagnoses Diagnosis Light-headed feeling Dizziness and giddiness documented in this encounter Advance Directives Latest Code Status on File Code Status Date Activated Date Inactivated Comments Full Code 03/09/2014 8:05 PM 03/12/2014 1:47 PM This order reflects the patients wishes and were consensually agreed upon. Care Teams Protective Signal Repairer Helper Relationship Specialty Start Date End Date Quincy Clements DO [address] [place] [address] PCP - General Family Medicine 12/02/16 documented as of this encounter
--- OUTSIDE RECORDS SUMMARY | 2023-07-27 02:28 | External Medical Summary ---
Author Name Unknown Address Unknown Organization K01:[facility] [place] [address] [place] [address] [address]. [facility] [id number] Laboratory Report Ordering Provider Test Date Status PARAM DELA CRUZ 07/18/2023 14:27:53 Final Observation Date Value Abnormality Reference (Units) Status Streptococcus pyogenes DNA [Presence] in Throat by ANEL with probe detection 07/18/2023 14:27:53 Negative. No Group A Streptococcus detected by PCR (amplified probe). Negative Final This test was developed and its performance characteristics determined by [facility]. It has not been cleared or approved by the FDA. The laboratory is regulated under CLIA as qualified to perform high- complexity testing. This test is used for clinical purposes. It should not be regarded as investigational or for research. Performing Location [facility] [address] [address]
--- NOTE | 2023-07-27 05:30 | History & Physical Report ---
Date of Service July 26, 2023 Assessment & Plan (1) Nausea, vomiting and diarrhea: Plan: 27-year-old female with past medical history significant for intermittent asthma, POTS, B12 deficiency, vitamin D deficiency, bilateral carpal tunnel syndrome, bipolar 2 disorder, PTSD, ADHD, social phobia, oppositional defiant disorder, depression, history of suicide attempt by drug ingestion, intentional drug overdose, borderline personality disorder, history of substance abuse presents with ongoing abdominal pain nausea and vomiting for about a week now. Patient was in the ER on 04/[address] scan showed gallbladder wall thickening possibly from underdistention. She was sent home with antibiotic for possible UTI. Followed up with PCP and abdominal ultrasound done which showed mild gallbladder adenomyomatosis and mild ascites. Ult rasound was reviewed by GI and thought that there was no ascites. And recommended to get a CT scan to get better picture and also HIDA scan and to check for ESR, CRP, ANCA, SUNIL and ASMA to rule out vasculitis and also to rule out pelvic inflammatory disease.. And advised if CT scan shows no ascites no further workup needed. The patient's abdomen pain is not getting better she came to the ER today. Says having lot of nausea vomiting. She has small amount of blood in the stools but she attributes it to her hemorrhoids. Having severe abdominal pain radiating to back. . Not able to eat anything. Whenever she tries to eat abdominal pain gets worse. Denies any fevers. She has some shortness of breath and chest tightness and attributes to her asthma. No headache. Vision is okay. No runny nose or sore throat. Micturating okay. Hemodynamics are okay. 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 rule out PID GI consulted POTS On ivabradine Will follow EKG for any QT prolongation as EKG done on July 18 4 had a Q Tc of 544 and avoid QT prolonging drugs Bipolar 2 disorder, ADHD, PTSD, Borderline personality disorder On lithium, Lexapro, Ritalin Ativan as needed DVT prophylaxis SCDs Disposition Medical floor Full code History of Present Illness Chief Complaint: Abdominal pain Primary Care Provider: Quincy Clements DO 27-year-old female with past medical history significant for intermittent asthma, POTS, B12 deficiency, vitamin D deficiency, bilateral carpal tunnel syndrome, bipolar 2 disorder, PTSD, ADHD, social phobia, oppositional defiant disorder, depression, history of suicide attempt by drug ingestion, intentional drug overdose, borderline personality disorder, history of substance abuse presents with ongoing abdominal pain ,nausea and vomiting for about a week now. Patient was in the ER on 04/17 [address] scan showed gallbladder wall thickening possibly from underdistention. She was sent home with antibiotic for possible UTI. Followed up with PCP and abdominal ultrasound done which showed mild gallbladder adenomyomatosis and mild ascites. Ultrasound was reviewed by GI and thought that there was no ascites. And recommended to get a CT scan to get better picture and also HIDA scan and to check for ESR, CRP, ANCA, SUNIL and ASMA to rule out vasculitis and also to rule out pelvic inflammatory disease.. And advised if CT scan shows no ascites no further workup needed. The patient's abdomen pain is not getting better she came to the ER today. Says having lot of nausea vomiting. She has small amount of blood in the stools but she attributes it to her hemorrhoids. Having severe abdominal pain radiating to back. . Not able to eat anything. Whenever she tries to eat abdominal pain gets worse. Denies any fevers. She has some shortness of breath and chest tightness and attributes to her asthma. No headache. Vision is okay. No runny nose or sore throat. Micturating okay. Hemodynamics are okay. Past medical history. As mentioned above Past surgical history. Bilateral carpal tunnel surgery. Colonoscopy. Dental specialty. EGD. Tonsillectomy. Upper GI endoscopy. Social history. Quit smoking in 2019. Smokes quarter pack a day for 6 years. No alcohol use. No drug use. Family history. Mother had irritable bowel syndrome. Allergies Allergy/AdvReac Type Severity Reaction Status Date / Time doxycycline Allergy Unknown Unknown Verified 07/18/23 18:15 haloperidol [From Haldol] Allergy Unknown Unknown Verified 07/18/23 18:15 prednisone AdvReac Severe Makes Verified 07/18/23 18:15 mentally unstale bupropion AdvReac Intermediate Muscle Verified 07/18/23 18:15 stiffness clindamycin AdvReac Intermediate VOMIT Verified 07/18/23 18:15 prochlorperazine AdvReac Intermediate NUMB AND Verified 07/18/23 18:15 TINGLY FEELING UNABLE TO MOVE topiramate AdvReac Intermediate Muscle Verified 07/18/23 18:15 stiffness Penicillins AdvReac Unknown Family Verified 07/18/23 18:15 history Home Medications Medication Instructions Recorded Confirmed Type escitalopram oxalate 20 mg tablet 20 mg PO DAILY 12/07/22 07/26/23 History (Lexapro) gabapentin 300 mg capsule 300 mg PO TID 12/07/22 07/26/23 History (Neurontin) levalbuterol HCl 1.25 mg/3 mL 1.25 mg inhalation Q4H PRN Wheezing 12/07/22 07/26/23 History solution for nebulization methylphenidate HCl 5 mg tablet 5 mg PO BID 12/07/22 07/26/23 History (Ritalin) omeprazole 40 mg capsule,delayed 40 mg PO DAILY 12/07/22 07/26/23 History release ivabradine 5 mg tablet (Corlanor) 5 mg PO DAILY 03/31/23 07/26/23 History acetaminophen 500 mg tablet 500 mg PO Q6H PRN pain/fever 07/18/23 07/26/23 History diphenhydramine HCl 25 mg tablet 25 mg PO HS PRN Sleep 07/18/23 07/26/23 History (Benadryl Allergy) lithium carbonate 300 mg tablet See Rx Instructions .Route .COMPLEX 07/18/23 07/26/23 History lorazepam 1 mg tablet 1 mg PO DAILY PRN Anxiety 07/18/23 07/26/23 History medroxyprogesterone 150 mg/mL 150 mg IM .[id number] 07/18/23 07/26/23 History intramuscular syringe zolpidem 5 mg tablet 5 mg PO HS PRN Sleep 07/18/23 07/26/23 History Past Med/Surg History Medical History (Updated 07/26/23 @ 21:33 by LETY De Leon) Drug overdose, intentional Acute psychosis Asthma Previous known suicide attempt Methamphetamine abuse Opiate abuse, continuous Alcohol abuse Benzodiazepine abuse Cocaine abuse UTI (urinary tract infection) Right ankle pain Post-op pain Borderline personality disorder Bipolar 1 disorder, depressed, moderate History of suicide attempt H/O aspiration pneumonitis Social phobia ODD (oppositional defiant disorder) ADHD (attention deficit hyperactivity disorder) PTSD (post-traumatic stress disorder) Asthma Surgical History [place] teeth removed Family History Other No pertinent family history in first degree relatives Social History Smoking Status: Current every day smoker Tobacco Type: E-cigarettes / Vaping Second Hand Exposure: No; Do You Dip or Chew Tobacco: No; Tobacco Cessation Education Requested by Patient: No Hx Alcohol Use: No Hx Substance Use: Yes Last Used Substance: Just Prior to Arrival Preferred Language: Salvadorean Communication Ability: Effective Communication Ability Comment: KANDY Visual Impairment: No Limitations Hearing Ability: Normal 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 Head- atraumatic Eyes- PERRL. ENT- oropharynx clear Neck- supple, no JVD. Lungs- clear to auscultation no wheezing or crackles. Heart- regular rhythm; no murmur, no gallop. Abdomen- normal bowel sounds, soft, diffuse tender mild guarding no distension. Extremities- no pretibial edema, no erythema seen. Neuro- alert, oriented x 3; PERRL, no facial palsy; no dysarthria; moves extremities. Results & Data Results & Data Vital Signs (Past 12 Hours) Vital Signs Temp Pulse Pulse Resp BP BP Pulse Ox 07/26/23 19:04 90 17 114/74 99 07/26/23 17:01 104 H 17 117/89 99 07/26/23 14:18 36.8 C 113 H 18 114/80 98 O2 Del Method 07/26/23 19:04 Room Air 07/26/23 17:01 Room Air 07/26/23 14:18 Room Air Diagnostic Findings Laboratory Results WBC 7.12 K/ul (4.8-10.8) 07/26/23 14:31 RBC 4.91 M/uL (4.20-5.40) 07/26/23 14:31 Hgb 14.1 g/dl (12.0-16.0) 07/26/23 14:31 Hct 42.3 % (37.0-47.0) 07/26/23 14:31 MCV 86.2 fL (80.0-100.0) 07/26/23 14:31 MCH 28.7 pg (25.0-34.0) 07/26/23 14:31 MCHC 33.3 g/dL (32.0-36.0) 07/26/23 14:31 RDW Std Deviation 39.8 fL (36.4-46.3) 07/26/23 14:31 RDW Coeff of Dov 12.7 % (11.5-14.5) 07/26/23 14:31 Plt Count 247 K/uL (130-400) 07/26/23 14:31 MPV 10.7 fL (9.4-12.4) 07/26/23 14:31 Immature Gran % (Auto) 0.3 % 07/26/23 14:31 Neut % (Auto) 56.1 % 07/26/23 14:31 Lymph % (Auto) 37.1 % 07/26/23 14:31 [place] % (Auto) 5.5 % 07/26/23 14:31 Eos % (Auto) 0.6 % 07/26/23 14:31 Baso % (Auto) 0.4 % 07/26/23 14:31 Neut # (Auto) 4.00 K/uL (1.40-6.50) 07/26/23 14:31 Lymph # (Auto) 2.64 K/uL (1.20-3.40) 07/26/23 14:31 [place] # (Auto) 0.39 K/uL (0.11-0.59) 07/26/23 14:31 Eos # (Auto) 0.04 K/uL (0.00-0.50) 07/26/23 14:31 Baso # (Auto) 0.03 K/uL (0.00-0.20) 07/26/23 14:31 Immature Gran # (Auto) 0.02 K/uL (0.01-0.20) 07/26/23 14:31 Sodium 139 mmol/L (136-145) 07/26/23 14:31 Potassium 3.3 mmol/L (3.5-5.1) L 07/26/23 14:31 Chloride 105 mmol/L (98-107) 07/26/23 14:31 Carbon Dioxide 20 mmol/L (21-32) L 07/26/23 14:31 Anion Gap 14 (3-11) H 07/26/23 14:31 BUN 18 mg/dl (6-23) 07/26/23 14:31 Creatinine 0.69 mg/dl (0.6-1.2) 07/26/23 14:31 Est Cr Clr Drug Dosing Not Reportable 07/26/23 14:31 Est GFR ( Amer) 139.2 ml/min 07/26/23 14:31 Est GFR (Non-Af Amer) 120.1 ml/min 07/26/23 14:31 BUN/Creatinine Ratio 26.1 (10-20) H 07/26/23 14:31 Glucose 89 mg/dl (70-99(Fasting)) 07/26/23 14:31 Calcium 9.3 mg/dl (8.6-10.3) 07/26/23 14:31 Total Bilirubin 0.6 mg/dl (0.2-1.0) 07/26/23 14:31 AST 13 U/L (13-39) 07/26/23 14:31 ALT 7 U/L (7-52) 07/26/23 14:31 Alkaline Phosphatase 30 U/L (34-104) L 07/26/23 14:31 Total Protein 7.6 gm/dl (6.0-8.3) 07/26/23 14:31 Albumin 4.8 gm/dl (3.4-5.0) 07/26/23 14:31 Globulin 2.8 gm/dl (2.5-4.0) 07/26/23 14:31 Albumin/Globulin Ratio 1.7 (0.9-2) 07/26/23 14:31 Lipase 14 U/L (11-82) 07/26/23 14:31 HCG, Qual Negative (Negative) 07/26/23 14:31 Urine Color Dark Yellow 07/26/23 15:39 Urine Appearance Clear (Clear) 07/26/23 15:39 Urine pH 5.5 (4.5-7.5) 07/26/23 15:39 Ur Specific [place] 1.028 (1.000-1.030) 07/26/23 15:39 Urine Protein 2+ (Negative) H 07/26/23 15:39 Urine Glucose (UA) Negative (Negative) 07/26/23 15:39 Urine Ketones 2+ (Negative) H 07/26/23 15:39 Urine Blood Negative (Negative) 07/26/23 15:39 Urine Nitrite Negative (Negative) 07/26/23 15:39 Urine Bilirubin Negative (Negative) 07/26/23 15:39 Urine Urobilinogen Negative (Negative) 07/26/23 15:39 Ur Leukocyte Esterase Negative (Negative) 07/26/23 15:39 Urine WBC (Auto) 1-5 /hpf (0-5) 07/26/23 15:39 Urine RBC (Auto) 0-4 /hpf (0-4) 07/26/23 15:39 U Hyaline Cast (Auto) 5-10 /lpf (0-5) H 07/26/23 15:39 U Epithel Cells (Auto) >30 /lpf (0-5) H 07/26/23 15:39 Urine Bacteria (Auto) Negative (Negative) 07/26/23 15:39 Stl C. cayetanensis PCR Not Detected (NotDetected) 07/27/23 00:35 Stool Rotavirus A PCR Not Detected (NotDetected) 07/27/23 00:35 Stl Adenov F 40/41 PCR Not Detected (NotDetected) 07/27/23 00:35 Stool Astrovirus (PCR) Not Detected (NotDetected) 07/27/23 00:35 Stool Campylobacter PCR Not Detected (NotDetected) 07/27/23 00:35 Stl C. diff Tox B Gene Cancelled 07/27/23 00:35 Stool Cryptosporidium PCR Not Detected (NotDetected) 07/27/23 00:35 Stl E.coli Shiga Tox PCR Not Detected (NotDetected) 07/27/23 00:35 Stl Enterotoxigenic E PCR Not Detected (NotDetected) 07/27/23 00:35 Stool EPEC (PCR) Not Detected (NotDetected) 07/27/23 00:35 Stool EAEC (PCR) Not Detected (NotDetected) 07/27/23 00:35 Stl E. histolytica PCR Not Detected (NotDetected) 07/27/23 00:35 Stool Giardia Lamblia PCR Not Detected (NotDetected) 07/27/23 00:35 Stool Salmonella PCR Not Detected (NotDetected) 07/27/23 00:35 Stool Sapovirus (PCR) Not Detected (NotDetected) 07/27/23 00:35 Stl P. shigelloides PCR Not Detected (NotDetected) 07/27/23 00:35 Stl Shigella/EIEC PCR Not Detected (NotDetected) 07/27/23 00:35 St Y.enterocolitica PCR Not Detected (NotDetected) 07/27/23 00:35 Stool Vibrio (PCR) Not Detected (NotDetected) 07/27/23 00:35 Stl Vibrio cholerae PCR Not Detected (NotDetected) 07/27/23 00:35 Stl Norovirus GI/GII PCR Not Detected (NotDetected) 07/27/23 00:35 Urine Opiates Screen Pos (Neg) H 07/27/23 00:35 Ur Methadone, Qual Neg (Neg) 07/27/23 00:35 Urine Barbiturates Neg (Neg) 07/27/23 00:35 Ur Phencyclidine (PCP) Neg (Neg) 07/27/23 00:35 U Amphetamin/Meth Scrn Neg (Neg) 07/27/23 00:35 MDMA (Ecstasy) Screen Neg (Neg) 07/27/23 00:35 U Benzodiazepines Scrn Neg (Neg) 07/27/23 00:35 Brilliant < 0.1 mmol/L (0.6-1.2) L 07/26/23 17:35 Ur Cocaine Metabolite Neg (Neg) 07/27/23 00:35 U Marijuana (THC) Screen Pos (Neg) H 07/27/23 00:35 Ethyl Alcohol mg/dL < 10.0 mg/dl (<10.0) 07/26/23 17:35 Impressions Chest X-Ray 07/26/23 16:53 XR chest 1V portable HISTORY: right lower chest, right upper quadrant pain COMPARISON: Chest 07/18/2023. FINDINGS: The lungs are clear. Cardiac silhouette is normal in size. No pleural effusions. No pneumothorax. IMPRESSION: No acute process. ACT 112: Negative or not required by law. Electronically signed by: Nixon North M.D. 07/26/2023 5:27 PM Abdomen/Pelvis CT 07/26/23 17:[address] WITH IV CONTRAST CT DOSE: HISTORY: right lower chest/right upper abdominal pain TECHNIQUE: Multiaxial CT images of the abdomen and pelvis were performed following the use of intravenous contrast. A dose lowering technique was ut ilized adhering to the principles of ALARA. COMPARISON STUDY: Abdomen and pelvis CT 07/18/2023. FINDINGS: The lung bases are clear. No pneumoperitoneum. No pneumatosis. No acute fractures identified. Stable subcentimeter hypodense focus within the right hepatic lobe. This favors a small cyst. The main portal vein is patent. The gallbladder is unremarkable. The pancreas, spleen, adrenal glands, and kidneys enhance normally. No hydronephrosis. No perinephric inflammatory change. Stable punctate calcifications within the right deep pelvis. These favor phleboliths. No retroperitoneal lymphadenopathy. Normal caliber abdominal aorta. Mild bladder wall thickening. This may be due to underdistention. The uterus and ovaries are unremarkable. No pelvic free fluid. No bowel wall thickening or obst ruction. Normal appendix. IMPRESSION: 1. No significant change compared to the prior study. 2. Mild bladder wall thickening which could be due to underdistention. Recommend correlation with urinalysis to exclude a cystitis. 3. No bowel wall thickening or obstruction. 4. Normal appendix. ACT 112: Negative or not required by law. Electronically signed by: Nixon North M.D. 07/26/2023 6:02 PM Chest CTA 07/26/23 17:21 CHEST CTA for PULMONARY ARTERIES CT DOSE: 625.83 mGy.cm HISTORY: right lower chest/right upper abdominal pain TECHNIQUE: Multiaxial CT images of the chest were performed following the intravenous administration of contrast to evaluate the pulmonary arteries. 3D/Maximal intensity projection images were also obtained. Sagittal and coronal reformations were also reviewed. A dose lowering technique was utilized adhering to the principles of ALARA. COMPARISON STUDY: Chest CT 12/13/2019. FINDINGS: There is a normal caliber thoracic aorta with no evidence for dissection. There is no evidence for pulmonary embolus. No pleural effusions. No pneumothorax. The liver and spleen are unremarkable. No mediastinal or hilar ly mphadenopathy. The central airways are patent. The lungs are clear. IMPRESSION: No evidence for a pulmonary embolus. ACT 112: Negative or not required by law. Electronically signed by: Nixon North M.D. 07/26/2023 5:57 PM Code Status & VTE Plan VTE Prophylaxis Plan VTE Prophylaxis will be ordered: Yes
[2023-07-27] MEDS: ACETAMINOPHEN 1,000 MG/100 ML VIAL IV STA (05:38)
[2023-07-27 05:58] LABS: Hematocrit (blood only) 36.7 % (37.0-47.0); Hemoglobin 12.2 g/dl (12.0-16.0); Mean Corpuscular Hemoglobin 28.8 pg (25.0-34.0); Mean Corpuscular Hgb Conc 33.2 g/dL (32.0-36.0); Mean Corpuscular Volume 86.6 fL (80.0-100.0); Mean Platelet Volume 10.8 fL (9.4-12.4); Platelet Count 170 K/uL (130-400); RDW Coefficient of Variation 12.6 % (11.5-14.5); RDW Standard Deviation 39.7 fL (36.4-46.3); Red Blood Count 4.24 M/uL (4.20-5.40); White Blood Count 4.95 K/ul (4.8-10.8)
[2023-07-27 06:15] LABS: Anion Gap 5 (3-11); BUN Creatinine Ratio 14.8 (10-20); Blood Urea Nitrogen 8 mg/dl (6-23); C Reactive Protein < 0.50 mg/dl (0-0.5); Calcium 8.1 mg/dl (8.6-10.3); Carbon Dioxide 23 mmol/L (21-32); Chloride 110 mmol/L (98-107); Est GFR (African American) > 150.0 ml/min; Est GFR (Non-African American) 130.2 ml/min; Glucose 88 mg/dl (70-99(Fasting)); Magnesium 1.9 mg/dl (1.7-2.4); Potassium 3.5 mmol/L (3.5-5.1); Sodium 138 mmol/L (136-145)
[2023-07-27 06:35] LABS: Basophils # (auto) 0.03 K/uL (0.00-0.20); Basophils % (auto) 0.6 %; Eosinophils # (auto) 0.09 K/uL (0.00-0.50); Eosinophils % (auto) 1.8 %; Immature Granulocytes # (auto) 0.01 K/uL (0.01-0.20); Immature Granulocytes % (auto) 0.2 %; Lymphocytes % (auto) 50.5 %; Monocytes # (auto) 0.37 K/uL (0.11-0.59); Monocytes % (auto) 7.5 %; Neutrophils # (auto) 1.95 K/uL (1.40-6.50); Neutrophils % (auto) 39.4 %
[2023-07-27] MEDS: ESCITALOPRAM OXALATE 20 MG TAB PO SCH (07:58)
[2023-07-27] MEDS: LORazepam 1 MG TAB PO PRN (08:08)
[2023-07-27] MEDS: METHYLPHENIDATE HCL 5 MG TABLET PO SCH (08:08)
--- NOTE | 2023-07-27 08:32 | Gastrointestinal Consultation ---
Date of Consultation July 27, 2023 Assessment & Plan (1) Nausea, vomiting and diarrhea: (2) Intractable abdominal pain: Pt is a 27 yo female seen for post prandial abd pain, n/v, diarrhea symptoms. Stool studies negative. + opiates, marijuana on tox screen. Hcg negative. EGD, Colonoscopy 1 year ago unremarkable. DDx: lithium side effect, hyperemesis syndrome from cannabis use, gastritis, PUD, IBS, biliary dyskinesia, overflow diarrhea secondary to constipation. - NPO for EGD eval this morning by Dr. Ksenia Multani - PPI daily - Check fecal elastase given weight loss, reports of oily stools - Dicyclomine 10mg BID prn abd pain/cramping - Daily fiber and Colace 100mg BID to prevent constipation - Avoid NSAIDs, ETOH, marijuana products - ? cystitis noted on CT: recommend Urology consult Plan The patient had presented with nausea and vomiting, imaging does reveal a large amount of stool in the colon and likely fecal impaction. We could certainly provide endoscopic evaluation with upper endoscopy to ensure that were not missing for process such as peptic ulcer disease. Another possible cause of the patient's symptoms could be related to one of her medications or any cannabis consumption. We did discuss the risks of upper endoscopy to include bleeding infection perforation pain and need for follow-up studies. Recommendation: EGD today If EGD negative would suggest a fleets enema x 2 then use of Miralax 17 gm bid for 2 weeks then 1 time daily thereafter Abstinance for cannnibis consumption History of Present Illness Reason for Consultation: Abd pain, n/v, diarrhea Requesting Physician: Dr. Ignacio Dewey Attending Physician: Dr. Ksenia Multani History of Present Illness Pt is a 27 yo female w PMHx of asthma, POTS, B12, Vit D deficiencies, multiple psych disorders including bipolar, depression, hx of suicide attempt, substance abuses, who presented w abd pain n/v and alternating diarrhea/constipation symptoms. She has hematochezia, stools may float and sometimes appear oily. She also noticed weight loss - reports 140lbs 1 year ago. Using marijuana as it helped her appetite. She reports pain on epigastric area after eating, also lower pelvic pain but denies dysuria. She was recently in ED, noted to have possible UTI and given antibx but states symptoms aren't improved. OP GI Ask-A-Doc initiated by PCP and reviewed by Dr. Hardy for gallbladder adenomyomatosis and mild ascites. Further workup for autoimmune markers, CT, HIDA scan recommended but not completed yet. Workup on admission wo leukocytosis, anemia, LFTs and lipase normal. + urine protein and ketones, stool studies negative. Utox + for opiates and marijuana. [place] level <0.1. She started [place] [address] abd/pelvis: 1. No significant change compared to the prior study. 2. Mild bladder wall thickening which could be due to underdistention. Recommend correlation with urinalysis to exclude a cystitis. 3. No bowel wall thickening or obstruction. 4. Normal appendix. Admits to vaping tobacco, marijuana. Denies ETOH, NSAIDs. Denies family hx of IBD. Grandmother had ? gastrectomy for unknown reasons. Pt had EGD and colonoscopy in 2022 - no signs of celiac disease, IBD. Allergies Allergy/AdvReac Type Severity Reaction Status Date / Time doxycycline Allergy Unknown Unknown Verified 07/18/23 18:15 haloperidol [From Haldol] Allergy Unknown Unknown Verified 07/18/23 18:15 prednisone AdvReac Severe Makes Verified 07/18/23 18:15 mentally unstale bupropion AdvReac Intermediate Muscle Verified 07/18/23 18:15 stiffness clindamycin AdvReac Intermediate VOMIT Verified 07/18/23 18:15 prochlorperazine AdvReac Intermediate NUMB AND Verified 07/18/23 18:15 TINGLY FEELING UNABLE TO MOVE topiramate AdvReac Intermediate Muscle Verified 07/18/23 18:15 stiffness Penicillins AdvReac Unknown Family Verified 07/18/23 18:15 history Home Medications Medication Instructions Recorded Confirmed Type escitalopram oxalate 20 mg tablet 20 mg PO DAILY 12/07/22 07/26/23 History (Lexapro) gabapentin 300 mg capsule 300 mg PO TID 12/07/22 07/26/23 History (Neurontin) levalbuterol HCl 1.25 mg/3 mL 1.25 mg inhalation Q4H PRN Wheezing 12/07/22 07/26/23 History solution for nebulization methylphenidate HCl 5 mg tablet 5 mg PO BID 12/07/22 07/26/23 History (Ritalin) omeprazole 40 mg capsule,delayed 40 mg PO DAILY 12/07/22 07/26/23 History release ivabradine 5 mg tablet (Corlanor) 5 mg PO DAILY 03/31/23 07/26/23 History acetaminophen 500 mg tablet 500 mg PO Q6H PRN pain/fever 07/18/23 07/26/23 History diphenhydramine HCl 25 mg tablet 25 mg PO HS PRN Sleep 07/18/23 07/26/23 History (Benadryl Allergy) lithium carbonate 300 mg tablet See Rx Instructions .Route .COMPLEX 07/18/23 07/26/23 History lorazepam 1 mg tablet 1 mg PO DAILY PRN Anxiety 07/18/23 07/26/23 History medroxyprogesterone 150 mg/mL 150 mg IM .[id number] 07/18/23 07/26/23 History intramuscular syringe zolpidem 5 mg tablet 5 mg PO HS PRN Sleep 07/18/23 07/26/23 History Patient History Medical History Drug overdose, intentional Acute psychosis Asthma Previous known suicide attempt Methamphetamine abuse Opiate abuse, continuous Alcohol abuse Benzodiazepine abuse Cocaine abuse UTI (urinary tract infection) Right ankle pain Post-op pain Borderline personality disorder Bipolar 1 disorder, depressed, moderate History of suicide attempt H/O aspiration pneumonitis Social phobia ODD (oppositional defiant disorder) ADHD (attention deficit hyperactivity disorder) PTSD (post-traumatic stress disorder) Asthma Surgical History [place] teeth removed Family History Other No pertinent family history in first degree relatives Social History Smoking Status: Current every day smoker Tobacco Type: E-cigarettes / Vaping Second Hand Exposure: No; Do You Dip or Chew Tobacco: No; Tobacco Cessation Education Requested by Patient: No Hx Alcohol Use: No Hx Substance Use: Yes Last Used Substance: Just Prior to Arrival Preferred Language: Sami Communication Ability: Effective Communication Ability Comment: KANDY Visual Impairment: No Limitations Hearing Ability: Normal Coagulating Bath Mixer Required: No Beliefs That Will Affect Care: None marital status: Single Current Living Situation: Parent current occupational status: employed How many Children do You have: 0 Other Information That Helps Us Care for You: No Feels Safe at Home: Yes Safety Concerns: Feels Safe At This Time Gender Identity: Female Assistive Devices: None Review of Systems Review of Systems: All systems reviewed & are unremarkable except as noted in HPI & below Physical Exam Constitutional: WD/WN, vitals as above well groomed, cooperative and comfortable Eyes: PERRL, conjunctivae normal, anicteric sclerae ENMT: external ear and nose normal, oropharynx normal Respiratory: normal respiratory effort, lungs clear to auscultation Cardiovascular: RRR, no murmur, no edema Gastrointestinal (Abdomen): Soft, TTP epigastric, BS hypoactive Skin: no rashes, warm and dry no jaundice Neurologic: Motor/Sensory: no asterixis Psychiatric: A+Ox3, euthymic affect Lymphatic: no lymphedema Results & Data Vital Signs (Past 12 Hours) Vital Signs Temp Pulse Resp BP Pulse Ox O2 Del Method 07/27/23 08:16 36.8 C 60 16 106/69 98 Room Air 07/26/23 22:05 36.9 C 74 18 118/76 97 Room Air
--- NOTE | 2023-07-27 10:06 | Anesthesiology Consultation ---
Date of Service July 27, 2023 Assessment & Plan ASA ASA3 Proposed Anesthesia Anesthesia Type: MAC Risk / Benefits Reviewed With: PT / POA / Parent / Guardian, Accepts Plan and Informed Consent Obtained History Surgery Operation Date: 07/27/23 16:45 Proposed Procedures p Esophagogastroduodenoscopy Dr Rangel Multani, DO Height/Weight Height: 5 ft 6 in Weight: 52.163 kg Allergies Allergy/AdvReac Type Severity Reaction Status Date / Time doxycycline Allergy Unknown Unknown Verified 07/18/23 18:15 haloperidol [From Haldol] Allergy Unknown Unknown Verified 07/18/23 18:15 prednisone AdvReac Severe Makes Verified 07/18/23 18:15 mentally unstale bupropion AdvReac Intermediate Muscle Verified 07/18/23 18:15 stiffness clindamycin AdvReac Intermediate VOMIT Verified 07/18/23 18:15 prochlorperazine AdvReac Intermediate NUMB AND Verified 07/18/23 18:15 TINGLY FEELING UNABLE TO MOVE topiramate AdvReac Intermediate Muscle Verified 07/18/23 18:15 stiffness Penicillins AdvReac Unknown Family Verified 07/18/23 18:15 history Medications Home Medications Medication Instructions Recorded Confirmed Last Taken escitalopram oxalate 20 mg tablet 20 mg PO DAILY 12/07/22 07/26/23 07/26/23 (Lexapro) gabapentin 300 mg capsule 300 mg PO TID 12/07/22 07/26/23 07/26/23 (Neurontin) levalbuterol HCl 1.25 mg/3 mL 1.25 mg inhalation Q4H PRN Wheezing 12/07/22 07/26/23 Unknown solution for nebulization methylphenidate HCl 5 mg tablet 5 mg PO BID 12/07/22 07/26/23 07/26/23 (Ritalin) omeprazole 40 mg capsule,delayed 40 mg PO DAILY 12/07/22 07/26/23 07/26/23 release ivabradine 5 mg tablet (Corlanor) 5 mg PO DAILY 03/31/23 07/26/23 07/26/23 acetaminophen 500 mg tablet 500 mg PO Q6H PRN pain/fever 07/18/23 07/26/23 Unknown diphenhydramine HCl 25 mg tablet 25 mg PO HS PRN Sleep 07/18/23 07/26/23 Unknown (Benadryl Allergy) lithium carbonate 300 mg tablet See Rx Instructions .Route .COMPLEX 07/18/23 07/26/23 07/26/23 lorazepam 1 mg tablet 1 mg PO DAILY PRN Anxiety 07/18/23 07/26/23 Unknown medroxyprogesterone 150 mg/mL 150 mg IM .[id number] 07/18/23 07/26/23 Unknown intramuscular syringe zolpidem 5 mg tablet 5 mg PO HS PRN Sleep 07/18/23 07/26/23 Unknown Active Medications Generic Name Dose Route Start Last Admin Trade Name Phyllis PRN Reason Stop Dose Admin Escitalopram Oxalate 20 mg 07/27/23 09:00 07/27/23 07:58 Escitalopram Oxalate 20 Mg Tab PO 08/26/23 08:59 20 mg DAILY ADRIANNA Administration Gabapentin 300 mg 07/26/23 22:24 07/27/23 07:58 Gabapentin 300 Mg Cap PO 08/25/23 22:23 300 mg TID ADRIANNA Administration Pantoprazole Sodium 40 mg/ 10 mls @ 5 mls/min 07/26/23 22:24 07/27/23 08:00 Syringe IV 08/25/23 22:23 5 mls/min BID ADRIANNA Administration Dextrose/Sodium Chloride 1,000 mls @ 125 mls/hr 07/26/23 22:24 07/27/23 05:14 D5w And Nss IV 08/25/23 22:23 125 mls/hr .Q8H ADRIANNA Administration [place] Carbonate 600 mg 07/26/23 22:45 07/27/23 07:59 [place] Carbonate 300 Mg Tab PO 08/25/23 22:44 600 mg BID ADRIANNA Administration Lorazepam 1 mg 07/26/23 22:24 07/27/23 08:08 Lorazepam 1 Mg Tab PO 08/25/23 22:23 1 mg DAILY PRN Administration Anxiety Methylphenidate HCl 5 mg 07/27/23 08:00 07/27/23 08:08 Methylphenidate Hcl 5 Mg Tablet PO 08/10/23 07:59 5 mg BID@0800,1400 ADRIANNA Administration Miscellaneous 1 each 07/26/23 21:00 07/26/23 23:03 Remove Lidoderm Patch N/A 08/25/23 20:59 1 each DAILY@2100 ADRIANNA Administration Miscellaneous 1 each 07/26/23 22:45 07/27/23 08:09 Corlanor~Order Awaiting Action N/A 08/25/23 22:44 Not Given QS ADRIANNA Morphine Sulfate 3 mg 07/26/23 22:24 07/26/23 23:16 Morphine Sulfate 4 Mg/Ml 1 Ml Carp\Vial IV 08/09/23 22:23 3 mg Q4H PRN Administration Pain Zolpidem Tartrate 5 mg 07/26/23 22:24 07/26/23 23:16 Zolpidem Tartrate 5 Mg Tab PO 08/25/23 22:23 5 mg HS PRN Administration Sleep if Benadryl ineffective NPO Date Last Intake of Fluids: 07/27/23 Time Last Intake of Fluids: 07:30 Date Last Intake of Solids: 07/25/23 Time Last Intake of Solids: 13:00 Past Medical History Medical History Drug overdose, intentional Acute psychosis Asthma Previous known suicide attempt Methamphetamine abuse Opiate abuse, continuous Alcohol abuse Benzodiazepine abuse Cocaine abuse UTI (urinary tract infection) Right ankle pain Post-op pain Borderline personality disorder Bipolar 1 disorder, depressed, moderate History of suicide attempt H/O aspiration pneumonitis Social phobia ODD (oppositional defiant disorder) ADHD (attention deficit hyperactivity disorder) PTSD (post-traumatic stress disorder) Asthma Exercise / Class Metabolic Activity II 4-5 Yardwork/Stairs/Walk up hill Past Family History Family History Other No pertinent family history in first degree relatives Past Surgical History Surgical History Clyo teeth removed Past Anesthesia History No Hx of Anesthesia Complications and No Family Hx of Anesthesia Complications History of PONV No Hx of PONV and No Hx of Motion Sickness Social History Smoking Status: Current every day smoker tobacco type: e-cigarettes Do You Dip or Chew Tobacco: No Hx Alcohol Use: No Alcohol type: beer, wine and hard liquor alcohol intake frequency: a few times a week Hx Substance Use: Yes substance use type: marijuana Last Used Substance: Just Prior to Arrival Review of Systems denies fever/cough/ colds/ chest pain/ SOB/ KACY denies KACY Physical Exam Vital Signs Last Vital Signs Temp 36.9 C 07/27/23 10:01 Pulse 67 07/27/23 10:01 Resp 18 07/27/23 10:01 BP 102/77 07/27/23 10:01 Pulse Ox 99 07/27/23 10:01 O2 Del Method Room Air 07/27/23 10:01 ENMT Mouth: + dentures; no TMJ abnormality and no dentition abnormality Thyromental Distance: > or= 3.5 Finger Breadths Mallampati Class: II Neck neck extension not limited Respiratory normal respiratory effort; no respiratory distress Auscultation: lungs clear to auscultation bilaterally Cardiovascular Rate/Rhythm: regular rate and regular rhythm Neurologic moves all extremities Psychiatric Orientation: alert and oriented x 3 Testing Laboratory Results 07/27/23 05:26 07/27/23 05:26 Urine Color Dark Yellow 07/26/23 15:39 Urine Appearance Clear (Clear) 07/26/23 15:39 Urine pH 5.5 (4.5-7.5) 07/26/23 15:39 Ur Specific [place] 1.028 (1.000-1.030) 07/26/23 15:39 Urine Protein 2+ (Negative) H 07/26/23 15:39 Urine Glucose (UA) Negative (Negative) 07/26/23 15:39 Urine Ketones 2+ (Negative) H 07/26/23 15:39 Urine Nitrite Negative (Negative) 07/26/23 15:39 Ur Leukocyte Esterase Negative (Negative) 07/26/23 15:39 Urine WBC (Auto) 1-5 /hpf (0-5) 07/26/23 15:39 Urine RBC (Auto) 0-4 /hpf (0-4) 07/26/23 15:39 U Hyaline Cast (Auto) 5-10 /lpf (0-5) H 07/26/23 15:39 U Epithel Cells (Auto) >30 /lpf (0-5) H 07/26/23 15:39 Urine Bacteria (Auto) Negative (Negative) 07/26/23 15:39
--- NOTE | 2023-07-27 10:08 | History & Physical Bridge Note ---
Date of Service July 27, 2023 History & Physical Bridge Note I have examined the patient, reviewed the History & Physical and in the interval since the performance of the History & Physical I have noted the following changes of clinical significance: no changes noted. The patient had presented with nausea and vomiting, imaging does reveal a large amount of stool in the colon and likely fecal impaction within her pelvis. We could certainly provide endoscopic evaluation with upper endoscopy to ensure t hat were not missing for process such as peptic ulcer disease. Another possible cause of the patient's symptoms could be related to one of her medications or any cannabis consumption. We did discuss the risks of upper endoscopy to include bleeding infection perforation pain and need for follow-up studies.
--- NOTE | 2023-07-27 10:31 | GI REPORT ---
Patient Name: Tricia Calero Procedure Date: 07/27/2023 9:57 AM Date of : 1995 Admit Type: Inpatient Age: 27 Gender: Female Attending MD: Ksenia Multani DO, Procedure: Upper GI endoscopy Providers: Ksenia Multani DO Referring MD: Ignacio Dewey Md Indications: Nausea with vomiting Medicines: Monitored Anesthesia Care Complications: No immediate complications. Estimated blood loss: Minimal. Estimated Blood Loss: Estimated blood loss was minimal. Procedure: Pre-Anesthesia Assessment: - Prior to the procedure, a History and Physical was performed, and patient medications, allergies and sensitivities were reviewed. The patient's tolerance of previous anesthesia was reviewed. - The risks and benefits of the procedure and the sedation options and risks were discussed with the patient. All questions were answered and informed consent was obtained. - Patient identification and proposed procedure were verified prior to the procedure by the physician, the nurse and the bulk coolers installer. The procedure was verified in the procedure room. - Pre-procedure physical examination revealed no contraindications to sedation. - ASA Grade Assessment: III - A patient with severe systemic disease. - After reviewing the risks and benefits, the patient was deemed in satisfactory condition to undergo the procedure. - The anesthesia plan was to use monitored anesthesia care (MAC). - Immediately prior to administration of medications, the patient was re-assessed for adequacy to receive sedatives. - The heart rate, respiratory rate, oxygen saturations, blood pressure, adequacy of pulmonary ventilation, and response to care were monitored throughout the procedure. - The physical status of the patient was re-assessed after the procedure. After obtaining informed consent, the endoscope was passed under direct vision. Throughout the procedure, the patient's blood pressure, pulse, and oxygen saturations were monitored continuously. The Endoscope was introduced through the mouth, and advanced to the third part of duodenum. The upper GI endoscopy was accomplished without difficulty. The patient tolerated the procedure well. Findings: The examined esophagus was normal. The Z-line was regular and was found 36 cm from the incisors. Diffuse mild inflammation characterized by granularity was found in the entire examined stomach. Biopsies were taken with a cold forceps for histology. The pathology specimen was placed into Bottle B. Estimated blood loss was minimal. The examined duodenum was normal. Biopsies were taken with a cold forceps for histology. The pathology specimen was placed into Bottle A. Estimated blood loss was minimal. Impression: - Normal esophagus. - Z-line regular, 36 cm from the incisors. - Gastritis, this is likely medication related. Biopsied. - Normal examined duodenum. Biopsied. Recommendation: - Return patient to hospital cleaning for ongoing care. - Advance diet as tolerated. - Await pathology results. Gastritis is likely related to one of the patient's many medications. Possible cause of her symptoms could be cannabis consumption or even fecal impaction. Would recommend a full review of the patient's medications by her psychiatric provider, abstinence from cannabis consumption, and begin a bowel regimen with 2 fleets enemas then MiraLAX twice daily for 2 weeks then 1 time daily thereafter. Ksenia Multani D.O. Ksenia Multani, DO 07/27/2023 10:30:46 AM This report has been signed electronically. Note Initiated On: 07/27/2023 9:57 AM Number of Addenda: 0 I attest to the content of the Intraoperative Record and orders documented therein, exceptions below {[id number]}
--- NOTE | 2023-07-27 10:32 | Communication Note ---
Date of Service: July 27, 2023 Patient underwent upper endoscopy today. Please see the endoscopic report for further details of the examination. Gastritis is likely related to one of the patient's many medications. Possible cause of her symptoms could be cannabis consumption or even fecal impaction. Would recommend a full review of the patient's medications by her psychiatric maria e mccabe, abstinence from cannabis consumption, and begin a bowel regimen with 2 fleets enemas then MiraLAX twice daily for 2 weeks then 1 time daily thereafter. Please call with any questions or concerns GI to sign off
--- NOTE | 2023-07-27 10:38 | Anesthesiology Progress Note ---
Date of Service July 27, 2023 Anesthesia Post Procedure Vital Signs Vital Signs: Temp Pulse Pulse Pulse Resp BP BP 07/27/23 10:27 76 16 104/65 07/27/23 10:01 36.9 C 67 18 102/77 07/27/23 08:16 36.8 C 60 16 106/69 07/26/23 22:05 36.9 C 74 18 118/76 07/26/23 19:04 90 17 114/74 07/26/23 17:01 104 H 17 117/89 07/26/23 14:18 36.8 C 113 H 18 114/80 Pulse Ox O2 Del Method 07/27/23 10:27 97 Room Air 07/27/23 10:01 99 Room Air 07/27/23 08:16 98 Room Air 07/26/23 22:05 97 Room Air 07/26/23 19:04 99 Room Air 07/26/23 17:01 99 Room Air 07/26/23 14:18 98 Room Air Pain Intensity Abdomen: Pain Intensity: 6 Transfer of Care Handoff Completed per policy Notes Mental Status: alert / awake / arousable and participated in evaluation Patient Amnestic to Procedure: Yes Nausea / Vomiting: adequately controlled Pain: adequately controlled Airway Patency, RR, SpO2: stable & adequate BP & HR: stable & adequate Hydration State: stable & adequate Anesthetic Complications: no major complications apparent and Pt Satisfied with anesthetic care
--- NOTE | 2023-07-27 11:00 | Electrocardiogram Report ---
Test Reason : Blood Pressure : / mmHG Vent. Rate : 063 BPM Atrial Rate : 063 BPM P-R Int : 138 ms QRS Dur : 068 ms QT Int : 414 ms P-R-T Axes : 057 077 052 degrees QTc Int : 423 ms Normal sinus rhythm with sinus arrhythmia Possible Old Septal infarct (cited on or before 18-JUL-2023) Abnormal ECG When compared with ECG of 18-JUL-2023 14:45, Vent. rate has decreased BY 70 BPM Borderline Criteria for Septal infarct now present T wave inversion no longer evident in Inferior leads Confirmed by Dandy Mcnamara ([id number]) on 07/27/2023 10:59:51 AM Referred By: REFERRED SELF Confirmed By:Dandy Mcnamara
[2023-07-27] MEDS: SINCALIDE IV SCH (13:40)
[2023-07-27] MEDS: SODIUM CHLORIDE 0.9% IV SCH (13:40)
[2023-07-27] MEDS: LIDOCAINE 2% 2 ML VIAL/AMP(20MG/ML) INFIL ONE (14:48)
[2023-07-27] MEDS: PROPOFOL IV EMULSION 10 MG/ML 20 ML VIAL IV ONE (14:49)
[2023-07-27] MEDS: MIDAZOLAM HCL 1 MG/ML 2ML VIAL ONE (14:49)
[2023-07-27] MEDS: DOCUSATE SODIUM 100 MG CAP PO SCH (14:52)
[2023-07-27] MEDS: SOD PHOSPHATE/SOD BIPHOSPHATE ENEMA 132 ML BTL PR SCH (15:09)
--- NOTE | 2023-07-27 15:24 | Nuclear Medicine Report ---
NM hepatobiliary EF CLINICAL HISTORY: 27 years-old Female with abd pain, n/v. Acute right upper quadrant abdominal pain with nausea and vomiting TECHNIQUE: Following the intravenous administration of 5.2 mCi of technetium-99m Choletec, sequentia l abdominal images were obtained. In order to evaluate the contractile response of the gallbladder, 1.04 mcg of Kinevac was administered by slow intravenous infusion over 30 min starting approximately 60 min after the administration of the radiopharmaceutical. Sequential imaging was continued for 45 min after the start of the Kinevac infusion. COMPARISON: CT 07/26/2023 FINDINGS: There is prompt, uniform accumulation of the tracer by the liver. There is normal filling of the int rahepatic ducts, common bile duct and gallbladder and normal excretion of the tracer into the duodenu m. There is normal contraction of the gallbladder. The calculated gallbladder ejection fraction is 86% (normal >40%). There is no significant enterogastric reflux. IMPRESSION: 1. Normal contractile response of the gallbladder to Kinevac infusion. 2. Normal biliary imaging study. ACT 112: Negative or not required by law. The above report was generated using voice recognition software. It may contain grammatical, syntax o r spelling errors. Electronically signed by: Brenden Blake M.D. 07/27/2023 3:23 PM
--- NOTE | 2023-07-27 16:16 | OB/GYN Consultation ---
Date of Consultation July 27, 2023 Assessment & Plan (1) Nausea, vomiting and diarrhea: (2) Intractable abdominal pain: (3) Pelvic pain: Patient is a 27-year-old -0-1-0 female who was admitted with abdominal and pelvic pain, complaining of vaginal discharge, urine culture from last admission suggesting Gardnerella vaginalis, Vital signs stable afebrile, CT of pelvis normal, Pelvic exam with uterine and adnexal tenderness and small discharge, cultures are collected and pending, Findings may suggest PID, Recommend empiric treatment with IV Flagyl and Rocephin IM, orders are placed, I will follow culture results as they come and adjust treatment as needed, Thank you for the consult. (4) Vaginal discharge: (5) Adnexal tenderness, left: History of Present Illness Reason for Consultation: Abdominal pain Attending Physician: Ignacio Dewey MD History of Present Illness Patient is a 27-year-old -0-1-0 who was admitted yesterday for generalized abdominal pain, nausea vomiting. Pain started about 2 weeks ago when she was admitted and treated for UTI. Pain resolved for few days and then came back for her. She is showing her mid abdomen and periumbilical area as well as lower abdomen with symptoms of pressure. 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 Her last T[employer] BUILDER HELPER visit was in August 2021 at [facility] and she had negative chlamydia cultures and normal Pap smear. She has not been sexually active since December 2022, she was with same partner for 2 years. She had multiple partners before that. She never had STDs, denies history of chlamydia, gonorrhea, herpes. She has been on Depo-Provera since age 14 and she has not been getting menstrual periods. Allergies Allergy/AdvReac Type Severity Reaction Status Date / Time doxycycline Allergy Unknown Unknown Verified 07/18/23 18:15 haloperidol [From Haldol] Allergy Unknown Unknown Verified 07/18/23 18:15 prednisone AdvReac Severe Makes Verified 07/18/23 18:15 mentally unstale bupropion AdvReac Intermediate Muscle Verified 07/18/23 18:15 stiffness clindamycin AdvReac Intermediate VOMIT Verified 07/18/23 18:15 prochlorperazine AdvReac Intermediate NUMB AND Verified 07/18/23 18:15 TINGLY FEELING UNABLE TO MOVE topiramate AdvReac Intermediate Muscle Verified 07/18/23 18:15 stiffness Penicillins AdvReac Unknown Family Verified 07/18/23 18:15 history Home Medications Medication Instructions Recorded Confirmed Type escitalopram oxalate 20 mg tablet 20 mg PO DAILY 12/07/22 07/26/23 History (Lexapro) gabapentin 300 mg capsule 300 mg PO TID 12/07/22 07/26/23 History (Neurontin) levalbuterol HCl 1.25 mg/3 mL 1.25 mg inhalation Q4H PRN Wheezing 12/07/22 07/26/23 History solution for nebulization methylphenidate HCl 5 mg tablet 5 mg PO BID 12/07/22 07/26/23 History (Ritalin) omeprazole 40 mg capsule,delayed 40 mg PO DAILY 12/07/22 07/26/23 History release ivabradine 5 mg tablet (Corlanor) 5 mg PO DAILY 03/31/23 07/26/23 History acetaminophen 500 mg tablet 500 mg PO Q6H PRN pain/fever 07/18/23 07/26/23 History diphenhydramine HCl 25 mg tablet 25 mg PO HS PRN Sleep 07/18/23 07/26/23 History (Benadryl Allergy) lithium carbonate 300 mg tablet See Rx Instructions .Route .COMPLEX 07/18/23 07/26/23 History lorazepam 1 mg tablet 1 mg PO DAILY PRN Anxiety 07/18/23 07/26/23 History medroxyprogesterone 150 mg/mL 150 mg IM .[id number] 07/18/23 07/26/23 History intramuscular syringe zolpidem 5 mg tablet 5 mg PO HS PRN Sleep 07/18/23 07/26/23 History Patient History Medical History (Updated 07/27/23 @ 16:38 by Pilo Espinosa MD) Drug overdose, intentional Acute psychosis Asthma Previous known suicide attempt Methamphetamine abuse Opiate abuse, continuous Alcohol abuse Benzodiazepine abuse Cocaine abuse UTI (urinary tract infection) Right ankle pain Post-op pain Borderline personality disorder Bipolar 1 disorder, depressed, moderate History of suicide attempt H/O aspiration pneumonitis Social phobia ODD (oppositional defiant disorder) ADHD (attention deficit hyperactivity disorder) PTSD (post-traumatic stress disorder) Asthma Surgical History [place] teeth removed Family History Other No pertinent family history in first degree relatives Social History Smoking Status: Current every day smoker Tobacco Type: E-cigarettes / Vaping Second Hand Exposure: No; Do You Dip or Chew Tobacco: No; Tobacco Cessation Education Requested by Patient: No Hx Alcohol Use: No Hx Substance Use: Yes Last Used Substance: Just Prior to Arrival Preferred Language: Macedonian Communication Ability: Effective Communication Ability Comment: KANDY Visual Impairment: No Limitations Hearing Ability: Normal Hot Dipper Required: No Beliefs That Will Affect Care: None marital status: Single Current Living Situation: Parent current occupational status: employed How many Children do You have: 0 Other Information That Helps Us Care for You: No Feels Safe at Home: Yes Safety Concerns: Feels Safe At This Time Gender Identity: Female Assistive Devices: None Review of Systems Constitutional: as per Subjective / HPI Physical Exam Constitutional: WD/WN, vitals as above well developed, + thin and com fortable Gastrointestinal (Abdomen): normal bowel sounds, soft, nontender, no hepatosplenomegaly Genitourinary: normal external appearance Speculum/Bimanual Exam: normal appearance of the vagina (small discharge), normal appearance of the cervix, + cervical tenderness and + adnexal tenderness uterine tenderness Results & Data Vital Signs (Past 12 Hours) Vital Signs Temp Pulse Resp BP Pulse Ox O2 Del Method 07/27/23 15:38 36.8 C 88 16 122/75 96 Room Air 07/27/23 11:01 36.7 C 74 16 109/71 97 Room Air 07/27/23 10:51 74 16 101/70 100 Room Air 07/27/23 10:42 85 16 119/73 100 Room Air 07/27/23 10:27 76 16 104/65 97 Room Air 07/27/23 10:01 36.9 C 67 18 102/77 99 Room Air 07/27/23 08:16 36.8 C 60 16 106/69 98 Room Air Laboratory Results 07/27/23 07/27/23 07/26/23 Range/Units 05:26 00:35 17:35 WBC 4.95 (4.8-10.8) K/ul RBC 4.24 (4.20-5.40) M/uL Hgb 12.2 (12.0-16.0) g/dl Hct 36.7 L (37.0-47.0) % MCV 86.6 (80.0-100.0) fL MCH 28.8 (25.0-34.0) pg MCHC 33.2 (32.0-36.0) g/dL RDW Std Deviation 39.7 (36.4-46.3) fL RDW Coeff of Dov 12.6 (11.5-14.5) % Plt Count 170 (130-400) K/uL MPV 10.8 (9.4-12.4) fL Immature Gran % (Auto) 0.2 % Neut % (Auto) 39.4 % Lymph % (Auto) 50.5 % [place] % (Auto) 7.5 % Eos % (Auto) 1.8 % Baso % (Auto) 0.6 % Neut # (Auto) 1.95 (1.40-6.50) K/uL Lymph # (Auto) 2.50 (1.20-3.40) K/uL [place] # (Auto) 0.37 (0.11-0.59) K/uL Eos # (Auto) 0.09 (0.00-0.50) K/uL Baso # (Auto) 0.03 (0.00-0.20) K/uL Immature Gran # (Auto) 0.01 (0.01-0.20) K/uL ESR < 1 (0-20) mm/hr Sodium 138 (136-145) mmol/L Potassium 3.5 (3.5-5.1) mmol/L Chloride 110 H (98-107) mmol/L Carbon Dioxide 23 (21-32) mmol/L Anion Gap 5 (3-11) BUN 8 (6-23) mg/dl Creatinine 0.54 L (0.6-1.2) mg/dl Est Cr Clr Drug Dosing 130.0 ml/min Est GFR ( Amer) > 150.0 ml/min Est GFR (Non-Af Amer) 130.2 ml/min BUN/Creatinine Ratio 14.8 (10-20) Glucose 88 (70-99(Fasting)) mg/dl Calcium 8.1 L (8.6-10.3) mg/dl Magnesium 1.9 (1.7-2.4) mg/dl C-Reactive Protein < 0.50 (0-0.5) mg/dl Stl C. cayetanensis PCR Not Detected (NotDetected) Stool Rotavirus A PCR Not Detected (NotDetected) Stl Adenov F 40/41 PCR Not Detected (NotDetected) Stool Astrovirus (PCR) Not Detected (NotDetected) Stool Campylobacter PCR Not Detected (NotDetected) Stl C. diff Tox B Gene Cancelled Stool Cryptosporidium PCR Not Detected (NotDetected) Stl E.coli Shiga Tox PCR Not Detected (NotDetected) Stl Enterotoxigenic E PCR Not Detected (NotDetected) Stool EPEC (PCR) Not Detected (NotDetected) Stool EAEC (PCR) Not Detected (NotDetected) Stl E. histolytica PCR Not Detected (NotDetected) Stool Giardia Lamblia PCR Not Detected (NotDetected) Stool Salmonella PCR Not Detected (NotDetected) Stool Sapovirus (PCR) Not Detected (NotDetected) Stl P. shigelloides PCR Not Detected (NotDetected) Stl Shigella/EIEC PCR Not Detected (NotDetected) St Y.enterocolitica PCR Not Detected (NotDetected) Stool Vibrio (PCR) Not Detected (NotDetected) Stl Vibrio cholerae PCR Not Detected (NotDetected) Stl Norovirus GI/GII PCR Not Detected (NotDetected) Urine Opiates Screen Pos H (Neg) U Codeine Confrm GC/MS Pending Ur Morphine (GC/MS) Pending Ur Hydrocodone (GC/MS) Pending Ur Norhydrocodone Pending Ur Noroxycodone Pending Urine Oxycodone (GC/MS) Pending U Oxymorphone GC/MS Pending Ur Methadone, Qual Neg (Neg) Ur Hydromorphone (GC/MS) Pending Urine Barbiturates Neg (Neg) Ur Phencyclidine (PCP) Neg (Neg) U Amphetamin/Meth Scrn Neg (Neg) MDMA (Ecstasy) Screen Neg (Neg) U Benzodiazepines Scrn Neg (Neg) [place] < 0.1 L (0.6-1.2) mmol/L Ur Cocaine Metabolite Neg (Neg) U Marijuana (THC) Screen Pos H (Neg) U Marijuana THC Carboxy Pending Drug Screen Comment Pending Ethyl Alcohol mg/dL < 10.0 (<10.0) mg/dl IgA 257.0 (70-400) mg/dl SUNIL Screen Pending ANCA Pending Tiss Transglutamin IgA Pending
[2023-07-27] MEDS: METHYLCELLULOSE POWDER 454 GM JAR PO SCH (16:53)
--- NOTE | 2023-07-27 16:53 | Hospitalist Progress Note ---
Date of Service July 27, 2023 Assessment & Plan (1) Nausea, vomiting and diarrhea: Plan: 27-year-old female with past medical history significant for intermittent asthma, POTS, B12 deficiency, vitamin D deficiency, bilateral carpal tunnel syndrome, bipolar 2 disorder, PTSD, ADHD, social phobia, oppositional defiant disorder, depression, suicide attempt by drug ingestion, intentional drug overdose, borderline personality disorder, history of substance abuse presents with ongoing abdominal pain a/w nausea and vomiting for about a week now. Patient was in the ER on 04/17 2024 with abdominal pain and was sent home w/ antibiotic for possible UTI. She continues to have persistent abdominal pain with nausea, vomiting, poor appetite. Hemodynamics appears stable at presentation. She is being managed for the following: Nausea and, vomiting, diarrhea, abdominal pain Possible PID Patient came in with abdominal pain associated with nausea and vomiting. See above. Admitting CT abdomen pelvis repeated today which again shows mild bladder wall thickening which could be due to underdistention Admitting CTA chest no PE. HIDA scan normal. Lipase normal. Stool studies negative. Drug screen positive for marijuana and opiates. Status post EGD scope 07/27/2023: Esophagus, gastritis, biopsied.. Normal examined duodenum, biopsied. Follow-up HPE exam on the EGD scope biopsy GI evaluated, recommendations are abstinence from cannabis use, bowel regimen. POSTIE evaluated, likely PID, on metronidazole and 1 dose Rocephin. Pelvic discharge sent for cultures. Follow-up pelvic culture and EGD scope biopsy exam. Clear diet, advance diet as tolerated. IV fluid until p.o. intake improves. Patient advised to maintain abstinence from cannabis use. Continue with bowel regimen. POTS: On ivabradine, QTc 423. Continue home meds. Avoid QTc prolonging drugs. Bipolar 2 disorder, ADHD, PTSD, Borderline personality disorder On lithium, Lexapro, Ritalin. Continue. Ativan as needed DVT prophylaxis: SCDs Disposition: Medical floor Full code Admission and Anticipated Discharge Date Admission Date: July 26, 2023 Subjective Patient was seen and examined at bedside. Patient just came back from EGD scope at the time of bedside exam, complaint of ongoing nausea and vomiting until today morning, reports last loose stool last night, denies cough, denies pain and burning with passing urine. Patient has been afebrile and vitals fairly stable. Physical Exam Physical Exam: General- Not in distress. Head- atraumatic Eyes- PERRL. ENT- oropharynx clear Neck- supple, no JVD. Lungs- clear to auscultation no wheezing or crackles. Heart- regular rhythm; no murmur, no gallop. Abdomen- normal bowel sounds, soft, diffuse tender more so at RUQ mild guarding, no distension. Extremities- no pretibial edema, no erythema seen. Neuro- alert, oriented x 3; PERRL, no facial palsy; no dysarthria; moves extremities. Results & Data Results & Data Vital Signs (Past 12 Hours) Vital Signs Temp Pulse Resp BP Pulse Ox O2 Del Method 07/27/23 15:38 36.8 C 88 16 122/75 96 Room Air 07/27/23 11:01 36.7 C 74 16 109/71 97 Room Air 07/27/23 10:51 74 16 101/70 100 Room Air 07/27/23 10:42 85 16 119/73 100 Room Air 07/27/23 10:27 76 16 104/65 97 Room Air 07/27/23 10:01 36.9 C 67 18 102/77 99 Room Air 07/27/23 08:16 36.8 C 60 16 106/69 98 Room Air
[2023-07-27] MEDS: PROMETHAZINE HCL 12.5 MG in SODIUM CHLORIDE 0.9% 50 ML IV PRN (16:54)
[2023-07-27] MEDS: metroNIDAZOLE 500 MG/100 ML BAG IV SCH (18:47)
[2023-07-27] MEDS: cefTRIAXone SODIUM 350 MG/ML IM IM ONE (19:32)
[2023-07-27] MEDS: POLYETHYLENE (MIRALAX) 17 GM PACK PO SCH (20:15)
[2023-07-27] MEDS: diphenhydrAMINE Capsule 25 MG CAP PO PRN (20:21)
[2023-07-28 07:12] LABS: Hemoglobin 12.6 g/dl (12.0-16.0); Mean Corpuscular Hemoglobin 28.9 pg (25.0-34.0); Mean Corpuscular Hgb Conc 33.2 g/dL (32.0-36.0); Mean Corpuscular Volume 87.2 fL (80.0-100.0); Platelet Count 179 K/uL (130-400); RDW Coefficient of Variation 12.5 % (11.5-14.5); RDW Standard Deviation 39.8 fL (36.4-46.3); Red Blood Count 4.36 M/uL (4.20-5.40)
[2023-07-28 07:29] LABS: BUN Creatinine Ratio 5.2 (10-20); Calcium 8.2 mg/dl (8.6-10.3); Est GFR (African American) 147.4 ml/min; Est GFR (Non-African American) 127.2 ml/min; Magnesium 1.8 mg/dl (1.7-2.4); Phosphorus 3.4 mg/dl (2.5-4.9); Potassium 3.4 mmol/L (3.5-5.1)
[2023-07-28] MEDS: POTASSIUM CHLORIDE CRTAB 20 MEQ TABCR PO STA (09:52)
[2023-07-28 11:05] LABS: Bacterial Vaginosis RNA POSITIVE (Negative)
[2023-07-28 11:20] LABS: Candida glabrata RNA Negative (Negative); Candida species group RNA Negative (Negative); Trichomonas vaginalis RNA Negative (Negative)
[2023-07-28 11:57] LABS: Chlam trach RNA(Genit,Ureth,Ur Not Detected (NotDetected); GC(Neis gon)RNA(Genit,Ureth,Ur Not Detected (NotDetected)
[2023-07-28 12:17] LABS: Mycoplasma Genitalium RNA Negative (Negative)
--- NOTE | 2023-07-28 17:06 | Hospitalist Progress Note ---
Date of Service July 28, 2023 Assessment & Plan (1) Nausea, vomiting and diarrhea: Plan: 27-year-old female with past medical history significant for intermittent asthma, POTS, B12 deficiency, vitamin D deficiency, bilateral carpal tunnel syndrome, bipolar 2 disorder, PTSD, ADHD, social phobia, oppositional defiant disorder, depression, suicide attempt by drug ingestion, intentional drug overdose, borderline personality disorder, history of substance abuse presents with ongoing abdominal pain a/w nausea and vomiting for about a week now. Patient was in the ER on 04/17 2024 with abdominal pain and was sent home w/ antibiotic for possible UTI. She continues to have persistent abdominal pain with nausea, vomiting, poor appetite. Hemodynamics appears stable at presentation. She is being managed for the following: Nausea and, vomiting, diarrhea, abdominal pain Possible PID Patient came in with abdominal pain associated with nausea and vomiting. See above. Admitting CT abdomen pelvis repeated today which again shows mild bladder wall thickening which could be due to underdistention Admitting CTA chest no PE. HIDA scan normal. Lipase normal. Stool studies negative. Drug screen positive for marijuana and opiates. Status post EGD scope 07/27/2023: Esophagus, gastritis, biopsied.. Normal examined duodenum, biopsied. Follow-up HPE exam on the EGD scope biopsy GI evaluated, recommendations are abstinence from cannabis use, bowel regimen. SU[employer]ENT [employer] evaluated, likely PID, on metronidazole and 1 dose Rocephin. Pelvic discharge sent for cultures. No growth so far Follow-up pelvic culture and EGD scope biopsy exam. Duodenal biopsy with no diagnostic abnormality. Stomach biopsy with reactive gastropathy. Will advance diet to soft, discontinue IV fluid. Patient reporting improvement in her nausea and vomiting and some improvement in her abdominal pain. Patient advised to maintain abstinence from cannabis use. Continue with bowel regimen. POTS: On ivabradine, QTc 423. Continue home meds. Avoid QTc prolonging drugs. Bipolar 2 disorder, ADHD, PTSD, Borderline personality disorder On lithium, Lexapro, Ritalin. Continue. Ativan as needed DVT prophylaxis: SCDs Disposition: Medical floor, possible DC tomorrow. Diet advanced today. Full code Admission and Anticipated Discharge Date Admission Date: July 26, 2023 Subjective Patient was seen and examined at bedside. Patient was lying in bed, on room air, resting comfortably, NAD. Patient reports no vomiting, improvement in her nausea, slight improvement in her abdominal pain. Patient denies cough, denies pain and burning with passing urine. Patient has been afebrile and vitals fairly stable. Physical Exam Physical Exam: General- Not in distress. Head- atraumatic Eyes- PERRL. ENT- oropharynx clear Neck- supple, no JVD. Lungs- clear to auscultation no wheezing or crackles. Heart- regular rhythm; no murmur, no gallop. Abdomen- normal bowel sounds, soft, diffuse tender more so at RUQ mild guarding, no distension. Extremities- no pretibial edema, no erythema seen. Neuro- alert, oriented x 3; PERRL, no facial palsy; no dysarthria; moves extremities. Results & Data Results & Data Vital Signs (Past 12 Hours) Vital Signs Temp Pulse Resp BP Pulse Ox O2 Del Method 07/28/23 14:34 36.6 C 83 16 114/79 98 Room Air 07/28/23 07:27 36.7 C 67 16 98/63 L 95 Room Air
[2023-07-29 07:58] LABS: BUN Creatinine Ratio 5.7 (10-20); Calcium 8.8 mg/dl (8.6-10.3); Creatinine Clr Calc Pharmacy 100.3 ml/min; Est GFR (African American) 138.6 ml/min; Est GFR (Non-African American) 119.6 ml/min; Magnesium 1.8 mg/dl (1.7-2.4); Potassium 3.6 mmol/L (3.5-5.1)
[2023-07-29] MEDS: DICYCLOMINE HCL 10 MG CAP PO PRN (10:44)
[2023-07-29] MEDS: PANTOprazole 40 MG TAB PO SCH (10:44)
[2023-07-29 14:38] LABS: Codeine Urine NEGATIVE ng/mL (<50); Hydrocodone Urine NEGATIVE ng/mL (<50); Hydromor Urine NEGATIVE ng/mL (<50); Marijuana Quant, GCMS Urine 46 ng/mL (<5); Morphine Urine 4820 ng/mL (<50); Norhydrocodone Conf Ur NEGATIVE ng/mL (<50); Noroxycodone Urine NEGATIVE ng/mL (<50); Oxycodone Urine NEGATIVE ng/mL (<50); Oxymorph Urine NEGATIVE ng/mL (<50)
--- NOTE | 2023-07-29 16:13 | Hospitalist Progress Note ---
Date of Service July 29, 2023 Assessment & Plan (1) Nausea, vomiting and diarrhea: Plan: 27-year-old female with past medical history significant for intermittent asthma, POTS, B12 deficiency, vitamin D deficiency, bilateral carpal tunnel syndrome, bipolar 2 disorder, PTSD, ADHD, social phobia, oppositional defiant disorder, depression, suicide attempt by drug ingestion, intentional drug overdose, borderline personality disorder, history of substance abuse presents with ongoing abdominal pain a/w nausea and vomiting for about a week now. Patient was in the ER on 04/17 2024 with abdominal pain and was sent home w/ antibiotic for possible UTI. She continues to have persistent abdominal pain with nausea, vomiting, poor appetite. Hemodynamics appears stable at presentation. She is being managed for the following: Nausea and, vomiting, diarrhea, abdominal pain Possible PID Patient came in with abdominal pain associated with nausea and vomiting. See above. Admitting CT abdomen pelvis repeated today which again shows mild bladder wall thickening which could be due to underdistention Admitting CTA chest no PE. HIDA scan normal. Lipase normal. Stool studies negative. Drug screen positive for marijuana and opiates. Status post EGD scope 07/27/2023: Esophagus, gastritis, biopsied.. Normal examined duodenum, biopsied. Follow-up HPE exam on the EGD scope biopsy GI evaluated, recommendations are abstinence from cannabis use, bowel regimen. 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 Pelvic discharge sent for cultures. GV noted on culture. Follow-up pelvic culture and EGD scope biopsy exam. Duodenal biopsy with no diagnostic abnormality. Stomach biopsy with reactive gastropathy. Will advance diet to soft, discontinue IV fluid. Patient reporting improvement in her nausea and vomiting and some improvement in her abdominal pain. Patient advised to maintain abstinence from cannabis use. Continue with bowel regimen. POTS: On ivabradine, QTc 423. Continue home meds. Avoid QTc prolonging drugs. Bipolar 2 disorder, ADHD, PTSD, Borderline personality disorder On lithium, Lexapro, Ritalin. Continue. Ativan as needed DVT prophylaxis: SCDs Disposition: Medical floor, possible DC tomorrow. ADAT. Full code Admission and Anticipated Discharge Date Admission Date: July 26, 2023 Subjective Patient was seen and examined at bedside. Patient was lying in bed, on room air, resting comfortably, NAD. Patient reports no vomiting, some nausea, some improvement in her abdominal pain. Patient denies cough, denies pain and burning with passing urine. Patient has been afebrile and vitals fairly stable. Pt didn't try advancement of diet yesterday, today got some solid food per pt and she would like to stay today to see how she does. Physical Exam Physical Exam: General- Not in distress. Head- atraumatic Eyes- PERRL. ENT- oropharynx clear Neck- supple, no JVD. Lungs- clear to auscultation no wheezing or crackles. Heart- regular rhythm; no murmur, no gallop. Abdomen- normal bowel sounds, soft, diffuse tender more so at RUQ mild guarding -- improving, no distension. Extremities- no pretibial edema, no erythema seen. Neuro- alert, oriented x 3; PERRL, no facial palsy; no dysarthria; moves extremities. Results & Data Results & Data Vital Signs (Past 12 Hours) Vital Signs Temp Pulse Resp BP Pulse Ox O2 Del Method 07/29/23 15:02 37.0 C 81 18 113/78 97 Room Air 07/29/23 07:58 37.1 C 75 18 109/77 95 Room Air
[2023-07-30 07:36] LABS: BUN Creatinine Ratio 8.4 (10-20); Calcium 8.9 mg/dl (8.6-10.3); Creatinine Clr Calc Pharmacy 84.6 ml/min; Est GFR (African American) 112.8 ml/min; Est GFR (Non-African American) 97.3 ml/min; Potassium 3.8 mmol/L (3.5-5.1)
--- NOTE | 2023-07-30 13:13 | Discharge Summary ---
Date of Service July 30, 2023 Admission HPI Per Admitting Provider 27-year-old female with past medical history significant for intermittent asthma, POTS, B12 deficiency, vitamin D deficiency, bilateral carpal tunnel syndrome, bipolar 2 disorder, PTSD, ADHD, social phobia, oppositional defiant disorder, depression, history of suicide attempt by drug ingestion, intentional drug overdose, borderline personality disorder, history of substance abuse presents with ongoing abdominal pain ,nausea and vomiting for about a week now. Patient was in the ER on 04/[address] scan showed gallbladder wall thickening possibly from underdistention. She was sent home with antibiotic for possible UTI. Followed up with PCP and abdominal ultrasound done which showed mild gallbladder adenomyomatosis and mild ascites. Ultrasound was reviewed by GI and thought that there was no ascites. And recommended to get a CT scan to get better picture and also HIDA scan and to check for ESR, CRP, ANCA, SUNIL and ASMA to rule out vasculitis and also to rule out pelvic inflammatory disease.. And advised if CT scan shows no ascites no further workup needed. The patient's abdomen pain is not getting better she came to the ER today. Says having lot of nausea vomiting. She has small amount of blood in the stools but she attributes it to her hemorrhoids. Having severe abdominal pain radiating to back. . Not able to eat anything. Whenever she tries to eat abdominal pain gets worse. Denies any fevers. She has some shortness of breath and chest tightness and attributes to her asthma. No headache. Vision is okay. No runny nose or sore throat. Micturating okay. Hemodynamics are okay. Past medical history. As mentioned above Past surgical history. Bilateral carpal tunnel surgery. Colonoscopy. Dental specialty. EGD. Tonsillectomy. Upper GI endoscopy. Social history. Quit smoking in 2019. Smokes quarter pack a day for 6 years. No alcohol use. No drug use. Family history. Mother had irritable bowel syndrome. Admission Exam Per Admitting Provider General- Not in distress. Head- atraumatic Eyes- PERRL. ENT- oropharynx clear Neck- supple, no JVD. Lungs- clear to auscultation no wheezing or crackles. Heart- regular rhythm; no murmur, no gallop. Abdomen- normal bowel sounds, soft, diffuse tender mild guarding no distension. Extremities- no pretibial edema, no erythema seen. Neuro- alert, oriented x 3; PERRL, no facial palsy; no dysarthria; moves extremities. Principal Diagnosis Nausea, vomiting, diarrhea, abdominal pain Possible PID History of POTS Discharge Exam General- Not in distress. Head- atraumatic Eyes- PERRL. ENT- oropharynx clear Neck- supple, no JVD. Lungs- clear to auscultation no wheezing or crackles. Heart- regular rhythm; no murmur, no gallop. Abdomen- normal bowel sounds, soft, diffuse tender more so at RUQ mild guarding -- improving signficantly, no distension. Extremities- no pretibial edema, no erythema seen. Neuro- alert, oriented x 3; PERRL, no facial palsy; no dysarthria; moves extremities. Discharge Data Allergies Allergy/AdvReac Type Severity Reaction Status Date / Time doxycycline Allergy Unknown Unknown Verified 07/18/23 18:15 haloperidol [From Haldol] Allergy Unknown Unknown Verified 07/18/23 18:15 prednisone AdvReac Severe Makes Verified 07/18/23 18:15 mentally unstale bupropion AdvReac Intermediate Muscle Verified 07/18/23 18:15 stiffness clindamycin AdvReac Intermediate VOMIT Verified 07/18/23 18:15 prochlorperazine AdvReac Intermediate NUMB AND Verified 07/18/23 18:15 TINGLY FEELING UNABLE TO MOVE topiramate AdvReac Intermediate Muscle Verified 07/18/23 18:15 stiffness Penicillins AdvReac Unknown Family Verified 07/18/23 18:15 history Consultations 07/27/23 08:00 Consult Gastroenterology Routine Consult Obstetrics Routine Procedures Performed Operation Date: 07/27/23 16:45 Actual Procedures p EGD Biopsy Cytology - Ksenia Multani DO Ordered Studies 07/26/23 17:21 CT Abd and Pelvis [CT abd pelvis IV con only] Stat CT angio chest PE protocol Stat Hospital Course (1) Nausea, vomiting and diarrhea: 27-year-old female with past medical history significant for intermittent asthma, POTS, B12 deficiency, vitamin D deficiency, bilateral carpal tunnel syndrome, bipolar 2 disorder, PTSD, ADHD, social phobia, oppositional defiant disorder, depression, suicide attempt by drug ingestion, intentional drug overdose, borderline personality disorder, history of substance abuse presents with ongoing abdominal pain a/w nausea and vomiting for about a week now. Patient was in the ER on 04/17 2024 with abdominal pain and was sent home w/ antibiotic for possible UTI. She continues to have persistent abdominal pain with nausea, vomiting, poor appetite. Hemodynamics appears stable at presentation. She was managed for the following: Nausea and, vomiting, diarrhea, abdominal pain Possible PID Patient came in with abdominal pain associated with nausea and vomiting. See above. Admitting CT abdomen pelvis repeated today which again shows mild bladder wall thickening which could be due to underdistention Admitting CTA chest no PE. HIDA scan normal. Lipase normal. Stool studies negative. Drug screen positive for marijuana and opiates. Status post EGD scope 07/27/2023: Esophagus, gastritis, biopsied.. Normal examined duodenum, biopsied. GI evaluated, recommendations are abstinence from cannabis use, bowel regimen. MEDICATION ADMINISTRATION PROFESSIONAL evaluated, likely PID, on metronidazole and 1 dose Rocephin. Pelvic discharge sent for cultures. GV noted on culture. d/w manager lean/ob 07/30, discharging patient on metronidazole to complete 14 day therapy. Follow-up pelvic culture and EGD scope biopsy exam. Duodenal biopsy with no diagnostic abnormality. Stomach biopsy with reactive gastropathy. Tolerating advancement of diet well. Patient reporting improvement in her nausea and no vomiting and good improvement in her abdominal pain. Patient advised to maintain abstinence from cannabis use. Continue with bowel regimen. POTS: On ivabradine, QTc 423. Continue home meds. Avoid QTc prolonging drugs. Bipolar 2 disorder, ADHD, PTSD, Borderline personality disorder On lithium, Lexapro, Ritalin. Continue. Ativan as needed DVT prophylaxis: SCDs Full code Patient is being discharged home with following instruction at the point of discharge: Follow-up with your primary care physician within a week time and likely you will need labs CBC/CMP/magnesium/phosphorus. You have been evaluated by MEDICATION ADMINISTRATION PROFESSIONAL, you are being treated in the line of PID, complete the metronidazole as prescribed. Follow-up with MEDICATION ADMINISTRATION PROFESSIONAL in 2 to 4 weeks time if no improvement in her belly pain. Coordinate with your PCP office for referral. Also you have been evaluated by GI doctor, you underwent EGD scope and gastritis was noted. Strong recommendation to stop using cannabis. Continue with bowel regimen, nausea medications and pantoprazole. Take your medications as prescribed. Please make sure that you are able to get your medications today by calling your pharmacy before you leave the hospital so that your treatment continuity is not broken. Home Health Attestation I certify that this patient is under my care and that I, or a physicians business assistant working with me, had a face to-face encounter that meets the home health [id number]-urac encounter requirements with this patient. The encounter with the patient was in whole, or in part, for the following medical condition, which is the primary reason for home health care (list med ical condition): I certify that, based on my findings, the following services are medically necessary home health services: My clinical findings support the need for the above services because: Further, I certify that my clinical findings support that this patient is homebound (i.e. absences from home require considerable and taxing effort and are for medical reasons or alevism services or infrequently or of short duration when for other reasons) because: Certification for Home Health Services: Based on the above findings, I certify that this patient is confined to the home and needs intermittent fpc care, physical therapy and/or speech the rapy or continues to need occupational therapy. The patient is under my care, and I have initiated the establishment of the plan of care. This patient will be followed by a physician who will periodically review the plan of care. Total Time Total Time Spent Total Time Spent (In Minutes): 45 Discharge Plan Discharge Items Patient Disposition: Home - Self-Care Reason For Visit: ABDOMINAL PAIN, N/V AND DIARRHEA Discharge Diagnosis: Nausea, vomiting, diarrhea, abdominal pain Possible PID History of POTS Condition on Discharge: Fair Activity: Resume your previous activity Non-emergency contact: Primary Care Provider Call non-emergency contact if: you have any medication questions, your symptoms worsen and your temperature is above 101.5 Follow-up/Referrals: Quincy Clements DO [Primary Care Provider] - (Date & Time 08/05/2023 11:00 AM Provider Quincy Clements DO Department [facility] ) Diet: Regular and Low Fat Addtl Attending Provider Instructions: Follow-up with your primary care physician within a week time and likely you will need labs CBC/CMP/magnesium/phosphorus. You have been evaluated by MEDICATION ADMINISTRATION PROFESSIONAL, you are being treated in the line of PID, complete the metronidazole as prescribed. Follow-up with MEDICATION ADMINISTRATION PROFESSIONAL in 2 to 4 weeks time if no improvement in her belly pain. Coordinate with your PCP office for referral. Also you have been evaluated by GI doctor, you underwent EGD scope and gastritis was noted. Strong recommendation to stop using cannabis. Continue with bowel regimen, nausea medications and pantoprazole. Take your medications as prescribed. Please make sure that you are able to get your medications today by calling your pharmacy before you leave the hospital so that your treatment continuity is not broken. Pending Studies at Discharge: No Stand-Alone Forms: My [facility], Work/School Release, Smoking Cessation Medications and DC Order Prescriptions: New dicyclomine 10 mg Capsule 10 mg PO BID PRN (Reason: abdominal pain) Qty: 30 0RF pantoprazole 40 mg Tablet,Delayed Release (Dr/Ec) 40 mg PO BID Qty: 60 0RF polyethylene glycol 3350 [Miralax] 17 gram Powder In Packet 17 g PO BID 12 Days Qty: 24 0RF metronidazole 500 mg tablet 500 mg PO Q8H 11 Days Qty: 33 0RF oxycodone 5 mg tablet 5 mg PO BID PRN (Reason: pain (scale score 7-10)) 5 Days Qty: 10 0RF Continued methylphenidate HCl [Ritalin] 5 mg tablet 5 mg PO BID gabapentin [Neurontin] 300 mg capsule 300 mg PO TID levalbuterol HCl 1.25 mg/3 mL solution for nebulization 1.25 mg INHALATION Q4H PRN (Reason: Wheezing) escitalopram oxalate [Lexapro] 20 mg tablet 20 mg PO DAILY acetaminophen [Tylenol Ex Str Rapid Release] 500 mg Tablet 500 mg PO Q6H PRN (Reason: pain/fever) zolpidem 5 mg tablet 5 mg PO HS PRN (Reason: Sleep) lorazepam 1 mg tablet 1 mg PO DAILY PRN (Reason: Anxiety) lithium carbonate 300 mg tablet See Rx Instructions .ROUTE .COMPLEX Rx Instructions: Take 600mg by mouth in the morning and 600mg by mouth at bedtime medroxyprogesterone 150 mg/mL syringe 150 mg IM .[id number] Corlanor 5 mg tablet 5 mg PO DAILY diphenhydramine HCl [Benadryl Allergy] 25 mg Tablet 25 mg PO HS PRN (Reason: Sleep) Qty: 30 0RF Discontinued omeprazole 40 mg capsule,delayed release(DR/EC) 40 mg PO DAILY Discharge Orders: Discharge Order (Routine); Ordered 07/30/23 Ordered By: Ignacio Dewey Admission Data Admit Date/Time: 07/26/23 20:51 Attending Provider: Ignacio Dewey Admit Provider: Zeb Mo Primary Care Provider: Quincy Clements Other Providers: Carolann Carlson; Ricky Mesa; Merlene Ash; Roseann De La Fuente; Gabriela Martin; Sharlene Dc; KeiraJeovanny; Jay Aguayo; sKenia Multani; Paola Viveros; Jared Sheht; Chyna Barahona; She Negron; Cindy Simpson; Yudith Padilla; Austyn Hardy; John Meeks; Jeremias Michel; Brenda Card; Chelly Dominguez Jr; Wade Sandy; Aarti Griffin; Constanza Pederson; Jay Reynoso; Pilo Espinosa; Ronal Santos; Maximilian Vegas; Nevaeh Arenas; Silvia Barros; Mary Lou Levin; Valarie Wilson; Rere Li; Paty Hutton; Mary Boggs; Chaz Martinez; Sheila Merlos
[2023-08-01 18:27] LABS: ANCA Screen Negative (Negative); Anti Nuclear Antibody Screen POSITIVE (NEGATIVE)
--- NOTE | 2023-08-04 12:52 | Coding Query ---
CODING QUERY To promote full compliance with coding requirements relating to patient care, provider participation is requested in all cases of medical billing coder uncertainty. Please assist us with the question(s) below: Coding Question(s): There is documentation on the H&P of significant history, including Bipolar 2 Disorder, and documentation of, "Bipolar 2 disorder, ADHD, PTSD, Borderline personality disorder On lithium, Lexapro, Ritalin Ativan as needed", however, there is also documentation, under the Medical History of, "Bipolar 1 disorder, depressed, moderate". Please specify below, in your clinical opinion, to clarify the Bipolar Disorder diagnosis: ( ) most likely Bipolar 2 Disorder (x ) most likely Bipolar 1 Disorder, depressed, moderate ( ) Other: Please Specify Physician's Response(s): Thank you Constanza Hurst Principal Diagnosis: "that condition established after study, to be chiefly responsible for occasioning the admission of the patient to the hospital for care." Co-Existing Principal Diagnosis: "when two or more diagnoses equally meet the criteria for principal diagnosis as determined by the circumstances of admission, diagnostic work up, and/or therapy provided, and the Alphabetic Index, Tabular List, or another coding guideline does not provide sequencing direction, any one of the diagnoses may be sequenced first." "When the physician has documented what appears to be a current diagnosis in the body of the record, but has not included the diagnosis in the final diagnostic statement, the physician should be asked whether the diagnosis should be added." (Source [facility] 2 QTR90. p3-4) HEYDID
--- NOTE | 2023-08-04 13:18 | Coding Query ---
BMI To promote full compliance with coding requirements relating to patient care, physician participation is requested in all cases of paralegal uncertainty. Please assist us with the question(s) below: Please place an X within the parenthesis (x). If other, please document: BMI 18.6 was documented in this record for this patient. If the BMI is significant, please check the box that provides a more specific associated diagnosis: ( ) Overweight/Obese ( ) Obesity ( ) Morbid obesity ( ) Obesity Hypoventilation Syndrome (OHS) ( x) Heathy weight, not significant ( ) Underweight/Thin ( ) Other, please specify Thank you Constanza MARTINEZ
== END 2023-07-30 14:17 | disposition home or self-care (01) | DRG 758 ==
LOC: ED 14:15 → 3W 20:51